=== PATIENT | male | born 1970 | race Caucasian/White ===

== ENCOUNTER 2020-12-25 01:46 | Emergency (ER) | payer MEDICARE, MEDICAID, SELFPAY ==
[2020-12-25 01:56] VITALS: BP 137/89; PULSE 79; RESP 16; TEMP 36.6; O2SAT 100; BMI 23.5
--- NOTE | 2020-12-25 03:00 | ED_ITS ---
HPI - General Adult General Chief complaint: General Medical Stated complaint: HIP PAIN Time Seen by Provider: 12/25/20 03:00 Source: patient Mode of arrival: EMS Limitations: no limitations History of Present Illness HPI narrative: Patient homeless got wet in the rain came here has he was feeling cold no other complaint other than left hip pain which is chronic. No history of injuries patient ambulatory on arrival patient temperature was 97.9 degrees Review of Systems Review of Systems: Yes all other systems are reviewed and are negative [facility] Social History Social History Advance Directives: No Advance Directives Information Provided: Yes Physical Exam Vital Signs: Vital Signs: Last Vital Signs Temp 97.9 F 12/25/20 01:56 Pulse 79 12/25/20 01:56 Resp 16 12/25/20 01:56 BP 137/89 12/25/20 01:56 Pulse Ox 100 12/25/20 01:56 Body Mass Index 23.5 Appearance: Alert. Oriented X3. No acute distress. Eyes: PERRLA, No Nystagmus ENT: Pharynx normal. Oral Mucosa moist Neck: Normal inspection. Neck supple. CVS: Normal heart rate and rhythm. Pulses normal. Respiratory: No respiratory distress. Equal air entry bilateral, no wheezing/rales/rhonchi Abdomen: Soft and nontender. Bowel sounds are present, no mass palpable, no CVA tenderness Skin: Skin warm and dry. Normal skin color. Normal skin turgor. Extremities: No lower extremity edema. No calf tenderness ,good range of movements of the hip Neuro: Oriented X 3. No motor deficit. Medical Decision Making MDM Narrative Medical decision making narrative: Patient with no active complaints will discharge patient home Discharge Plan Discharge Clinical Impression: Normal exam Patient Disposition: Home, Self-Care Instructions: Normal Exam (ED) Additional Instructions: Follow-up with PCP if any concerns
[2020-12-25 06:39] VITALS: RESP 16
== END 2020-12-25 07:24 | disposition home or self-care (01) ==
PROVIDERS: Emergency Provider Internal Medicine
DX: M25.552 Pain in left hip (principal)
CPT/HCPCS: 99283; 99284

== ENCOUNTER 2021-01-12 00:42 | Emergency (ER) | payer MEDICARE, MEDICAID, SELFPAY ==
--- NOTE | 2021-01-12 01:09 | ED.ALCOHOL ---
HPI - Alcohol General Stated Complaint: ETOH INTOXICATION Time Seen by Provider: 01/12/21 01:09 History of Present Illness HPI narrative: Patient is 50 years old positive EtOH. Patient denies any suicidal homicidal ideation. Was feeling cold in the rain. Sent in for further evaluation. Review of Systems Review of Systems: No fever no chills no chest pain or shortness of breath. No coughing or congestion or upper respiratory symptoms. Yes all other systems are reviewed and are negative [facility] Past Medical History Attestation statement: The following information was validated with the patient. Social History Social History Advance Directives: No Advance Directives Information Provided: No Physical Exam Vital Signs: Appearance: Alert. Oriented X3. No acute distress. Eyes: Pupils equal, round and reactive to light. ENT: Pharynx normal. Neck: Normal inspection. Neck supple. No lymph nodes noted. No crepitus CVS: Normal heart rate and rhythm. Pulses normal. Normal S1 and S2 Respiratory: No respiratory distress. Breath sounds normal. No Wheezing. No rales Abdomen: Soft and nontender. No rigidity. No distention. good BS x4 Skin: Skin warm and dry. Normal skin color. Normal skin turgor. Extremities: No lower extremity edema. Neurovascular intact to all extremities. No Lacerations. No Rash Neuro: Oriented X 3. No motor deficit. No sensory deficit. Moving all extermities. No slurred speech MDM - Alcohol MDM Narrative Medical decision making narrative: Patient awaiting clinical sobriety. In stable condition. No distress. Differential Diagnosis Differential diagnosis: Likely alcohol intoxication Discharge Plan Discharge Clinical Impression: Alcohol intoxication Patient Disposition: Home, Self-Care Instructions: Alcohol Intoxication (ED) Referrals: Physician,None [Primary Care Provider] - 2 days (Please stop drinking alcohol.)
[2021-01-12 01:36] VITALS: BP 137/88; PULSE 87; RESP 18; TEMP 36.7; O2SAT 97; BMI 26.6
--- NOTE | 2021-01-12 01:38 | PC.NURSE ---
IN ROOM FOR EVAL. PT UP TO CHANGE IN RESTROOM. PT ALERT, RESPIRATIONS EASY, N/L. PT WITH STEADY EVEN GAIT TO RESTROOM WITHOUT DIFFICULTY. PT RETURNS TO [facility] AND MAKING PHONE CALLS FOR [facility]. WILL CONTINUE TO MONITOR PT.
== END 2021-01-12 06:47 | disposition home or self-care (01) ==
PROVIDERS: Emergency Provider Emergency Medicine Emergency Medical Services
DX: F10.129 Alcohol abuse with intoxication, unspecified (principal); Z71.41 Alcohol abuse counseling and surveillance of alcoholic
CPT/HCPCS: 99283

== ENCOUNTER 2021-06-01 21:38 | Emergency (ER) | payer MEDICARE, MEDICAID, SELFPAY ==
[2021-06-01 21:43] VITALS: BP 119/73; BP 133/81; PULSE 85; PULSE 88; RESP 16; TEMP 36.5; O2SAT 100; O2SAT 97; BMI 25.8
--- NOTE | 2021-06-01 22:11 | ED.GENADULT ---
HPI - General Adult General Chief complaint: ETOH/Substance Use <ESCOBAR Gao - Last Filed: 06/02/21 00:42> Stated complaint: CRISIS,SUBSTANCE,FOUND OUTSIDE USE PER EMS <ESCOBAR Gao - Last Filed: 06/02/21 00:42> Time Seen by Provider: 06/01/21 21:52 <ESCOBAR Gao - Last Filed: 06/02/21 00:42> Source: patient, EMS and police <ESCOBAR Gao - Last Filed: 06/02/21 00:42> Mode of arrival: EMS <ESCOBAR Gao - Last Filed: 06/02/21 00:42> Limitations: other (Patient not a great historian as he is intoxicated.) <ESCOBAR Gao Last Filed: 06/02/21 00:42> History of Present Illness HPI narrative: This is a 50-year-old male who was brought in by ambulance to [place] police for drug use. According to police they received a call as patient's friend was concerned that he was using cocaine and alcohol for a few days. Patient was [place] sleeping at the gas station and was brought into the hospital. Patient has no complaints. He tells me he is fine and he wants to leave. There is no signs of acute trauma. Patient appears acutely intoxicated therefore an accurate review of systems was not obtained but when I asked patient if anything hurts he tells me know. He tells me he was just sleeping at the gas station like he usually does. He tells me he drinks daily, tells me he drinks all day long and is unable to quantify how much he is drink today. Last drink just prior to his arrival. He also tells me he tried crack and cocaine. Denies medical complaints at this time. Awake, alert and oriented. Denies SI and HI. Denies visual, auditory and tactile hallucinations. <ESCOBAR Gao - Last Filed: 06/02/21 00:42> Onset (ago): unknown <ESCOBAR Gao Last Filed: 06/02/21 00:42> Relieving factors: none <ESCOBAR Gao Last Filed: 06/02/21 00:42> Exacerbating factors: none <ESCOBAR Gao - Last Filed: 06/02/21 00:42> Associated symptoms: denies other symptoms <ESCOBAR Gao - Last Filed: 06/02/21 00:42> Treatments prior to arrival: none <ESCOBAR Gao - Last Filed: 06/02/21 00:42> Related Data Allergies/adverse reactions: Allergies Allergy/AdvReac Type Severity Reaction Status Date / Time No Known Allergies Allergy Verified 06/01/21 21:58 <ESCOBAR Gao - Last Filed: 06/02/21 00:42> Review of Systems Review of Systems: Patient too intoxicated to obtain accurate review of systems. <ESCOBAR Gao - Last Filed: 06/02/21 00:42> Yes Unobtainable due to mental status <ESCOBAR Gao - Last Filed: 06/02/21 00:42> [facility] Past Medical History Attestation statement: The following information was validated with the patient. <ESCOBAR Gao - Last Filed: 06/02/21 00:42> Source: old records reviewed and nursing notes reviewed <ESCOBAR Gao - Last Filed: 06/02/21 00:42> Social History Social History: Social History Advance Directives: No <ESCOBAR Gao - Last Filed: 06/02/21 00:42> Physical Exam ED Vital Signs: Vital Signs - 24 hr 06/01/21 21:43 06/01/21 23:01 06/02/21 00:03 Temperature 97.7 F Pulse Rate 88 90 Respiratory Rate 16 14 16 Blood Pressure 133/81 131/83 Pulse Oximetry 97 98 06/02/21 06:07 Temperature Pulse Rate 81 Respiratory Rate 18 Blood Pressure 146/95 H Pulse Oximetry 98 BMI result Body Mass Index 25.8 Vital signs stable. <ESCOBAR Gao - Last Filed: 06/02/21 00:42> Vital Signs - 24 hr 06/01/21 21:43 06/01/21 23:01 06/02/21 00:03 Temperature 97.7 F Pulse Rate 88 90 Respiratory Rate 16 14 16 Blood Pressure 133/81 131/83 Pulse Oximetry 97 98 06/02/21 06:07 Temperature Pulse Rate 81 Respiratory Rate 18 Blood Pressure 146/95 H Pulse Oximetry 98 BMI result Body Mass Index 25.8 <Ebony Lang MD - Last Filed: 06/02/21 06:20> Appearance: Alert.? Oriented X3.? No acute distress.? Patient evidently intoxicated, smells like alcohol, slurring his words however no acute distress. No evidence signs of trauma. Head: Normocephalic, atraumatic, no step-offs or deformities Eyes: Pupils equal, round and reactive to light.? Extraocular movements intact. ENT: Pharynx normal.? Neck: Normal inspection.? Neck supple.? CVS: Normal heart rate and rhythm.? Pulses normal.? Respiratory: No respiratory distress.? Breath sounds normal.? Abdomen: Soft and nontender.? Skin: Skin warm and dry.? Normal skin color.? Normal skin turgor.? Extremities: No lower extremity edema.? No calf ttp. 5/5 strength to bilateral upper and lower extremities Back: No midline tenderness, no C-spine tenderness, full range of motion, no CVA tenderness bilaterally Neuro: Oriented X 3.? No motor deficit.? No sensory deficit. CN 2-12 intact . Patient following commands appropriately. <ESCOBAR Gao - Last Filed: 06/02/21 00:42> Course Reevaluation(s) Reevaluation #1: Patient ambulating to bathroom with steady gait. No medical complaints. Feeling slightly anxious. Ativan will be given at this time. <ESCOBAR Gao - Last Filed: 06/02/21 00:42> Time: 23:31 <ESCOBAR Gao - Last Filed: 06/02/21 00:42> Reevaluation #2: Patient is making weird noises, rolling around the bed, walking around the room, hazard to self and others. Will give Zyprexa at this time p.o. as he is willing to take this medication. Patient's laboratory studies appear to be at baseline. Patient's MCV noted to be elevated likely secondary to alcohol abuse. Patient's ethanol level 298. Urine and urine toxicology pending. At this time patient will be placed in physician observation to allow more time for patient to sober up, received fluids, and speak to the behavioral health team. At time observation was started patient was given Zyprexa to help him relax and sleep vital signs were stable physical examination unchanged from initial. <ESCOBAR Gao - Last Filed: 06/02/21 00:42> Time: 00:40 <ESCOBAR Gao - Last Filed: 06/02/21 00:42> Reevaluation #3: Report given to Dr. Lang. <ESCOBAR Gao - Last Filed: 06/02/21 00:42> Report given to Dr. Lang. Patient re-evaluated and is found to be clinically sober and hemodynamically stable for discharge. He declines detox at this time. <Ebony Lang MD - Last Filed: 06/02/21 06:20> Time: 06:20 <Ebony Lang MD - Last Filed: 06/02/21 06:20> Medical Decision Making MDM Narrative Medical decision making narrative: 2200 50 yo m BIBA by ems and police for drug use , bystanders called police concern for him. He was found sleeping where he usually sleeps at a gas station. No evidence signs of trauma. Alert and oriented x3. Telling me he does not want to be here. Tells me he used alcohol crack and cocaine. No medical complaints at this time. Denies SI and HI. Physical examination benign. Plan at this time is to obtain basic labs, drug screen, COVID, ethanol and UA. <ESCOBAR Gao - Last Filed: 06/02/21 00:42> Medical Records Medical records reviewed: Yes I reviewed the patient's medical records. <ESCOBAR Gao - Last Filed: 06/02/21 00:42> Lab Data Lab results reviewed: Yes I reviewed the patient's lab results. <ESCOBAR Gao - Last Filed: 06/02/21 00:42> Result diagrams: : 06/01/21 22:50 06/01/21 22:50 <ESCOBAR Gao - Last Filed: 06/02/21 00:42> Labs: Lab Results 06/01/21 06/01/21 06/01/21 Range/Units 22:50 22:50 22:50 WBC 6.1 (4.8-10.8) X10*3/uL RBC 4.41 L (4.60-5.80) X10*6/uL Hgb 15.0 (14.0-18.0) g/dl Hct 44.0 (42.0-52.0) % MCV 99.8 H (80.0-98.0) fL MCH 34.0 H (27.0-33.0) pg MCHC 34.1 (31.0-36.0) g/dl RDW 11.4 (11.0-16.0) % Plt Count 307 (160-400) X10*3/uL MPV 9.3 L (9.4-12.4) fL Immature Gran % (Auto) 0.3 (0.0-0.4) % Neut % (Auto) 57.3 (45-73) % Lymph % (Auto) 34.0 (20-40) % [place] % (Auto) 6.2 (2-11) % Eos % (Auto) 1.5 (0-4) % Baso % (Auto) 0.7 (0-2) % Lymph # (Auto) 2.1 (1.2-4.9) X10*3/uL [place] # (Auto) 0.4 (0.1-1.2) X10*3/uL Eos # (Auto) 0.1 (0.0-0.4) X10*3/uL Baso # (Auto) 0.0 (0.0-0.2) X10*3/uL Abs Immat Gran (auto) 0.02 (0.00-0.03) X10*3/uL Absolute Neuts (auto) 3.5 (2.0-8.3) x10*3/uL Absolute Nucleated RBC 0.000 (0.0-0.012) X10*3/uL Nucleated RBC % (auto) 0.0 (0.0-0.2) /100WBC Sodium 143 (135-145) mmol/L Potassium 4.0 (3.3-5.1) mmol/L Chloride 105 (96-108) mmol/L Carbon Dioxide 26 (22-29) mmol/L Anion Gap 16 (12-20) BUN 10 (9-16) mg/dL Creatinine 0.81 (0.5-1.4) mg/dL Estim Creat Clear Calc 100.6 Estimated GFR > 60 Random Glucose 91 (60-115) mg/dL Calcium 10.0 (8.4-10.2) mg/dL Total Bilirubin 0.3 (0.0-1.0) mg/dL AST 78 H (5-37) U/L ALT 53 H (0-40) U/L Alkaline Phosphatase 65 (39-117) U/L Total Protein 8.0 (6.5-8.0) g/dL Albumin 4.7 (3.5-5.0) g/dL Ethyl Alcohol 298 mg/dL <ESCOBAR Gao - Last Filed: 06/02/21 00:42> Lab Results 06/01/21 06/01/21 06/01/21 Range/Units 22:50 22:50 22:50 WBC 6.1 (4.8-10.8) X10*3/uL RBC 4.41 L (4.60-5.80) X10*6/uL Hgb 15.0 (14.0-18.0) g/dl Hct 44.0 (42.0-52.0) % MCV 99.8 H (80.0-98.0) fL MCH 34.0 H (27.0-33.0) pg MCHC 34.1 (31.0-36.0) g/dl RDW 11.4 (11.0-16.0) % Plt Count 307 (160-400) X10*3/uL MPV 9.3 L (9.4-12.4) fL Immature Gran % (Auto) 0.3 (0.0-0.4) % Neut % (Auto) 57.3 (45-73) % Lymph % (Auto) 34.0 (20-40) % [place] % (Auto) 6.2 (2-11) % Eos % (Auto) 1.5 (0-4) % Baso % (Auto) 0.7 (0-2) % Lymph # (Auto) 2.1 (1.2-4.9) X10*3/uL [place] # (Auto) 0.4 (0.1-1.2) X10*3/uL Eos # (Auto) 0.1 (0.0-0.4) X10*3/uL Baso # (Auto) 0.0 (0.0-0.2) X10*3/uL Abs Immat Gran (auto) 0.02 (0.00-0.03) X10*3/uL Absolute Neuts (auto) 3.5 (2.0-8.3) x10*3/uL Absolute Nucleated RBC 0.000 (0.0-0.012) X10*3/uL Nucleated RBC % (auto) 0.0 (0.0-0.2) /100WBC Sodium 143 (135-145) mmol/L Potassium 4.0 (3.3-5.1) mmol/L Chloride 105 (96-108) mmol/L Carbon Dioxide 26 (22-29) mmol/L Anion Gap 16 (12-20) BUN 10 (9-16) mg/dL Creatinine 0.81 (0.5-1.4) mg/dL Estim Creat Clear Calc 100.6 Estimated GFR > 60 Random Glucose 91 (60-115) mg/dL Calcium 10.0 (8.4-10.2) mg/dL Total Bilirubin 0.3 (0.0-1.0) mg/dL AST 78 H (5-37) U/L ALT 53 H (0-40) U/L Alkaline Phosphatase 65 (39-117) U/L Total Protein 8.0 (6.5-8.0) g/dL Albumin 4.7 (3.5-5.0) g/dL Ethyl Alcohol 298 mg/dL <Ebony Lang MD - Last Filed: 06/02/21 06:20> Critical Care Time Critical Care Time Critical Care Time: No <ESCOBAR Gao - Last Filed: 06/02/21 00:42> Discharge Plan Discharge Clinical Impression: Alcoholic intoxication, Opiate abuse, continuous <ESCOBAR Gao - Last Filed: 06/02/21 00:42> Patient Disposition: Home, Self-Care <ESCOBAR Gao - Last Filed: 06/02/21 00:42> Instructions: Cocaine Abuse (ED), Alcohol Intoxication (ED) <ESCOBAR Gao - Last Filed: 06/02/21 00:42> Additional Instructions: Stop doing drugs and drinking alcohol and follow-up with your primary care provider. <ESCOBAR Gao - Last Filed: 06/02/21 00:42>
[2021-06-01 22:57] LABS: MANUAL DIFF FLAG NO
[2021-06-01 22:59] LABS: Basophils Percent Auto 0.7 % (0-2); Eosinophils Absolute Auto 0.1 X10*3/uL (0.0-0.4); Eosinophils Percent Auto 1.5 % (0-4); Imm Gran Abs Auto 0.02 X10*3/uL (0.00-0.03); Imm Gran Pct Auto 0.3 % (0.0-0.4); Lymphocytes Absolute Auto 2.1 X10*3/uL (1.2-4.9); Mean Corpuscular HGB Conc 34.1 g/dl (31.0-36.0); Mean Corpuscular Volume 99.8 fL (80.0-98.0); Mean Platelet Volume 9.3 fL (9.4-12.4); Monocytes Absolute Auto 0.4 X10*3/uL (0.1-1.2); Monocytes Percent Auto 6.2 % (2-11); Neutrophils Absolute Auto 3.5 x10*3/uL (2.0-8.3); Neutrophils Percent Auto 57.3 % (45-73); Platelet Count 307 X10*3/uL (160-400); Red Blood Count 4.41 X10*6/uL (4.60-5.80); Red Cell Distribution Width 11.4 % (11.0-16.0); White Blood Count 6.1 X10*3/uL (4.8-10.8)
[2021-06-01 23:01] VITALS: RESP 14
[2021-06-01 23:14] LABS: Alanine Aminotransferase 53 U/L (0-40); Albumin Level 4.7 g/dL (3.5-5.0); Alkaline Phosphatase 65 U/L (39-117); Anion Gap 16 (12-20); Aspartate Amino Transferase 78 U/L (5-37); Bilirubin Total 0.3 mg/dL (0.0-1.0); Blood Urea Nitrogen 10 mg/dL (9-16); Carbon Dioxide 26 mmol/L (22-29); Chloride 105 mmol/L (96-108); Creatinine Clr Calc Pharmacy 100.6; Estimated Glomerular Filt Rate > 60; Glucose Random 91 mg/dL (60-115); Sodium 143 mmol/L (135-145)
[2021-06-01 23:17] LABS: Ethanol 298 mg/dL
[2021-06-01] MEDS: LORazepam 1 MG TABLET 2 MG PO (23:39)
[2021-06-02 00:03] VITALS: BP 131/83; PULSE 90; RESP 16; O2SAT 98
[2021-06-02] MEDS: OLANZapine 5 MG TABLET PO (01:03)
[2021-06-02 06:07] VITALS: BP 146/95; PULSE 81; RESP 18; O2SAT 98
== END 2021-06-02 06:30 | disposition home or self-care (01) ==
PROVIDERS: Physician Assistant; Emergency Provider Student in an Organized Health Care Education/Training Program
DX: F10.220 Alcohol dependence with intoxication, uncomplicated (principal); Y90.8 Blood alcohol level of 240 mg/100 ml or more; F41.9 Anxiety disorder, unspecified; F11.10 Opioid abuse, uncomplicated
CPT/HCPCS: 36415; 80053; 82077; 85025; 96360; 99283; 99284

== ENCOUNTER 2021-06-03 15:48 | Emergency (ER) | payer MEDICARE, MEDICAID, SELFPAY | END 2021-06-03 16:49 | disposition left against medical advice (07) | PROVIDERS: Emergency Provider Emergency Medicine | DX: M25.559 Pain in unspecified hip (principal) ==

== ENCOUNTER 2021-06-03 22:07 | Emergency (ER) | payer MEDICARE, MEDICAID, SELFPAY ==
[2021-06-03 22:35] VITALS: BP 103/74; PULSE 104; RESP 19; TEMP 36.9; O2SAT 95; BMI 16.1
--- NOTE | 2021-06-04 00:12 | ED.GENADULT ---
HPI - General Adult General Chief complaint: General Medical Stated complaint: Eval Time Seen by Provider: 06/04/21 00:12 Source: patient Mode of arrival: EMS Limitations: no limitations History of Present Illness HPI narrative: diarrhea and heartburn for the past 2 days. Had watery diarrhea in the ambulance. Onset (ago): hour(s) Pain Consistency: intermittent Associated symptoms: nausea/vomiting and other (diarrhea) Related Data Previous Rx's Medication Instructions Recorded ondansetron 4 mg disintegrating 4 mg PO Q8H 4 Days #12 tab 06/04/21 tablet Allergies Allergy/AdvReac Type Severity Reaction Status Date / Time No Known Allergies Allergy Verified 06/01/21 21:58 Review of Systems Constitutional: Constitutional: Reports no additional constitutional complaints Eyes: Eyes: Reports no additional eye complaints ENT: Denies dizziness Cardiovascular: Cardiovascular: Reports no additional cardiovascular complaints Respiratory: Respiratory: Reports as per HPI Gastrointestinal: Gastrointestinal: Reports no additional gastrointestinal complaints Musculoskeletal: Musculoskeletal: Reports no additional musculoskeletal complaints Integumentary/Breasts: Skin/Breast: Denies rash Neurologic: Reports system reviewed and no additional complaints, except as documented, Denies dizziness and Denies Sensory deficit (Neuro) Psychiatric: Psychiatric: Denies anxiety [facility] Social History Social History Advance Directives: No Physical Exam ED Vital Signs: Vital Signs - 24 hr 06/03/21 22:35 Temperature 98.4 F Pulse Rate 104 H Respiratory Rate 19 Blood Pressure 103/74 Pulse Oximetry 95 BMI result Body Mass Index 16.1 Const Other: male looking older than stated age Nutritional Appearance: thin Orientation/consciousness: oriented to person and patient oriented x3 Limitations: no limitations HENMT Head: Yes normal to inspection Ears: external ears normal General nose exam: Normal external nose present Mouth: Normal oral and palatal mucosa present and oropharynx normal Throat: Yes posterior oropharynx normal Eyes General: appearance normal, both eyes and all related structures Neck Neck: Yes normal visual inspection Chest Chest palpation & inspection: normal inspection of the chest Resp Auscultation: clear to auscultation bilaterally Cardio Jugular venous distension: no JVD Rate: regular rate Rhythm: regular rhythm Heart sounds: S1 normal heart sound present and S2 normal heart sound present GI Inspection: Yes normal to inspection Palpation (GI): Soft to palpation, nontender and No hepatosplenomegaly present Auscultation: normal bowel sounds General: Yes no CVA tenderness Back/Spine/Pelvis Back: no CVA tenderness Skin General skin exam: no rashes or lesions noted Neuro General: oriented to person and patient oriented x3 Cranial nerves: Yes CN's II-XII intact bilaterally Motor exam (neuro): 5/5 motor strength present throughout Sensory Exam: No Sensory deficit (Neuro) Extrem General: Yes normal to inspection Psych Appearance: grossly normal Course Reevaluation(s) Reevaluation #1: no further vomiting or diarrhea, will dc home Time: 06:01 Discharge Plan Discharge Clinical Impression: Nausea vomiting and diarrhea Patient Disposition: Home, Self-Care Instructions: Acute Nausea and Vomiting (ED), Acute Diarrhea (ED) Prescriptions: New ondansetron 4 mg tablet,disintegrating 4 mg PO Q8H 4 Days Qty: 12 0RF Referrals: Physician,Unknown J [Primary Care Provider] - 1 week
[2021-06-04] MEDS: Famotidine 20 MG TABLET PO (00:57)
[2021-06-04] MEDS: Ondansetron ODT 4 MG TAB.RAPDIS TRANSLINGU (00:57)
== END 2021-06-04 06:43 | disposition home or self-care (01) ==
PROVIDERS: Emergency Provider Emergency Medicine
DX: R19.7 Diarrhea, unspecified (principal); R11.2 Nausea with vomiting, unspecified
CPT/HCPCS: 99283

== ENCOUNTER 2021-09-19 20:36 | Emergency (ER) | payer MEDICARE, MEDICAID, SELFPAY ==
--- NOTE | ~2021-09-19 | XR_ITS ---
EXAMINATION: XR CHEST CLINICAL INFORMATION: Chest pain COMPARISON: None TECHNIQUE: Frontal view of the chest was obtained. FINDINGS: Normal symmetric lung volumes. No parenchymal consolidation. Nipple shadows present. No pleural effusion. No pneumothorax. Cardiomediastinal silhouette and pulmonary vascularity are within normal limits. No acute osseous abnormalities. XR/XR chest 1V IMPRESSION: No acute finding
--- NOTE | 2021-09-19 20:43 | ED.ALCOHOL ---
HPI - Alcohol General Chief Complaint: ETOH/Substance Use Stated Complaint: etoh Source: patient and EMS Mode of arrival: EMS Limitations: no limitations History of Present Illness HPI narrative: 51-year-old male presents via EMS for ETOH and substance abuse. Patient is requesting detox. MD complaint: alcohol intoxication and desires rehab Last drink: Just prior to admission Chronic alcohol use: Yes Previous visits for alcohol intoxication: Yes Recent trauma: No Associated symptoms: abdominal pain Treatments prior to arrival: none Related Data Previous Rx's Medication Instructions Recorded ondansetron 4 mg disintegrating 4 mg PO Q8H 4 days #12 tabs 06/04/21 tablet Allergies Allergy/AdvReac Type Severity Reaction Status Date / Time No Known Allergies Allergy Verified 06/01/21 21:58 Review of Systems Review of Systems: Constitutional: No Fever, No Chills ENT/Mouth: No sore throat, No Rhinorrhea Eyes: No Eye Pain, No Swelling, No Redness Cardiovascular: No Chest Pain, No SOB Respiratory: No Cough, No Sputum Gastrointestinal: No Nausea, No Vomiting, No Diarrhea, positive abdominal Pain Genitourinary: No Dysuria, No Hematuria Musculoskeletal: No joint pain, No Myalgias, No Joint Swelling Skin: No Skin Lesions, No rash Neuro: No Weakness, No Numbness, No Loss of Consciousness, No Dizziness, No Headache Psych: Positive alcohol cocaine and heroin abuse, No Anxiety, No Depression, No SI/HI/AH/VH Heme/Lymph: No Bruising, No Bleeding,No Lymphadenopathy Endocrine: No Polyuria, No Polydipsia Yes all other systems are reviewed and are negative [facility] Past Medical History Attestation statement: The following information was validated with the patient. Source: old records reviewed Social History Social History Advance Directives: No Advance Directives Information Provided: No Physical Exam ED Vital Signs: Vital Signs - 24 hr 09/19/21 23:39 Pulse Rate 97 Respiratory Rate 18 Blood Pressure 156/87 H Pulse Oximetry 100 Oxygen Delivery Method Room Air BMI result Body Mass Index 25.8 Appearance: Alert. Oriented X3. Intoxicated. Unkempt. Eyes: Pupils equal, round and reactive to light. Sclera nonicteric. ENT: Pharynx normal. Neck: Normal inspection. Neck supple. CVS: Tachycardic heart rate and rhythm. Pulses normal. Respiratory: No respiratory distress. Breath sounds normal. Abdomen: Soft and left upper quadrant tenderness. Skin: Skin warm and dry. Normal skin color. Normal skin turgor. Extremities: No lower extremity edema. Moves all extremities against resistance. Neuro: No motor deficit. No sensory deficit. Cranial nerves 2-12 intact. Course Course Course Narrative: 51-year-old male presents via EMS for alcohol intoxication requesting detox. States that he drinks approximately a gal of vodka per day, and smokes cocaine and heroin. Patient is requesting detox. He is complaining of 9/10 abdominal pain. Physical exam indicates some tenderness to the left upper quadrant without rebound rigidity or distention. Will order lab values to rule out pancreatitis. Will order D EKG and chest x-ray. 20:50 detox bed is available. However there is no ability to get this patient to the bed CT as there is no lift services or taxis. Patient will be discharged to detox in the morning. Lab values are unremarkable. HENRIQUEZ positive for fentanyl and cocaine. No symptoms of withdrawal at this time 00:08. Metabolized to [facility] or to detox facility in the morning. Physician observation started at this time. MDM - Alcohol MDM Narrative Medical decision making narrative: Heroin and cocaine withdrawal Differential Diagnosis Differential diagnosis: Likely alcohol dependence, hypomagnesemia and alcohol intoxication Medical Records Attestation: I reviewed the patient's medical records. Lab Data Attestation: I reviewed the patient's lab results. Result diagrams: 09/19/21 21:28 09/19/21 21:28 Labs: Lab Results 09/19/21 09/19/21 09/19/21 Range/Units 21:27 21:28 21:28 WBC 4.2 L (4.8-10.8) X10*3/uL RBC 4.21 L (4.60-5.80) X10*6/uL Hgb 14.0 (14.0-18.0) g/dl Hct 40.4 L (42.0-52.0) % MCV 96.0 (80.0-98.0) fL MCH 33.3 H (27.0-33.0) pg MCHC 34.7 (31.0-36.0) g/dl RDW 12.0 (11.0-16.0) % Plt Count 160 D (160-400) X10*3/uL MPV 9.1 L (9.4-12.4) fL Immature Gran % (Auto) 0.0 (0.0-0.4) % Neut % (Auto) 41.5 L (45-73) % Lymph % (Auto) 46.6 H (20-40) % [place] % (Auto) 10.0 (2-11) % Eos % (Auto) 1.2 (0-4) % Baso % (Auto) 0.7 (0-2) % Lymph # (Auto) 2.0 (1.2-4.9) X10*3/uL [place] # (Auto) 0.4 (0.1-1.2) X10*3/uL Eos # (Auto) 0.1 (0.0-0.4) X10*3/uL Baso # (Auto) 0.0 (0.0-0.2) X10*3/uL Abs Immat Gran (auto) 0.00 (0.00-0.03) X10*3/uL Absolute Neuts (auto) 1.8 L (2.0-8.3) x10*3/uL Absolute Nucleated RBC 0.000 (0.0-0.012) X10*3/uL Nucleated RBC % (auto) 0.0 (0.0-0.2) /100WBC Sodium 142 (135-145) mmol/L Potassium 3.5 (3.3-5.1) mmol/L Chloride 102 (96-108) mmol/L Carbon Dioxide 26 (22-29) mmol/L Anion Gap 18 (12-20) BUN 13 (9-16) mg/dL Creatinine 0.82 (0.5-1.4) mg/dL Estim Creat Clear Calc 105.4 Estimated GFR > 60 Random Glucose 97 (60-115) mg/dL Calcium 8.7 D (8.4-10.2) mg/dL Magnesium 1.7 (1.6-2.6) mg/dL Total Bilirubin 0.4 (0.0-1.0) mg/dL Direct Bilirubin 0.2 (0.0-0.5) mg/dL AST 116 H (5-37) U/L ALT 62 H (0-40) U/L Alkaline Phosphatase 63 (39-117) U/L Troponin I High Sens (<3.5-35.0) ng/L Total Protein 6.9 (6.5-8.0) g/dL Albumin 3.8 (3.5-5.0) g/dL Lipase 34 (8-78) U/L Urine Color Urine Appearance Urine pH (5.0-8.0) Ur Specific [place] (1.005-1.025) Urine Protein (NEG-TRACE) MG/DL Urine Glucose (UA) (NEG) MG/DL Urine Ketones (NEG) MG/DL Urine Blood (NEG) Urine Nitrite (NEG) Ur Leukocyte Esterase (NEG) Urine Opiates Screen (Not Detect) Urine Fentanyl Screen (Not Detect) Ur Barbiturates Screen (Not Detect) Ur Phencyclidine Scrn (Not Detect) Ur Amphetamines Screen (Not Detect) U Benzodiazepines Scrn (Not Detect) Urine Cocaine Screen (Not Detect) U Marijuana (THC) Screen (Not Detect) Ethyl Alcohol mg/dL Influenza Type A (PCR) NEGATIVE (Negative) Influenza Type B (PCR) NEGATIVE (Negative) RSV RNA Qual (PCR) NEGATIVE (Negative) SARS-CoV-2 RNA (RT-PCR) NEGATIVE (Negative) 09/19/21 09/19/21 09/19/21 Range/Units 21:28 21:28 21:48 WBC (4.8-10.8) X10*3/uL RBC (4.60-5.80) X10*6/uL Hgb (14.0-18.0) g/dl Hct (42.0-52.0) % MCV (80.0-98.0) fL MCH (27.0-33.0) pg MCHC (31.0-36.0) g/dl RDW (11.0-16.0) % Plt Count (160-400) X10*3/uL MPV (9.4-12.4) fL Immature Gran % (Auto) (0.0-0.4) % Neut % (Auto) (45-73) % Lymph % (Auto) (20-40) % [place] % (Auto) (2-11) % Eos % (Auto) (0-4) % Baso % (Auto) (0-2) % Lymph # (Auto) (1.2-4.9) X10*3/uL [place] # (Auto) (0.1-1.2) X10*3/uL Eos # (Auto) (0.0-0.4) X10*3/uL Baso # (Auto) (0.0-0.2) X10*3/uL Abs Immat Gran (auto) (0.00-0.03) X10*3/uL Absolute Neuts (auto) (2.0-8.3) x10*3/uL Absolute Nucleated RBC (0.0-0.012) X10*3/uL Nucleated RBC % (auto) (0.0-0.2) /100WBC Sodium (135-145) mmol/L Potassium (3.3-5.1) mmol/L Chloride (96-108) mmol/L Carbon Dioxide (22-29) mmol/L Anion Gap (12-20) BUN (9-16) mg/dL Creatinine (0.5-1.4) mg/dL Estim Creat Clear Calc Estimated GFR Random Glucose (60-115) mg/dL Calcium (8.4-10.2) mg/dL Magnesium (1.6-2.6) mg/dL Total Bilirubin (0.0-1.0) mg/dL Direct Bilirubin (0.0-0.5) mg/dL AST (5-37) U/L ALT (0-40) U/L Alkaline Phosphatase (39-117) U/L Troponin I High Sens < 3.5 (<3.5-35.0) ng/L Total Protein (6.5-8.0) g/dL Albumin (3.5-5.0) g/dL Lipase (8-78) U/L Urine Color Urine Appearance Urine pH (5.0-8.0) Ur Specific [place] (1.005-1.025) Urine Protein (NEG-TRACE) MG/DL Urine Glucose (UA) (NEG) MG/DL Urine Ketones (NEG) MG/DL Urine Blood (NEG) Urine Nitrite (NEG) Ur Leukocyte Esterase (NEG) Urine Opiates Screen Not Detected (Not Detect) Urine Fentanyl Screen POSITIVE H (Not Detect) Ur Barbiturates Screen Not Detected (Not Detect) Ur Phencyclidine Scrn Not Detected (Not Detect) Ur Amphetamines Screen Not Detected (Not Detect) U Benzodiazepines Scrn Not Detected (Not Detect) Urine Cocaine Screen POSITIVE H (Not Detect) U Marijuana (THC) Screen Not Detected (Not Detect) Ethyl Alcohol 390 H* mg/dL Influenza Type A (PCR) (Negative) Influenza Type B (PCR) (Negative) RSV RNA Qual (PCR) (Negative) SARS-CoV-2 RNA (RT-PCR) (Negative) 09/19/21 Range/Units 21:49 WBC (4.8-10.8) X10*3/uL RBC (4.60-5.80) X10*6/uL Hgb (14.0-18.0) g/dl Hct (42.0-52.0) % MCV (80.0-98.0) fL MCH (27.0-33.0) pg MCHC (31.0-36.0) g/dl RDW (11.0-16.0) % Plt Count (160-400) X10*3/uL MPV (9.4-12.4) fL Immature Gran % (Auto) (0.0-0.4) % Neut % (Auto) (45-73) % Lymph % (Auto) (20-40) % [place] % (Auto) (2-11) % Eos % (Auto) (0-4) % Baso % (Auto) (0-2) % Lymph # (Auto) (1.2-4.9) X10*3/uL [place] # (Auto) (0.1-1.2) X10*3/uL Eos # (Auto) (0.0-0.4) X10*3/uL Baso # (Auto) (0.0-0.2) X10*3/uL Abs Immat Gran (auto) (0.00-0.03) X10*3/uL Absolute Neuts (auto) (2.0-8.3) x10*3/uL Absolute Nucleated RBC (0.0-0.012) X10*3/uL Nucleated RBC % (auto) (0.0-0.2) /100WBC Sodium (135-145) mmol/L Potassium (3.3-5.1) mmol/L Chloride (96-108) mmol/L Carbon Dioxide (22-29) mmol/L Anion Gap (12-20) BUN (9-16) mg/dL Creatinine (0.5-1.4) mg/dL Estim Creat Clear Calc Estimated GFR Random Glucose (60-115) mg/dL Calcium (8.4-10.2) mg/dL Magnesium (1.6-2.6) mg/dL Total Bilirubin (0.0-1.0) mg/dL Direct Bilirubin (0.0-0.5) mg/dL AST (5-37) U/L ALT (0-40) U/L Alkaline Phosphatase (39-117) U/L Troponin I High Sens (<3.5-35.0) ng/L Total Protein (6.5-8.0) g/dL Albumin (3.5-5.0) g/dL Lipase (8-78) U/L Urine Color YELLOW Urine Appearance CLEAR Urine pH 7.0 (5.0-8.0) Ur Specific [place] <= 1.005 (1.005-1.025) Urine Protein NEG (NEG-TRACE) MG/DL Urine Glucose (UA) NEG (NEG) MG/DL Urine Ketones NEG (NEG) MG/DL Urine Blood NEG (NEG) Urine Nitrite NEG (NEG) Ur Leukocyte Esterase NEG (NEG) Urine Opiates Screen (Not Detect) Urine Fentanyl Screen (Not Detect) Ur Barbiturates Screen (Not Detect) Ur Phencyclidine Scrn (Not Detect) Ur Amphetamines Screen (Not Detect) U Benzodiazepines Scrn (Not Detect) Urine Cocaine Screen (Not Detect) U Marijuana (THC) Screen (Not Detect) Ethyl Alcohol mg/dL Influenza Type A (PCR) (Negative) Influenza Type B (PCR) (Negative) RSV RNA Qual (PCR) (Negative) SARS-CoV-2 RNA (RT-PCR) (Negative) Imaging Data Chest x-ray: Attestation: I personally reviewed and interpreted this imaging study as follows: Radiologist's impression: EXAMINATION: XR CHEST CLINICAL INFORMATION: Chest pain COMPARISON: None TECHNIQUE: Frontal view of the chest was obtained. FINDINGS: Normal symmetric lung volumes. No parenchymal consolidation. Nipple shadows present. No pleural effusion. No pneumothorax. Cardiomediastinal silhouette and pulmonary vascularity are within normal limits. No acute osseous abnormalities. XR/XR chest 1V IMPRESSION: No acute finding ECG Data ECG #1: Attestation: I personally reviewed and interpreted this ECG as follows: ECG interpretation date: 09/19/21 ECG interpretation time: 00:12 Prior ECG tracings: available for review Interpretation: Vent. rate 81 BPM AR interval 152 ms QRS duration 84 ms QT/QTc 408/473 ms P-R-T axes 66 60 57 Normal sinus rhythm Normal ECG No previous ECGs available Discharge Plan Discharge Clinical Impression: Alcohol dependence, Polysubstance abuse Patient Disposition: Home, Self-Care Instructions: Abuse of Alcohol (ED), Polysubstance Abuse (ED) Additional Instructions: Please present to detox. Thank you for choosing this emergency department for evaluation. Please follow-up with primary care physician as needed. Return to the emergency department for any new, concerning, or worsening symptoms. Prescriptions: No Action ondansetron 4 mg tablet,disintegrating 4 mg PO Q8H 4 Days Qty: 12 0RF
--- NOTE | 2021-09-19 20:47 | ECG_ITS ---
Test Reason : ETOH Blood Pressure : / mmHG Vent. Rate : 081 BPM Atrial Rate : 081 BPM P-R Int : 152 ms QRS Dur : 084 ms QT Int : 408 ms P-R-T Axes : 066 060 057 degrees QTc Int : 473 ms Normal sinus rhythm Normal ECG No previous ECGs available Referred By: Nel Eaton Electronically Signed By:RACHEL TATE
[2021-09-19 20:52] VITALS: BP 121/79; PULSE 82; O2SAT 98; BMI 25.8
[2021-09-19 21:33] LABS: MANUAL DIFF FLAG NO
[2021-09-19 21:34] LABS: Basophils Percent Auto 0.7 % (0-2); Eosinophils Absolute Auto 0.1 X10*3/uL (0.0-0.4); Eosinophils Percent Auto 1.2 % (0-4); Hematocrit 40.4 % (42.0-52.0); Lymphocytes Percent Auto 46.6 % (20-40); Mean Corpuscular HGB Conc 34.7 g/dl (31.0-36.0); Mean Corpuscular Hemoglobin 33.3 pg (27.0-33.0); Mean Platelet Volume 9.1 fL (9.4-12.4); Monocytes Absolute Auto 0.4 X10*3/uL (0.1-1.2); Neutrophils Absolute Auto 1.8 x10*3/uL (2.0-8.3); Neutrophils Percent Auto 41.5 % (45-73); Platelet Count 160 X10*3/uL (160-400); Red Blood Count 4.21 X10*6/uL (4.60-5.80); White Blood Count 4.2 X10*3/uL (4.8-10.8)
[2021-09-19] MEDS: 0.9 % Sodium Chloride 1,000 ML 999 ML IV (21:40)
--- NOTE | 2021-09-19 21:44 | MHC.RECOVSUP ---
? Reason for consult:Recovery Support o Current location:[id number] o Identified substance use concern:ETOH and Heroine - Seeking ATS (detox) - Support ? Intervention: o ATS bed search started/completed/in process o MAT started or to be started o ? Plan: o Bed search in progress to o Follow up tomorrow o Patient to follow up with [facility] after discharge ? Additional information:Patient seeking detox
[2021-09-19 21:54] LABS: Troponin-I High Sensitivity < 3.5 ng/L (<3.5-35.0)
[2021-09-19 21:58] LABS: Alanine Aminotransferase 62 U/L (0-40); Albumin Level 3.8 g/dL (3.5-5.0); Alkaline Phosphatase 63 U/L (39-117); Anion Gap 18 (12-20); Aspartate Amino Transferase 116 U/L (5-37); Bilirubin Direct 0.2 mg/dL (0.0-0.5); Bilirubin Total 0.4 mg/dL (0.0-1.0); Blood Urea Nitrogen 13 mg/dL (9-16); Calcium 8.7 mg/dL (8.4-10.2); Carbon Dioxide 26 mmol/L (22-29); Chloride 102 mmol/L (96-108); Creatinine Clr Calc Pharmacy 105.4; Estimated Glomerular Filt Rate > 60; Glucose Random 97 mg/dL (60-115); Lipase 34 U/L (8-78); Magnesium 1.7 mg/dL (1.6-2.6); Potassium 3.5 mmol/L (3.3-5.1); Sodium 142 mmol/L (135-145); Total Protein 6.9 g/dL (6.5-8.0)
[2021-09-19 22:10] LABS: Appearance Urine CLEAR; Color Urine YELLOW; Glucose Urine UA NEG (NEG); Leukocyte Esterase Urine NEG (NEG); Nitrite Urine NEG (NEG); Specific Gravity - Urine <= 1.005 (1.005-1.025); Urine Blood NEG (NEG); Urine Ketones NEG (NEG); Urine Protein NEG (NEG-TRACE)
[2021-09-19 22:12] LABS: Influenza A PCR NEGATIVE (Negative); Influenza B PCR NEGATIVE (Negative); Resp Syncy Virus RNA Qual PCR NEGATIVE (Negative); SARS COV2 PCR INHOUSE NEGATIVE (Negative)
[2021-09-19 22:16] LABS: Amphetamine Screen Urine Not Detected (Not Detect); Barbiturates, Urine Not Detected (Not Detect); Benzodiazepines Screen Urine Not Detected (Not Detect); Cannabinoid Screen Urine Not Detected (Not Detect); Cocaine Screen Urine POSITIVE (Not Detect); Fentanyl, urine POSITIVE (Not Detect); Opiate Screen Urine Not Detected (Not Detect); Phencyclidine Screen Urine Not Detected (Not Detect)
[2021-09-19 23:39] VITALS: BP 156/87; PULSE 97; RESP 18; O2SAT 100
[2021-09-20 00:22] LABS: Ethanol 390 mg/dL
[2021-09-20 00:38] VITALS: BP 143/74; PULSE 82; RESP 18; O2SAT 100
[2021-09-20 04:55] VITALS: BP 159/95; PULSE 93; RESP 14; O2SAT 99
[2021-09-20 06:15] VITALS: RESP 12
--- NOTE | 2021-09-20 07:52 | PC.NURSE ---
care team aware of encouraging pt to go to get methadone. will talk to pt.
--- NOTE | 2021-09-20 08:19 | PC.NURSE ---
last dose 85mg at [facility] on 09/14 confirmed with fadi whitehead and arley from care team.
--- NOTE | 2021-09-20 08:58 | MHC.RECOVSUP ---
Recovery Support note: Patient is a 51 year old Thai speaking male who presented to [facility] ED after being found intoxicated in the community. This physician underwriter met with patient to discuss substance use and treatment options. Patient reports he was going to the [facility] on [address] however transferred his care to the [facility]. Patient tried to go to the clinic yesterday but showed up too late. Patient reports he started drinking and using because of this. This physician underwriter [facility] last dosed there on 09/14 with 85mg. When this physician underwriter met with patient, patient reported he wanted to leave and go directly to the [facility] in [place]. Patient provided with contact information for this physician underwriter and transport to the [facility] via Lyft. Discussed case with patient's RN.
--- NOTE | 2021-09-20 12:50 | PC.NURSE ---
SHARON FROM THE LAB CALLED TO REPORT TB SPOT TEST WAS CANCELLED SPECIMEN WAS NEVER OBTAINED AND THEY ARE UNABLE TO PROCESS THEM ON THE WEEKEND
== END 2021-09-20 08:34 | disposition home or self-care (01) ==
PROVIDERS: Nurse Practitioner Family; Emergency Provider Internal Medicine
DX: F10.229 Alcohol dependence with intoxication, unspecified (principal); Y90.8 Blood alcohol level of 240 mg/100 ml or more; F14.10 Cocaine abuse, uncomplicated; F11.10 Opioid abuse, uncomplicated; R07.9 Chest pain, unspecified; Z20.822 Contact with and (suspected) exposure to COVID-19
CPT/HCPCS: 0241U; 36415; 71045; 80048; 80076; 80307; 81003; 82077; 83690; 83735; 84484; 85025; 86481; 93005; 96360; 99284; 99285

== ENCOUNTER 2021-11-02 23:10 | Emergency (ER) | payer MEDICARE, MEDICAID, SELFPAY ==
[2021-11-02 23:14] VITALS: BP 140/70; PULSE 74; O2SAT 97
[2021-11-02 23:16] VITALS: BMI 22.4
--- NOTE | 2021-11-02 23:27 | ED.ALCOHOL ---
HPI - Alcohol General Chief Complaint: ETOH/Substance Use Stated Complaint: etoh Time Seen by Provider: 11/02/21 23:24 Source: patient Mode of arrival: EMS Limitations: altered mental status History of Present Illness HPI narrative: Patient was found drunk in the middle of the road next to his cart up along no signs of injury admits drinking alcohol complaining of epigastric pain no vomiting no diarrhea Related Data Allergies Allergy/AdvReac Type Severity Reaction Status Date / Time No Known Allergies Allergy Verified 11/02/21 23:30 Review of Systems Review of Systems: Yes all other systems are reviewed and are negative Physical Exam ED Vital Signs: BMI result Body Mass Index 22.4 Appearance: Alert. And awake No acute distress. Intoxicated Eyes: PERRLA, No Nystagmus ENT: Pharynx normal. Oral Mucosa moist Neck: Normal inspection. Neck supple. CVS: Normal heart rate and rhythm. Pulses normal. Respiratory: No respiratory distress. Equal air entry bilateral, no wheezing/rales/rhonchi Abdomen: Soft and nontender. Bowel sounds are present, no mass palpable, no CVA tenderness Skin: Skin warm and dry. Normal skin color. Normal skin turgor. Extremities: No lower extremity edema. No calf tenderness Neuro: Oriented X 3. No motor deficit. No sensory deficit.No cerebellar signs , cranial nerves II-XII intact intoxicated MDM - Alcohol MDM Narrative Medical decision making narrative: Patient ambulatory in steady gait does not want detox will discharge patient home Differential Diagnosis Differential diagnosis: Likely alcohol dependence Medical Records Attestation: I reviewed the patient's medical records. Discharge Plan Discharge Clinical Impression: Alcoholic intoxication Patient Disposition: Home, Self-Care Instructions: Abuse of Alcohol (ED) Additional Instructions: Stop drinking alcohol and Follow-up with detox Interventions: ED Discharge Assessment Last Done: 11/03/21 00:06
--- NOTE | 2021-11-02 23:45 | PC.NURSE ---
pt refusing vital signs, laying with blanket over head, asking to leave
--- NOTE | 2021-11-02 23:48 | PC.NURSE ---
pt refusing labwork and IV, stating nope you're not doing that MD notified. instructed this RN to PO and ambulation challenge pt
--- NOTE | 2021-11-02 23:52 | PC.NURSE ---
pt given kael gypsy and saltines, pt sitting up in bed eating
--- NOTE | 2021-11-03 00:15 | PC.NURSE ---
pt passed PO/ambulation challenge, was told his is discharged and pt states no, i demand a ride back to where I was because I didnt want to come here pt refusing to leave. MD aware, medical charge entry specialist notified, security contacted who escorted pt out of ER
== END 2021-11-03 00:50 | disposition home or self-care (01) ==
LOC: HO.ED 11-03 00:47
PROVIDERS: Emergency Provider Internal Medicine
DX: F10.220 Alcohol dependence with intoxication, uncomplicated (principal); Y90.9 Presence of alcohol in blood, level not specified; R10.13 Epigastric pain
CPT/HCPCS: 99282

== ENCOUNTER 2022-03-04 21:16 | Emergency (ER) | payer MEDICARE, MEDICAID, SELFPAY ==
[2022-03-04 21:21] VITALS: BP 105/56; PULSE 75; RESP 18; TEMP 36.5; O2SAT 97; BMI 23.2
--- NOTE | 2022-03-04 21:24 | ECG_ITS ---
Test Reason : SUBSTANCE USE Blood Pressure : / mmHG Vent. Rate : 069 BPM Atrial Rate : 069 BPM P-R Int : 146 ms QRS Dur : 090 ms QT Int : 424 ms P-R-T Axes : 078 086 063 degrees QTc Int : 454 ms Normal sinus rhythm Normal ECG When compared with ECG of 19-SEP-2021 20:53, No significant change was found Referred By: Sylvain Ku Electronically Signed By:NESS SHANONN MD
--- NOTE | 2022-03-04 21:26 | ED_ITS ---
HPI - General Adult General Chief complaint: ETOH/Substance Use Stated complaint: etoh Time Seen by Provider: 03/04/22 21:19 Source: EMS Mode of arrival: EMS Limitations: other (intoxicated/ poor hisotrian) History of Present Illness HPI narrative: This is a 51-year-old male medical history significant for alcohol abuse, polysubstance abuse, homelessness presenting to the emergency department via ambulance for suspected alcohol intoxication. According to EMS they received a call for an unresponsive male found on the floor of the elevator at [facility], they report that patient was not unresponsive when they arrived. Patient reported alcohol use however unable to tell me how much. Denies any ot her drugs or tobacco. When I asked him if he has any medical complaints he tells me he is having chest pain and abdominal pain however unable to elaborate on his pain. Patient poor historian. Unwilling to answer my review of systems. Denies SI and HI. Related Data Home Medications Medication Instructions Recorded Confirmed methadone 10 mg/mL oral concentrate 85 mg PO DAILY 09/21/21 09/21/21 Previous Rx's Medication Instructions Recorded ondansetron 4 mg disintegrating 4 mg PO Q8H 4 days #12 tabs 06/04/21 tablet Allergies Allergy/AdvReac Type Severity Reaction Status Date / Time No Known Allergies Allergy Verified 06/01/21 21:58 Review of Systems Review of Systems: Yes Unobtainable due to mental status PMFSH Past Medical History Attestation statement: The following information was validated with the patient. Source: old records reviewed and nursing notes reviewed Social History Social History Advance Directives: No Advance Directives Information Provided: No Physical Exam ED Vital Signs: Vital Signs - 24 hr 03/04/22 21:21 03/04/22 21:50 03/04/22 23:52 Temperature 97.7 F 98.1 F Pulse Rate 75 71 80 Respiratory Rate 18 17 18 Blood Pressure 105/56 L 108/66 128/88 Pulse Oximetry 97 98 96 Oxygen Delivery Method Room Air Room Air Room Air BMI result Body Mass Index 23.2 vss Appearance: Alert.? Oriented X3.? No acute distress.? Head: Normocephalic, atraumatic, no step-offs or deformities Eyes: Pupils equal, round and reactive to light.? Neck: Normal inspection.? Neck supple.? CVS: Normal heart rate and rhythm.? Pulses normal.? Respiratory: No respiratory distress.? Breath sounds normal.? Abdomen: Soft and nontender.? Skin: Skin warm and dry.? Normal skin color.? Normal skin turgor.? Extremities: No lower extremity edema.? No calf ttp. 5/5 strength to bilateral upper and lower extremities Neuro: Oriented X 3.? No motor deficit.? No sensory deficit. Course Reevaluation(s) Reevaluation #1: Patient's CBC appears to be at baseline. Chemistry with no acute findings. Troponin negative BNP within normal limits. Lipase within normal limits. Patient's ethanol level 280 consistent with acute alcohol intoxication. COVID negative. Urine and urine toxicology pending. Scans also pending because patient has not been able to sit still for scans. He tells me he is no longer experiencing any pain. Time: 23:44 Reevaluation #2: Sign out to Dr. Campos pending clinical sobriety, scans, ua and u tox. Time: 23:47 Medical Decision Making [facility] Narrative Medical decision making narrative: 2127 51-year-old male presents with suspected alcohol intoxication was found at the [employer] on the ground on the elevator. Brought in by EMS. Denies SI and HI. Appears intoxicated, poor historian, unwilling to answer review of systems. Physical examination benign. Plan at this time is to obtain basic labs, head CT, CT of the chest, abdomen and pelvis. Will also obtain troponin, EKG ACS is unlikely. Will obtain labs to rule out electrolyte abnormalities. Medical Records Medical records reviewed: Yes I reviewed the patient's medical records. Lab Data Lab results reviewed: Yes I reviewed the patient's lab results. Result diagrams: 03/04/22 21:40 03/04/22 21:40 Labs: Lab Results 03/04/22 03/04/22 03/04/22 Range/Units 21:40 21:40 21:40 WBC 4.0 L (4.8-10.8) X10*3/uL RBC 4.37 L (4.60-5.80) X10*6/uL Hgb 14.3 (14.0-18.0) g/dl Hct 42.4 (42.0-52.0) % MCV 97.0 (80.0-98.0) fL MCH 32.7 (27.0-33.0) pg MCHC 33.7 (31.0-36.0) g/dl RDW 11.1 (11.0-16.0) % Plt Count 228 D (160-400) X10*3/uL MPV 8.6 L (9.4-12.4) fL Immature Gran % (Auto) 0.3 (0.0-0.4) % Neut % (Auto) 50.7 (45-73) % Lymph % (Auto) 37.9 (20-40) % [place] % (Auto) 7.3 (2-11) % Eos % (Auto) 2.5 (0-4) % Baso % (Auto) 1.3 (0-2) % Lymph # (Auto) 1.5 (1.2-4.9) X10*3/uL [place] # (Auto) 0.3 (0.1-1.2) X10*3/uL Eos # (Auto) 0.1 (0.0-0.4) X10*3/uL Baso # (Auto) 0.1 (0.0-0.2) X10*3/uL Abs Immat Gran (auto) 0.01 (0.00-0.03) X10*3/uL Absolute Neuts (auto) 2.0 (2.0-8.3) x10*3/uL Absolute Nucleated RBC 0.000 (0.0-0.012) X10*3/uL Nucleated RBC % (auto) 0.0 (0.0-0.2) /100WBC Sodium 145 (135-145) mmol/L Potassium 4.4 D (3.3-5.1) mmol/L Chloride 103 (96-108) mmol/L Carbon Dioxide 26 (22-29) mmol/L Anion Gap 20 (12-20) BUN 21 H D (9-16) mg/dL Creatinine 0.85 (0.5-1.4) mg/dL Estim Creat Clear Calc 91.4 Estimated GFR > 60 Random Glucose 96 (60-115) mg/dL Calcium 9.2 (8.4-10.2) mg/dL Magnesium 2.3 (1.6-2.6) mg/dL Total Bilirubin 0.2 (0.0-1.0) mg/dL AST 65 H (5-37) U/L ALT 29 (0-40) U/L Alkaline Phosphatase 60 (39-117) U/L Troponin I High Sens (<3.5-35.0) ng/L B-Natriuretic Peptide (<100) pg/mL Total Protein 7.6 (6.5-8.0) g/dL Albumin 4.3 (3.5-5.0) g/dL Lipase 20 (8-78) U/L Ethyl Alcohol 280 mg/dL COVID-19 ([facility]) Negative (Negative) COVID-19 Clin Com See Note 03/04/22 03/04/22 Range/Units 21:40 21:40 WBC (4.8-10.8) X10*3/uL RBC (4.60-5.80) X10*6/uL Hgb (14.0-18.0) g/dl Hct (42.0-52.0) % MCV (80.0-98.0) fL MCH (27.0-33.0) pg MCHC (31.0-36.0) g/dl RDW (11.0-16.0) % Plt Count (160-400) X10*3/uL MPV (9.4-12.4) fL Immature Gran % (Auto) (0.0-0.4) % Neut % (Auto) (45-73) % Lymph % (Auto) (20-40) % [place] % (Auto) (2-11) % Eos % (Auto) (0-4) % Baso % (Auto) (0-2) % Lymph # (Auto) (1.2-4.9) X10*3/uL [place] # (Auto) (0.1-1.2) X10*3/uL Eos # (Auto) (0.0-0.4) X10*3/uL Baso # (Auto) (0.0-0.2) X10*3/uL Abs Immat Gran (auto) (0.00-0.03) X10*3/uL Absolute Neuts (auto) (2.0-8.3) x10*3/uL Absolute Nucleated RBC (0.0-0.012) X10*3/uL Nucleated RBC % (auto) (0.0-0.2) /100WBC Sodium (135-145) mmol/L Potassium (3.3-5.1) mmol/L Chloride (96-108) mmol/L Carbon Dioxide (22-29) mmol/L Anion Gap (12-20) BUN (9-16) mg/dL Creatinine (0.5-1.4) mg/dL Estim Creat Clear Calc Estimated GFR Random Glucose (60-115) mg/dL Calcium (8.4-10.2) mg/dL Magnesium (1.6-2.6) mg/dL Total Bilirubin (0.0-1.0) mg/dL AST (5-37) U/L ALT (0-40) U/L Alkaline Phosphatase (39-117) U/L Troponin I High Sens < 3.5 (<3.5-35.0) ng/L B-Natriuretic Peptide 53 (<100) pg/mL Total Protein (6.5-8.0) g/dL Albumin (3.5-5.0) g/dL Lipase (8-78) U/L Ethyl Alcohol mg/dL COVID-19 ([facility]) (Negative) COVID-19 Clin Com Critical Care Time Critical Care Time Critical Care Time: No Discharge Plan Discharge Clinical Impression: Alcoholic intoxication, Chest pain, Abdominal pain Patient Disposition: Home, Self-Care Instructions: Chest Pain (DC), Alcohol Intoxication (ED), Abdominal Pain (ED) Additional Instructions: Take your medications as prescribed. If you were prescribed antibiotics today, it is important that you take your medication to their entirety, do not skip any doses, do not finish them early. Follow-up with your primary care provider this week. Return to the emergency department with new or worsening symptoms. Such as fevers, chills, chest pain, shortness of breath, nausea, vomiting, dizziness, headache, vision changes, lethargy In case of emergency call 911 Prescriptions: No Action ondansetron 4 mg tablet,disintegrating 4 mg PO Q8H 4 Days Qty: 12 0RF methadone 10 mg/mL Concentrate 85 mg PO DAILY Referrals: Physician,Unknown J [Primary Care Provider] - 2 days Stand Alone Forms: Work/School Release
--- OUTSIDE RECORDS SUMMARY | 2022-03-04 21:46 | XMS_ITS | Continuity of Care Document ---
:1970 Author Organization [facility] Address [address] [place] [address]- Care Team Providers Name Role Phone Claude Dahl MD Primary Care Physician Encounter [facility] NBR [id number] Date(s): 05/24/19 - 06/03/19 [facility] [address] [place] [address]- Attending Physician: Shannon Oviedo Admitting Physician: AdmShannon miller Referring Physician: AdmtrShannon Allergies, Adverse Reactions, Alerts Substance Reaction Severity Status aspirin nausea Active acetaminophen-HYDROcodone Active Immunizations Given and Recorded Vaccine Date Status Refusal Reason pneumococcal 13-valent vaccine 03/01/17 Given Adacel (Tdap) (oldterm) 03/01/17 Given Afluria (oldterm)1 02/02/17 Recorded 1Result Comment: [06/14/2017] pt had done at the pharmacy Medications citalopram 10 mg oral tablet 1 tablet, By Mouth, Daily, # 90 tablet, 1 Refills, Maintenance, 04/17/19 0:52:00 EST, [id number], 173, cm, 02/01/19 15:06:00 EDT, Height, 70.8, kg, 01/17/19 20:54:00 EDT, Dry Weight Start Date: 04/17/19 Status: OrderedcloNIDine 0.1 mg oral tablet See Instructions, TAKE 1 TABLET BY MOUTH TWICE A DAY, STOP NALTREXONE, # 60 tablet, Refills 5, Tot. Refills 5, Soft Stop, 01/25/19 13:28:55 EDT, Instructions Replace Required Details, Route to PharmacyElectronically, [id number]... Start Date: 01/25/19 Status: OrderedFlovent HFA 110 mcg/inh inhalation aerosol 2 puffs, Inhalation, 2 times a day, rinse mouth and throat after use, # 12 Gm, 11 Refills, Maintenance, 08/08/18 12:19:13 EDT, Aerosol Start Date: 08/08/18 Status: Orderedomeprazole 20 mg oral enteric coated capsule 1 capsule = 20 mg, By Mouth, Daily, # 90 capsule, 0 Refills, Maintenance, 04/02/19 12:40:00 EST, EC Capsule, [facility], 173, cm, 02/01/19 15:06:00 EDT, Height, 70.8, kg, 01/17/19 20:54:00 EDT,Dry Weight Start Date: 04/02/19 Status: OrderedVentolin HFA 108 mcg/inh inhalation aerosol with adapter 2 puffs, Inhalation, 4 times a day, PRN Wheezing/Shortness of Breath, # 1 each, 3 Refills, Maintenance, 05/08/19 12:33:00 EST, Aerosol, [facility], 173, cm, 05/08/19 11:59:00 EST, Height, 70.8,kg, 01/17/19 20:54:00 EDT, Dry Weight Start Date: 05/08/19 Stop Date: 09/05/19 Status: Ordered Problem List Condition Effective Dates Status Health Status Informant Acute hepatitis C(Confirmed) Active Alcohol abuse(Confirmed) Active Asthma(Confirmed) Active Anxiety State, Unspecified(Confirmed) Active Asthma(Confirmed) Active GERD (gastroesophageal reflux Active disease)(Confirmed) 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 Active analgesic(Confirmed) LBP (low back pain)(Confirmed) Active Annual physical exam(Confirmed) Active Moderate tobacco use Active disorder(Confirmed) Vital Signs Most recent to oldest [Reference Range]: 1 Height 167.64 cm (02/06/15 2:06 PM) Weight 70.8 kg (02/06/15 2:06 PM) Oxygen Saturation [94-100 %] 96 % (02/06/15 2:06 PM) Pulse Rate [55-90 bpm] 89 bpm (02/06/15 2:06 PM) Body Mass Index [18.50-24.99] 25.19 *H* (02/06/15 2:06 PM) Blood Pressure [90-138/55-84 mm Hg] 110/76 mm Hg (02/06/15 2:06 PM) Liters per Minute 0 L/min (02/06/15 2:06 PM) Mode of Delivery (Oxygen) Room air (02/06/15 2:06 PM) Blood pressure sites Arm, left (02/06/15 2:06 PM) Weight Obtained Via Standing scale (02/06/15 2:06 PM) Social History Social History Type Response Smoking Status 5-9 cigarettes (between 1/4 to 1/2 pack)/day in last 30 days entered on: 01/17/19 Sex
--- OUTSIDE RECORDS SUMMARY | 2022-03-04 21:46 | XMS_ITS | Continuity of Care Document ---
:1970 Author Organization [facility] Address [address] [place] [id number]- Care Team Providers Name Role Phone Claude Dahl MD Primary Care Physician Encounter [facility] Date(s): 03/18/20 - 04/17/[address] [address] Attending Physician: Claude Dahl MD Admitting Physician: Claude Dahl MD Referring Physician: Claude Dahl MD Allergies, Adverse Reactions, Alerts Substance Reaction Severity Status NKA Active Immunizations Given and Recorded Vaccine Date Status Refusal Reason pneumococcal 13-valent vaccine 03/01/17 Given Adacel (Tdap) (oldterm) 03/01/17 Given Afluria (oldterm)1 02/02/17 Recorded 1Result Comment: [06/14/2017] pt had done at the pharmacy Medications citalopram 10 mg oral tablet See Instructions, TAKE 1 TABLET BY MOUTH EVERY DAY, # 30 tablet, Refills 5, Tot. Refills 5, Soft Stop, 06/11/19 14:14:00 EST, Instructions Replace Required Details, Route to Pharmacy Electronically, [id number], 173, cm, 06/11/19 13:57:00 EST,... Start Date: 06/11/19 Status: OrderedcloNIDine 0.1 mg oral tablet 1, tablet, By Mouth, 2 times a day, STOP NALTREXONE., # 180 tablet, Refills 0, Tot. Refills 0, Maintenance, 02/22/20 12:46:00 EST, Route to Pharmacy Electronically, [facility]pharm[facility] #1230, 168, cm, 11/16/19 21:04:00 EDT, Height, 60, kg, 11/16/19 21:04... Start Date: 02/22/20 Status: OrderedFlovent HFA 110 mcg/inh inhalation aerosol 2 puffs, Inhalation, 2 times a day, rinse mouth and throat after use, # 12 Gm, 5 Refills, Maintenance, 07/04/19 15:44:00 EDT, Aerosol, [facility], 173, cm, 06/11/19 13:57:00 EST, Height, 75, kg, 06/08/19 13:43:00 EST, Dry Weight Start Date: 07/04/19 Status: Orderedomeprazole 20 mg oral enteric coated capsule 1 capsule = 20 mg, By Mouth, Daily, # 90 capsule, 0 Refills, Maintenance, 02/18/20 14:14:00 EST, EC Capsule, [facility], 168, cm, 11/16/19 21:04:00 EDT, Height, 60, kg, 11/16/19 21:04:00 EDT, Dry Weight Start Date: 02/18/20 Status: OrderedVentolin HFA 108 mcg/inh inhalation aerosol with adapter 2 puffs, Inhalation, 4 times a day, PRN Wheezing/Shortness of Breath, # 1 each, 5 Refills, Maintenance, 04/15/20 12:15:00 EST, Aerosol, [facility], 168, cm, 03/18/20 11:41:00 EST, Height, 60, kg, 11/16/19 21:04:00 EDT, Dry Weight Start Date: 04/15/20 Stop Date: 10/12/20 Status: Ordered Problem List Condition Effective Dates Status Health Status Informant Acute hepatitis C(Confirmed) Active Alcohol abuse(Confirmed) Active Asthma(Confirmed) Active Anxiety State, Unspecified(Confirmed) Active Asthma(Confirmed) Active GERD (gastroesophageal reflux Active disease)(Confirmed) custodial current use of opiate Active analgesic(Confirmed) LBP (low back pain)(Confirmed) Active Annual physical exam(Confirmed) Active Moderate tobacco use Active disorder(Confirmed) Social History Social History Type Response Smoking Status 5-9 cigarettes (between 1/4 to 1/2 pack)/day in last 30 days entered on: 01/17/19 Sex
--- OUTSIDE RECORDS SUMMARY | 2022-03-04 21:46 | XMS_ITS | Continuity of Care Document ---
:1970 Author Organization [facility] Address [address] [place] [address]- Care Team Providers Name Role Phone Claude Dahl MD Primary Care Physician Encounter [facility] NBR [id number] Date(s): 05/12/20 - 06/11/20 [facility] [address] [place] [address]- Allergies, Adverse Reactions, Alerts Substance Reaction Severity [...] Replace Required Details, Route to Pharmacy Electronically, [facility]/pharmacy #1230, 173, cm, 06/11/19 13:57:00 EST,... Start Date: 06/11/19 Status: OrderedcloNIDine 0.1 mg oral tablet 1, tablet, By Mouth, 2 times a day, STOP NALTREXONE., # 180 tablet, Refills 1, Tot. Refills 1, Maintenance, 05/22/20 10:58:00 EST, Route to Pharmacy Electronically, [facility]/pharm[facility] #1230, 168, cm, 03/18/20 11:41:00 EST, Height, 60, kg, 11/16/19 21:04... Start Date: 05/22/20 Status: OrderedFlovent HFA 110 mcg/inh inhalation aerosol 2 puffs, Inhalation, 2 times a day, rinse mouth and throat after use, # 36 Gm, 1 Refills, Maintenance, 05/22/20 11:02:00 EST, Aerosol, [facility], 168, cm, 03/18/20 11:41:00 EST, Height, 60, kg, 11/16/19 21:04:00 EDT, Dry Weight Start Date: 05/22/20 Status: Orderedomeprazole 20 mg oral enteric coated capsule 1 capsule = 20 mg, By Mouth, Daily, # 90 capsule, 0 Refills, Maintenance, 05/13/20 6:49:00 EST, EC Capsule, [facility], 168, cm, 03/18/20 11:41:00 EST, Height, 60, kg, 11/16/19 21:04:00 EDT, Dry Weight Start Date: 05/13/20 Status: OrderedVentolin HFA 108 mcg/inh inhalation aerosol [...] Asthma(Confirmed) Active GERD (gastroesophageal reflux Active disease)(Confirmed) assisted current use of opiate Active analgesic(Confirmed) LBP (low back pain)(Confirmed) Active Annual physical exam(Confirmed) Active Moderate tobacco use Active disorder(Confirmed) Social History Social History Type Response Smoking Status 5-9 cigarettes (between 1/4 to 1/2 pack)/day in last 30 days entered on: 01/17/19 Sex
--- OUTSIDE RECORDS SUMMARY | 2022-03-04 21:46 | XMS_ITS | Continuity of Care Document ---
:1970 Author Organization [facility] Address [address] [place] [address]- Care Team Providers Name Role Phone Claude Dahl MD Primary Care Physician Encounter [facility] NBR [id number] Date(s): 06/19/20 - 07/19/20 [facility] [address] [place] [address]- Attending Physician: Shannon Oviedo Admitting Physician: AdmtrShannon Referring Physician: Admtr, Shannon Allergies, Adverse Reactions, Alerts Substance Reaction Severity [...] Replace Required Details, Route to Pharmacy Electronically, [facility], 173, cm, 06/11/19 13:57:00 EST,... Start Date: 06/11/19 Status: OrderedcloNIDine 0.1 mg oral tablet 1, tablet, By Mouth, 2 times a day, STOP NALTREXONE., # 180 tablet, Refills 1, Tot. Refills 1, Maintenance, 05/22/20 10:58:00 EST, Route to Pharmacy Electronically, [facility]1230, 168, cm, 03/18/20 11:41:00 EST, [...] Asthma(Confirmed) Active GERD (gastroesophageal reflux Active disease)(Confirmed) snf current use of opiate Active analgesic(Confirmed) LBP [...]
--- OUTSIDE RECORDS SUMMARY | 2022-03-04 21:46 | XMS_ITS | Continuity of Care Document ---
:1970 Author Organization [facility] Address [address] [place] [address]- Care Team Providers Name Role Phone Claude Dahl MD Primary Care Physician Encounter [facility] Date(s): 03/18/21 - 04/18/21 [facility] [address] [place] [address]- Attending Physician: Bay Yang Referring Physician: Claude Dahl MD Allergies, Adverse [...] Replace Required Details, Route to Pharmacy Electronically, [facility]/pharmacy #1230, 173, cm, 06/11/19 13:57:00 EST,... Start Date: 06/11/19 Status: OrderedcloNIDine 0.1 mg oral tablet 1, tablet, By Mouth, 2 times a day, STOP NALTREXONE., # 180 tablet, Refills 1, Tot. Refills 1, Maintenance, 05/22/20 10:58:00 EST, Route to Pharmacy Electronically, [facility]/pharmacy #1230, 168, cm, 03/18/20 11:41:00 EST, Height, 60, kg, 11/16/19 21:04... Start Date: 05/22/20 Status: OrderedFlovent HFA 110 mcg/inh inhalation aerosol 2 puffs, Inhalation, 2 times a day, AFTER USE., # 36 each, 1 Refills, [id number], 168, cm, 03/18/20 11:41:00 EST, Height, 60, kg, 11/16/19 21:04:00 EDT, Dry Weight Start Date: 01/16/21 Status: Orderedomeprazole 20 mg oral enteric coated capsule 1 capsule, By Mouth, Daily, # 90 capsule, 3 Refills, Maintenance, 03/12/21 18:56:00 EST, [facility], 168, cm, 03/18/20 11:41:00 EST, Height, 60, kg, 11/16/19 21:04:00 EDT, Dry Weight Start Date: 03/12/21 Status: OrderedVentolin HFA 108 mcg/inh inhalation aerosol with adapter 2 puffs, Inhalation, 4 times a day, PRN Wheezing/Shortness of Breath, # 1 each, 2 Refills, Maintenance, 01/10/21 12:15:00 EDT, [facility]erosol, [facility], Office visit needed for further refills., 168, cm, 03/18/20 11:41:00 EST, Height, 60, kg, 11/15... Start Date: 01/10/21 Stop Date: 04/10/21 Status: Ordered Problem List Condition Effective Dates Status Health Status Informant Acute hepatitis C(Confirmed) Active Alcohol abuse(Confirmed) Active Asthma(Confirmed) Active Anxiety State, Unspecified(Confirmed) Active Asthma(Confirmed) Active GERD (gastroesophageal reflux Active disease)(Confirmed) FDC current use of opiate Active analgesic(Confirmed) LBP (low back pain)(Confirmed) Active Annual physical exam(Confirmed) Active Moderate tobacco use Active disorder(Confirmed) Social History Social History Type Response Smoking Status 5-9 cigarettes (between 1/4 to 1/2 pack)/day in last 30 days entered on: 01/17/19 Sex
--- OUTSIDE RECORDS SUMMARY | 2022-03-04 21:46 | XMS_ITS | Continuity of Care Document ---
:1970 Author Organization [facility] Address [address] [place] [address]- Care Team Providers Name Role Phone Claude Dahl MD Primary Care Physician [id number] Date(s): 02/22/20 - 03/23/20 [facility] [address] [place] [address]- Allergies, Adverse Reactions, Alerts Substance Reaction Severity [...] Replace Required Details, Route to Pharmacy Electronically, [facility]/pharmacy #1230, 173, cm, 06/11/19 13:57:00 EST,... Start Date: 06/11/19 Status: OrderedcloNIDine 0.1 mg oral tablet 1, tablet, By Mouth, 2 times a day, STOP NALTREXONE., # 180 tablet, Refills 0, Tot. Refills 0, Maintenance, 02/22/20 12:46:00 EST, Route to Pharmacy Electronically, 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
--- OUTSIDE RECORDS SUMMARY | 2022-03-04 21:46 | XMS_ITS | Continuity of Care Document ---
:1970 Author Organization [facility] Address [address] [place] [address]- Care Team Providers Name Role Phone Claude Dahl MD Primary Care Physician [id number] Date(s): 06/11/19 - 06/18/19 [facility] [address] [place] [address]- Attending Physician: Claude Dahl MD Allergies, Adverse Reactions, [...] Replace Required Details, Route to [facility]acy Electronically, [facility], 173, cm, 06/11/19 13:57:00 EST,... Start Date: 06/11/19 Status: OrderedFlovent HFA 110 mcg/inh inhalation aerosol [...] Start Date: 05/08/19 Stop Date: 09/05/19 Status: OrderedVitamin B1 100 mg oral tablet 100 mg, 1, tablet, By Mouth, Daily, for 30 days, # 30 tablet, Refills 5, Tot. Refills 5, Acute 12/08/19 14:09:00 EDT, 06/11/19 14:09:00 EST, Route to Pharmacy Electronically, [facility]/pharmacy #1230, 173, cm, 06/11/19 13:57:00 EST, Height, 75, kg, 06/08/19... 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 Active analgesic(Confirmed) LBP (low back pain)(Confirmed) Active Annual physical exam(Confirmed) Active Moderate tobacco use Active disorder(Confirmed) Vital Signs Most recent to oldest [Reference Range]: 1 Height 173 cm (06/11/19 1:57 PM) Weight 69.5 kg (06/11/19 1:57 PM) Oxygen Saturation [94-100 %] 98 % (06/11/19 1:57 PM) Pulse Rate [55-90 bpm] 94 bpm *H* (06/11/19 1:57 PM) Body Mass Index [18.5-24.99] 23.22 (06/11/19 1:57 PM) Blood Pressure [90-138/55-84 mm Hg] 124/82 mm Hg (06/11/19 1:57 PM) Respiratory Rate [16-30 br/min] 16 br/min (06/11/19 1:57 PM) Temperature [96.8-100.4 DegF] 97.4 DegF (06/11/19 1:57 PM) Mode of Delivery (Oxygen) Room air (06/11/19 1:57 PM) Blood pressure sites Arm, left (06/11/19 1:57 PM) Social History Social History Type Response Smoking Status 5-9 cigarettes (between 1/4 to 1/2 pack)/day in last 30 days entered on: 01/17/19 Sex
--- OUTSIDE RECORDS SUMMARY | 2022-03-04 21:46 | XMS_ITS | Continuity of Care Document ---
:1970 Author Organization [facility] Address [address] [phone]- Care Team Providers Name Role Phone Claude Dahl MD Primary Care Physician Encounter [facility] Date(s): 06/30/21 - 07/30/21 [facility] [address] [phone]- [place] Allergies, Adverse Reactions, Alerts No Known Allergies Immunizations Given and Recorded Vaccine Date Status [...] Replace Required Details, [facility], cm, 06/11/19 13:57:00 EST,... Start Date: 06/11/19 Status: OrderedcloNIDine 0.1 mg oral tablet 1, tablet, By Mouth, 2 times a day, STOP NALTREXONE., # 180 tablet, Refills 1, Tot. Refills 1, Maintenance, 05/22/20 10:58:00 EST, Route to Pharmacy Electronically, [facility]/pharmacy #1230, 168, cm, 03/18/20 11:41:00 EST, Height, 60, kg, 11/16/19 21:04... Start Date: 05/22/20 Status: OrderedFlovent HFA 110 mcg/inh inhalation aerosol 2 puffs, Inhalation, 2 times a day, AFTER USE., # 36 each, 1 Refills, [facility] STORE 21730, 168, cm, 03/18/20 11:41:00 EST, Height, 60, kg, 11/16/19 21:04:00 EDT, Dry Weight Start Date: 01/16/21 Status: Orderedomeprazole 20 mg oral enteric coated capsule 1 capsule, By Mouth, Daily, # 90 capsule, 2 Refills, Maintenance, 06/15/21 11:24:00 EST, [facility], 173, cm, 06/08/21 13:33:00 EST, Height, 66.7, kg, 06/08/21 13:33:00 EST, Dry Weight Start Date: 06/15/21 Status: OrderedVentolin HFA 108 mcg/inh inhalation aerosol with adapter 2 puffs, Inhalation, 4 times a day, PRN Wheezing/Shortness of Breath, # 1 each, 5 Refills, Maintenance, 06/16/21 6:49:00 EST, Aerosol, [facility], Office visit needed for further refills., 173, cm, 06/08/21 13:33:00 EST, Height, 66... 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
--- OUTSIDE RECORDS SUMMARY | 2022-03-04 21:46 | XMS_ITS | Continuity of Care Document ---
:1970 Author Organization [facility] Address [address] [place] [address]- Care Team Providers Name Role Phone Claude Dahl MD Primary Care Physician Encounter [facility] NBR [id number] Date(s): 03/18/20 - 04/17/20 [facility] [address] [place] [address]- Attending Physician: Shannon Oviedo Admitting Physician: AdmtrShannon Referring Physician: Admtr, ArMarek Allergies, Adverse Reactions, Alerts Substance Reaction Severity [...] Replace Required Details, Route to Pharmacy Electronically, [facility]/pharmacy #1230, 173, cm, 06/11/19 13:57:00 EST,... Start Date: 06/11/19 Status: OrderedcloNIDine 0.1 mg oral tablet 1, tablet, By Mouth, 2 times a day, STOP NALTREXONE., # 180 tablet, Refills 0, Tot. Refills 0, Maintenance, 02/22/20 12:46:00 EST, Route to Pharmacy Electronically, 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
--- OUTSIDE RECORDS SUMMARY | 2022-03-04 21:46 | XMS_ITS | Continuity of Care Document ---
:1970 Author Organization [facility] Address [address] [place] [address]- Care Team Providers Name Role Phone Claude Dahl MD Primary Care Physician Encounter [facility] NBR [id number] Date(s): 05/08/19 - 05/15/19 [facility] [address] [place] [address]- Attending Physician: Claude Dahl MD Allergies, Adverse [...] tablet, 1 Refills, Maintenance, 04/17/19 0:52:00 EST, [facility] STORE 36918, 173, cm, 02/01/19 15:06:00 EDT, Height, 70.8, kg, 01/17/19 20:54:00 EDT, Dry Weight Start Date: 04/17/19 Status: OrderedcloNIDine 0.1 mg oral tablet See Instructions, TAKE 1 TABLET BY MOUTH TWICE A DAY, STOP NALTREXONE, # 60 tablet, Refills 5, Tot. Refills 5, Soft Stop, 01/25/19 13:28:55 EDT, Instructions Replace Required Details, Route to PharmacyElectronically, [id number]... Start Date: 01/25/19 Status: Ordereddoxycycline hyclate 100 mg oral capsule 1 capsule = 100 mg, By Mouth, 2 times a day, for 14 days, may take with food to minimize abdominal discomfort, # 28 capsule, 0 Refills, Acute 05/22/19 12:32:00 EST, 05/08/19 12:32:00 EST, [facility], [facility], 173, cm, 05/08/19 11:59:00 EST, He... 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) LBP (low back pain)(Confirmed) Active Annual physical exam(Confirmed) Active Moderate tobacco use Active disorder(Confirmed) Vital Signs Most recent to oldest [Reference Range]: 1 Height 173 cm (05/08/19 11:59 AM) Weight 69.3 kg (05/08/19 11:59 AM) Oxygen Saturation [94-100 %] 99 % (05/08/19 11:59 AM) Pulse Rate [55-90 bpm] 69 bpm (05/08/19 11:59 AM) Body Mass Index [18.5-24.99] 23.15 (05/08/19 11:59 AM) Blood Pressure [90-138/55-84 mm Hg] 130/80 mm Hg (05/08/19 11:59 AM) Temperature [96.8-100.4 DegF] 97.4 DegF (05/08/19 11:59 AM) Blood pressure sites Arm, left (05/08/19 11:59 AM) Temperature Route Temporal (05/08/19 11:59 AM) Weight Obtained Via Standing scale (05/08/19 11:59 AM) Social History Social History Type Response Smoking Status 5-9 cigarettes (between 1/4 to 1/2 pack)/day in last 30 days entered on: 01/17/19 Sex
--- OUTSIDE RECORDS SUMMARY | 2022-03-04 21:46 | XMS_ITS | Continuity of Care Document ---
:1970 Author Organization [facility] Address [address] [place] [address]- Care Team Providers Name Role Phone Claude Dahl MD Primary Care Physician Encounter [facility] Date(s): 06/04/19 - 06/05/[address] [address]- [facility] Discharge Disposition: A-D/C Home Attending Physician: Trey Lundberg MD Admitting Physician: Trey Lundberg MD Referring Physician: Not on Staff, Referring MD Allergies, Adverse Reactions, Alerts Substance Reaction [...] tablet, 1 Refills, Maintenance, 04/17/19 0:52:00 EST, [facility] STORE 23368, 173, cm, 02/01/19 15:06:00 EDT, Height, 70.8, kg, 01/17/19 20:54:00 EDT, Dry Weight Start Date: 04/17/19 Status: OrderedcloNIDine 0.1 mg oral tablet See Instructions, TAKE 1 TABLET BY MOUTH TWICE A DAY, STOP NALTREXONE, # 60 tablet, Refills 5, Tot. Refills 5, Soft Stop, 01/25/19 13:28:55 EDT, Instructions Replace Required Details, Route to PharmacyElectronically, [id number]... Start Date: 01/25/19 Status: OrderedFlovent HFA 110 [...] Asthma(Confirmed) Active GERD (gastroesophageal reflux Active disease)(Confirmed) longterm current use of opiate Active analgesic(Confirmed) LBP (low back pain)(Confirmed) Active Annual physical exam(Confirmed) Active Moderate tobacco use Active disorder(Confirmed) Vital Signs Most recent to oldest 1 2 3 [Reference Range]: Height 173 cm 173 cm 173 cm (06/05/19 4:44 AM) (06/05/19 3:02 AM) (06/04/19 9:3 8 PM) Weight 77 kg 77 kg 77 kg (06/05/19 4:44 AM) (06/05/19 3:02 AM) (06/04/19 9:3 8 PM) Oxygen Saturation [94-100 100 % 97 % 100 % %] (06/05/19 4:44 AM) (06/04/19 7:48 PM) (06/04/19 6:4 5 PM) Pulse Rate [55-90 bpm] 83 bpm 78 bpm 93 bpm (06/05/19 4:44 AM) (06/04/19 7:48 PM) *H* (06/04/19 6:45 PM ) Body Mass Index 25.73 25.73 25.73 [18.5-24.99] *H* *H* *H* (06/05/19 4:44 AM) (06/05/19 3:02 AM) (06/04/19 9:3 8 PM) Blood Pressure 120/65 mm Hg 110/63 mm Hg 142/87 mm Hg [90-138/55-84 mm Hg] (06/05/19 4:44 AM) (06/04/19 7:48 PM) *H* (06/04/19 6:45 PM ) Respiratory Rate [16-30 16 br/min 19 br/min 17 br/mi n br/min] (06/05/19 4:44 AM) (06/05/19 3:02 AM) (06/04/19 9:3 8 PM) Mode of Delivery (Oxygen) Room air Room air (06/05/19 4:44 AM) (06/04/19 6:45 PM) Blood pressure sites Arm, left Arm, right (06/05/19 4:44 AM) (06/04/19 7:48 PM) Dry Weight 77 kg 77 kg 77 kg (06/05/19 4:44 AM) (06/05/19 3:02 AM) (06/04/19 9:3 8 PM) Weight Obtained Via Patient/family stated (06/04/19 6:45 PM) Social History Social History Type Response Smoking Status 5-9 cigarettes (between 1/4 to 1/2 pack)/day in last 30 days entered on: 01/17/19 Sex
--- OUTSIDE RECORDS SUMMARY | 2022-03-04 21:46 | XMS_ITS | Continuity of Care Document ---
:1970 Author Organization [facility] Address [address] [place] [address]- Care Team Providers Name Role Phone Claude Dahl MD Primary Care Physician Encounter [facility] NBR [id number] Date(s): 03/12/20 - 04/11/20 [facility] [address] [place] [address]- Attending Physician: Theo Weber Referring Physician: Claude Dahl MD Allergies, Adverse [...] Replace Required Details, Route to Pharmacy Electronically, [facility]/pharmacy #[id number], 173, cm, 06/11/19 13:57:00 EST,... Start Date: 06/11/19 Status: OrderedcloNIDine 0.1 mg oral tablet 1, tablet, By Mouth, 2 times a day, STOP NALTREXONE., # 180 tablet, Refills 0, Tot. Refills 0, Maintenance, 02/22/20 12:46:00 EST, Route to Pharmacy Electronically, [facility]/pharmacy #1230, 168, cm, 11/16/19 21:04:00 EDT, [...] Asthma(Confirmed) Active GERD (gastroesophageal reflux Active disease)(Confirmed) halfway current use of opiate Active analgesic(Confirmed) LBP (low back pain)(Confirmed) Active Annual physical exam(Confirmed) Active Moderate tobacco use Active disorder(Confirmed) Social History Social History Type Response Smoking Status 5-9 cigarettes (between 1/4 to 1/2 pack)/day in last 30 days entered on: 01/17/19 Sex
--- OUTSIDE RECORDS SUMMARY | 2022-03-04 21:46 | XMS_ITS | Continuity of Care Document ---
:1970 Author Organization [facility] Address [address] [place] [address]- Care Team Providers Name Role Phone Claude Dahl MD Primary Care Physician Encounter [facility] NBR [id number] Date(s): 02/22/20 - 03/23/20 [facility] [address] [place] [address]- Allergies, Adverse Reactions, Alerts Substance Reaction Severity [...] Replace Required Details, Route to Pharmacy Electronically, [facility]/pharmacy #1230, 173, cm, 06/11/19 13:57:00 EST,... Start Date: 06/11/19 Status: OrderedcloNIDine 0.1 mg oral tablet 1, tablet, By Mouth, 2 times a day, STOP NALTREXONE., # 180 tablet, Refills 0, Tot. Refills 0, Maintenance, 02/22/20 12:46:00 EST, Route to Pharmacy Electronically, 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
--- OUTSIDE RECORDS SUMMARY | 2022-03-04 21:46 | XMS_ITS | Continuity of Care Document ---
:1970 Author Organization [facility] Address [address] [place] [address]- Care Team Providers Name Role Phone Claude Dahl MD Primary Care Physician Encounter [facility] Date(s): 11/16/19 - 11/16/[address] [address]- [facility] Discharge Disposition: A-D/C Home Attending Physician: Mukesh Ford MD Admitting Physician: Mukesh Ford MD Referring Physician: Not on Staff, Referring [...] Replace Required Details, Route to Pharmacy Electronically, [facility]/pharmacy #1230, 173, cm, 06/11/19 13:57:00 EST,... Start Date: 06/11/19 Status: OrderedcloNIDine 0.1 mg oral tablet 1, tablet, By Mouth, 2 times a day, STOP NALTREXONE., # 180 tablet, Refills 1, Tot. Refills 0, Maintenance, 07/27/19 14:27:00 EDT, Route to Pharmacy Electronically, [facility] STORE 24892, 173, cm, 06/11/19 13:57:00 EST, Height, 75, kg, 06/08/19 13:43:00... Start Date: 07/27/19 Status: OrderedFlovent HFA 110 mcg/inh inhalation aerosol 2 puffs, Inhalation, 2 times a day, rinse mouth and throat after use, # 12 Gm, 5 Refills, Maintenance, 07/04/19 15:44:00 EDT, Aerosol, [facility]/pharmacy #1230, 173, cm, 06/11/19 13:57:00 EST, Height, 75, kg, 06/08/19 13:43:00 EST, Dry Weight Start Date: 07/04/19 Status: Orderedomeprazole 20 mg oral enteric coated capsule 1 capsule = 20 mg, By Mouth, Daily, # 90 capsule, 0 Refills, Maintenance, 09/23/19 10:54:00 EDT, EC Capsule, [facility]/pharmacy #1230, 173, cm, 06/11/19 13:57:00 EST, Height, 75, kg, 06/08/19 13:43:00 EST, Dry Weight Start Date: 09/23/19 Status: OrderedVentolin HFA 108 mcg/inh inhalation aerosol with adapter 2 puffs, Inhalation, 4 times a day, PRN Wheezing/Shortness of Breath, # 1 each, 5 Refills, Maintenance, 09/21/19 17:03:00 EDT, Aerosol, [facility]/pharmacy #1230, 173, cm, 06/11/19 13:57:00 EST, Height, 75, kg, 06/08/19 13:43:00 EST, Dry Weight Start Date: 09/21/19 Stop Date: 03/19/20 Status: OrderedVitamin B1 100 mg oral tablet 100 mg, 1, tablet, By Mouth, Daily, for 30 days, # 30 tablet, Refills 5, Tot. Refills 5, Acute 12/08/19 14:09:00 EDT, 06/11/19 14:09:00 EST, Route to Pharmacy Electronically, [facility]/pharmacy #1230, 173, cm, 06/11/19 13:57:00 EST, Height, 75, kg, 06/08/19... 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 Active analgesic(Confirmed) LBP (low back pain)(Confirmed) Active Annual physical exam(Confirmed) Active Moderate tobacco use Active disorder(Confirmed) Vital Signs Most recent to oldest [Reference Range]: 1 2 Height 168 cm 168 cm (11/16/19 9:04 PM) (11/16/19 6:33 PM) Weight 60 kg 60 kg (11/16/19 9:04 PM) (11/16/19 6:33 PM) Oxygen Saturation [94-100 %] 100 % (11/16/19 6:33 PM) Pulse Rate [55-90 bpm] 74 bpm (11/16/19 6:33 PM) Blood Pressure [90-138/55-84 mm Hg] 110/73 mm Hg (11/16/19 6:33 PM) Respiratory Rate [16-30 br/min] 18 br/min (11/16/19 6:33 PM) Temperature [96.8-100.4 DegF] 97.9 DegF (11/16/19 6:33 PM) Mode of Delivery (Oxygen) Room air (11/16/19 6:33 PM) Blood pressure sites Arm, left (11/16/19 6:33 PM) Temperature Route Oral (11/16/19 6:33 PM) Dry Weight 60 kg 60 kg (11/16/19 9:04 PM) (11/16/19 6:33 PM) Social History Social History Type Response Smoking Status 5-9 cigarettes (between 1/4 to 1/2 pack)/day in last 30 days entered on: 01/17/19 Sex
--- OUTSIDE RECORDS SUMMARY | 2022-03-04 21:46 | XMS_ITS | Continuity of Care Document ---
:1970 Author Organization [facility] Address [address] [place] [address]- Care Team Providers Name Role Phone Claude Dahl MD Primary Care Physician Encounter [facility] Date(s): 08/24/21 - 09/24/21 [facility] [address] [phone]- Attending Physician: Claude Dahl MD Allergies, Adverse Reactions, Alerts No Known Allergies [...] Replace Required Details, [facility], cm, 06/11/19 13:57:00 EST,... Start Date: 06/11/19 Status: OrderedcloNIDine 0.1 mg oral tablet 1, tablet, By Mouth, 2 times a day, STOP NALTREXONE., # 180 tablet, Refills 1, Tot. Refills 1, Maintenance, 05/22/20 10:58:00 EST, [facility], cm, 03/18/20 11:41:00 EST, Height, 60, kg, 11/16/19 21:04... Start Date: 05/22/20 Status: OrderedFlovent HFA 110 mcg/inh inhalation aerosol 2 puffs, Inhalation, 2 times a day, AFTER USE., # 36 each, 1 Refills, [facility] STORE 84946, 168, cm, 03/18/20 11:41:00 EST, Height, 60, kg, 11/16/19 21:04:00 EDT, Dry Weight Start Date: 01/16/21 Status: Orderedomeprazole 20 mg oral enteric coated capsule 1 capsule, By Mouth, Daily, # 90 capsule, 2 Refills, Maintenance, 06/15/21 11:24:00 EST, [facility], 173, cm, 06/08/21 13:33:00 EST, Height, 66.7, kg, 06/08/21 13:33:00 EST, Dry Weight Start Date: 06/15/21 Status: OrderedVentolin HFA 108 mcg/inh inhalation aerosol with adapter 2 puffs, Inhalation, 4 times a day, PRN Wheezing/Shortness of Breath, # 1 each, 5 Refills, Maintenance, 06/16/21 6:49:00 EST, Aerosol, [facility], Office visit needed for further refills., 173, cm, 06/08/21 13:33:00 EST, Height, 66... Start Date: 06/16/21 Stop Date: 12/13/21 Status: Ordered Problem List Condition Effective Dates Status Health Status Informant Acute hepatitis C(Confirmed) Active Alcohol abuse(Confirmed) Active Asthma(Confirmed) Active Anxiety State, Unspecified(Confirmed) Active Asthma(Confirmed) Active GERD (gastroesophageal reflux Active disease)(Confirmed) long-term current use of opiate Active analgesic(Confirmed) LBP (low back pain)(Confirmed) Active Annual physical exam(Confirmed) Active Moderate tobacco use Active disorder(Confirmed) Social History Social History Type Response Smoking Status 5-9 cigarettes (between 1/4 to 1/2 pack)/day in last 30 days entered on: 01/17/19 Sex
--- OUTSIDE RECORDS SUMMARY | 2022-03-04 21:46 | XMS_ITS | Continuity of Care Document ---
:1970 Author Organization [facility] Address [address] [phone]- Care Team Providers Name Role Phone Claude Dahl MD Primary Care Physician Encounter [facility] Date(s): 08/25/21 - 09/24/21 [facility] [address] [phone]- Attending Physician: Shannon Oviedo Admitting Physician: Shannon Oviedo Referring Physician: AdmtrShannon Allergies, Adverse Reactions, Alerts No Known Allergies [...] Replace Required Details, [facility], cm, 06/11/19 13:57:00 EST,... Start Date: 06/11/19 Status: OrderedcloNIDine 0.1 mg oral tablet 1, tablet, By Mouth, 2 times a day, STOP NALTREXONE., # 180 tablet, Refills 1, Tot. Refills 1, Maintenance, 05/22/20 10:58:00 EST, Route to Pharmacy Electronically, [facility]/pharmacy #1230, 168, cm, 03/18/20 11:41:00 EST, Height, 60, kg, 11/16/19 21:04... Start Date: 05/22/20 Status: OrderedFlovent HFA 110 mcg/inh inhalation aerosol 2 puffs, Inhalation, 2 times a day, AFTER USE., # 36 each, 1 Refills, [facility] STORE 99789, 168, cm, 03/18/20 11:41:00 EST, Height, 60, kg, 11/16/19 21:04:00 EDT, Dry Weight Start Date: 01/16/21 Status: Orderedomeprazole 20 mg oral enteric coated capsule 1 capsule, By Mouth, Daily, # 90 capsule, 2 Refills, Maintenance, 06/15/21 11:24:00 EST, [facility], 173, cm, 06/08/21 13:33:00 EST, Height, 66.7, kg, 06/08/21 13:33:00 EST, Dry Weight Start Date: 06/15/21 Status: OrderedVentolin HFA 108 mcg/inh inhalation aerosol with adapter 2 puffs, Inhalation, 4 times a day, PRN Wheezing/Shortness of Breath, # 1 each, 5 Refills, Maintenance, 06/16/21 6:49:00 EST, Aerosol, [facility], Office visit needed for further refills., 173, cm, 06/08/21 13:33:00 EST, Height, 66... Start Date: 06/16/21 Stop Date: 12/13/21 Status: Ordered Problem List Condition Effective Dates Status Health Status Informant Acute hepatitis C(Confirmed) Active Alcohol abuse(Confirmed) Active Asthma(Confirmed) Active Anxiety State, Unspecified(Confirmed) Active Asthma(Confirmed) Active GERD (gastroesophageal reflux Active disease)(Confirmed) intermediate current use of opiate Active analgesic(Confirmed) LBP [...]
--- OUTSIDE RECORDS SUMMARY | 2022-03-04 21:46 | XMS_ITS | Continuity of Care Document ---
:1970 Author Organization [facility] Address [address] [place] [address]- Care Team Providers Name Role Phone Claude Dahl MD Primary Care Physician Encounter [facility] Date(s): 02/23/19 - 06/23/19 [facility] [address] [place] [address]- Attending Physician: Claude Dahl MD Allergies, Adverse [...] 3 Refills, Maintenance, 05/08/19 12:33:00 EST, Aerosol, [facility]/pharmacy #1230, 173, cm, 05/08/19 11:59:00 EST, Height, 70.8,kg, 01/17/19 20:54:00 EDT, Dry Weight Start Date: 05/08/19 Stop Date: 09/05/19 Status: OrderedVitamin B1 100 mg oral tablet 100 mg, 1, tablet, By Mouth, Daily, for 30 days, # 30 tablet, Refills 5, Tot. Refills 5, Acute 12/08/19 14:09:00 EDT, 06/11/19 14:09:00 EST, Route to Pharmacy Electronically, [facility]/pharmacy #1230, 173, cm, 06/11/19 13:57:00 EST, [...]
--- OUTSIDE RECORDS SUMMARY | 2022-03-04 21:46 | XMS_ITS | Continuity of Care Document ---
:[address] [facility] Address [address] [place] [address]- Care Team Providers Name Role Phone Claude Dahl MD Primary Care Physician Encounter [facility] NBR [id number] Date(s): 06/19/20 - 06/26/20 [facility] [address] [place] [address]- Attending Physician: Chani Preston MD Allergies, Adverse Reactions, Alerts Substance Reaction [...] Replace Required Details, Route to Pharmacy Electronically, [facility]/pharmacy #1230, 173, cm, 06/11/19 13:57:00 EST,... Start Date: 06/11/19 Status: OrderedcloNIDine 0.1 mg oral tablet 1, tablet, By Mouth, 2 times a day, STOP NALTREXONE., # 180 tablet, Refills 1, Tot. 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
--- OUTSIDE RECORDS SUMMARY | 2022-03-04 21:46 | XMS_ITS | Continuity of Care Document ---
:1970 Author Organization [facility] Address [address] [place] [address]- Care Team Providers Name Role Phone Claude Dahl MD Primary Care Physician Encounter [facility] Date(s): 03/21/20 - 04/25/[address] [id number] Attending Physician: Chani Preston MD Admitting Physician: Chani Preston MD Referring Physician: Chani Preston MD Allergies, Adverse Reactions, [...] Replace Required Details, Route to Pharmacy Electronically, [facility]/pharmacy #1230, 173, cm, 06/11/19 13:57:00 EST,... Start Date: 06/11/19 Status: OrderedcloNIDine 0.1 mg oral tablet 1, tablet, By Mouth, 2 times a day, STOP NALTREXONE., # 180 tablet, Refills 0, Tot. 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
--- OUTSIDE RECORDS SUMMARY | 2022-03-04 21:46 | XMS_ITS | Continuity of Care Document ---
:1970 Author Organization [facility] Address [address] [place] [address]- Care Team Providers Name Role Phone Claude Dahl MD Primary Care Physician Encounter [facility] Date(s): 08/12/21 - 09/11/21 [facility] [address] [place] [phone]- [place] Allergies, Adverse Reactions, Alerts No Known [...] Replace Required Details, [facility], cm, 06/11/19 13:57:00 EST,... Start Date: 06/11/19 Status: OrderedcloNIDine 0.1 mg oral tablet 1, tablet, By Mouth, 2 times a day, STOP NALTREXONE., # 180 tablet, Refills 1, Tot. Refills 1, Maintenance, 05/22/20 10:58:00 EST, [facility] 168, cm, 03/18/20 11:41:00 EST, Height, 60, kg, 11/16/19 21:04... Start Date: 05/22/20 Status: OrderedFlovent HFA 110 mcg/inh inhalation aerosol 2 puffs, Inhalation, 2 times a day, AFTER USE., # 36 each, 1 Refills, [facility] STORE [facility], 168, cm, 03/18/20 11:41:00 EST, Height, 60, kg, 11/16/19 21:04:00 EDT, Dry Weight Start Date: 01/16/21 Status: Orderedomeprazole 20 mg oral enteric coated capsule 1 capsule, By Mouth, Daily, # 90 capsule, 2 Refills, Maintenance, 06/15/21 11:24:00 EST, [facility], 173, cm, 06/08/21 13:33:00 EST, Height, 66.7, kg, 06/08/21 13:33:00 EST, Dry Weight Start Date: 06/15/21 Status: OrderedVentolin HFA 108 mcg/inh inhalation aerosol with adapter 2 puffs, Inhalation, 4 times a day, PRN Wheezing/Shortness of Breath, # 1 each, 5 Refills, Maintenance, 06/16/21 6:49:00 EST, Aerosol, [facility], Office visit needed for further refills., 173, cm, 06/08/21 13:33:00 EST, Height, 66... 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
--- OUTSIDE RECORDS SUMMARY | 2022-03-04 21:46 | XMS_ITS | Continuity of Care Document ---
:1970 Author Organization [facility] Address [address] [place] [address]- Care Team Providers Name Role Phone Claude Dahl MD Primary Care Physician Encounter [facility] Date(s): 09/27/19 - 10/28/19 [facility] [address] [place] [address]- Attending Physician: Theo Weber Allergies, Adverse Reactions, Alerts Substance Reaction Severity [...] Replace Required Details, Route to Pharmacy Electronically, [facility]/pharmacy #1230, 173, cm, 06/11/19 13:57:00 EST,... Start Date: 06/11/19 Status: OrderedcloNIDine 0.1 mg oral tablet 1, tablet, By Mouth, 2 times a day, STOP NALTREXONE., # 180 tablet, Refills 1, Tot. Refills 0, Maintenance, 07/27/19 14:27:00 EDT, Route to Pharmacy Electronically, [facility] STORE 7[facility]16, 173, cm, 06/11/19 13:57:00 EST, Height, 75, kg, 06/08/19 13:43:00... Start Date: 07/27/19 Status: OrderedFlovent HFA 110 mcg/inh inhalation aerosol 2 puffs, Inhalation, 2 times a day, rinse mouth and throat after use, # 12 Gm, 5 Refills, Maintenance, 07/04/19 15:44:00 EDT, Aerosol, [facility]/pharmacy #1230, 173, cm, 06/11/19 13:57:00 EST, Height, 75, kg, 06/08/19 13:43:00 EST, Dry Weight Start Date: 07/04/19 Status: Orderedomeprazole 20 mg oral enteric coated capsule 1 capsule = 20 mg, By Mouth, Daily, # 90 capsule, 0 Refills, Maintenance, 09/23/19 10:54:00 EDT, EC Capsule, [facility]/pharmacy #1230, 173, cm, 06/11/19 13:57:00 EST, Height, 75, kg, 06/08/19 13:43:00 EST, Dry Weight Start Date: 09/23/19 Status: OrderedVentolin HFA 108 mcg/inh inhalation aerosol with adapter 2 puffs, Inhalation, 4 times a day, PRN Wheezing/Shortness of Breath, # 1 each, 5 Refills, Maintenance, 09/21/19 17:03:00 EDT, Aerosol, [facility]/pharmacy #1230, 173, cm, 06/11/19 13:57:00 EST, Height, 75, kg, 06/08/19 13:43:00 EST, Dry Weight Start Date: 09/21/19 Stop Date: 03/19/20 Status: OrderedVitamin B1 100 mg oral tablet 100 mg, 1, tablet, By Mouth, Daily, for 30 days, # 30 tablet, Refills 5, Tot. Refills 5, Acute 12/08/19 14:09:00 EDT, 06/11/19 14:09:00 EST, Route to Pharmacy Electronically, [facility]/pharmacy #1230, 173, cm, 06/11/19 13:57:00 EST, Height, 75, kg, 06/08/19... 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
--- OUTSIDE RECORDS SUMMARY | 2022-03-04 21:46 | XMS_ITS | Continuity of Care Document ---
:1970 Author Organization [facility] Address [address] [place] [address]- Care Team Providers Name Role Phone Claude Dahl MD Primary Care Phys[id number] Date(s): 06/06/19 - 07/06/19 [facility] [address] [place] [address]- Attending Physician: Claude Dahl MD Allergies, Adverse [...] Replace Required Details, Route to Pharmacy Electronically, [facility]/pharmacy #1230, 173, cm, 06/11/19 13:57:00 EST,... Start Date: 06/11/19 Status: OrderedFlovent HFA 110 mcg/inh inhalation aerosol 2 puffs, Inhalation, 2 times a day, rinse mouth and throat after use, # 12 Gm, 5 Refills, Maintenance, 07/04/19 15:44:00 EDT, Aerosol, [facility]/pharmacy #1230, 173, cm, 06/11/19 13:57:00 EST, Height, 75, kg, 06/08/19 13:43:00 EST, Dry Weight Start Date: 07/04/19 Status: Orderedomeprazole 20 mg oral enteric coated capsule 1 capsule = 20 mg, By Mouth, Daily, # 90 capsule, 0 Refills, Maintenance, 06/29/19 11:22:00 EDT, EC Capsule, [facility]/pharmacy #1230, 173, cm, 06/11/19 13:57:00 EST, Height, 75, kg, 06/08/19 13:43:00 EST, Dry Weight Start Date: 06/29/19 Status: OrderedVentolin HFA 108 mcg/inh inhalation aerosol with adapter 2 puffs, Inhalation, 4 times a day, PRN Wheezing/Shortness of Breath, # 1 each, 3 Refills, Maintenance, 05/08/19 12:33:00 EST, Aerosol, [facility]/pharmacy #1230, 173, cm, 05/08/19 11:59:00 EST, Height, 70.8,kg, 01/17/19 20:54:00 EDT, Dry Weight Start Date: 05/08/19 Stop Date: 09/05/19 Status: OrderedVitamin B1 100 mg oral tablet 100 mg, 1, tablet, By Mouth, Daily, for 30 days, # 30 tablet, Refills 5, Tot. Refills 5, Acute 12/08/19 14:09:00 EDT, 06/11/19 14:09:00 EST, Route to Pharmacy Electronically, [facility]/pharmacy #1230, 173, cm, 06/11/19 13:57:00 EST, Height, 75, kg, 06/08/19... 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
--- OUTSIDE RECORDS SUMMARY | 2022-03-04 21:46 | XMS_ITS | Continuity of Care Document ---
:1970 Author Organization [facility] Address [address] [place] [address]- Care Team Providers Name Role Phone Claude Dahl MD Primary Care Physician Encounter [facility] NBR [id number] Date(s): 03/12/20 - 04/12/20 [facility] [address] [place] [address]- Attending Physician: Theo Weber Referring Physician: Claude [...] Required Details, Route to Pharmacy Electronically, [facility]/pharmacy #1230, 173, cm, 06/11/19 13:57:00 EST,... Start Date: 06/11/19 Status: OrderedcloNIDine 0.1 mg oral tablet 1, tablet, By Mouth, 2 times a day, STOP NALTREXONE., # 180 tablet, Refills 0, Tot. Refills 0, Maintenance, 02/22/20 12:46:00 EST, Route to Pharmacy Electronically, [facility]/pharmacy #1230, 168, cm, 11/16/19 21:04:00 [...]
--- OUTSIDE RECORDS SUMMARY | 2022-03-04 21:46 | XMS_ITS | Continuity of Care Document ---
:1970 Author Organization [facility] Address [address] [place] [phone]- Care Team Providers Name Role Phone Claude Dahl MD Primary Care Physician Encounter [facility] Date(s): 03/12/21 - 04/11/21 [facility] [address] [place] [phone]- [place] Allergies, Adverse Reactions, Alerts Substance Reaction Severity [...] Replace Required Details, [facility], cm, 06/11/19 13:57:00 EST,... Start Date: 06/11/19 Status: OrderedcloNIDine 0.1 mg oral tablet 1, tablet, By Mouth, 2 times a day, STOP NALTREXONE., # 180 tablet, Refills 1, Tot. Refills 1, Maintenance, 05/22/20 10:58:00 EST, Route to Pharmacy Electronically, [facility]/pharmacy #1230, 168, cm, 03/18/20 11:41:00 EST, Height, 60, kg, 11/16/19 21:04... 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
--- OUTSIDE RECORDS SUMMARY | 2022-03-04 21:46 | XMS_ITS | Continuity of Care Document ---
:1970 Author Organization [facility] Address [address] [place] [address]- Care Team Providers Name Role Phone Claude Dahl MD Primary Care Physician Encounter [facility] Date(s): 01/07/20 - 02/06/20 [facility] [address] [place] [address]- Attending Physician: Shannon Oviedo Admitting Physician: AdmShannon [...] Required Details, Route to Pharmacy Electronically, [facility]/pharmacy #1230, 173, cm, 06/11/19 13:57:00 EST,... Start Date: 06/11/19 Status: OrderedcloNIDine 0.1 mg oral tablet 1, tablet, By Mouth, 2 times a day, STOP NALTREXONE., # 180 tablet, Refills 1, Tot. 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
--- OUTSIDE RECORDS SUMMARY | 2022-03-04 21:46 | XMS_ITS | Continuity of Care Document ---
:1970 Author Organization [facility] Address [address] [place] [address]- Care Team Providers Name Role Phone Claude Dahl MD Primary Care Physician Encounter [facility] Date(s): 06/08/21 - 06/08/[address] [id number]- Discharge Disposition: A-D/C Home Attending Physician: Emanuel Cole MD Admitting Physician: Emanuel Cole MD Referring Physician: Not on Staff, Referring MD Allergies, Adverse Reactions, Alerts No Known [...] Details, Route to Pharmacy Electronically, [facility]/pharmacy #1230, 173, cm, 06/11/19 13:57:00 EST,... Start Date: 06/11/19 Status: OrderedcloNIDine 0.1 mg oral tablet 1, tablet, By Mouth, 2 times a day, STOP NALTREXONE., # 180 tablet, Refills 1, Tot. Refills 1, Maintenance, 05/22/20 10:58:00 EST, Route to Pharmacy Electronically, [facility]/pharmacy #1230, 168, cm, 03/18/20 11:41:00 EST, Height, 60, kg, 11/16/19 21:04... Start Date: 05/22/20 Status: OrderedFlovent HFA 110 mcg/inh inhalation aerosol 2 puffs, Inhalation, 2 times a day, AFTER USE., # 36 each, 1 Refills, [facility], 168, cm, 03/18/20 11:41:00 EST, Height, 60, [...] 2 Refills, Maintenance, 01/10/21 12:15:00 EDT, Aerosol, [facility]/pharmacy #1230, Office visit needed for further refills., 168, cm, 03/18/20 11:41:00 EST, Height, 60, kg, 11/15... 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(Confirmed) LBP (low back pain)(Confirmed) Active Annual physical exam(Confirmed) Active Moderate tobacco use Active disorder(Confirmed) Vital Signs Most recent to oldest [Reference Range]: 1 Height 173 cm (06/08/21 1:33 PM) Weight 66.7 kg (06/08/21 1:33 PM) Oxygen Saturation [94-100 %] 100 % (06/08/21 1:33 PM) Pulse Rate [55-90 bpm] 91 bpm *H* (06/08/21 1:33 PM) Blood Pressure [90-138/55-84 mm Hg] 140/93 mm Hg *H* (06/08/21 1:33 PM) Temperature [96.8-100.4 DegF] 98.8 DegF (06/08/21 1:33 PM) Mode of Delivery (Oxygen) Room air (06/08/21 1:33 PM) Blood pressure sites Arm, right (06/08/21 1:33 PM) Temperature Route Temporal (06/08/21 1:33 PM) Dry Weight 66.7 kg (06/08/21 1:33 PM) Weight Obtained Via Standing scale (06/08/21 1:33 PM) Dry Weight Obtained Via Standing scale (06/08/21 1:33 PM) Social History Social History Type Response Smoking Status 5-9 cigarettes (between 1/4 to 1/2 pack)/day in last 30 days entered on: 01/17/19 Sex
[2022-03-04 21:47] LABS: MANUAL DIFF FLAG NO
--- OUTSIDE RECORDS SUMMARY | 2022-03-04 21:47 | XMS_ITS | Continuity of Care Document ---
:1970 Author Organization [facility] Address [address] [place] [address]- Care Team Providers Name Role Phone Claude Dahl MD Primary Care Physician Encounter [facility] Date(s): 06/15/21 - 07/29/21 [facility] [address] [place] [phone]- Attending Physician: Claude Dahl MD Allergies, Adverse [...] Required Details, [facility], cm, 06/11/19 13:57:00 EST,... Start Date: 06/11/19 Status: OrderedcloNIDine 0.1 mg oral tablet 1, tablet, By Mouth, 2 times a day, STOP NALTREXONE., # 180 tablet, Refills 1, Tot. Refills 1, Maintenance, 05/22/20 10:58:00 EST, [facility] 168, cm, 03/18/20 11:41:00 EST, Height, 60, kg, 11/16/19 21:04... Start Date: 05/22/20 Status: OrderedFlovent HFA 110 mcg/inh inhalation aerosol 2 puffs, Inhalation, 2 times a day, AFTER USE., # 36 each, 1 Refills, [address] STORE [facility], 168, cm, 03/18/20 11:41:00 EST, Height, 60, kg, 11/16/19 21:04:00 EDT, Dry Weight Start Date: 01/16/21 Status: Orderedomeprazole 20 mg oral enteric coated capsule 1 capsule, By Mouth, Daily, # 90 capsule, 2 Refills, Maintenance, 06/15/21 11:24:00 EST, [facility], 173, cm, 06/08/21 13:33:00 EST, Height, 66.7, kg, 06/08/21 13:33:00 EST, Dry Weight Start Date: 06/15/21 Status: OrderedVentolin HFA 108 mcg/inh inhalation aerosol with adapter 2 puffs, Inhalation, 4 times a day, PRN Wheezing/Shortness of Breath, # 1 each, 5 Refills, Maintenance, 06/16/21 6:49:00 EST, Aerosol, [facility], Office visit needed for further refills., 173, cm, 06/08/21 13:33:00 EST, Height, 66... 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
--- OUTSIDE RECORDS SUMMARY | 2022-03-04 21:47 | XMS_ITS | Continuity of Care Document ---
:1970 Author Organization [facility] Address [address] [place] [address]- Care Team Providers Name Role Phone Claude Dahl MD Primary Care Physician Encounter [facility] Date(s): 04/26/21 - 04/27/[address] [address]- Discharge Disposition: A-D/C Home Attending Physician: Rafi Hermosillo MD Admitting Physician: Rafi Hermosillo MD Referring Physician: Not on Staff, Referring [...] Replace Required Details, Route to Pharmacy Electronically, [facility]/pharmacy #1230, 173, cm, 06/11/19 13:57:00 EST,... Start Date: 06/11/19 Status: OrderedcloNIDine 0.1 mg oral tablet 1, tablet, By Mouth, 2 times a day, STOP NALTREXONE., # 180 tablet, Refills 1, Tot. Refills 1, Maintenance, 05/22/20 10:58:00 EST, Route to Pharmacy Electronically, [facility]/pharmacy #1230, 168, cm, 03/18/20 11:41:00 EST, Height, 60, kg, 11/16/19 21:04... Start Date: 05/22/20 Status: OrderedFlovent HFA 110 mcg/inh inhalation aerosol 2 puffs, Inhalation, 2 times a day, AFTER USE., # 36 each, 1 Refills, [facility], 168, cm, 03/18/20 11:41:00 EST, Height, 60, [...] 2 Refills, Maintenance, 01/10/21 12:15:00 EDT, Aerosol, [facility]/pharmacy #1230, Office visit needed for further refills., 168, cm, 03/18/20 11:41:00 EST, Height, 60, kg, 11/15... Start Date: 01/10/21 Stop Date: 04/10/21 Status: Ordered Problem List Condition Effective Dates Status Health Status Informant Acute hepatitis C(Confirmed) Active Alcohol abuse(Confirmed) Active Asthma(Confirmed) Active Anxiety State, Unspecified(Confirmed) Active Asthma(Confirmed) Active GERD (gastroesophageal reflux Active disease)(Confirmed) [facility] current use of opiate Active analgesic(Confirmed) LBP (low back pain)(Confirmed) Active Annual physical exam(Confirmed) Active Moderate tobacco use Active disorder(Confirmed) Vital Signs Most recent to oldest [Reference Range]: 1 2 Height 167 cm 167 cm (04/27/21 6:36 AM) (04/26/21 11:11 PM) Weight 70 kg (04/26/21 11:11 PM) Oxygen Saturation [94-100 %] 96 % (04/27/21 6:36 AM) Pulse Rate [55-90 bpm] 73 bpm (04/27/21 6:36 AM) Blood Pressure [90-138/55-84 mm Hg] 154/96 mm Hg *H* (04/27/21 6:36 AM) Temperature [96.8-100.4 DegF] 98.3 DegF (04/27/21 6:36 AM) Mode of Delivery (Oxygen) Room air (04/27/21 6:36 AM) Blood pressure sites Arm, left (04/27/21 6:36 AM) Temperature Route Temporal (04/27/21 6:36 AM) Dry Weight 70 kg (04/26/21 11:11 PM) Social History Social History Type Response Smoking Status 5-9 cigarettes (between 1/4 to 1/2 pack)/day in last 30 days entered on: 01/17/19 Sex
--- OUTSIDE RECORDS SUMMARY | 2022-03-04 21:47 | XMS_ITS | Continuity of Care Document ---
:1970 Author [facility] Address [address] [phone]- Care Team Providers Name Role Phone Claude Dahl MD Primary Care Physician Encounter [facility] Date(s): 06/29/21 - 07/29/21 [facility] Adult Medicine [address] [phone]- Attending Physician: Shannon Oviedo Admitting Physician: Shannon [...] Replace Required Details, Route to Pharmacy Electronically, [facility]/pharmacy #[id number], 173, cm, 06/11/19 13:57:00 EST,... Start Date: 06/11/19 Status: OrderedcloNIDine 0.1 mg oral tablet 1, tablet, By Mouth, 2 times a day, STOP NALTREXONE., # 180 tablet, Refills 1, Tot. Refills 1, Maintenance, 05/22/20 10:58:00 EST, Route to Pharmacy Electronically, [facility]/pharmacy #[id number], 168, cm, 03/18/20 11:41:00 EST, Height, 60, kg, 11/16/19 21:04... Start Date: 05/22/20 Status: OrderedFlovent HFA 110 mcg/inh inhalation aerosol 2 puffs, Inhalation, 2 times a day, AFTER USE., # 36 each, 1 Refills, [facility]ORE [id number], 168, cm, 03/18/20 11:41:00 EST, Height, 60, kg, 11/16/19 21:04:00 EDT, Dry Weight Start Date: 01/16/21 Status: Orderedomeprazole 20 mg oral enteric coated capsule 1 capsule, By Mouth, Daily, # 90 capsule, 2 Refills, Maintenance, 06/15/21 11:24:00 EST, [facility], 173, cm, 06/08/21 13:33:00 EST, Height, 66.7, kg, 06/08/21 13:33:00 EST, Dry Weight Start Date: 06/15/21 Status: OrderedVentolin HFA 108 mcg/inh inhalation aerosol with adapter 2 puffs, Inhalation, 4 times a day, PRN Wheezing/Shortness of Breath, # 1 each, 5 Refills, Maintenance, 06/16/21 6:49:00 EST, Aerosol, [facility], Office visit needed for further refills., 173, [...]
--- OUTSIDE RECORDS SUMMARY | 2022-03-04 21:47 | XMS_ITS | Continuity of Care Document ---
:1970 Author [facility] Address [address] [phone]- Care Team Providers Name Role Phone Claude Dahl MD Primary Care Physician Encounter [facility] Date(s): 03/19/21 - 04/18/21 [facility] Adult Medicine [address] [phone]- Attending Physician: Shannon Oviedo Admitting Physician: AdmtrShannon Referring Physician: Admtr, Ar8 Allergies, Adverse Reactions, Alerts Substance Reaction Severity [...] # 36 each, 1 Refills, [facility], 168, cm, 03/18/20 11:41:00 EST, Height, 60, [...]
--- OUTSIDE RECORDS SUMMARY | 2022-03-04 21:47 | XMS_ITS | Continuity of Care Document ---
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
--- OUTSIDE RECORDS SUMMARY | 2022-03-04 21:47 | XMS_ITS | Continuity of Care Document ---
:1970 Author Organization [facility] Address [address] [phone]- Care Team Providers Name Role Phone Claude Dahl MD Primary Care Physician Encounter [facility] Date(s): 03/11/21 - [facility]17/[facility] [address] [phone]- Attending Physician: Claude Dahl MD Allergies, Adverse [...] Details, [id number], cm, 06/11/19 13:57:00 EST,... Start Date: 06/11/19 Status: OrderedcloNIDine 0.1 mg oral tablet 1, tablet, By Mouth, 2 times a day, STOP NALTREXONE., # 180 tablet, Refills 1, Tot. Refills 1, Maintenance, 05/22/20 10:58:00 EST, Route to Pharmacy Electronically, [facility]/pharmacy #[id number], 168, cm, 03/18/20 11:41:00 EST, Height, 60, kg, 11/16/19 21:04... 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
--- OUTSIDE RECORDS SUMMARY | 2022-03-04 21:47 | XMS_ITS | Continuity of Care Document ---
:1970 Author Organization [facility] Address [address] [place] [address]- Care Team Providers Name Role Phone Claude Dahl MD Primary Care Physician Encounter [facility] NBR [id number] Date(s): 05/15/19 - 05/22/19 [facility] [address] [place] [address]- Encounter Diagnosis Cellulitis (Discharge Diagnosis) - 05/15/19 Lower extremity pain, left (Discharge Diagnosis) - 05/15/19 Attending Physician: Penny Gallo NP Allergies, Adverse Reactions, Alerts Substance Reaction Severity [...] tablet, 1 Refills, Maintenance, 04/17/19 0:52:00 EST, [facility] ST[facility] [id number], 173, cm, 02/01/19 15:06:00 EDT, Height, 70.8, kg, 01/17/19 20:54:00 EDT, Dry Weight Start Date: 04/17/19 Status: OrderedcloNIDine 0.1 mg oral tablet See Instructions, TAKE 1 TABLET BY MOUTH TWICE A DAY, STOP NALTREXONE, # 60 tablet, Refills 5, Tot. Refills 5, Soft Stop, 01/25/19 13:28:55 EDT, Instructions Replace Required Details, Route to PharmacyElectronically, [id number]... Start Date: 01/25/19 Status: OrderedFlovent HFA 110 [...] exam(Confirmed) Active Moderate tobacco use Active disorder(Confirmed) Diagnosis Diagnosis Type Effective Dates Health Clinical Infor mant Status Service Cellulitis Discharge 05/15/19 Diagnosis Lower extremity Discharge 05/15/19 pain, left Diagnosis Vital Signs Most recent to oldest [Reference Range]: 1 Height 173 cm (05/15/19 3:18 PM) Weight 69.0 kg (05/15/19 3:18 PM) Oxygen Saturation [94-100 %] 97 % (05/15/19 3:18 PM) Pulse Rate [55-90 bpm] 61 bpm (05/15/19 3:18 PM) Body Mass Index [18.5-24.99] 23.05 (05/15/19 3:18 PM) Blood Pressure [90-138/55-84 mm Hg] 118/82 mm Hg (05/15/19 3:18 PM) Respiratory Rate [16-30 br/min] 17 br/min (05/15/19 3:18 PM) Temperature [96.8-100.4 DegF] 98.1 DegF (05/15/19 3:18 PM) Liters per Minute 0 L/min (05/15/19 3:18 PM) Mode of Delivery (Oxygen) Room air (05/15/19 3:18 PM) Blood pressure sites Arm, left (05/15/19 3:18 PM) Temperature Route Temporal (05/15/19 3:18 PM) Weight Obtained Via Standing scale (05/15/19 3:18 PM) Social History Social History Type Response Smoking Status 5-9 cigarettes (between 1/4 to 1/2 pack)/day in last 30 days entered on: 01/17/19 Sex
--- OUTSIDE RECORDS SUMMARY | 2022-03-04 21:47 | XMS_ITS | Continuity of Care Document ---
:1970 Author Organization [facility] Address [address] [place] [address]- Care Team Providers Name Role Phone Claude Dahl MD Primary Care Physician Encounter [facility] Date(s): 08/24/21 - 09/23/21 [facility] [address] [phone]- [place] Allergies, Adverse Reactions, Alerts No Known [...] Replace Required Details, [facility], cm, 06/11/19 13:57:00 EST,... Start Date: 06/11/19 Status: OrderedcloNIDine 0.1 mg oral tablet 1, tablet, By Mouth, 2 times a day, STOP NALTREXONE., # 180 tablet, Refills 1, Tot. Refills 1, Maintenance, 05/22/20 10:58:00 EST, [facility] 168, cm, 03/18/20 11:41:00 EST, Height, 60, kg, 11/16/19 21:04... Start Date: 05/22/20 Status: OrderedFlovent HFA 110 mcg/inh inhalation aerosol 2 puffs, Inhalation, 2 times a day, AFTER USE., # 36 each, 1 Refills, [facility] STORE 44135, 168, cm, 03/18/20 11:41:00 EST, Height, 60, kg, 11/16/19 21:04:00 EDT, Dry Weight Start Date: 01/16/21 Status: Orderedomeprazole 20 mg oral enteric coated capsule 1 capsule, By Mouth, Daily, # 90 capsule, 2 Refills, Maintenance, 06/15/21 11:24:00 EST, [facility], 173, cm, 06/08/21 13:33:00 EST, Height, 66.7, kg, 06/08/21 13:33:00 EST, Dry Weight Start Date: 06/15/21 Status: OrderedVentolin HFA 108 mcg/inh inhalation aerosol with adapter 2 puffs, Inhalation, 4 times a day, PRN Wheezing/Shortness of Breath, # 1 each, 5 Refills, Maintenance, 06/16/21 6:49:00 EST, Aerosol, [facility], Office visit needed for further refills., 173, cm, 06/08/21 13:33:00 EST, Height, 66... 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
--- OUTSIDE RECORDS SUMMARY | 2022-03-04 21:47 | XMS_ITS | Continuity of Care Document ---
:1970 Author Organization [facility] Address [address] [place] [address]- Care Team Providers Name Role Phone Claude Dahl MD Primary Care Physician Encounter [facility] Date(s): 04/26/21 - 04/26/[address] [phone]- Discharge Disposition: A-D/C AMA Attending Physician: Emanuel Cole MD Admitting Physician: [...] Replace Required Details, Route to Pharmacy Electronically, [facility]/pharmacy #1230, 173, cm, 06/11/19 13:57:00 EST,... Start Date: 06/11/19 Status: OrderedcloNIDine 0.1 mg oral tablet 1, tablet, By Mouth, 2 times a day, STOP NALTREXONE., # 180 tablet, Refills 1, Tot. Refills 1, Maintenance, 05/22/20 10:58:00 EST, Route to Pharmacy Electronically, [facility]/pharmacy #1230, 168, cm, 03/18/20 11:41:00 EST, Height, 60, kg, 11/16/19 21:04... Start Date: 05/22/20 Status: OrderedFlovent HFA 110 mcg/inh inhalation aerosol 2 puffs, Inhalation, 2 times a day, AFTER USE., # 36 each, 1 Refills, [facility], 168, cm, 03/18/20 11:41:00 EST, Height, 60, [...] 2 Refills, Maintenance, 01/10/21 12:15:00 EDT, Aerosol, [facility]/pharmacy #1230, Office visit needed for further refills., 168, cm, 03/18/20 11:41:00 EST, Height, 60, kg, 11/15... Start Date: 01/10/21 Stop Date: 04/10/21 Status: Ordered Problem List Condition Effective Dates Status Health Status Informant Acute hepatitis C(Confirmed) Active Alcohol abuse(Confirmed) Active Asthma(Confirmed) Active Anxiety State, Unspecified(Confirmed) Active Asthma(Confirmed) Active GERD (gastroesophageal reflux Active disease)(Confirmed) [facility] current use of opiate Active analgesic(Confirmed) LBP (low back pain)(Confirmed) Active Annual physical exam(Confirmed) Active Moderate tobacco use Active disorder(Confirmed) Vital Signs Most recent to oldest [Reference Range]: 1 2 Height 175 cm 183 cm (04/26/21 5:49 PM) (04/26/21 5:47 PM) Weight 77 kg (04/26/21 5:47 PM) Oxygen Saturation [94-100 %] 100 % (04/26/21 5:49 PM) Pulse Rate [55-90 bpm] 97 bpm *H* (04/26/21 5:49 PM) Blood Pressure [90-138/55-84 mm Hg] 121/103 mm Hg (04/26/21 5:49 PM) Respiratory Rate [16-30 br/min] 22 br/min (04/26/21 5:49 PM) Temperature [96.8-100.4 DegF] 97.5 DegF (04/26/21 5:49 PM) Mode of Delivery (Oxygen) Room air (04/26/21 5:49 PM) Blood pressure sites Arm, left (04/26/21 5:49 PM) Temperature Route Oral (04/26/21 5:49 PM) Dry Weight 78.5 kg 77 kg (04/26/21 5:49 PM) (04/26/21 5:47 PM) Social History Social History Type Response Smoking Status 5-9 cigarettes (between 1/4 to 1/2 pack)/day in last 30 days entered on: 01/17/19 Sex
--- OUTSIDE RECORDS SUMMARY | 2022-03-04 21:47 | XMS_ITS | Continuity of Care Document ---
:1970 Author Organization [facility] Address [address] [place] [address]- Care Team Providers Name Role Phone Claude Dahl MD Primary Care Physician Encounter [facility] NBR [id number] Date(s): 03/18/20 - 03/25/20 [facility] [address] [place] [address]- Attending Physician: Claude Dahl MD Allergies, Adverse [...] Replace Required Details, [id number], cm, 06/11/19 13:57:00 EST,... Start Date: 06/11/19 Status: OrderedcloNIDine 0.1 mg oral tablet 1, tablet, By Mouth, 2 times a day, STOP NALTREXONE., # 180 tablet, Refills 0, Tot. Refills 0, Maintenance, 02/22/20 12:46:00 EST, Route to Pharmacy Electronically, [facility]/pharmacy #1230, 168, cm, 11/16/19 21:04:00 EDT, [...] recent to oldest [Reference Range]: 1 Height 168 cm (03/18/20 11:41 AM) Social History Social History Type Response Smoking Status 5-9 cigarettes (between 1/4 to 1/2 pack)/day in last 30 days entered on: 01/17/19 Sex
--- OUTSIDE RECORDS SUMMARY | 2022-03-04 21:47 | XMS_ITS | Continuity of Care Document ---
:1970 Author Organization [facility] Address [address] [place] [address]- Care Team Providers Name Role Phone Claude Dahl MD Primary Care Physician Encounter [facility] NBR [id number] Date(s): 03/13/20 - 03/20/20 [facility] [address] [place] [address]- Attending Physician: Theo Weber Allergies, Adverse Reactions, [...] Replace Required Details, Route to Pharmacy Electronically, [facility]/pharmacy #[id number], 173, cm, 06/11/19 13:57:00 EST,... Start Date: 06/11/19 Status: OrderedcloNIDine 0.1 mg oral tablet 1, tablet, By Mouth, 2 times a day, STOP NALTREXONE., # 180 tablet, Refills 0, Tot. Refills 0, Maintenance, 02/22/20 12:46:00 EST, Route to Pharmacy Electronically, [facility]/pharmacy #1230, 168, cm, 11/16/19 21:04:00 [...] oldest [Reference Range]: 1 Height 168 cm (03/13/20 1:04 PM) Social History Social History Type Response Smoking Status 5-9 cigarettes (between 1/4 to 1/2 pack)/day in last 30 days entered on: 01/17/19 Sex
[2022-03-04 21:50] VITALS: BP 108/66; PULSE 71; RESP 17; TEMP 36.7; O2SAT 98
[2022-03-04 21:50] LABS: Basophils Absolute Auto 0.1 X10*3/uL (0.0-0.2); Basophils Percent Auto 1.3 % (0-2); Eosinophils Absolute Auto 0.1 X10*3/uL (0.0-0.4); Eosinophils Percent Auto 2.5 % (0-4); Hematocrit 42.4 % (42.0-52.0); Hemoglobin 14.3 g/dl (14.0-18.0); Imm Gran Abs Auto 0.01 X10*3/uL (0.00-0.03); Imm Gran Pct Auto 0.3 % (0.0-0.4); Lymphocytes Absolute Auto 1.5 X10*3/uL (1.2-4.9); Lymphocytes Percent Auto 37.9 % (20-40); Mean Corpuscular HGB Conc 33.7 g/dl (31.0-36.0); Mean Corpuscular Hemoglobin 32.7 pg (27.0-33.0); Mean Platelet Volume 8.6 fL (9.4-12.4); Monocytes Absolute Auto 0.3 X10*3/uL (0.1-1.2); Monocytes Percent Auto 7.3 % (2-11); Neutrophils Percent Auto 50.7 % (45-73); Platelet Count 228 X10*3/uL (160-400); Red Blood Count 4.37 X10*6/uL (4.60-5.80); Red Cell Distribution Width 11.1 % (11.0-16.0)
[2022-03-04 22:03] LABS: COVID-19 Test Negative (Negative); IDNOW Serial# 08D9AD1C
[2022-03-04 22:28] LABS: Alanine Aminotransferase 29 U/L (0-40); Albumin Level 4.3 g/dL (3.5-5.0); Alkaline Phosphatase 60 U/L (39-117); Anion Gap 20 (12-20); Aspartate Amino Transferase 65 U/L (5-37); Bilirubin Total 0.2 mg/dL (0.0-1.0); Blood Urea Nitrogen 21 mg/dL (9-16); Calcium 9.2 mg/dL (8.4-10.2); Carbon Dioxide 26 mmol/L (22-29); Chloride 103 mmol/L (96-108); Creatinine Clr Calc Pharmacy 91.4; Estimated Glomerular Filt Rate > 60; Ethanol 280 mg/dL; Glucose Random 96 mg/dL (60-115); Magnesium 2.3 mg/dL (1.6-2.6); Potassium 4.4 mmol/L (3.3-5.1); Sodium 145 mmol/L (135-145); Total Protein 7.6 g/dL (6.5-8.0)
[2022-03-04 22:32] LABS: Troponin-I High Sensitivity < 3.5 ng/L (<3.5-35.0)
[2022-03-04 22:40] LABS: B Type Natriuretic Peptide 53 pg/mL (<100)
[2022-03-04 23:08] LABS: Lipase 20 U/L (8-78)
[2022-03-04 23:52] VITALS: BP 128/88; PULSE 80; RESP 18; O2SAT 96
[2022-03-05 01:52] VITALS: BP 160/96; PULSE 82; RESP 16; O2SAT 96
[2022-03-05 04:00] VITALS: BP 133/86; PULSE 81; O2SAT 97
[2022-03-05 06:00] VITALS: BP 169/119; PULSE 82; RESP 18; O2SAT 98
[2022-03-05 07:12] VITALS: BP 171/91; PULSE 75; RESP 14; TEMP 36.7; O2SAT 97
== END 2022-03-05 08:50 | disposition home or self-care (01) ==
PROVIDERS: Physician Assistant; Emergency Provider Internal Medicine
DX: F10.220 Alcohol dependence with intoxication, uncomplicated (principal); Y90.8 Blood alcohol level of 240 mg/100 ml or more; R07.9 Chest pain, unspecified; R10.9 Unspecified abdominal pain; Z20.822 Contact with and (suspected) exposure to COVID-19
CPT/HCPCS: 36415; 80053; 82077; 83690; 83735; 83880; 84484; 85025; 87635; 93005; 99283; 99285

== ENCOUNTER 2023-05-24 18:42 | Emergency (ER) | payer MEDICARE, MEDICAID, SELFPAY ==
--- NOTE | ~2023-05-24 | CT_ITS ---
EXAMINATION: CT CHEST, ABDOMEN, AND PELVIS WITH CONTRAST CLINICAL INFORMATION: Abdominal pain. Weight loss. Cough. Tuberculosis. Malignancy workup. COMPARISON: Chest radiograph from 09/19/2021. TECHNIQUE: Multidetector volumetric imaging was performed from the thoracic inlet to the pubic symphysis following the administration of 85 mL Omnipaque 350 intravenous contrast. No contrast reaction reported. Sagittal and coronal reformatted images were obtained on the technologist workstation. This CT examination was performed using dose optimization techniques as appropriate, variously including the following: *Automated exposure control. *Adjustment of mA and/or kV according to patient size (this includes techniques or standardized protocols for targeted exams where dose is matched to indication/reason for exam; i.e. extremities or head). *Use of iterative reconstruction technique. DLP: 481 mGy-cm FINDINGS: CHEST: Lungs: Extensive tree-in-bud opacities scattered throughout the bilateral lungs. There is geographic groundglass opacities within the lateral aspect of the left upper lobe. There are also focal regions of dense consolidation within the right middle lobe.. There is a single 0.4 cm region of cavitation versus a cyst in the left lung base. Mild peribronchial wall thickening with minimal scattered mucus plugging of the bronchioles. The central airways remain patent. No pleural effusion or pneumothorax. Mediastinum: The cardiac structures are normal in appearance. No mediastinal free fluid or gas. No pericardial effusion. Mildly prominent mediastinal and bihilar/peribronchial lymphoid tissue. Right paratracheal lymph nodes measure up to 0.8 cm in short axis. Periaortic lymph nodes measure up to 0.7 cm in short axis. No axillary lymphadenopathy. Coronary artery calcifications: Present - moderate. ABDOMEN/PELVIS: Liver, Biliary Ducts, and Gallbladder: The liver is normal in size and attenuation without focal hepatic lesions or biliary ductal dilatation. The gallbladder is physiologically distended without radiopaque gallstones, pericholecystic fluid, or significant gallbladder wall thickening. Pancreas: The pancreas is normal in appearance. Adrenal Glands: The adrenal glands are normal in appearance. Spleen: The spleen is normal in appearance. Kidneys and Ureters: The kidneys demonstrate symmetric nephrograms without evidence of nephrolithiasis or hydronephrosis. No ureterolithiasis or hydroureter. Urinary Bladder: The urinary bladder is partially distended without focal wall thickening. No bladder calculi are demonstrated. Gastrointestinal System: The stomach is decompressed and therefore not well evaluated on this exam. Paucity of intra-abdominal adipose tissue and lack of oral contrast partially limits evaluation of the intestines. Within this limitation, the small bowel appears of normal caliber without regions of abnormal wall enhancement. The colon is normal in appearance without focal wall thickening or pericolonic inflammatory change. Normal appendix. Genitourinary: Normal appearance of the prostate gland. Intra-abdominal and Retroperitoneal Spaces: No intra-abdominal free fluid collections or gas. No mesenteric, retroperitoneal, or inguinal lymphadenopathy. VASCULATURE: The aorta is of normal caliber with mild calcific atherosclerotic disease. Normal opacification of the inferior vena cava. MUSCULOSKELETAL: Moderate multilevel degenerative changes of the spine. Mild right convex curvature of the thoracic spine. Moderate left convex curvature of the lumbar spine. Chronic appearing left-sided pars interarticularis defect. No demonstrated suspicious lytic or sclerotic osseous lesions. No soft tissue masses demonstrated. CT/CT abdomen pelvis w IV con IMPRESSION: 1. Extensive tree-in-bud opacities throughout the bilateral lungs with focal regions of dense consolidation in the right middle lobe and groundglass opacities in the lateral aspect of the left upper lobe. There is a single 0.4 cm region of cavitation versus a cyst in the left lung base. Findings are suggestive of an active infectious/inflammatory process (potentially non-tuberculous mycobacterial (NTM)/Mycobacterium avium complex (MAC) or mycoplasma pneumoniae infections given the constellation of findings). 2. Mildly prominent mediastinal and bihilar/peribronchial lymphoid tissue. 3. No additional CT abnormalities of the abdomen/pelvis to explain the patient's symptoms.
[2023-05-24 19:18] VITALS: BP 110/62; PULSE 92; O2SAT 94; BMI 24.2
[2023-05-24 19:23] VITALS: BP 82/50; PULSE 102; RESP 16; TEMP 36.9; O2SAT 91
[2023-05-24 19:26] VITALS: BP 94/58
[2023-05-24 19:48] LABS: COVID-19 Test Negative (Negative); IDNOW Serial# 6674DD1D
[2023-05-24 19:52] LABS: IDNOW Serial# 9DB6401D; Influenza A Negative (Negative); Influenza B2 Negative (Negative)
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
--- NOTE | 2023-05-24 21:19 | ECG_ITS ---
Test Reason : SOB Blood Pressure : / mmHG Vent. Rate : 096 BPM Atrial Rate : 096 BPM P-R Int : 130 ms QRS Dur : 082 ms QT Int : 440 ms P-R-T Axes : 081 086 065 degrees QTc Int : 555 ms Normal sinus rhythm Prolonged QT Abnormal ECG When compared with ECG of 04-MAR-2022 21:28, QT has lengthened Referred By: Dean Turner Electronically Signed By:Jay Davis
[2023-05-24 21:26] VITALS: BP 94/57; PULSE 101; TEMP 36.8; O2SAT 94
[2023-05-24] MEDS: Albuterol Sulfate (0.083%) 2.5 MG/3 ML VIAL.NEB 5 MG INHALE (21:31)
[2023-05-24 21:34] VITALS: PULSE 83; RESP 18; O2SAT 94
[2023-05-24 21:36] LABS: Appearance Urine Clear; Color Urine Dark Yellow; Glucose Urine UA Negative (Negative); Leukocyte Esterase Urine Negative (Negative); Nitrite Urine Negative (Negative); PH 5.5 (5.0-9.0); Specific Gravity - Urine >= 1.030 (1.005-1.025); UMIC TRIGGER UACC YES; Urine Blood Negative (Negative); Urine Ketones Trace mg/dL (Negative); Urine Protein 100 (2+) mg/dL (Neg-Trace)
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
[2023-05-24 21:45] LABS: Amphetamine Screen Urine Not Detected (Not Detect); Barbiturates, Urine Not Detected (Not Detect); Benzodiazepines Screen Urine Not Detected (Not Detect); Cannabinoid Screen Urine POSITIVE (Not Detect); Cocaine Screen Urine POSITIVE (Not Detect); Fentanyl, urine POSITIVE (Not Detect); Opiate Screen Urine POSITIVE (Not Detect); Phencyclidine Screen Urine Not Detected (Not Detect)
[2023-05-24 21:53] LABS: Bacteria Urine None Seen (None Seen); Granular Casts Urine Present; RBC Urine 0-2 /HPF (0-2); Squamous Epithelial Cell Urine 0-2 /HPF (0-2); WBC Urine 0-5 /HPF (0-5)
[2023-05-24] MEDS: methylPREDNISolone Sod Succ 125 MG/2 ML VIAL IVPUSH (22:38)
[2023-05-24] MEDS: methADONE HCl 20 MG/2 ML ORAL.CONC 40 MG PO (22:38)
[2023-05-24 22:44] LABS: Basophils Percent Auto 0.4 % (0-2); Hematocrit 42.9 % (42.0-52.0); Hemoglobin 14.7 g/dl (14.0-18.0); Imm Gran Abs Auto 0.11 X10*3/uL (0.00-0.03); Imm Gran Pct Auto 1.1 % (0.0-0.4); Lymphocytes Percent Auto 29.3 % (20-40); MANUAL DIFF FLAG SCAN; Mean Corpuscular HGB Conc 34.3 g/dl (31.0-36.0); Mean Corpuscular Hemoglobin 32.7 pg (27.0-33.0); Mean Corpuscular Volume 95.5 fL (80.0-98.0); Monocytes Absolute Auto 1.5 X10*3/uL (0.1-1.2); Monocytes Percent Auto 14.6 % (2-11); Neutrophils Absolute Auto 5.6 x10*3/uL (2.0-8.3); Neutrophils Percent Auto 54.6 % (45-73); Platelet Count 239 X10*3/uL (160-400); Red Blood Count 4.49 X10*6/uL (4.60-5.80); Red Cell Distribution Width 11.3 % (11.0-16.0); SCAN SMEAR FLAG 1; White Blood Count 10.3 X10*3/uL (4.8-10.8)
[2023-05-24] MEDS: 0.9 % Sodium Chloride 1,000 ML 999 ML IV (22:44)
[2023-05-24 22:50] LABS: Lactic Acid 3.4 mmol/L (0.5-2.0)
[2023-05-24 22:59] LABS: Alanine Aminotransferase 15 U/L (0-40); Albumin Level 3.6 g/dL (3.5-5.0); Alkaline Phosphatase 71 U/L (39-117); Anion Gap 17 (12-20); Aspartate Amino Transferase 26 U/L (5-37); Bilirubin Total 0.4 mg/dL (0.0-1.0); Blood Urea Nitrogen 35 mg/dL (9-16); Calcium 9.6 mg/dL (8.4-10.2); Carbon Dioxide 26 mmol/L (22-29); Chloride 97 mmol/L (96-108); Creatinine Clr Calc Pharmacy 66.4; Estimated Glomerular Filt Rate > 60; Ethanol 141 mg/dL; Glucose Random 90 mg/dL (60-115); Lipase 8 U/L (8-78); Potassium 4.2 mmol/L (3.3-5.1); Sodium 136 mmol/L (135-145); Total Protein 8.3 g/dL (6.5-8.0)
[2023-05-24 23:08] LABS: SLIDE REVIEW VERIFIED
[2023-05-24 23:14] LABS: TSH reflex Free T4 1.24 uIU/mL (0.32-4.0)
[2023-05-24] MEDS: iohexoL 350 MG/ML 100 ML INFUS..BTL 85 ML IV (23:24)
[2023-05-24 23:56] LABS: Troponin-I High Sensitivity < 2.7 ng/L (<3.5-35.0)
[2023-05-25 00:12] VITALS: PULSE 87; RESP 18
[2023-05-25 00:14] LABS: VBG Base Excess -0.1 mmol/L; VBG HCO3 23 mmol/L (22-26); VBG pCO2 35 mmHg; VBG pH 7.43 (7.32-7.43); VBG pO2 63 mmHg
[2023-05-25 00:17] LABS: Venous Blood Gas Refer to POC result
[2023-05-25 00:20] LABS: Partial Thromboplastin Time 30.9 SEC (26.0-36.8)
[2023-05-25 00:35] LABS: Reflex Lactate? Lactic Acid Added
[2023-05-25] MEDS: Doxycycline Monohydrate 100 MG CAPSULE PO (01:49)
[2023-05-25 02:05] LABS: ~Lactic Acid-LAB USE ONLY 0.9 mmol/L (0.5-2.0)
[2023-05-25 03:36] LABS: HIV AB/AG Nonreactive (Nonreactive); HIV Num 1 0.07 S/CO (0.00-0.99)
== END 2023-05-25 02:18 | disposition home or self-care (01) ==
PROVIDERS: Emergency Medicine Emergency Medical Services; Emergency Provider Student in an Organized Health Care Education/Training Program
DX: F10.129 Alcohol abuse with intoxication, unspecified (principal); R05.1 Acute cough; R06.02 Shortness of breath; Y90.6 Blood alcohol level of 120-199 mg/100 ml; R50.9 Fever, unspecified; F14.19 Cocaine abuse with unspecified cocaine-induced disorder; F11.10 Opioid abuse, uncomplicated; Z79.899 Other long term (current) drug therapy; Z11.52 Encounter for screening for COVID-19
CPT/HCPCS: 36415; 71260; 74177; 80053; 80307; 81001; 82550; 82803; 83605; 83690; 84443; 84484; 85025; 85730; 87040; 87389; 87502; 87635; 93005; 94640; 96361; 96374; 99284; 99285; J2930; Q9967

== ENCOUNTER → 2023-05-24 21:19 | Outpatient (BNV) | payer MEDICARE, MEDICAID, SELFPAY | PROVIDERS: Emergency Provider Student in an Organized Health Care Education/Training Program; Visit Provider Internal Medicine Cardiovascular Disease | DX: R06.02 Shortness of breath (principal) | CPT/HCPCS: 93010 ==

== ENCOUNTER 2023-09-13 20:25 | Emergency (ER) | payer MEDICARE, SELFPAY ==
[2023-09-13 20:34] VITALS: BP 130/84; PULSE 72; O2SAT 100
[2023-09-13 21:54] VITALS: BP 94/57; PULSE 72; RESP 16; TEMP 37.1; O2SAT 96; BMI 20.4
--- NOTE | 2023-09-13 21:59 | ED_ITS ---
HPI - General Adult General Chief complaint: ETOH/Substance Use Stated complaint: ETOH Time Seen by Provider: 09/13/23 20:41 Source: patient, RN notes reviewed and old records reviewed Mode of arrival: EMS Limitations: other (Patient appears intoxicated admits to drinking alcohol) History of Present Illness ED Provider: Mario HPI narrative: 53-year-old male presents for evaluation of or alcohol abuse. [facility] apparently a bystander called EMS as the patient seemed intoxicated on the side of the road The patient admits to drinking alcohol today It is unclear exactly how much she had to drink. The patient reports he is always and back pain due to severe scoliosis The patient has no other complaints or concerns at this time Related Data Home Medications ?Medication ?Instructions ?Recorded ?Confirmed methadone 10 mg/mL oral concentrate 85 mg PO DAILY 09/21/21 09/21/21 Previous Rx's ?Medication ?Instructions ?Recorded ondansetron 4 mg disintegrating 4 mg PO Q8H 4 days #12 tabs 06/04/21 tablet doxycycline monohydrate 100 mg 100 mg PO BID 7 days #14 caps 05/25/23 capsule prednisone 50 mg tablet 50 mg PO DAILY 4 days #4 tabs 05/25/23 Allergies Allergy/AdvReac Type Severity Reaction Status Date / Time No Known Allergies Allergy Verified 09/13/23 21:56 Review of Systems Constitutional: Constitutional: Denies body ache(s), Denies chills and Denies headache(s) ENT: Denies headache(s) Respiratory: Respiratory: Denies cough Gastrointestinal: Gastrointestinal: Denies abdominal pain Musculoskeletal: Musculoskeletal: Reports back pain Integumentary/Breasts: Skin/Breast: Denies rash Neurologic: Denies headache(s) PMFSH Social History Social History (System 03/05/22 @ 07:13 by Giulia Costa) Alcohol intake: current Substance Use Type: Heroin Advance Directives: No Advance Directives Information Provided: No Physical Exam ED Vital Signs: Vital Signs - 24 hr 09/13/23 21:54 Temperature 98.8 F Pulse Rate 72 Respiratory Rate 16 Blood Pressure 94/57 L Pulse Oximetry 96 Oxygen Delivery Method Room Air BMI result Body Mass Index 20.4 Const General: healthy appearing, alert and awake Nutritional Appearance: well nourished Orientation/consciousness: patient oriented x3 HENMT Head: Yes normocephalic and Yes atraumatic Eyes Eyelids: Yes eyelids normal Conjunctivae: conjunctivae normal Sclerae: sclerae normal Corneas: corneas normal Pupils: Equal, round and reactive pupils present EOM: EOMs intact bilaterally Neck Neck: Yes full ROM Resp Effort & Inspection: normal respiratory effort, able to speak in complete sentences and not labored GI Inspection: No distended Palpation (GI): Soft to palpation, not firm, nontender, no guarding and not rigid Back/Spine/Pelvis Other: Severe dextroscoliosis of the thoracic spine Skin General skin exam: elasticity normal Neuro General: patient oriented x3 Cranial nerves: Yes Equal, round and reactive pupils present and Yes Bilaterally intact EOM present Cognition (Neuro): normal cognition Extrem Other: Moving all extremities well without any obvious deformities Course Reevaluation(s) Reevaluation #1: Patient resting comfortably. Plan for continued observation and likely DC in a.m. Time: 01:57 Medical Decision Making Medical Decision Making MDM Narrative: 53-year-old male presents for evaluation of alcohol abuse. He reports chronic back pain but no acute injuries or falls. Plan for monitoring and sober re- evaluation Differential Diagnosis Differential Diagnoses: The differential diagnosis associated with the presentation includes Acute alcohol intoxication Alcohol abuse Chronic back pain Scoliosis Discharge Plan Discharge Clinical Impression: Dextroscoliosis, Alcoholic intoxication Patient Disposition: Home, Self-Care Instructions: Abuse of Alcohol (ED) Additional Instructions: Avoid excessive consumption of alcohol. Return for new or worsening symptoms Use ibuprofen or Tylenol as needed for pain Follow-up with your primary doctor Prescriptions: No Action ondansetron 4 mg tablet,disintegrating 4 mg PO Q8H 4 Days Qty: 12 0RF methadone 10 mg/mL Concentrate 85 mg PO DAILY doxycycline monohydrate 100 mg capsule 100 mg PO BID 7 Days Qty: 14 0RF prednisone 50 mg tablet 50 mg PO DAILY 4 Days Qty: 4 0RF Print Language: Belarusian
[2023-09-14 03:17] VITALS: BP 125/78; PULSE 65; RESP 18; O2SAT 96
--- NOTE | 2023-09-14 08:01 | PC.NURSE ---
pt walked out w/o d/c paperwork. battery charger testerADI becker.
[2023-09-14 08:02] VITALS: BP 00/00; PULSE 0; RESP 0; TEMP -17.7; TEMP 0; O2SAT 0
== END 2023-09-14 08:03 | disposition home or self-care (01) ==
PROVIDERS: Emergency Provider Internal Medicine
DX: F10.129 Alcohol abuse with intoxication, unspecified (principal); Y90.9 Presence of alcohol in blood, level not specified; M41.80 Other forms of scoliosis, site unspecified
CPT/HCPCS: 99283; 99284

== ENCOUNTER 2023-10-02 02:12 | Emergency (ER) | payer MEDICARE, SELFPAY ==
[2023-10-02] VITALS (10 sets, daily range): BP systolic 103–161; BP diastolic 74–103; PULSE 53–77; RESP 12–16; TEMP 36.4–36.9; O2SAT 97–100; BMI 22.3
--- NOTE | 2023-10-02 | ECG_ITS ---
Test Reason : CP Blood Pressure : / mmHG Vent. Rate : 053 BPM Atrial Rate : 053 BPM P-R Int : 140 ms QRS Dur : 082 ms QT Int : 478 ms P-R-T Axes : 063 071 062 degrees QTc Int : 448 ms Poor data quality Sinus bradycardia Otherwise normal ECG When compared with ECG of 24-MAY-2023 22:52, Vent. rate has decreased BY 43 BPM T wave amplitude has increased in Lateral leads QT has shortened Referred By: Generic ED Physician Electronically Signed By:RADHA REINA MD
--- NOTE | ~2023-10-02 | XR_ITS ---
EXAMINATION: XR CHEST CLINICAL INFORMATION: Right-sided chest pain COMPARISON: Previous chest CT May 2023 and chest x-ray September 2021 TECHNIQUE: 2 views of the chest were obtained. FINDINGS: The cardiac and mediastinal contours are stable. The lungs are clear. No pleural effusion or pneumothorax. Thoracolumbar scoliosis and degenerative change of the spine. XR/XR chest 2V IMPRESSION: No evidence for acute disease in the chest.
--- NOTE | 2023-10-02 03:03 | PC.NURSE ---
pt changed over, belongings in [facility]
[2023-10-02 03:29] LABS: Amphetamine Screen Urine Not Detected (Not Detect); Appearance Urine Clear; Barbiturates, Urine POSITIVE (Not Detect); Benzodiazepines Screen Urine Not Detected (Not Detect); Buprenorphine Scr Not Detected (Not Detect); Cannabinoid Screen Urine Not Detected (Not Detect); Cocaine Screen Urine POSITIVE (Not Detect); Color Urine Yellow; Fentanyl, urine POSITIVE (Not Detect); Glucose Urine UA Negative (Negative); Leukocyte Esterase Urine Negative (Negative); Methadone Screen, Urine Positive (Not Detect); Nitrite Urine Negative (Negative); Opiate Screen Urine POSITIVE (Not Detect); Oxycodone Screen Urine Not Detected (Not Detect); Phencyclidine Screen Urine Not Detected (Not Detect); Urine Blood Negative (Negative); Urine Ketones Negative (Negative); Urine Protein Negative (Neg-Trace)
[2023-10-02 03:35] LABS: Basophils Absolute Auto 0.1 X10*3/uL (0.0-0.2); Basophils Percent Auto 1.3 % (0-2); Eosinophils Absolute Auto 0.2 X10*3/uL (0.0-0.4); Eosinophils Percent Auto 3.8 % (0-4); Hematocrit 35.1 % (42.0-52.0); Hemoglobin 12.3 g/dl (14.0-18.0); Imm Gran Abs Auto 0.01 X10*3/uL (0.00-0.03); Imm Gran Pct Auto 0.3 % (0.0-0.4); Lymphocytes Percent Auto 48.8 % (20-40); Mean Corpuscular Hemoglobin 34.4 pg (27.0-33.0); Mean Platelet Volume 8.8 fL (9.4-12.4); Monocytes Absolute Auto 0.5 X10*3/uL (0.1-1.2); Monocytes Percent Auto 13.5 % (2-11); Neutrophils Absolute Auto 1.3 x10*3/uL (2.0-8.3); Neutrophils Percent Auto 32.3 % (45-73); Platelet Count 188 X10*3/uL (160-400); Red Blood Count 3.58 X10*6/uL (4.60-5.80); Red Cell Distribution Width 11.6 % (11.0-16.0)
[2023-10-02 03:36] LABS: MANUAL DIFF FLAG NO
[2023-10-02 03:39] LABS: Alanine Aminotransferase 34 U/L (0-40); Alkaline Phosphatase 70 U/L (39-117); Anion Gap 15 (12-20); Aspartate Amino Transferase 76 U/L (5-37); Bilirubin Total 0.3 mg/dL (0.0-1.0); Blood Urea Nitrogen 23 mg/dL (9-16); Calcium 8.9 mg/dL (8.4-10.2); Carbon Dioxide 25 mmol/L (22-29); Chloride 109 mmol/L (96-108); Creatinine Clr Calc Pharmacy 85.9; Estimated Glomerular Filt Rate > 60; Ethanol 144 mg/dL; Glucose Random 92 mg/dL (60-115); Potassium 4.9 mmol/L (3.3-5.1); Sodium 144 mmol/L (135-145); Total Protein 7.5 g/dL (6.5-8.0)
[2023-10-02 03:46] LABS: Troponin-I High Sensitivity < 2.7 ng/L (<3.5-35.0)
--- NOTE | 2023-10-02 04:07 | ED_ITS ---
HPI - General Adult General Chief complaint: General Medical Stated complaint: DIZZINESS, CHEST PAIN, DIFFICULTY URINATING,CHILLS Time Seen by Provider: 10/02/23 04:07 History of Present Illness ED Provider: Elgin PEOPLES narrative: The patient is a 53-year-old male who arrived by ambulance. I believe he called the ambulance. He tells me that he has been having chest pain for the last 24 hours. He also says that he has had cramping in his right arm. He does not know if he has had a fever but he has felt chilled. The patient says that he has episodes of pain that feel like cramps. He says that he develops a crampy- like pain on the right side of his chest that then seems to extend into his right arm. This will last for a couple of minutes before it subsides. It will then occur again several minutes later. He also says that he has been falling a lot. The patient is extremely drowsy and not able to give many details of his complaints. Related Data Home Medications ?Medication ?Instructions ?Recorded ?Confirmed methadone 10 mg/mL oral concentrate 85 mg PO DAILY 09/21/21 09/21/21 Previous Rx's ?Medication ?Instructions ?Recorded ondansetron 4 mg disintegrating 4 mg PO Q8H 4 days #12 tabs 06/04/21 tablet doxycycline monohydrate 100 mg 100 mg PO BID 7 days #14 caps 05/25/23 capsule prednisone 50 mg tablet 50 mg PO DAILY 4 days #4 tabs 05/25/23 Allergies Allergy/AdvReac Type Severity Reaction Status Date / Time No Known Allergies Allergy Verified 10/02/23 02:37 Review of Systems 2 Review of Systems: Yes all other systems are reviewed and are negative [facility] Social History Social History (System 03/05/22 @ 07:13 by Giulia Costa) Alcohol intake: current Alcohol intake frequency: 3 or more drinks per day Alcohol type: beer and hard liquor Smoked in Last 30 Days: No Use of substances other than those prescribed or required for medical reasons: No Substance Use Type: Heroin Advance Directives: No Advance Directives Information Provided: No Physical Exam ED Vital Signs: Vital Signs - 24 hr 10/02/23 02:29 10/02/23 06:33 Temperature 97.6 F 98.1 F Pulse Rate 53 77 Respiratory Rate 14 12 Blood Pressure 146/80 H 153/88 H Pulse Oximetry 98 98 Oxygen Delivery Method Room Air Room Air BMI result Body Mass Index 22.3 Const Other: The patient is a disheveled 53-year-old who looks older than his age. He was sleeping and seemed to be sleeping fairly peacefully with a heart rate in the 60s. Did not seem in any respiratory distress or in obvious pain or discomfort otherwise. HENMT Other: Face is symmetrical. Mucous membranes moist. Eyes Other: Pupils are round equal, conjunctivae clear Neck Other: No apparent JVD. No significant cervical adenopathy. Chest Other: No definite chest wall tenderness. No subcutaneous emphysema. No crepitus. Resp Effort & Inspection: normal respiratory effort Auscultation: clear to auscultation bilaterally Cardio Rate: regular rate Rhythm: regular rhythm Heart sounds: S1 normal heart sound present and S2 normal heart sound present GI Other: The abdomen seemed soft and not apparently tender. Skin Other: Skin was dry without rash. Neuro Other: The patient was sleepy. He was sleeping but woke with gentle tactile stimulation. He seemed sleepy when woken however. No obvious facial asymmetry. No dysarthria or aphasia although he was speaking very little because of his fatigue. He seemed to have symmetrical tone in his extremities. No obvious focal deficit. Extrem Other: No peripheral edema. Medications Administered Discontinued Medications Generic Name Dose Route Start Last Admin Trade Name Freq PRN Reason Stop Dose Admin Sodium Chloride 1,000 mls @ 999 mls/hr 10/02/23 04:30 10/02/23 04:57 Ns IV 10/02/23 05:30 Not Given .Q1H1M [facility] Phenobarbital Sodium 255 mg 10/02/23 08:00 10/02/23 08:19 Phenobarbital Sodium 130 Mg/Ml Im Once IM 10/02/23 08:01 255 mg ONCE ONE Administration Protocol Medical Decision Making Medical Decision Making MDM Narrative: The patient is a 53-year-old man with alcoholism who was also homeless who presents complaining of intermittent episodic episodes of right-sided chest pain and arm pain. Clinically he was not very interactive and he looks chronically ill for his age but not obviously acutely ill. His labs are very unremarkable. His vital signs are stable. He has not febrile. He has not tachycardic. He has no findings of significance on his clinical exam aside from his general and willingness to participate in an interview. Ultimately he said that he needed something for alcohol withdrawal. I thought he might be dehydrated but he refused IV therapy. I ordered a dose of IM phenobarbital. A chest x-ray is still pending. I will be signing the patient out to my colleague at change of shift pending the results of a chest x-ray and results of a care team consult. Lab Data 10/02/23 03:31 10/02/23 03:14 Labs: Lab Results 10/02/23 10/02/23 10/02/23 Range/Units 02:58 03:14 03:31 WBC 4.0 L (4.8-10.8) X10*3/uL RBC 3.58 L D (4.60-5.80) X10*6/uL Hgb 12.3 L (14.0-18.0) g/dl Hct 35.1 L (42.0-52.0) % MCV 98.0 (80.0-98.0) fL MCH 34.4 H (27.0-33.0) pg MCHC 35.0 (31.0-36.0) g/dl RDW 11.6 (11.0-16.0) % Plt Count 188 (160-400) X10*3/uL MPV 8.8 L (9.4-12.4) fL Immature Gran % (Auto) 0.3 (0.0-0.4) % Neut % (Auto) 32.3 L (45-73) % Lymph % (Auto) 48.8 H (20-40) % Powell % (Auto) 13.5 H (2-11) % Eos % (Auto) 3.8 (0-4) % Baso % (Auto) 1.3 (0-2) % Lymph # (Auto) 2.0 (1.2-4.9) X10*3/uL Powell # (Auto) 0.5 (0.1-1.2) X10*3/uL Eos # (Auto) 0.2 (0.0-0.4) X10*3/uL Baso # (Auto) 0.1 (0.0-0.2) X10*3/uL Abs Immat Gran (auto) 0.01 (0.00-0.03) X10*3/uL Absolute Neuts (auto) 1.3 L (2.0-8.3) x10*3/uL Absolute Nucleated RBC 0.000 (0.0-0.012) X10*3/uL Nucleated RBC % (auto) 0.0 (0.0-0.2) /100WBC Sodium 144 (135-145) mmol/L Potassium 4.9 (3.3-5.1) mmol/L Chloride 109 H (96-108) mmol/L Carbon Dioxide 25 (22-29) mmol/L Anion Gap 15 (12-20) BUN 23 H (9-16) mg/dL Creatinine 0.90 (0.5-1.4) mg/dL Estim Creat Clear Calc 85.9 Estimated GFR > 60 Random Glucose 92 (60-115) mg/dL Calcium 8.9 D (8.4-10.2) mg/dL Magnesium 1.7 (1.6-2.6) mg/dL Total Bilirubin 0.3 (0.0-1.0) mg/dL AST 76 H (5-37) U/L ALT 34 (0-40) U/L Alkaline Phosphatase 70 (39-117) U/L Troponin I High Sens < 2.7 (<3.5-35.0) ng/L C-Reactive Protein < 0.10 (< or = 0.50) mg/dL Total Protein 7.5 (6.5-8.0) g/dL Albumin 4.0 (3.5-5.0) g/dL Urine Color Yellow Urine Appearance Clear Urine pH 6.0 (5.0-9.0) Ur Specific Aragon 1.020 (1.005-1.025) Urine Protein Negative (Neg-Trace) mg/dL Urine Glucose (UA) Negative (Negative) mg/dL Urine Ketones Negative (Negative) mg/dL Urine Blood Negative (Negative) Urine Nitrite Negative (Negative) Ur Leukocyte Esterase Negative (Negative) Urine Opiates Screen POSITIVE H (Not Detect) Ur Buprenorphine Scrn Not Detected (Not Detect) ng/mL Ur Oxycodone Screen Not Detected (Not Detect) ng/mL Urine Methadone Screen Positive H (Not Detect) ng/mL Urine Fentanyl Screen POSITIVE H (Not Detect) Ur Barbiturates Screen POSITIVE H (Not Detect) Ur Phencyclidine Scrn Not Detected (Not Detect) Ur Amphetamines Screen Not Detected (Not Detect) U Benzodiazepines Scrn Not Detected (Not Detect) Urine Cocaine Screen POSITIVE H (Not Detect) U Marijuana (THC) Screen Not Detected (Not Detect) Ethyl Alcohol 144 mg/dL Influenza Type A (PCR) (Negative) Influenza Type B (PCR) (Negative) RSV RNA Qual (PCR) (Negative) SARS-CoV-2 RNA (RT-PCR) (Negative) 10/02/23 Range/Units 05:08 WBC (4.8-10.8) X10*3/uL RBC (4.60-5.80) X10*6/uL Hgb (14.0-18.0) g/dl Hct (42.0-52.0) % MCV (80.0-98.0) fL MCH (27.0-33.0) pg MCHC (31.0-36.0) g/dl RDW (11.0-16.0) % Plt Count (160-400) X10*3/uL MPV (9.4-12.4) fL Immature Gran % (Auto) (0.0-0.4) % Neut % (Auto) (45-73) % Lymph % (Auto) (20-40) % Powell % (Auto) (2-11) % Eos % (Auto) (0-4) % Baso % (Auto) (0-2) % Lymph # (Auto) (1.2-4.9) X10*3/uL Powell # (Auto) (0.1-1.2) X10*3/uL Eos # (Auto) (0.0-0.4) X10*3/uL Baso # (Auto) (0.0-0.2) X10*3/uL Abs Immat Gran (auto) (0.00-0.03) X10*3/uL Absolute Neuts (auto) (2.0-8.3) x10*3/uL Absolute Nucleated RBC (0.0-0.012) X10*3/uL Nucleated RBC % (auto) (0.0-0.2) /100WBC Sodium (135-145) mmol/L Potassium (3.3-5.1) mmol/L Chloride (96-108) mmol/L Carbon Dioxide (22-29) mmol/L Anion Gap (12-20) BUN (9-16) mg/dL Creatinine (0.5-1.4) mg/dL Estim Creat Clear Calc Estimated GFR Random Glucose (60-115) mg/dL Calcium (8.4-10.2) mg/dL Magnesium (1.6-2.6) mg/dL Total Bilirubin (0.0-1.0) mg/dL AST (5-37) U/L ALT (0-40) U/L Alkaline Phosphatase (39-117) U/L Troponin I High Sens (<3.5-35.0) ng/L C-Reactive Protein (< or = 0.50) mg/dL Total Protein (6.5-8.0) g/dL Albumin (3.5-5.0) g/dL Urine Color Urine Appearance Urine pH (5.0-9.0) Ur Specific Aragon (1.005-1.025) Urine Protein (Neg-Trace) mg/dL Urine Glucose (UA) (Negative) mg/dL Urine Ketones (Negative) mg/dL Urine Blood (Negative) Urine Nitrite (Negative) Ur Leukocyte Esterase (Negative) Urine Opiates Screen (Not Detect) Ur Buprenorphine Scrn (Not Detect) ng/mL Ur Oxycodone Screen (Not Detect) ng/mL Urine Methadone Screen (Not Detect) ng/mL Urine Fentanyl Screen (Not Detect) Ur Barbiturates Screen (Not Detect) Ur Phencyclidine Scrn (Not Detect) Ur Amphetamines Screen (Not Detect) U Benzodiazepines Scrn (Not Detect) Urine Cocaine Screen (Not Detect) U Marijuana (THC) Screen (Not Detect) Ethyl Alcohol mg/dL Influenza Type A (PCR) NEGATIVE (Negative) Influenza Type B (PCR) NEGATIVE (Negative) RSV RNA Qual (PCR) NEGATIVE (Negative) SARS-CoV-2 RNA (RT-PCR) NEGATIVE (Negative) Independent Interpretation I performed an independent interpretation of an: EKG Interpretation: EKG at 09:29 shows sinus bradycardia 53 beats per minute. There was a lot of artifact on the EKG. No definite acute findings. Discharge Plan Discharge Clinical Impression: Right-sided chest pain, Alcoholism Patient Disposition: Still a Patient Prescriptions: No Action ondansetron 4 mg tablet,disintegrating 4 mg PO Q8H 4 Days Qty: 12 0RF methadone 10 mg/mL Concentrate 85 mg PO DAILY doxycycline monohydrate 100 mg capsule 100 mg PO BID 7 Days Qty: 14 0RF prednisone 50 mg tablet 50 mg PO DAILY 4 Days Qty: 4 0RF Print Language: Thai
[2023-10-02 04:41] LABS: C Reactive Protein < 0.10 mg/dL (< or = 0.50); Magnesium 1.7 mg/dL (1.6-2.6)
--- NOTE | 2023-10-02 04:57 | PC.NURSE ---
pt refused IV fluids, i don't want any needles
[2023-10-02 05:48] LABS: Influenza A PCR NEGATIVE (Negative); Influenza B PCR NEGATIVE (Negative); Resp Syncy Virus RNA Qual PCR NEGATIVE (Negative); SARS COV2 PCR INHOUSE NEGATIVE (Negative)
--- NOTE | 2023-10-02 06:38 | MHC.EDTECH ---
Attempted to obtain lactic during rounds. Pt refused stating they do not want anymore needles. RN aware
[2023-10-02] MEDS: PHENobarbitaL sodium 130 MG/ML IM ONCE 255 MG IM (08:19)
--- NOTE | 2023-10-02 08:28 | PC.NURSE ---
Pt alert and answering questions, reports he is feeling like he is going through alcohol withdrawals. Drinks alcohol daily, reports alot when asked how much. Has hx of DTs and withdrawal seizures. CIWA 7. Reports right sided chest and arm pain, 3/. Requesting his methadone, will call and verify.
--- NOTE | 2023-10-02 08:50 | PC.NURSE ---
Methadone dose verified via [facility]. Sent to pharmacy. Pt denies any SI or HI. Is willing to talk to addiction medicine.
--- NOTE | 2023-10-02 08:57 | HE.PHANOTE ---
RE METHADONE DOSE LAST DOSE 130 MG GIVEN 09/30/23 @0704 AT [facility]
[2023-10-02] MEDS: PHENobarbitaL 15 MG TABLET PO (09:31)
[2023-10-02] MEDS: methADONE HCl 20 MG/2 ML ORAL.CONC 130 MG PO (09:32)
[2023-10-02 10:26] LABS: Lactic Acid 1.2 mmol/L (0.5-2.0)
--- NOTE | 2023-10-02 11:20 | PC.NURSE ---
Pt sleeping at this time, NSR on Cardiac montior.
--- NOTE | 2023-10-02 11:56 | PC.NURSE ---
pt refusing IM shot at this time
--- NOTE | 2023-10-02 12:25 | PC.NURSE ---
Provider aware of pt refusing IM pheno shots, pharmacy reports there is no oral equivalent to that dose. Provider reports to allow pt to refuse
--- NOTE | 2023-10-02 13:38 | MHC.CARE ---
CARE Team briefly met with Pt to discuss substance use consult. Pts started drinking at 11 years old. Pt states he wants to get into substance use treatment. T/w provided Pt with a list of ATS facilities locally. CARE Team provided education regarding calling facilities on the list. Pt asked t/w to return later on. CARE Team notified RN and attending provider via tiger text.
--- NOTE | 2023-10-02 14:04 | PC.NURSE ---
Plan to keep pt as phys obs and try to get him into detox center. Pheno protocol cancelled per provider, CIWA scoring low.
[2023-10-02] MEDS: LORazepam 1 MG TABLET 2 MG PO (16:18)
--- NOTE | 2023-10-02 18:12 | PC.NURSE ---
Pt sleeping at this time, breathing even and unlabored
--- NOTE | 2023-10-02 19:16 | PC.NURSE ---
assumed care of pt at this time. pt is axox4 resting comfortably in stretcher. resp even and unlabored. call thomas within reach.
--- NOTE | 2023-10-02 22:04 | PC.NURSE ---
pt is found to be sleeping face on dinner tray with urinal in hand. pt is arousable to name and speaks full clear sentences however fast asleep shortly after. o2 98% on RA, vss. ciwa 0. pt able to identify not in pain at this time. PA made aware, to continue to monitor resp/o2. pt is nsr on monitor. pt had been previously changed over by security, in hospital gown. call thomas within reach.
--- NOTE | 2023-10-03 01:02 | PC.NURSE ---
pt is axox4 answering questions appropriately. ciwa 0 pt verbalizes he does not feel like he is withdrawing at this time. pt arousable to name however continues to appear drowsy. call thomas within reach.
[2023-10-03 04:07] VITALS: BP 144/89; PULSE 57; RESP 14; TEMP 36.4; O2SAT 98
[2023-10-03 06:41] VITALS: BP 151/97; PULSE 50; RESP 12; TEMP 36.8; O2SAT 98
[2023-10-03] MEDS: methADONE HCl 20 MG/2 ML ORAL.CONC 130 MG PO (08:28)
--- NOTE | 2023-10-03 10:00 | MHC.RECOVRN ---
[facility] does not accept pts insurance. Referral sent to [facility], there is bed availability.
--- NOTE | 2023-10-03 15:27 | MHC.RECOVRN ---
Pt accepted to [facility]. Will be transported via [employer].
[2023-10-03 15:37] VITALS: BP 125/91; PULSE 68; RESP 16; TEMP 36.3; O2SAT 99
[2023-10-03 16:07] VITALS: BP 125/91; PULSE 68; RESP 16; TEMP 36.3; O2SAT 99
== END 2023-10-03 16:07 | disposition home or self-care (01) ==
PROVIDERS: Emergency Provider Emergency Medicine
DX: R07.9 Chest pain, unspecified (principal); F10.20 Alcohol dependence, uncomplicated; Y90.6 Blood alcohol level of 120-199 mg/100 ml; R25.2 Cramp and spasm; Z03.818 Encounter for observation for suspected exposure to other biological agents ruled out
CPT/HCPCS: 0241U; 36415; 71046; 80053; 80307; 81003; 83605; 83735; 84484; 85025; 86140; 93005; 96372; 99285; J2560

== ENCOUNTER → 2023-10-02 02:29 | Outpatient (BNV) | payer MEDICARE, SELFPAY | PROVIDERS: Emergency Provider Emergency Medicine; Visit Provider Internal Medicine Cardiovascular Disease | DX: R07.9 Chest pain, unspecified (principal) | CPT/HCPCS: 93010 ==

== ENCOUNTER 2023-11-19 05:15 | Emergency (ER) | payer MEDICARE, SELFPAY ==
[2023-11-19 05:22] VITALS: BP 98/62; PULSE 83; O2SAT 97
[2023-11-19 05:23] VITALS: BP 118/77; PULSE 73; RESP 18; TEMP 36.6; O2SAT 97; BMI 20.7
[2023-11-19 05:54] LABS: Basophils Percent Auto 0.6 % (0-2); Eosinophils Absolute Auto 0.3 X10*3/uL (0.0-0.4); Eosinophils Percent Auto 5.4 % (0-4); Hematocrit 35.2 % (42.0-52.0); Hemoglobin 11.7 g/dl (14.0-18.0); Imm Gran Abs Auto 0.01 X10*3/uL (0.00-0.03); Imm Gran Pct Auto 0.2 % (0.0-0.4); Lymphocytes Absolute Auto 2.2 X10*3/uL (1.2-4.9); Lymphocytes Percent Auto 46.8 % (20-40); MANUAL DIFF FLAG NO; Mean Corpuscular HGB Conc 33.2 g/dl (31.0-36.0); Mean Corpuscular Hemoglobin 33.4 pg (27.0-33.0); Mean Corpuscular Volume 100.6 fL (80.0-98.0); Mean Platelet Volume 9.2 fL (9.4-12.4); Monocytes Absolute Auto 0.8 X10*3/uL (0.1-1.2); Monocytes Percent Auto 16.5 % (2-11); Neutrophils Absolute Auto 1.4 x10*3/uL (2.0-8.3); Neutrophils Percent Auto 30.5 % (45-73); Platelet Count 226 X10*3/uL (160-400); Red Cell Distribution Width 12.1 % (11.0-16.0); White Blood Count 4.7 X10*3/uL (4.8-10.8)
[2023-11-19 06:08] LABS: Alanine Aminotransferase 31 U/L (0-40); Albumin Level 3.9 g/dL (3.5-5.0); Alkaline Phosphatase 59 U/L (39-117); Anion Gap 15 (12-20); Aspartate Amino Transferase 38 U/L (5-37); Bilirubin Direct < 0.2 mg/dL (0.0-0.5); Bilirubin Total 0.2 mg/dL (0.0-1.0); Blood Urea Nitrogen 25 mg/dL (9-16); Calcium 9.4 mg/dL (8.4-10.2); Carbon Dioxide 26 mmol/L (22-29); Chloride 104 mmol/L (96-108); Creatinine Clr Calc Pharmacy 55.6; Estimated Glomerular Filt Rate 57; Ethanol 66 mg/dL; Glucose Random 93 mg/dL (60-115); Lipase 16 U/L (8-78); Potassium 3.9 mmol/L (3.3-5.1); Sodium 141 mmol/L (135-145); Total Protein 7.4 g/dL (6.5-8.0)
--- NOTE | 2023-11-19 06:44 | ED.GENADULT ---
HPI - General Adult General Chief complaint: General Medical Stated complaint: back pain Time Seen by Provider: 11/19/23 06:41 Source: patient and EMS Mode of arrival: EMS Limitations: no limitations History of Present Illness ED Provider: Madeleine Fagan PA-C HPI narrative: 53 year old male with medical history of polysubstance abuse on methadone presents to the ED with severe back pain that has been ongoing for a while. He states he has a history of scoliosis with back surgery in the past but unable to say when. He states he's had episodes of vomiting with small streaks of blood in it. Patient reports he is homeless and wants to be placed [facility] in [facility] where [facility] just [facility]. He denies paresthesias, fevers, chills, headaches, dizziness, shortness of breath and chest pain. Radiation: back Relieving factors: none Associated symptoms: denies other symptoms Treatments prior to arrival: none Related Data Home Medications ?Medication ?Instructions ?Recorded ?Confirmed methadone 10 mg/mL oral concentrate 130 mg PO DAILY 09/21/21 10/02/23 Previous Rx's ?Medication ?Instructions ?Recorded ondansetron 4 mg disintegrating 4 mg PO Q8H 4 days #12 tabs 06/04/21 tablet doxycycline monohydrate 100 mg 100 mg PO BID 7 days #14 caps 05/25/23 capsule prednisone 50 mg tablet 50 mg PO DAILY 4 days #4 tabs 05/25/23 Allergies Allergy/AdvReac Type Severity Reaction Status Date / Time No Known Allergies Allergy Verified 11/19/23 05:27 Review of Systems Constitutional: Constitutional: Reports no additional constitutional complaints, Denies chills, Denies fever(s) and Denies night sweats Eyes: Eyes: Reports no additional eye complaints, Denies blurry vision, Denies change in vision, Denies diplopia, Denies eye discharge, Denies loss of vision and Denies eye pain ENT: Denies dizziness Cardiovascular: Cardiovascular: Reports no additional cardiovascular complaints, Denies chest pain, Denies lightheadedness, Denies Loss of Consciousness and Denies dyspnea Respiratory: Respiratory: Reports no additional respiratory complaints and Denies dyspnea Gastrointestinal: Gastrointestinal: Reports no additional gastrointestinal complaints, Denies abdominal pain, Denies melena, Denies hematochezia, Denies change in bowel habits and Denies change in stool character Genitourinary: Genitourinary: Reports no additional male genitourinary complaints, Denies hematuria, Denies oliguria, Denies difficulty urinating, Denies dysuria, Denies urinary frequency, Denies urinary hesitancy, Denies urinary incontinence and Denies urinary urgency Musculoskeletal: Musculoskeletal: Reports no additional musculoskeletal complaints, Reports back pain, Denies numbness and Denies tingling Neurologic: Denies dizziness, Denies loss of vision, Denies numbness and Denies tingling Psychiatric: Psychiatric: Reports no additional psychiatric complaints Endocrine: Endocrine: Reports no additional endocrine complaints Hematologic/Lymphatic: Hematologic/Lymphatic: Reports no additional hematologic/lymphatic complaints Allergic/Immunologic: Allergic/Immunologic: Reports no additional allergic/immunologic complaints [facility] Past Medical History Attestation statement: The following information was validated with the patient. Source: old records reviewed and nursing notes reviewed Social History Social History Alcohol intake: current Alcohol intake frequency: 3 or more drinks per day Alcohol type: beer and hard liquor Smoked in Last 30 Days: Yes Substance Use Type: Heroin Advance Directives: No Physical Exam ED Vital Signs: Vital Signs - 24 hr 11/19/23 05:23 11/19/23 08:37 Temperature 97.9 F 97.9 F Pulse Rate 73 73 Respiratory Rate 18 18 Blood Pressure 118/77 118/77 Pulse Oximetry 97 97 Oxygen Delivery Method Room Air Room Air BMI result Body Mass Index 20.7 Const General: cooperative, no acute distress, alert and awake Nutritional Appearance: well nourished Orientation/consciousness: patient oriented x3 Limitations: no limitations [facility] Head: Yes normal to inspection and Yes atraumatic Ears: hearing grossly normal bilaterally and external ears normal General nose exam: Normal external nose present, no nasal discharge noted and no epistaxis Face and sinus: Yes normal facial exam, No abrasion and No laceration Mouth: Normal oral and palatal mucosa present, no drooling and no muffled voice Eyes General: appearance normal, both eyes and all related structures Periorbital: periorbital findings normal Eyelids: Yes eyelids normal Conjunctivae: conjunctivae normal Pupils: Equal, round and reactive pupils present EOM: EOMs intact bilaterally Neck Neck: Yes normal visual inspection, Yes full ROM and Yes no lymphadenopathy Chest Chest palpation & inspection: normal inspection of the chest Resp Effort & Inspection: normal respiratory effort and able to speak in complete sentences GI Inspection: Yes normal to inspection Neuro General: patient oriented x3 and moves all extremities Cranial nerves: Yes Equal, round and reactive pupils present Cognition (Neuro): normal cognition Extrem General: Yes normal to inspection, Yes full ROM and Yes capillary refill normal Psych Appearance: grossly normal Mental Status: mental status grossly normal Affect: normal affect Attitude: cooperative Thought process: Normal thought process present Thought content: Normal thought content present Insight: Good insight present (Psych) Medications Administered Discontinued Medications Generic Name Dose Route Start Last Admin Trade Name Susie PRN Reason Stop Dose Admin Cyclobenzaprine HCl 5 mg 11/19/23 07:06 11/19/23 07:24 Cyclobenzaprine Hcl 5 Mg Tablet PO 11/19/23 07:07 5 mg ONCE ONE Administration Medical Decision Making Medical Decision Making [facility] Narrative: Patient is a 53 year old assigned male at with a history of opiate abuse presenting to the emergency department today with chronic back pain and requesting placement. Patient's physical exam was unremarkable. Patient's blood work was unremarkable. Patient's clinical presentation is consistent with chronic low back pain. I explained my physical exam findings as well as all test results to the patient. I answered all questions asked by the patient. I consulted with the CARE team as there is no addiction personnel on over the weekends. They recommended the patient be discharged with outpatient resources. I stressed the importance of the patient taking his medication as directed (either prescribed or as the over the counter packaging recommends). I stressed the importance of the patient following up with his primary care provider. I stressed the importance of the patient returning to the emergency department immediately if his symptoms were to worsen or if he were to develop any dizziness, shortness of breath, difficulty breathing, chest pain, blurry vision, loss of vision, nausea, vomiting, abdominal pain, fever, chills, back pain, or any other complaints. Patient verbalized agreement and understanding with this treatment plan and discharge. CARE team organized a Lyft for the patient. Differential Diagnosis Differential Diagnoses: The differential diagnosis associated with the presentation includes Low back pain Alcohol abuse / use Heroin use / abuse Admission/Observation Consideration of admission/observation: Escalation of care including admission/observation considered Patient would have been admitted to the hospital had his work up had any findings where hospital admission was appropriate and his clinical presentation warranted hospital admission. Consult Healthcare Provider Management of the patient was discussed with: Behavioral Health Provider (spoke with the CARE team as noted in the MDM rationale portion of this note.) Lab Data MDM Lab Attestation statement: I reviewed the patient's lab results. My interpretation of these results are in the MDM Rationale portion of this note. 11/19/23 05:49 11/19/23 05:49 Labs: Lab Results 11/19/23 Range/Units 05:49 WBC 4.7 L (4.8-10.8) X10*3/uL RBC 3.50 L (4.60-5.80) X10*6/uL Hgb 11.7 L (14.0-18.0) g/dl Hct 35.2 L (42.0-52.0) % MCV 100.6 H (80.0-98.0) fL MCH 33.4 H (27.0-33.0) pg MCHC 33.2 (31.0-36.0) g/dl RDW 12.1 (11.0-16.0) % Plt Count 226 (160-400) X10*3/uL MPV 9.2 L (9.4-12.4) fL Immature Gran % (Auto) 0.2 (0.0-0.4) % Neut % (Auto) 30.5 L (45-73) % Lymph % (Auto) 46.8 H (20-40) % [place] % (Auto) 16.5 H (2-11) % Eos % (Auto) 5.4 H (0-4) % Baso % (Auto) 0.6 (0-2) % Lymph # (Auto) 2.2 (1.2-4.9) X10*3/uL [place] # (Auto) 0.8 (0.1-1.2) X10*3/uL Eos # (Auto) 0.3 (0.0-0.4) X10*3/uL Baso # (Auto) 0.0 (0.0-0.2) X10*3/uL Abs Immat Gran (auto) 0.01 (0.00-0.03) X10*3/uL Absolute Neuts (auto) 1.4 L (2.0-8.3) x10*3/uL Absolute Nucleated RBC 0.000 (0.0-0.012) X10*3/uL Nucleated RBC % (auto) 0.0 (0.0-0.2) /100WBC Sodium 141 (135-145) mmol/L Potassium 3.9 D (3.3-5.1) mmol/L Chloride 104 (96-108) mmol/L Carbon Dioxide 26 (22-29) mmol/L Anion Gap 15 (12-20) BUN 25 H (9-16) mg/dL Creatinine 1.33 (0.5-1.4) mg/dL Estim Creat Clear Calc 55.6 Estimated GFR 57 Random Glucose 93 (60-115) mg/dL Calcium 9.4 (8.4-10.2) mg/dL Total Bilirubin 0.2 (0.0-1.0) mg/dL Direct Bilirubin < 0.2 (0.0-0.5) mg/dL AST 38 H (5-37) U/L ALT 31 (0-40) U/L Alkaline Phosphatase 59 (39-117) U/L Total Protein 7.4 (6.5-8.0) g/dL Albumin 3.9 (3.5-5.0) g/dL Lipase 16 (8-78) U/L Ethyl Alcohol 66 mg/dL Independent Historian Clinical information obtained from an independent historian. History obtained from or confirmed by: EMS (EMS provided additional history and confirmed the history provided by the patient.) Discharge Plan Discharge Clinical Impression: Back pain Patient Disposition: Home, Self-Care Instructions: Back Pain (ED) Additional Instructions: Call the numbers provided to you and/or go to [facility] for help with placement. Follow up with your primary care provider. Return to the emergency department immediately if your symptoms worsen or if you develop any dizziness, shortness of breath, difficulty breathing, chest pain, blurry vision, loss of vision, nausea, vomiting, abdominal pain, fever, chills, back pain, or any other complaints. Prescriptions: No Action ondansetron 4 mg tablet,disintegrating 4 mg PO Q8H 4 Days Qty: 12 0RF methadone 10 mg/mL Concentrate 130 mg PO DAILY doxycycline monohydrate 100 mg capsule 100 mg PO BID 7 Days Qty: 14 0RF prednisone 50 mg tablet 50 mg PO DAILY 4 Days Qty: 4 0RF Referrals: [facility] [Provider Group] (Call to establish and follow up with a primary care provider. If you already have a primary care provider, please follow up with them.) [facility] [Provider Group] [facility] [Provider Group] Interventions: ED Discharge Assessment Last Done: 11/19/23 08:37 Discharge Date/Time: 11/19/23 09:07 Print Language: Macanese
[2023-11-19] MEDS: Cyclobenzaprine HCl 5 MG TABLET PO (07:24)
--- NOTE | 2023-11-19 08:35 | PC.NURSE ---
Patient stating he would like to go to [facility]. Provider aware, message sent to caer team to book lyft to [facility] [place]. Patient agreeable to this plan
[2023-11-19 08:37] VITALS: BP 118/77; PULSE 73; RESP 18; TEMP 36.6; O2SAT 97
--- NOTE | 2023-11-19 08:50 | PC.NURSE ---
Patient provided with clean clothing
--- NOTE | 2023-11-19 08:56 | MHC.CARE ---
Provided gretta with resources, toiletry supplies from the [facility]. He is requesting [facility] to [facility] [place], as he has utilized them for support recently and been placed at [facility], which he is requesting at this time.
--- NOTE | 2023-11-19 09:06 | PC.NURSE ---
Patients belongings in dec returned to patient. Patient brought outside to wait for [facility], care team provided patient with [facility]
[2023-11-19 10:31] LABS: Amphetamine Screen Urine Not Detected (Not Detect); Barbiturates, Urine Not Detected (Not Detect); Benzodiazepines Screen Urine POSITIVE (Not Detect); Buprenorphine Scr Not Detected (Not Detect); Cannabinoid Screen Urine Not Detected (Not Detect); Cocaine Screen Urine POSITIVE (Not Detect); Fentanyl, urine POSITIVE (Not Detect); Methadone Screen, Urine Positive (Not Detect); Opiate Screen Urine POSITIVE (Not Detect); Oxycodone Screen Urine Not Detected (Not Detect); Phencyclidine Screen Urine Not Detected (Not Detect)
== END 2023-11-19 09:07 | disposition home or self-care (01) ==
PROVIDERS: Emergency Provider Emergency Medicine
DX: M54.50 Low back pain, unspecified (principal); F11.10 Opioid abuse, uncomplicated; Z59.00 Homelessness unspecified
CPT/HCPCS: 36415; 80048; 80076; 80307; 83690; 85025; 99284; 99285

== ENCOUNTER 2024-01-15 20:25 | Emergency (ER) | payer MEDICARE, SELFPAY ==
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
[2024-01-15 20:30] VITALS: BP 132/60; PULSE 86
[2024-01-15 20:34] VITALS: BMI 25.8
[2024-01-15 20:49] VITALS: BP 124/73; PULSE 71; RESP 16; TEMP 37.1; O2SAT 96
[2024-01-15 21:20] VITALS: BP 97/64; PULSE 68; RESP 16; TEMP 37.1; O2SAT 98
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
--- NOTE | 2024-01-15 21:25 | MHC.EDTECH ---
Patient had a turkey sandwich and gingerale for snack .
[2024-01-15 21:54] VITALS: BP 97/64; PULSE 68; RESP 16; TEMP 37.1; O2SAT 98
== END 2024-01-15 21:54 | disposition home or self-care (01) ==
PROVIDERS: Emergency Provider Internal Medicine
DX: S22.42XA Multiple fractures of ribs, left side, initial encounter for closed fracture (principal); S49.81XA Other specified injuries of right shoulder and upper arm, initial encounter; M79.601 Pain in right arm; V19.9XXA Pedal cyclist (driver) (passenger) injured in unspecified traffic accident, initial encounter; Y93.89 Activity, other specified; Y92.480 Sidewalk as the place of occurrence of the external cause; Y99.8 Other external cause status; Z79.899 Other long term (current) drug therapy
CPT/HCPCS: 71101; 73060; 99283

== ENCOUNTER 2024-01-22 21:06 | Emergency (ER) | payer MEDICARE, MEDICAID, SELFPAY ==
[2024-01-22 21:13] VITALS: BP 130/90; PULSE 96; O2SAT 96
[2024-01-22 21:28] VITALS: BP 110/66; PULSE 84; RESP 18; TEMP 36.8; O2SAT 100
[2024-01-22 21:36] VITALS: BP 110/66; PULSE 84; RESP 18; TEMP 36.8; O2SAT 100; BMI 20.2
--- NOTE | 2024-01-22 22:13 | MHC.EDTECH ---
This tech tried to obtain labs on Pt, but uncooperative and would not keep arm still despite this tech asking Pt multiple times to do so. Unable to get labs and Pt refused any other attempts. Yarely JOSHI aware.
[2024-01-22 23:39] LABS: Basophils Percent Auto 0.6 % (0-2); Eosinophils Absolute Auto 0.1 X10*3/uL (0.0-0.4); Eosinophils Percent Auto 0.9 % (0-4); Hematocrit 41.1 % (42.0-52.0); Hemoglobin 14.3 g/dl (14.0-18.0); Imm Gran Abs Auto 0.02 X10*3/uL (0.00-0.03); Imm Gran Pct Auto 0.3 % (0.0-0.4); Lymphocytes Absolute Auto 2.6 X10*3/uL (1.2-4.9); Lymphocytes Percent Auto 40.3 % (20-40); Mean Corpuscular HGB Conc 34.8 g/dl (31.0-36.0); Mean Corpuscular Hemoglobin 33.6 pg (27.0-33.0); Mean Corpuscular Volume 96.7 fL (80.0-98.0); Mean Platelet Volume 8.9 fL (9.4-12.4); Monocytes Absolute Auto 0.4 X10*3/uL (0.1-1.2); Monocytes Percent Auto 6.6 % (2-11); Neutrophils Absolute Auto 3.3 x10*3/uL (2.0-8.3); Neutrophils Percent Auto 51.3 % (45-73); Platelet Count 170 X10*3/uL (160-400); Red Blood Count 4.25 X10*6/uL (4.60-5.80); Red Cell Distribution Width 12.1 % (11.0-16.0); White Blood Count 6.4 X10*3/uL (4.8-10.8)
[2024-01-22 23:40] LABS: MANUAL DIFF FLAG NO
[2024-01-22 23:53] LABS: Alanine Aminotransferase 46 U/L (0-40); Albumin Level 4.2 g/dL (3.5-5.0); Alkaline Phosphatase 65 U/L (39-117); Anion Gap 18 (12-20); Aspartate Amino Transferase 84 U/L (5-37); Bilirubin Total 0.2 mg/dL (0.0-1.0); Blood Urea Nitrogen 17 mg/dL (9-16); Calcium 9.1 mg/dL (8.4-10.2); Carbon Dioxide 27 mmol/L (22-29); Chloride 107 mmol/L (96-108); Creatinine Clr Calc Pharmacy 83.5; Estimated Glomerular Filt Rate > 60; Ethanol 268 mg/dL; Glucose Random 99 mg/dL (60-115); Magnesium 1.5 mg/dL (1.6-2.6); Potassium 4.2 mmol/L (3.3-5.1); Sodium 148 mmol/L (135-145); Total Protein 7.5 g/dL (6.5-8.0)
--- NOTE | 2024-01-23 01:14 | ED_ITS ---
HPI - General Adult General Chief complaint: ETOH/Substance Use Stated complaint: ETOH,FELL IN PUDDLE Time Seen by Provider: 01/23/24 01:13 History of Present Illness ED Provider: Elgin PEOPLES narrative: The patient is a 53-year-old male. He has a chronic alcoholic. He is also chronically homeless. He says that he usually sleeps in the streets rather than a homeless usp. He says that he usually spends the day near a package store. 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 He says that he also gets a monthly disability check. The patient says that he has bad shoes the all day on his feet. He says he has a lot of chronic foot pain which makes it hard for him to walk around. He says he falls sometimes. He says that he uses crutches to help get around. Today he felt that he was having too much trouble getting around and could not get up off the ground. Some bystanders called 911 and he was brought to the hospital. He says that his walking has been getting much worse over the last several days. No fever. No vomiting. Related Data Home Medications ?Medication ?Instructions ?Recorded ?Confirmed methadone 10 mg/mL oral concentrate 130 mg PO DAILY 09/21/21 10/02/23 Previous Rx's ?Medication ?Instructions ?Recorded ondansetron 4 mg disintegrating 4 mg PO Q8H 4 days #12 tabs 06/04/21 tablet doxycycline monohydrate 100 mg 100 mg PO BID 7 days #14 caps 05/25/23 capsule prednisone 50 mg tablet 50 mg PO DAILY 4 days #4 tabs 05/25/23 Allergies Allergy/AdvReac Type Severity Reaction Status Date / Time No Known Allergies Allergy Verified 01/22/24 21:39 Review of Systems 2 Review of Systems: Yes all other systems are reviewed and are negative [facility] Social History Social History Alcohol intake: current Alcohol intake frequency: 3 or more drinks per day Alcohol type: beer and hard liquor Substance Use Type: Heroin Advance Directives: No Advance Directives Information Provided: No Physical Exam ED Vital Signs: Vital Signs - 24 hr 01/22/24 21:28 01/22/24 21:36 01/23/24 01:22 Temperature 98.3 F 98.3 F 99.6 F Pulse Rate 84 84 70 Respiratory Rate 18 18 16 Blood Pressure 110/66 110/66 148/92 H Pulse Oximetry 100 100 97 Oxygen Delivery Method Room Air Room Air Room Air BMI result Body Mass Index 20.2 Const Other: The patient is a 53-year-old male who looks considerably older. He is very unkempt. He is disheveled. HENMT Other: Face is symmetrical. Mucous membranes moist. No signs of trauma to the face. No raccoon eyes. No fletcher sign. No soft tissue swelling. Eyes Other: Pupils are round equal, conjunctivae are clear, extraocular movements are intact. Neck Other: Moving his neck easily. Chest Other: No chest wall tenderness Resp Effort & Inspection: normal respiratory effort Auscultation: clear to auscultation bilaterally Cardio Rate: regular rate Rhythm: regular rhythm Heart sounds: S1 normal heart sound present and S2 normal heart sound present GI Other: Abdomen is soft and nontender Skin Other: The patient has some excoriation to the skin of the feet. No findings suggestive of cellulitis. The skin is elsewhere pale and dry. Neuro Other: The patient is awake and alert. He seems reasonably well oriented. His mental status seems reasonably clear. Cranial nerves are intact. He is able to move all of his extremities symmetrically but he has significant difficulty walking. He feels that his legs are very weak. Extrem Other: The patient has excoriation in of the feet and several areas but no signs of cellulitis. No significant edema. The patient has no swelling of the calves. No obvious muscular tenderness in the legs. Medications Administered Discontinued Medications Generic Name Dose Route Start Last Admin Trade Name Susie PRN Reason Stop Dose Admin Phenobarbital Sodium 273 mg 01/23/24 02:00 01/23/24 02:08 Phenobarbital Sodium 130 Mg/Ml Im Once IM 01/23/24 02:01 273 mg ONCE ONE Administration Protocol Medical Decision Making Medical Decision Making MDM Narrative: The patient is a long-term chronic alcoholic who is also homeless. His alcohol level today is 268. In addition the patient seems to be a significant drug user. His urine tox screen is positive for opioids, methadone, fentanyl, benzodiazepines, and cocaine. The patient says he is in a methadone program but he says he has not had his methadone for 4 days. He says that he feels dope sick. I think he may be somewhat dehydrated. He does not wish to have an IV. He says that he can tolerate oral fluids. He does not think he can eat anything because he says he is dope sick. The patient seems quite deconditioned and has difficulty walking. He does not have any severe metabolic derangements. His CPK is normal. He was complaining of feeling as if he was already going into alcohol withdrawal although his alcohol level was still fairly high. He was therefore given phenobarbital. I think he will need to stay in the emergency room for evaluation by the care team since he has been expressing some degree of hopelessness and passive suicidal thoughts, addiction Medicine, and I think physical therapy would be helpful also given his deconditioning. We will need to ascertain his methadone dose. The patient will be placed in physician observation. Lab Data 01/22/24 23:33 01/22/24 23:33 Labs: Lab Results 01/22/24 01/23/24 Range/Units 23:33 02:00 WBC 6.4 (4.8-10.8) X10*3/uL RBC 4.25 L D (4.60-5.80) X10*6/uL Hgb 14.3 D (14.0-18.0) g/dl Hct 41.1 L (42.0-52.0) % MCV 96.7 (80.0-98.0) fL MCH 33.6 H (27.0-33.0) pg MCHC 34.8 (31.0-36.0) g/dl RDW 12.1 (11.0-16.0) % Plt Count 170 (160-400) X10*3/uL MPV 8.9 L (9.4-12.4) fL Immature Gran % (Auto) 0.3 (0.0-0.4) % Neut % (Auto) 51.3 (45-73) % Lymph % (Auto) 40.3 H (20-40) % [place] % (Auto) 6.6 (2-11) % Eos % (Auto) 0.9 (0-4) % Baso % (Auto) 0.6 (0-2) % Lymph # (Auto) 2.6 (1.2-4.9) X10*3/uL [place] # (Auto) 0.4 (0.1-1.2) X10*3/uL Eos # (Auto) 0.1 (0.0-0.4) X10*3/uL Baso # (Auto) 0.0 (0.0-0.2) X10*3/uL Abs Immat Gran (auto) 0.02 (0.00-0.03) X10*3/uL Absolute Neuts (auto) 3.3 (2.0-8.3) x10*3/uL Absolute Nucleated RBC 0.000 (0.0-0.012) X10*3/uL Nucleated RBC % (auto) 0.0 (0.0-0.2) /100WBC Sodium 148 H (135-145) mmol/L Potassium 4.2 (3.3-5.1) mmol/L Chloride 107 (96-108) mmol/L Carbon Dioxide 27 (22-29) mmol/L Anion Gap 18 (12-20) BUN 17 H (9-16) mg/dL Creatinine 0.84 (0.5-1.4) mg/dL Estim Creat Clear Calc 83.5 Estimated GFR > 60 Random Glucose 99 (60-115) mg/dL Calcium 9.1 (8.4-10.2) mg/dL Magnesium 1.5 L (1.6-2.6) mg/dL Total Bilirubin 0.2 (0.0-1.0) mg/dL AST 84 H (5-37) U/L ALT 46 H (0-40) U/L Alkaline Phosphatase 65 (39-117) U/L Total Creatine Kinase 137 (38-174) U/L Total Protein 7.5 (6.5-8.0) g/dL Albumin 4.2 (3.5-5.0) g/dL Urine Color Yellow Urine Appearance Clear Urine pH 6.0 (5.0-9.0) Ur Specific [place] 1.025 (1.005-1.025) Urine Protein 30 (1+) H (Neg-Trace) mg/dL Urine Glucose (UA) Negative (Negative) mg/dL Urine Ketones Trace (Negative) mg/dL Urine Blood Negative (Negative) Urine Nitrite Negative (Negative) Ur Leukocyte Esterase Negative (Negative) Urine Opiates Screen POSITIVE H (Not Detect) Ur Buprenorphine Scrn Not Detected (Not Detect) ng/mL Ur Oxycodone Screen Not Detected (Not Detect) ng/mL Urine Methadone Screen Positive H (Not Detect) ng/mL Urine Fentanyl Screen POSITIVE H (Not Detect) Ur Barbiturates Screen Not Detected (Not Detect) Ur Phencyclidine Scrn Not Detected (Not Detect) Ur Amphetamines Screen Not Detected (Not Detect) U Benzodiazepines Scrn POSITIVE H (Not Detect) Urine Cocaine Screen POSITIVE H (Not Detect) U Marijuana (THC) Screen Not Detected (Not Detect) Ethyl Alcohol 268 mg/dL Discharge Plan Discharge Clinical Impression: Alcoholism, Polysubstance abuse, Generalized weakness, Adjustment disorder Patient Disposition: Still a Patient Prescriptions: No Action ondansetron 4 mg tablet,disintegrating 4 mg PO Q8H 4 Days Qty: 12 0RF methadone 10 mg/mL Concentrate 130 mg PO DAILY doxycycline monohydrate 100 mg capsule 100 mg PO BID 7 Days Qty: 14 0RF prednisone 50 mg tablet 50 mg PO DAILY 4 Days Qty: 4 0RF Print Language: Ukrainian
[2024-01-23 01:22] VITALS: BP 148/92; PULSE 70; RESP 16; TEMP 37.6; O2SAT 97
[2024-01-23] MEDS: PHENobarbitaL sodium 130 MG/ML IM ONCE 273 MG IM (02:08)
[2024-01-23 02:19] LABS: Amphetamine Screen Urine Not Detected (Not Detect); Barbiturates, Urine Not Detected (Not Detect); Benzodiazepines Screen Urine POSITIVE (Not Detect); Buprenorphine Scr Not Detected (Not Detect); Cannabinoid Screen Urine Not Detected (Not Detect); Cocaine Screen Urine POSITIVE (Not Detect); Fentanyl, urine POSITIVE (Not Detect); Methadone Screen, Urine Positive (Not Detect); Opiate Screen Urine POSITIVE (Not Detect); Oxycodone Screen Urine Not Detected (Not Detect); Phencyclidine Screen Urine Not Detected (Not Detect)
--- NOTE | 2024-01-23 02:28 | PC.NURSE ---
Elementary Tutor discussing necessity for labs with pt d/t pt yelling out. Pt at that time denying and thoughts of SI/HI, pt reports he felt like if he didn't get help he was going to . Pt agreeable to labs. reporting to t/w that he drinks approx 1 gallon of 80 proof vodka/ day and polysubstance use. Pt reports feeling like he is going to have withdrawal, anxious and tremulous. T/w and tech assisted pt to the bathroom, urine sample obtained and sent to the lab. made aware and phenobarb protocol ordered. T/w administered per order.
[2024-01-23 02:34] LABS: Appearance Urine Clear; Color Urine Yellow; Glucose Urine UA Negative (Negative); Leukocyte Esterase Urine Negative (Negative); Nitrite Urine Negative (Negative); Specific Gravity - Urine 1.025 (1.005-1.025); UMIC TRIGGER UA YES; Urine Blood Negative (Negative); Urine Ketones Trace mg/dL (Negative); Urine Protein 30 (1+) mg/dL (Neg-Trace)
[2024-01-23 02:52] LABS: Bacteria Urine None Seen (None Seen); Hyaline Casts Urine 0-2 /LPF (0-2); RBC Urine 0-2 /HPF (0-2); Squamous Epithelial Cell Urine 0-2 /HPF (0-2); WBC Urine 0-5 /HPF (0-5)
[2024-01-23 04:20] VITALS: BP 126/98; PULSE 77; RESP 18; TEMP 37.7; O2SAT 97
--- NOTE | 2024-01-23 05:55 | PC.NURSE ---
Pt refusing phenobarb injection, reporting the injection hurts too much and doesn't want it, requesting a pill explained that it was the policy here that the pt receive 3 injections before transitioning to PO meds. Pt requesting we call clinic to get metadone dose.
[2024-01-23 06:00] VITALS: BP 142/86; PULSE 65; RESP 12; TEMP 37.7; O2SAT 98
--- NOTE | 2024-01-23 06:05 | PC.NURSE ---
aware, awaiting new orders for PO meds.
[2024-01-23] MEDS: LORazepam 1 MG TABLET 2 MG PO (06:27)
--- NOTE | 2024-01-23 06:56 | HE.PHANOTE ---
Methadone Pt receives from [facility] ([phone]). Per Brandt RN at facility, pt receives a split dose 140mg QAM and 20mg QPM. Last methadone dose given was on 01/10/2024.
--- NOTE | 2024-01-23 07:30 | MHC.CARE ---
Patient given patients resource guide as well as recovery brochures.
[2024-01-23] MEDS: methADONE HCl 20 MG/2 ML ORAL.CONC 40 MG PO (08:06)
[2024-01-23 08:12] VITALS: BP 158/90; PULSE 84; RESP 14; TEMP 36.9; O2SAT 99
[2024-01-23 09:42] VITALS: BP 158/90; PULSE 84; RESP 14; TEMP 36.9; O2SAT 99
== END 2024-01-23 09:43 | disposition other institution (70) ==
PROVIDERS: Emergency Provider Emergency Medicine
DX: F10.129 Alcohol abuse with intoxication, unspecified (principal); Y90.8 Blood alcohol level of 240 mg/100 ml or more; M79.672 Pain in left foot; M79.671 Pain in right foot; R53.1 Weakness; F43.20 Adjustment disorder, unspecified; F14.10 Cocaine abuse, uncomplicated; F11.10 Opioid abuse, uncomplicated; Z71.51 Drug abuse counseling and surveillance of drug abuser; Z51.81 Encounter for therapeutic drug level monitoring; Z79.899 Other long term (current) drug therapy; Z59.00 Homelessness unspecified
CPT/HCPCS: 36415; 80053; 80307; 81001; 82550; 83735; 85025; 96372; 99284; J2560; S9485

== ENCOUNTER 2024-04-09 18:24 | Emergency (ER) | payer MEDICARE, SELFPAY ==
[2024-04-09] VITALS (8 sets, daily range): BP systolic 103–146; BP diastolic 63–101; PULSE 78–91; RESP 14–18; TEMP 36.4–36.6; O2SAT 95–99; BMI 29.0
--- NOTE | 2024-04-09 19:03 | ED_ITS ---
HPI - General Adult General Chief complaint: ETOH/Substance Use Stated complaint: intoxicated, drug use. agitated but coopperative Time Seen by Provider: 04/09/24 19:03 History of Present Illness ED Provider: Elgin PEOPLES narrative: The patient is a 53-year-old male who was a chronic alcoholic. Apparently he was brought to the emergency room by ambulance after having been seem to have been lying on a sidewalk, not very responsive. The patient was brought here. He says that he was not injured. He admits to alcohol and possibly doing other drugs as well. He was agitated and confrontational. Related Data Home Medications ?Medication ?Instructions ?Recorded ?Confirmed methadone 10 mg/mL oral 20 mg PO BEDTIME 01/23/24 01/23/24 concentrate (Methadone Intensol) methadone 10 mg/mL oral 140 mg PO DAILY 01/23/24 01/23/24 concentrate (Methadone Intensol) Previous Rx's ?Medication ?Instructions ?Recorded ondansetron 4 mg disintegrating 4 mg PO Q8H 4 days #12 tabs 06/04/21 tablet doxycycline monohydrate 100 mg 100 mg PO BID 7 days #14 caps 05/25/23 capsule prednisone 50 mg tablet 50 mg PO DAILY 4 days #4 tabs 05/25/23 Allergies Allergy/AdvReac Type Severity Reaction Status Date / Time No Known Allergies Allergy Verified 04/09/24 18:53 Review of Systems 2 Review of Systems: Yes all other systems are reviewed and are negative [facility] Social History Social History Alcohol intake: current Alcohol intake frequency: 3 or more drinks per day Alcohol type: beer and hard liquor Smoked in Last 30 Days: Yes Use of substances other than those prescribed or required for medical reasons: Yes Substance Use Type: Heroin Advance Directives: No Advance Directives Information Provided: No Do you have a plan to hurt others: No Plan Physical Exam ED Vital Signs: Vital Signs - 24 hr 04/09/24 18:51 04/09/24 19:16 04/09/24 19:19 Temperature 97.6 F 97.8 F Pulse Rate 79 83 83 Respiratory Rate 18 16 16 Blood Pressure 109/73 115/85 115/85 Pulse Oximetry 96 98 98 Oxygen Delivery Method Room Air Room Air Room Air Oxygen Flow Rate 04/09/24 19:37 04/09/24 19:52 04/09/24 20:16 Temperature Pulse Rate 88 91 89 Respiratory Rate 14 14 14 Blood Pressure 110/68 107/64 103/63 Pulse Oximetry 97 97 99 Oxygen Delivery Method Oxymask Oxymask Oxymask Oxygen Flow Rate 2 2 2 04/09/24 20:34 04/09/24 21:34 04/10/24 00:04 Temperature 97.4 F Pulse Rate 91 78 83 Respiratory Rate 14 14 16 Blood Pressure 107/68 105/64 108/66 Pulse Oximetry 97 95 98 Oxygen Delivery Method Oxymask Room Air Room Air Oxygen Flow Rate 2 BMI result Body Mass Index 29.0 Const Other: The patient is an unkempt 53-year-old male who looks older than his age. He was agitated and confrontational. He seemed intoxicated and it was difficult to try to reason with him. HENMT Other: No signs of trauma to the head or the face. The face was symmetrical. Mucous membranes moist. Eyes Other: Pupils are round equal, conjunctivae clear, extraocular movements were intact Neck Neck: Yes full ROM Resp Effort & Inspection: normal respiratory effort Auscultation: clear to auscultation bilaterally Cardio Rate: regular rate Rhythm: regular rhythm Heart sounds: S1 normal heart sound present and S2 normal heart sound present GI Other: The abdomen was flat, soft, and not apparently tender. Skin Other: Skin was pale and dry Neuro Other: The patient was awake and agitated and confrontational. He seemed intoxicated. He had slurring of speech. Face was symmetrical. Eye movements intact. Symmetrical tone in his extremities. Extrem Other: No signs of trauma to the extremities. Medications Administered Discontinued Medications Generic Name Dose Route Start Last Admin Trade Name Freq PRN Reason Stop Dose Admin Midazolam HCl 10 mg 04/09/24 19:03 04/09/24 19:10 Midazolam Hcl/Pf 2 Mg/2 Ml Vial IM 04/09/24 19:04 10 mg ONCE ONE Administration Olanzapine 10 mg 04/09/24 19:03 04/09/24 19:10 Olanzapine 10 Mg Vial IM 04/09/24 19:04 10 mg ONCE ONE Administration Medical Decision Making Medical Decision Making MDM Narrative: The patient is a 53-year-old male who was a chronic alcoholic and is homeless. He was brought to the emergency room after having essentially been found passed out on the street. Here he was quite agitated and combative. We were able to convince him to accept sedative medication. We were therefore able to sedate him without placing him in physical restraints. He received 10 mg of IM midazolam and 10 mg of IM olanzapine. He then fell asleep. His alcohol level was 360. The patient was successfully sedated with the midazolam and olanzapine. He did not require physical restraints. He was observed for several hours. Ultimately was able to get up and go to the bathroom and produce a urine specimen. His urine tox screen is positive for opioids, methadone, fentanyl, benzodiazepines, and cocaine. Since this was after he had received IM midazolam it is possible the benzodiazepines could be iatrogenic. The patient has remained quite sleepy and will be kept in the emergency department until he is awake enough to be re-interviewed. I expect he will ask to be discharged when awake at which point I think he may be discharged. I have placed in addiction Medicine consult in case the patient is still here in the morning. Lab Data 04/09/24 19:35 04/09/24 19:35 Labs: Lab Results 04/09/24 04/09/24 Range/Units 19:35 23:55 WBC 5.3 (4.8-10.8) X10*3/uL RBC 3.55 L (4.60-5.80) X10*6/uL Hgb 11.6 L (14.0-18.0) g/dl Hct 33.4 L (42.0-52.0) % MCV 94.1 (80.0-98.0) fL MCH 32.7 (27.0-33.0) pg MCHC 34.7 (31.0-36.0) g/dl RDW 11.6 (11.0-16.0) % Plt Count 214 D (160-400) X10*3/uL MPV 9.2 L (9.4-12.4) fL Immature Gran % (Auto) 0.4 (0.0-0.4) % Neut % (Auto) 35.2 L (45-73) % Lymph % (Auto) 51.1 H (20-40) % [place] % (Auto) 6.8 (2-11) % Eos % (Auto) 5.6 H (0-4) % Baso % (Auto) 0.9 (0-2) % Lymph # (Auto) 2.7 (1.2-4.9) X10*3/uL [place] # (Auto) 0.4 (0.1-1.2) X10*3/uL Eos # (Auto) 0.3 (0.0-0.4) X10*3/uL Baso # (Auto) 0.1 (0.0-0.2) X10*3/uL Abs Immat Gran (auto) 0.02 (0.00-0.03) X10*3/uL Absolute Neuts (auto) 1.9 L (2.0-8.3) x10*3/uL Absolute Nucleated RBC 0.000 (0.0-0.012) X10*3/uL Nucleated RBC % (auto) 0.0 (0.0-0.2) /100WBC PT 11.5 (10.9-12.4) SEC INR 1.0 (0.9-1.1) Sodium 144 (135-145) mmol/L Potassium 3.9 (3.3-5.1) mmol/L Chloride 108 (96-108) mmol/L Carbon Dioxide 25 (22-29) mmol/L Anion Gap 15 (12-20) BUN 18 H (9-16) mg/dL Creatinine 0.92 (0.5-1.4) mg/dL Estim Creat Clear Calc 95.3 Estimated GFR > 60 Random Glucose 87 (60-115) mg/dL Calcium 8.5 D (8.4-10.2) mg/dL Total Bilirubin 0.3 (0.0-1.0) mg/dL Direct Bilirubin 0.1 (0.0-0.5) mg/dL AST 55 H (5-37) U/L ALT 55 H (0-40) U/L Alkaline Phosphatase 53 (39-117) U/L Total Protein 7.3 (6.5-8.0) g/dL Albumin 4.3 (3.5-5.0) g/dL Urine Opiates Screen POSITIVE H (Not Detect) Ur Buprenorphine Scrn Not Detected (Not Detect) ng/mL Ur Oxycodone Screen Not Detected (Not Detect) ng/mL Urine Methadone Screen Positive H (Not Detect) ng/mL Urine Fentanyl Screen POSITIVE H (Not Detect) Ur Barbiturates Screen Not Detected (Not Detect) Ur Phencyclidine Scrn Not Detected (Not Detect) Ur Amphetamines Screen Not Detected (Not Detect) U Benzodiazepines Scrn POSITIVE H (Not Detect) Urine Cocaine Screen POSITIVE H (Not Detect) U Marijuana (THC) Screen Not Detected (Not Detect) Ethyl Alcohol 360 H* mg/dL Discharge Plan Discharge Clinical Impression: Alcohol intoxication, Alcohol use disorder, Substance use disorder, Homelessness Patient Disposition: Still a Patient Prescriptions: No Action ondansetron 4 mg tablet,disintegrating 4 mg PO Q8H 4 Days Qty: 12 0RF doxycycline monohydrate 100 mg capsule 100 mg PO BID 7 Days Qty: 14 0RF prednisone 50 mg tablet 50 mg PO DAILY 4 Days Qty: 4 0RF methadone [Methadone Intensol] 10 mg/mL Concentrate 140 mg PO DAILY methadone [Methadone Intensol] 10 mg/mL Concentrate 20 mg PO BEDTIME Referrals: Eliza Dorantes, WRAPAROUND FACILITATOR [Nurse Practitioner] - (Alcohol and polysubstance abuse) Print Language: [place] Islander
[2024-04-09] MEDS: OLANZapine 10 MG VIAL IM (19:10)
[2024-04-09] MEDS: Midazolam HCl/PF 2 MG/2 ML VIAL 10 MG IM (19:10)
--- NOTE | 2024-04-09 19:10 | PC.NURSE ---
patient attempting to vape and was asked to stop by security became aggressive attempting to spit and hit staff andf security. Dr at bedside and patient medicated at this time
--- NOTE | 2024-04-09 19:13 | PC.NURSE ---
called security to assist with a exchange floor manager, pt became physically aggressive towards security, attempting to punch and spit. IM medications ordered and administered with and MD Eisenberg at bedside.
--- NOTE | 2024-04-09 19:15 | PC.NURSE ---
belongings sent to
--- NOTE | 2024-04-09 19:41 | PC.NURSE ---
Assumed care of pt with Ameena RN, pt combative with security during changeover, pt vaping and attempted to spit at security. at bedside, resistive to care, agitated and uncooperative. Md ordered for IM midazolam and olanzapine which were administered. Pt became more cooperative and able to complete loom changeover operator with security at bedside while providing privacy and maintain dignity f pt. Pt then resting in bed vital stable. SPO2 began to drop at 1935, 86% on room air,pt place on 2L via oxy mouth due to mouth breathing. Spo2 back up to 98%.
[2024-04-09 19:42] LABS: MANUAL DIFF FLAG NO
[2024-04-09 19:44] LABS: Basophils Absolute Auto 0.1 X10*3/uL (0.0-0.2); Basophils Percent Auto 0.9 % (0-2); Eosinophils Absolute Auto 0.3 X10*3/uL (0.0-0.4); Eosinophils Percent Auto 5.6 % (0-4); Hematocrit 33.4 % (42.0-52.0); Hemoglobin 11.6 g/dl (14.0-18.0); Imm Gran Abs Auto 0.02 X10*3/uL (0.00-0.03); Imm Gran Pct Auto 0.4 % (0.0-0.4); Lymphocytes Absolute Auto 2.7 X10*3/uL (1.2-4.9); Lymphocytes Percent Auto 51.1 % (20-40); Mean Corpuscular HGB Conc 34.7 g/dl (31.0-36.0); Mean Corpuscular Hemoglobin 32.7 pg (27.0-33.0); Mean Corpuscular Volume 94.1 fL (80.0-98.0); Mean Platelet Volume 9.2 fL (9.4-12.4); Monocytes Absolute Auto 0.4 X10*3/uL (0.1-1.2); Monocytes Percent Auto 6.8 % (2-11); Neutrophils Absolute Auto 1.9 x10*3/uL (2.0-8.3); Neutrophils Percent Auto 35.2 % (45-73); Platelet Count 214 X10*3/uL (160-400); Red Blood Count 3.55 X10*6/uL (4.60-5.80); Red Cell Distribution Width 11.6 % (11.0-16.0); White Blood Count 5.3 X10*3/uL (4.8-10.8)
[2024-04-09 19:50] LABS: Prothrombin Time 11.5 SEC (10.9-12.4)
[2024-04-09 20:02] LABS: Alanine Aminotransferase 55 U/L (0-40); Albumin Level 4.3 g/dL (3.5-5.0); Alkaline Phosphatase 53 U/L (39-117); Anion Gap 15 (12-20); Aspartate Amino Transferase 55 U/L (5-37); Bilirubin Direct 0.1 mg/dL (0.0-0.5); Bilirubin Total 0.3 mg/dL (0.0-1.0); Blood Urea Nitrogen 18 mg/dL (9-16); Calcium 8.5 mg/dL (8.4-10.2); Carbon Dioxide 25 mmol/L (22-29); Chloride 108 mmol/L (96-108); Creatinine Clr Calc Pharmacy 95.3; Estimated Glomerular Filt Rate > 60; Ethanol 360 mg/dL; Glucose Random 87 mg/dL (60-115); Potassium 3.9 mmol/L (3.3-5.1); Sodium 144 mmol/L (135-145); Total Protein 7.3 g/dL (6.5-8.0)
[2024-04-10 00:04] VITALS: BP 108/66; PULSE 83; RESP 16; TEMP 36.3; O2SAT 98
[2024-04-10 00:16] LABS: Amphetamine Screen Urine Not Detected (Not Detect); Barbiturates, Urine Not Detected (Not Detect); Benzodiazepines Screen Urine POSITIVE (Not Detect); Buprenorphine Scr Not Detected (Not Detect); Cannabinoid Screen Urine Not Detected (Not Detect); Cocaine Screen Urine POSITIVE (Not Detect); Fentanyl, urine POSITIVE (Not Detect); Methadone Screen, Urine Positive (Not Detect); Opiate Screen Urine POSITIVE (Not Detect); Oxycodone Screen Urine Not Detected (Not Detect); Phencyclidine Screen Urine Not Detected (Not Detect)
[2024-04-10 04:08] VITALS: BP 138/91; PULSE 74; RESP 16; TEMP 37; O2SAT 97
[2024-04-10 06:27] VITALS: BP 135/89; PULSE 81; RESP 16; TEMP 36.2; O2SAT 96
--- NOTE | 2024-04-10 09:02 | PC.NURSE ---
Pt is up for discharge at this time. While obtaining VS, Pt reports he wishes to be placed in a detox facility. tutoring clinician contacted via [email or web address] to meet with Pt. Awaiting dispo.
[2024-04-10 09:15] VITALS: BP 138/88; PULSE 104; RESP 20; O2SAT 98
--- NOTE | 2024-04-10 10:02 | MHC.RECOVSUP ---
Staff Development Coordinator Note Patient seen in ED Consult requested for?ATS referral? Current substance use reported by patient Heroin: 1 bundle per day Alcohol: 1 handle per day Currently on BOOKER or MOUD: No Plan:? Will submit patient for ATS.
--- NOTE | 2024-04-10 10:43 | PC.NURSE ---
Recovery at bedside for Pt eval. Awaiting new orders.
[2024-04-10] MEDS: methADONE HCl 20 MG/2 ML ORAL.CONC 40 MG PO (10:58)
--- NOTE | 2024-04-10 13:05 | PC.NURSE ---
pt completed intake with [facility] via phone- care team notified via [employer]
--- NOTE | 2024-04-10 14:38 | MHC.RECOVRN ---
T/W gave nurse to nurse report to Leola at [facility]. No transportation available so geovanna ordered for pt. Geovanna information given to pt's nurse Chani.
[2024-04-10 14:51] VITALS: BP 138/88; PULSE 104; RESP 20; TEMP 37.1; O2SAT 98
== END 2024-04-10 14:52 | disposition home or self-care (01) ==
PROVIDERS: Emergency Medicine; Emergency Provider Emergency Medicine Emergency Medical Services
DX: F10.129 Alcohol abuse with intoxication, unspecified (principal); F14.90 Cocaine use, unspecified, uncomplicated; F11.90 Opioid use, unspecified, uncomplicated; Y90.8 Blood alcohol level of 240 mg/100 ml or more; F43.20 Adjustment disorder, unspecified; R45.1 Restlessness and agitation; Z79.899 Other long term (current) drug therapy; Z59.00 Homelessness unspecified
CPT/HCPCS: 36415; 80048; 80076; 80307; 85025; 85610; 96372; 99284; 99285; J2250; J2359

== ENCOUNTER 2024-05-10 05:49 | Emergency (ER) | payer MEDICARE, MEDICAID, SELFPAY ==
[2024-05-10 05:52] VITALS: BP 119/90; BP 133/78; PULSE 83; PULSE 95; RESP 20; TEMP 36.5; O2SAT 95; O2SAT 96; BMI 24.0
--- NOTE | 2024-05-10 06:03 | PC.NURSE ---
pt biba from [facility], a&ox4, respirations even and unlabored. pt reports he has been in the cold for 12 hours and would no longer like to be in the cold. pt offers no complaints at this time. pt given warm blankets. pt refusing to change into hospital gown states i am too cold .
--- NOTE | 2024-05-10 06:48 | ED.GENADULT ---
HPI - General Adult General Chief complaint: General Medical Stated complaint: cold from being outside Time Seen by Provider: 05/10/24 06:40 Source: patient and EMS Mode of arrival: EMS Limitations: no limitations History of Present Illness ED Provider: Madeleine Fagan PA-C HPI narrative: Patient is a 53 year old assigned male at with no reported medical history, currently homeless, presenting to the emergency department today requesting to rest out of the cold. Patient states that he is homeless and was concerned he was going to freeze last night so he came to the hospital. Patient states that he has no complaints at this time. Patient denies any dizziness, lightheadedness, abdominal pain, nausea, vomiting, fever, chills, blurry vision, double vision, loss of vision, chest pain, difficulty breathing, shortness of breath, back pain, night sweats, pain with urination, increased urinary frequency, increased urinary urgency, blood in his urine or stool, syncope or a near syncopal episode, recent trauma or falls, bowel incontinence, bladder incontinence, or any other complaints at this time. Relieving factors: none Exacerbating factors: none Associated symptoms: denies other symptoms Treatments prior to arrival: none Related Data Home Medications ?Medication ?Instructions ?Recorded ?Confirmed methadone 10 mg/mL oral 20 mg PO BEDTIME 01/23/24 01/23/24 concentrate (Methadone Intensol) methadone 10 mg/mL oral 140 mg PO DAILY 01/23/24 01/23/24 concentrate (Methadone Intensol) Previous Rx's ?Medication ?Instructions ?Recorded ondansetron 4 mg disintegrating 4 mg PO Q8H 4 days #12 tabs 06/04/21 tablet doxycycline monohydrate 100 mg 100 mg PO BID 7 days #14 caps 05/25/23 capsule prednisone 50 mg tablet 50 mg PO DAILY 4 days #4 tabs 05/25/23 Allergies Allergy/AdvReac Type Severity Reaction Status Date / Time No Known Allergies Allergy Verified 05/10/24 05:55 Review of Systems Constitutional: Constitutional: Reports no additional constitutional complaints, Denies chills, Denies fever(s) and Denies night sweats Eyes: Eyes: Reports no additional eye complaints, Denies blurry vision, Denies change in vision, Denies diplopia, Denies eye discharge, Denies loss of vision and Denies eye pain ENT: Denies dizziness Cardiovascular: Cardiovascular: Reports no additional cardiovascular complaints, Denies chest pain, Denies lightheadedness, Denies Loss of Consciousness and Denies dyspnea Respiratory: Respiratory: Reports no additional respiratory complaints and Denies dyspnea Gastrointestinal: Gastrointestinal: Reports no additional gastrointestinal complaints, Denies abdominal pain, Denies melena, Denies hematochezia, Denies change in bowel habits and Denies change in stool character Genitourinary: Genitourinary: Reports no additional male genitourinary complaints, Denies hematuria, Denies oliguria, Denies difficulty urinating, Denies dysuria, Denies urinary frequency, Denies urinary hesitancy, Denies urinary incontinence and Denies urinary urgency Musculoskeletal: Musculoskeletal: Reports no additional musculoskeletal complaints, Denies numbness and Denies tingling Neurologic: Denies dizziness, Denies loss of vision, Denies numbness and Denies tingling Psychiatric: Psychiatric: Reports no additional psychiatric complaints Endocrine: Endocrine: Reports no additional endocrine complaints Hematologic/Lymphatic: Hematologic/Lymphatic: Reports no additional hematologic/lymphatic complaints Allergic/Immunologic: Allergic/Immunologic: Reports no additional allergic/immunologic complaints [facility] Past Medical History Attestation statement: The following information was validated with the patient. Source: old records reviewed and nursing notes reviewed Social History Social History Alcohol intake: current Alcohol intake frequency: 3 or more drinks per day Alcohol type: beer and hard liquor Substance Use Type: Heroin Advance Directives: No Advance Directives Information Provided: Yes Do you have a plan to hurt others: No Plan Physical Exam ED Vital Signs: Vital Signs - 24 hr 05/10/24 05:52 Temperature 97.7 F Pulse Rate 95 Respiratory Rate 20 Blood Pressure 133/78 Pulse Oximetry 95 Oxygen Delivery Method Room Air BMI result Body Mass Index 24.0 Const General: cooperative, no acute distress, alert and awake Nutritional Appearance: well nourished Orientation/consciousness: patient oriented x3 Limitations: no limitations HENMT Head: Yes normal to inspection and Yes atraumatic Ears: hearing grossly normal bilaterally and external ears normal General nose exam: Normal external nose present, no nasal discharge noted and no epistaxis Face and sinus: Yes normal facial exam, No abrasion and No laceration Mouth: Normal oral and palatal mucosa present, no drooling and no muffled voice Eyes General: appearance normal, both eyes and all related structures Periorbital: periorbital findings normal Eyelids: Yes eyelids normal Conjunctivae: conjunctivae normal Pupils: Equal, round and reactive pupils present EOM: EOMs intact bilaterally Neck Neck: Yes normal visual inspection, Yes full ROM and Yes no lymphadenopathy Chest Chest palpation & inspection: normal inspection of the chest Resp Effort & Inspection: normal respiratory effort and able to speak in complete sentences GI Inspection: Yes normal to inspection Neuro General: patient oriented x3 and moves all extremities Cranial nerves: Yes Equal, round and reactive pupils present Cognition (Neuro): normal cognition Extrem General: Yes normal to inspection, Yes full ROM and Yes capillary refill normal Psych Appearance: grossly normal Mental Status: mental status grossly normal Affect: normal affect Attitude: cooperative Thought process: Normal thought process present Thought content: Normal thought content present Insight: Good insight present (Psych) Medical Decision Making Medical Decision Making MDM Narrative: Patient is a 53 year old assigned male at with no reported medical history, currently homeless, presenting to the emergency department today requesting to rest out of the cold. Patient's physical exam was unremarkable. I explained my physical exam findings to the patient. I answered all questions asked by the patient. I stressed the importance of the patient taking his medication as directed (either prescribed or as the over the counter packaging recommends). I stressed the importance of the patient following up with his primary care provider. I stressed the importance of the patient returning to the emergency department immediately if he were to develop any dizziness, shortness of breath, difficulty breathing, chest pain, blurry vision, loss of vision, nausea, vomiting, abdominal pain, fever, chills, back pain, or any other complaints. Patient verbalized agreement and understanding with this treatment plan and discharge. Differential Diagnosis Differential Diagnoses: The differential diagnosis associated with the presentation includes Homelessness Cold aversion Independent Historian Clinical information obtained from an independent historian. History obtained from or confirmed by: EMS (EMS provided additional history and confirmed the history provided by the patient.) Discharge Plan Discharge Clinical Impression: Homeless Patient Disposition: Home, Self-Care Additional Instructions: Follow up with your primary care provider. Return to the emergency department immediately if you develop any dizziness, shortness of breath, difficulty breathing, chest pain, blurry vision, loss of vision, nausea, vomiting, abdominal pain, fever, chills, back pain, or any other complaints. Prescriptions: No Action ondansetron 4 mg tablet,disintegrating 4 mg PO Q8H 4 Days Qty: 12 0RF doxycycline monohydrate 100 mg capsule 100 mg PO BID 7 Days Qty: 14 0RF prednisone 50 mg tablet 50 mg PO DAILY 4 Days Qty: 4 0RF methadone [Methadone Intensol] 10 mg/mL Concentrate 140 mg PO DAILY methadone [Methadone Intensol] 10 mg/mL Concentrate 20 mg PO BEDTIME Referrals: [facility] [place] [facility] [place] [Provider Group] (Call to establish and follow up with a primary care provider. If you already have a primary care provider, please follow up with them.) [facility] [place] [facility] [Provider Group] (Call to establish and follow up with a primary care provider. If you already have a primary care provider, please follow up with them.) [facility] [place] [facility] [Provider Group] (Call to establish and follow up with a primary care provider. If you already have a primary care provider, please follow up with them.) Print Language: Bruneian
[2024-05-10 08:33] VITALS: BP 131/78; PULSE 94; RESP 16; TEMP 36.6; O2SAT 95
[2024-05-10 09:12] VITALS: BP 131/78; PULSE 94; RESP 16; TEMP 36.6; O2SAT 95
--- NOTE | 2024-05-10 09:12 | PC.NURSE ---
Patient to take bus to [facility]. Provided with bus route schedule
== END 2024-05-10 09:12 | disposition home or self-care (01) ==
PROVIDERS: Emergency Provider Emergency Medicine
DX: T69.9XXA Effect of reduced temperature, unspecified, initial encounter (principal); X31.XXXA Exposure to excessive natural cold, initial encounter; Z59.00 Homelessness unspecified; F11.20 Opioid dependence, uncomplicated
CPT/HCPCS: 99282; 99283

== ENCOUNTER 2024-05-15 03:51 | Emergency (ER) | payer MEDICARE, MEDICAID, SELFPAY ==
--- NOTE | ~2024-05-15 | XR_ITS ---
EXAMINATION: XR CHEST 1 VIEW HISTORY: sob COMPARISON: Comparison is made with the prior examination dated 01/15/2024. FINDINGS: A single AP view of the chest is submitted. The lungs are expanded and clear. There is no pleural effusion, pneumothorax, or pulmonary vascular congestion. The heart is normal in size. Again seen is scoliosis and degenerative disc disease of the spine. XR/XR chest 1V IMPRESSION: No acute cardiopulmonary abnormality. Electronically signed by: Trey Fontaine MD 05/15/2024 09:35 AM [facility]
--- NOTE | ~2024-05-15 | XR_ITS ---
EXAMINATION: XR LUMBAR SPINE 2-3 VIEWS HISTORY: low back pain COMPARISON: There are no prior studies for comparison. FINDINGS: AP, lateral, and coned down views of the lumbar spine are submitted. Osseous mineralization is normal. There is severe rotatory levoscoliosis. No definite fracture or spondylolisthesis is seen. There is moderate to severe degenerative disc disease with disc space narrowing and osteophyte formation. The visualized paraspinal soft tissues are unremarkable. XR/XR lumbar spine 2-3V IMPRESSION: Severe rotatory levoscoliosis. Moderate to severe degenerative disc disease as described. Electronically signed by: Trey Fontaine MD 05/15/2024 09:38 AM [facility]
--- NOTE | ~2024-05-15 | CT_ITS ---
EXAMINATION: CT CERVICAL SPINE WITHOUT CONTRAST CLINICAL INFORMATION: Fall, head strike. COMPARISON: None available. TECHNIQUE: Spiral CT examination of the cervical spine performed in axial plane without IV contrast. Sagittal, coronal, and thin section axial reformatted images were constructed from the axial data set. This CT examination was performed using dose optimization techniques as appropriate, variously including the following: *Automated exposure control *Adjustment of mA and/or kV according to patient size (this includes techniques or standardized protocols for targeted exams where dose is matched to indication/reason for exam; i.e. extremities or head) *Use of iterative reconstruction technique FINDINGS: There is a minimal levoconvex scoliosis. There is a mild reversal of the normal lordosis centered at C4. There is no fracture, compression deformity, traumatic subluxation, or suspicious bone lesion. The craniocervical junction and C1-2 articulation are intact and normally aligned. 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 Normal facet alignment bilaterally. Mild to moderate multilevel degenerative facet and uncinate changes. Significant disc degeneration, C4-5 through C6-7. Allowing for modality, there is no evidence of high-grade central canal narrowing. Moderate stenosis suspected at C5-6. No prevertebral soft tissue abnormality. Moderate right and mild left carotid bulb calcification present. Thyroid is grossly normal by CT. Imaged lung apices are clear. CT/CT cervical spine wo IV con IMPRESSION: 1. No CT evidence of acute cervical spine fracture or injury. 2. Moderate degenerative spondylosis. Electronically signed by: Chace Cristina MD 05/15/2024 10:16 AM [facility]
--- NOTE | ~2024-05-15 | XR_ITS ---
EXAMINATION: XR HIP 2 OR MORE VIEWS BILATERAL HISTORY: fall > L COMPARISON: There are no prior studies for comparison. FINDINGS: A single AP view of the pelvis and two views of each hip are submitted. Osseous mineralization is normal. There is no fracture or dislocation. The joint space is maintained. The soft tissues are unremarkable. XR/XR hip BR[place] min 3V IMPRESSION: Unremarkable examination of the bilateral hips. Electronically signed by: Trey Fontaine MD 05/15/2024 09:36 AM [facility]
--- NOTE | ~2024-05-15 | CT_ITS ---
EXAMINATION: CT HEAD WITHOUT CONTRAST CLINICAL INFORMATION: Fall, head strike COMPARISON: None available. TECHNIQUE: Contiguous axial imaging was performed from the skull base to vertex without intravenous administration of contrast. This CT examination was performed using dose optimization techniques as appropriate, variously including the following: *Automated exposure control *Adjustment of mA and/or kV according to patient size (this includes techniques or standardized protocols for targeted exams where dose is matched to indication/reason for exam; i.e. extremities or head) *Use of iterative reconstruction technique FINDINGS: There is no evidence of intracranial hemorrhage or extra-axial fluid collection. There is no mass effect, or edema. No CT evidence of acute territorial infarct. Ventricles, sulci, and cisterns are normal in size and configuration for patient age. No hydrocephalus. No midline shift. No significant white matter abnormalities. There are a few old lacunar type infarctions in the anterior gangliocapsular regions. Mild atheromatous calcification of the bilateral carotid siphons and V4 segments vertebral arteries bilaterally. Globes and orbital contents image normally. No extracranial soft tissue abnormalities. Small amount of fluid and mucosal thickening in the left superior nasal cavity. Moderate fluid and mucosal thickening in the left greater than right ethmoid air cells, and bilateral maxillary sinuses. The mastoid air cells, and tympanic cavities are normally aerated. No suspicious bony abnormalities. No fractures evident. 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 CT/CT head/brain wo IV con IMPRESSION: 1. No acute intracranial abnormality. No fractures evident. 2. Moderate maxillary and ethmoid paranasal sinus disease. Electronically signed by: Chace Cristina MD 05/15/2024 10:09 AM CHRIS
[2024-05-15 03:56] VITALS: BP 156/74; PULSE 94; O2SAT 96
[2024-05-15 03:58] VITALS: BP 134/87; PULSE 89; RESP 12; TEMP 36.8; O2SAT 92; BMI 26.9
[2024-05-15 05:52] VITALS: BP 153/99; PULSE 92; RESP 16; TEMP 36.9; O2SAT 95
--- NOTE | 2024-05-15 09:01 | ED_ITS ---
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 States tripped and fell and slid down an embankment, + head strike, denies LOC or anticoagulation use. Denies EtOH or illicit substance use. Denies headache at present, chest pain, abdominal pain, nausea, vomiting, incontinence, retention Related Data Home Medications ?Medication ?Instructions ?Recorded ?Confirmed methadone 10 mg/mL oral 20 mg PO BEDTIME 01/23/24 01/23/24 concentrate (Methadone Intensol) methadone 10 mg/mL oral 140 mg PO DAILY 01/23/24 01/23/24 concentrate (Methadone Intensol) Previous Rx's ?Medication ?Instructions ?Recorded ondansetron 4 mg disintegrating 4 mg PO Q8H 4 days #12 tabs 06/04/21 tablet doxycycline monohydrate 100 mg 100 mg PO BID 7 days #14 caps 05/25/23 capsule prednisone 50 mg tablet 50 mg PO DAILY 4 days #4 tabs 05/25/23 Allergies Allergy/AdvReac Type Severity Reaction Status Date / Time No Known Allergies Allergy Verified 05/15/24 03:59 Review of Systems 2 Review of Systems: Yes all other systems are reviewed and are negative Constitutional: Constitutional: Reports as per [facility] Past Medical History Attestation statement: The following information was validated with the patient. Source: old records reviewed Social History Social History Alcohol intake: current Alcohol intake frequency: 0-2 drinks per day Alcohol type: beer and hard liquor Smoked in Last 30 Days: Yes Use of substances other than those prescribed or required for medical reasons: No Substance Use Type: Heroin Advance Directives: Yes Advance Directives Information Provided: Yes Advance Directives on File: No Physical Exam 2 Vital Signs: Vital Signs: Last Vital Signs Temp 98.4 F 05/15/24 10:05 Pulse 105 H 05/15/24 10:05 Resp 13 05/15/24 10:05 BP 159/62 H 05/15/24 10:05 Pulse Ox 100 05/15/24 10:05 O2 Del Method Nasal Cannula 05/15/24 10:05 O2 Flow Rate 2 05/15/24 10:05 BMI result Body Mass Index 26.9 Const: Other: Appears under the influence. Disheveled General: cooperative and no acute distress Orientation/consciousness: p atient oriented x3 HEENT: Head: Yes normal to inspection and Yes atraumatic Ears: hearing grossly normal bilaterally General nose exam: Normal external nose present Face and sinus: Yes normal facial exam Eyes: General: appearance normal, both eyes and all related structures EOM: EOMs intact bilaterally Neck: Neck: Yes normal visual inspection and Yes no meningeal signs Resp: Effort & Inspection: normal respiratory effort and no respiratory distress Auscultation: rhonchi lower bilaterally and wheezes expiratory wheezes and throughout Cardio: Rate: regular rate Heart sounds: S1 normal heart sound present and S2 normal heart sound present GI: Inspection: Yes normal to inspection Palpation (GI): Soft to palpation, nontender, no guarding and not rigid : General: Yes no CVA tenderness Back/Spine/Pelvis: Other: No midline cervical/thoracic/lumbar spinous tenderness/step-off or deformity. + bilateral lumbar paraspinal reproducible tenderness to palpation > left. + appreciable swelling/spasming Back: no CVA tenderness Skin: Rashes: no rashes Wounds: no wounds Neuro: Other: Strength intact throughout. No saddle anesthesia. Sensation intact to light touch. Neurovascular intact distally General: patient oriented x3, tone normal, moves all extremities, no meningeal signs and CN's II-XI intact bilaterally Cranial nerves: Yes CN's II-XII intact bilaterally Extrem: Other: Pelvis stable. Left hip without appreciable deformity. Diffusely tender to palpation. Limited ROM secondary to pain. Neurovascularly intact distally. Course Course Course Narrative: -1018--slight leukopenia. H&H stable. T bili minimally elevated. Labs otherwise reassuring CT head/brain wo IV con IMPRESSION: 1. No acute intracranial abnormality. No fractures evident. 2. Moderate maxillary and ethmoid paranasal sinus disease. CT cervical spine wo IV con IMPRESSION: 1. No CT evidence of acute cervical spine fracture or injury. 2. Moderate degenerative spondylosis. XR lumbar spine 2-3V IMPRESSION: Severe rotatory levoscoliosis. Moderate to severe degenerative disc disease as described. XR hip BRADFORD min 3V IMPRESSION: Unremarkable examination of the bilateral hips. XR chest 1V IMPRESSION: No acute cardiopulmonary abnormality. >1230--patient became agitated and wanted to leave the ED immediately. Threatening to rip out his IV. Does not want to wait for CT or CT results. Is ambulating in the ED > walked out using wheelchair as walker. LWCT Medications Administered Discontinued Medications Generic Name Dose Route Start Last Admin Trade Name Freq PRN Reason Stop Dose Admin Acetaminophen 975 mg 05/15/24 08:42 05/15/24 09:40 Acetaminophen 325 Mg Tablet PO 05/15/24 08:43 Not Given ONCE ONE Albuterol Sulfate 5 mg/ 0 mg 05/15/24 09:43 05/15/24 09:52 Albuterol/Ipratropium 3 ml INHALE 05/15/24 09:44 1 each ONCE ONE Administration Sodium Chloride 1,000 mls @ 999 mls/hr 05/15/24 08:45 05/15/24 12:52 Ns IV 05/15/24 09:45 Infused .Q1H1M KVNG Infusion Medical Decision Making Medical Decision Making MDM Narrative: 53-year-old male with a past medical history homelessness, currently on methadone, presenting to the ED via EMS complaining of SOB, cough, neck/low back pain, bilateral hip radiating down bilateral LE > left 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 States tripped and fell and slid down an embankment, + head strike, denies LOC or anticoagulation use. On exam VSS, appears under the influence, no midline spinous tenderness throughout. Bilateral paraspinal/left lower lumbar MSK reproducible tenderness. Pelvis stable. Left hip with exquisite tenderness and decreased ROM. Neurovascularly intact distally. Abdomen soft/nontender. Chest without reproducible tenderness or flail chest. No red flag symptoms. Concern for substance abuse/ETOH vs fractures vs ICH vs viral illness/asthma exacerbation vs pneumonia. Lower suspicion for acute intrathoracic or intra-abdominal bleeding/injury or hematoma. Lower suspicion for cauda equina/cord compression Plan: EKG, labs, UA, tox screen, head/C-spine CT, CXR, lumbar/pelvic/hip x- rays, pain control, re-evaluate Please refer to course for remaining clinical decision making, interpretation of labs/imaging results, and discussions with consultants and/or family members. Differential Diagnosis Differential Diagnoses: The differential diagnosis associated with the presentation includes As above Admission/Observation Consideration of admission/observation: Escalation of care including admission/observation considered Lab Data MDM Lab Attestation statement: I reviewed the patient's lab results. 05/15/24 09:39 05/15/24 09:39 Labs: Lab Results 05/15/24 Range/Units 09:39 WBC 4.2 L (4.8-10.8) X10*3/uL RBC 3.75 L (4.60-5.80) X10*6/uL Hgb 12.5 L (14.0-18.0) g/dl Hct 35.9 L (42.0-52.0) % MCV 95.7 (80.0-98.0) fL MCH 33.3 H (27.0-33.0) pg MCHC 34.8 (31.0-36.0) g/dl RDW 12.2 (11.0-16.0) % Plt Count 182 (160-400) X10*3/uL MPV 9.0 L (9.4-12.4) fL Immature Gran % (Auto) 0.2 (0.0-0.4) % Neut % (Auto) 70.9 (45-73) % Lymph % (Auto) 11.1 L (20-40) % Dewitt % (Auto) 10.7 (2-11) % Eos % (Auto) 6.2 H (0-4) % Baso % (Auto) 0.9 (0-2) % Lymph # (Auto) 0.5 L (1.2-4.9) X10*3/uL Dewitt # (Auto) 0.5 (0.1-1.2) X10*3/uL Eos # (Auto) 0.3 (0.0-0.4) X10*3/uL Baso # (Auto) 0.0 (0.0-0.2) X10*3/uL Abs Immat Gran (auto) 0.01 (0.00-0.03) X10*3/uL Absolute Neuts (auto) 3.0 (2.0-8.3) x10*3/uL Absolute Nucleated RBC 0.000 (0.0-0.012) X10*3/uL Nucleated RBC % (auto) 0.0 (0.0-0.2) /100WBC PT 11.7 (10.9-12.4) SEC INR 1.0 (0.9-1.1) Sodium 140 (135-145) mmol/L Potassium 4.1 (3.3-5.1) mmol/L Chloride 97 (96-108) mmol/L Carbon Dioxide 26 (22-29) mmol/L Anion Gap 21 H (12-20) BUN 20 H (9-16) mg/dL Creatinine 0.90 (0.5-1.4) mg/dL Estim Creat Clear Calc 87.6 Estimated GFR > 60 Random Glucose 83 (60-115) mg/dL Calcium 9.1 D (8.4-10.2) mg/dL Magnesium 1.7 (1.6-2.6) mg/dL Total Bilirubin 1.4 H (0.0-1.0) mg/dL Direct Bilirubin 0.5 (0.0-0.5) mg/dL AST 66 H (5-37) U/L ALT 36 (0-40) U/L Alkaline Phosphatase 53 (39-117) U/L Total Creatine Kinase 114 (38-174) U/L Total Protein 7.7 (6.5-8.0) g/dL Albumin 4.2 (3.5-5.0) g/dL Lipase 13 (8-78) U/L Ethyl Alcohol < 10 mg/dL Independent Interpretation I performed an independent interpretation of an: EKG, Plain X-Ray and CT Scan Radiology Impression Discussion of test interpretation with radiology: I have reviewed the radiologist's reading. Independent Historian Clinical information obtained from an independent historian. History obtained from or confirmed by: EMS External Record Review External record reviewed: Inpatient record, Office record, Outpatient record, Prior outpatient labs, Prior outpatient radiology, Primary care record and Outside ED record Tests considered The following testing was considered but not selected: As above Prescription Management I considered prescription management with: Pain Medication Chronic Conditions Patient?s care impacted by: Other Social Determinants Patient?s care significantly limited by Social Determinants of Health including: Inadequate housing, Low income, Alcoholism and drug addiction in family, Problems related to primary support group, Unemployment, Problems related to employment and Other Social Determinant of Health Discharge Plan Discharge Clinical Impression: Substance abuse, Fall, Left hip pain, Shortness of breath Patient Disposition: Left W/O Completing Treatment Prescriptions: No Action ondansetron 4 mg tablet,disintegrating 4 mg PO Q8H 4 Days Qty: 12 0RF doxycycline monohydrate 100 mg capsule 100 mg PO BID 7 Days Qty: 14 0RF prednisone 50 mg tablet 50 mg PO DAILY 4 Days Qty: 4 0RF methadone [Methadone Intensol] 10 mg/mL Concentrate 140 mg PO DAILY methadone [Methadone Intensol] 10 mg/mL Concentrate 20 mg PO BEDTIME
--- NOTE | 2024-05-15 09:19 | ECG_ITS ---
Test Reason : SOB Blood Pressure : */* mmHG Vent. Rate : 95 BPM Atrial Rate : 95 BPM P-R Int : 160 ms QRS Dur : 78 ms QT Int : 376 ms P-R-T Axes : 59 52 49 degrees QTcB Int : 472 ms Normal sinus rhythm Cannot rule out Anterior infarct , age undetermined Abnormal ECG When compared with ECG of 02-Oct-2023 02:29, Vent. rate has increased by 42 bpm T wave amplitude has decreased in Anterior leads Referred By: Ana Chance Electronically Signed By: Jay Davis
[2024-05-15] MEDS: 0.9 % Sodium Chloride 1,000 ML 999 ML IV (09:40)
[2024-05-15 09:43] LABS: MANUAL DIFF FLAG NO
[2024-05-15 09:46] LABS: Basophils Percent Auto 0.9 % (0-2); Eosinophils Absolute Auto 0.3 X10*3/uL (0.0-0.4); Eosinophils Percent Auto 6.2 % (0-4); Hematocrit 35.9 % (42.0-52.0); Hemoglobin 12.5 g/dl (14.0-18.0); Imm Gran Abs Auto 0.01 X10*3/uL (0.00-0.03); Imm Gran Pct Auto 0.2 % (0.0-0.4); Lymphocytes Absolute Auto 0.5 X10*3/uL (1.2-4.9); Lymphocytes Percent Auto 11.1 % (20-40); Mean Corpuscular HGB Conc 34.8 g/dl (31.0-36.0); Mean Corpuscular Hemoglobin 33.3 pg (27.0-33.0); Mean Corpuscular Volume 95.7 fL (80.0-98.0); Monocytes Absolute Auto 0.5 X10*3/uL (0.1-1.2); Monocytes Percent Auto 10.7 % (2-11); Neutrophils Percent Auto 70.9 % (45-73); Platelet Count 182 X10*3/uL (160-400); Red Blood Count 3.75 X10*6/uL (4.60-5.80); Red Cell Distribution Width 12.2 % (11.0-16.0); White Blood Count 4.2 X10*3/uL (4.8-10.8)
[2024-05-15 09:52] LABS: Prothrombin Time 11.7 SEC (10.9-12.4)
[2024-05-15] MEDS: Albuterol Sulfate 5 MG, Albuterol/Iprat 2.5/0.5MG 3 ML 3 ML INHALE (09:52)
[2024-05-15 09:53] VITALS: PULSE 84; RESP 22; O2SAT 96
[2024-05-15 10:05] VITALS: BP 159/62; PULSE 105; RESP 13; TEMP 36.9; O2SAT 100
--- NOTE | 2024-05-15 10:06 | MHC.EDTECH ---
Patient came from the cardiology department, blood alber waiting for result, patient resting comfortably in the bed within call thomas in his reach.
[2024-05-15 10:14] LABS: Alanine Aminotransferase 36 U/L (0-40); Albumin Level 4.2 g/dL (3.5-5.0); Alkaline Phosphatase 53 U/L (39-117); Anion Gap 21 (12-20); Aspartate Amino Transferase 66 U/L (5-37); Bilirubin Direct 0.5 mg/dL (0.0-0.5); Bilirubin Total 1.4 mg/dL (0.0-1.0); Blood Urea Nitrogen 20 mg/dL (9-16); Calcium 9.1 mg/dL (8.4-10.2); Carbon Dioxide 26 mmol/L (22-29); Chloride 97 mmol/L (96-108); Creatinine Clr Calc Pharmacy 87.6; Estimated Glomerular Filt Rate > 60; Ethanol < 10 mg/dL; Glucose Random 83 mg/dL (60-115); Lipase 13 U/L (8-78); Magnesium 1.7 mg/dL (1.6-2.6); Potassium 4.1 mmol/L (3.3-5.1); Sodium 140 mmol/L (135-145); Total Protein 7.7 g/dL (6.5-8.0)
--- NOTE | 2024-05-15 13:40 | MHC.EDTECH ---
PT LEFT JACKET BEHIND, PUT IN [place] CLOSET BY [facility]
[2024-05-15 13:59] LABS: Amphetamine Screen Urine POSITIVE (Not Detect); Barbiturates, Urine Not Detected (Not Detect); Benzodiazepines Screen Urine POSITIVE (Not Detect); Buprenorphine Scr Not Detected (Not Detect); Cannabinoid Screen Urine POSITIVE (Not Detect); Cocaine Screen Urine POSITIVE (Not Detect); Fentanyl, urine POSITIVE (Not Detect); Methadone Screen, Urine Positive (Not Detect); Opiate Screen Urine POSITIVE (Not Detect); Oxycodone Screen Urine Not Detected (Not Detect); Phencyclidine Screen Urine Not Detected (Not Detect)
== END 2024-05-15 13:40 | disposition left against medical advice (07) ==
PROVIDERS: Physician Assistant; Emergency Provider Emergency Medicine
DX: S79.912A Unspecified injury of left hip, initial encounter (principal); R06.02 Shortness of breath; R05.9 Cough, unspecified; M54.2 Cervicalgia; M54.50 Low back pain, unspecified; M25.552 Pain in left hip; M25.551 Pain in right hip; R94.31 Abnormal electrocardiogram [ECG] [EKG]; R51.9 Headache, unspecified; R07.89 Other chest pain; F11.10 Opioid abuse, uncomplicated; R11.0 Nausea; W17.81XA Fall down embankment (hill), initial encounter; Y93.9 Activity, unspecified; Y92.9 Unspecified place or not applicable; Y99.8 Other external cause status; Z51.81 Encounter for therapeutic drug level monitoring; Z79.899 Other long term (current) drug therapy
CPT/HCPCS: 36415; 70450; 71045; 72100; 72125; 73522; 80048; 80076; 80307; 82550; 83690; 83735; 85025; 85610; 93005; 94640; 96360; 96361; 99284; 99285

== ENCOUNTER → 2024-05-15 08:42 | Outpatient (BNV) | payer MEDICARE, MEDICAID, SELFPAY | PROVIDERS: Emergency Provider Emergency Medicine; Visit Provider Radiology Diagnostic Radiology | DX: M54.2 Cervicalgia (principal); M54.50 Low back pain, unspecified; M25.551 Pain in right hip; M25.552 Pain in left hip; R06.02 Shortness of breath | CPT/HCPCS: 70450; 72125 ==

== ENCOUNTER → 2024-05-15 09:19 | Outpatient (BNV) | payer MEDICARE, MEDICAID, SELFPAY | PROVIDERS: Emergency Provider Emergency Medicine; Visit Provider Internal Medicine Cardiovascular Disease | DX: R94.31 Abnormal electrocardiogram [ECG] [EKG] (principal); R06.02 Shortness of breath | CPT/HCPCS: 93010 ==

== ENCOUNTER 2024-06-14 03:33 | Emergency (ER) | payer MEDICARE, MEDICAID, SELFPAY ==
--- NOTE | ~2024-06-14 | XR_ITS ---
CLINICAL HISTORY: fall, pain 3 view, pelvis and right hip Comparison: 05/15/2024 09:20 AM EST: CR Findings: No acute fracture or dislocation. No significant arthritic change. The soft tissues are unremarkable. IMPRESSION: No acute findings. This document has been electronically signed by: Blas Ruvalcaba MD, PHD on 06/14/2024 04:26:26
--- NOTE | ~2024-06-14 | XR_ITS ---
CLINICAL HISTORY: fall, pain 2 view right knee Comparison: None Findings: No fractures or dislocations. No significant arthritic change or erosions. No joint effusion. No radiopaque foreign body. IMPRESSION: 1. No acute findings. This document has been electronically signed by: Blas Ruvalcaba MD, PHD on 06/14/2024 04:15:26
[2024-06-14 03:36] VITALS: BP 118/79; PULSE 84; RESP 18; TEMP 36.8; O2SAT 94; BMI 24.2
--- NOTE | 2024-06-14 06:42 | ED_ITS ---
HPI - General Adult General Chief complaint: Fall Stated complaint: fall Time Seen by Provider: 06/14/24 06:39 Source: patient and EMS Mode of arrival: EMS Limitations: no limitations History of Present Illness ED Provider: Madeleine Fagan PA-C HPI narrative: Patient is a 54 year old assigned male at with a history of opiate use - currently on methadone, presenting to the emergency department today with right hip pain after a slip and fall. Patient states that he slipped and fell on the ice, landing on his right hip. Patient denies any head strike, loss of consciousness, dizziness, lightheadedness, abdominal pain, nausea, vomiting, fever, chills, blurry vision, double vision, loss of vision, chest pain, difficulty breathing, shortness of breath, back pain, night sweats, pain with urination, increased urinary frequency, increased urinary urgency, blood in his urine or stool, syncope or a near syncopal episode, bowel incontinence, bladder incontinence, or any other complaints at this time. Relieving factors: none Exacerbating factors: none Associated symptoms: denies other symptoms Treatments prior to arrival: none Related Data Home Medications ?Medication ?Instructions ?Recorded ?Confirmed methadone 10 mg/mL oral 20 mg PO BEDTIME 01/23/24 01/23/24 concentrate (Methadone Intensol) methadone 10 mg/mL oral 140 mg PO DAILY 01/23/24 01/23/24 concentrate (Methadone Intensol) Previous Rx's ?Medication ?Instructions ?Recorded ondansetron 4 mg disintegrating 4 mg PO Q8H 4 days #12 tabs 06/04/21 tablet doxycycline monohydrate 100 mg 100 mg PO BID 7 days #14 caps 05/25/23 capsule prednisone 50 mg tablet 50 mg PO DAILY 4 days #4 tabs 05/25/23 Allergies Allergy/AdvReac Type Severity Reaction Status Date / Time No Known Allergies Allergy Verified 06/14/24 03:38 Review of Systems Constitutional: Constitutional: Reports no additional constitutional complaints, Denies chills, Denies fever(s) and Denies night sweats Eyes: Eyes: Reports no additional eye complaints, Denies blurry vision, Denies change in vision, Denies diplopia, Denies eye discharge, Denies loss of vision and Denies eye pain ENT: Denies dizziness Cardiovascular: Cardiovascular: Reports no additional cardiovascular complaints, Denies chest pain, Denies lightheadedness, Denies Loss of Consciousness and Denies dyspnea Respiratory: Respiratory: Reports no additional respiratory complaints and Denies dyspnea Gastrointestinal: Gastrointestinal: Reports no additional gastrointestinal complaints, Denies abdominal pain, Denies melena, Denies hematochezia, Denies change in bowel habits and Denies change in stool character Genitourinary: Genitourinary: Reports no additional male genitourinary complaints, Denies hematuria, Denies oliguria, Denies difficulty urinating, Denies dysuria, Denies urinary frequency, Denies urinary hesitancy, Denies urinary incontinence and Denies urinary urgency Musculoskeletal: Musculoskeletal: Reports no additional musculoskeletal complaints, Denies numbness and Denies tingling Comments: right hip pain Neurologic: Denies dizziness, Denies loss of vision, Denies numbness and Denies tingling Psychiatric: Psychiatric: Reports no additional psychiatric complaints Endocrine: Endocrine: Reports no additional endocrine complaints Hematologic/Lymphatic: Hematologic/Lymphatic: Reports no additional hematologic/lymphatic complaints Allergic/Immunologic: Allergic/Immunologic: Reports no additional allergic/immunologic complaints PMFSH Past Medical History Attestation statement: The following information was validated with the patient. Source: old records reviewed and nursing notes reviewed Social History Social History Alcohol intake: current Alcohol intake frequency: a few times a week Alcohol type: beer and hard liquor Smoked in Last 30 Days: Yes Use of substances other than those prescribed or required for medical reasons: No Substance Use Type: Heroin Advance Directives: No Advance Directives Information Provided: Yes Do you have a plan to hurt others: No Plan Physical Exam ED Vital Signs: Vital Signs - 24 hr 06/14/24 03:36 06/14/24 07:29 Temperature 98.2 F 98.5 F Pulse Rate 84 92 Respiratory Rate 18 16 Blood Pressure 118/79 138/82 Pulse Oximetry 94 94 Oxygen Delivery Method Room Air Room Air BMI result Body Mass Index 24.2 Const General: cooperative, no acute distress, alert and awake Nutritional Appearance: well nourished Orientation/consciousness: patient oriented x3 Limitations: no limitations [facility] Head: Yes normal to inspection and Yes atraumatic Ears: hearing grossly normal bilaterally and external ears normal General nose exam: Normal external nose present, no nasal discharge noted and no epistaxis Face and sinus: Yes normal facial exam, No abrasion and No laceration Mouth: Normal oral and palatal mucosa present, no drooling and no muffled voice Eyes General: appearance normal, both eyes and all related structures Periorbital: periorbital findings normal Eyelids: Yes eyelids normal Conjunctivae: conjunctivae normal Pupils: Equal, round and reactive pupils present EOM: EOMs intact bilaterally Neck Neck: Yes normal visual inspection, Yes full ROM and Yes no lymphadenopathy Chest Chest palpation & inspection: normal inspection of the chest Resp Effort & Inspection: normal respiratory effort and able to speak in complete sentences GI Inspection: Yes normal to inspection Neuro General: patient oriented x3, moves all extremities and CN's II-XI intact bilaterally Cranial nerves: Yes Equal, round and reactive pupils present Cognition (Neuro): normal cognition Extrem General: Yes normal to inspection, Yes full ROM and Yes capillary refill normal Psych Appearance: grossly normal Mental Status: mental status grossly normal Affect: normal affect Attitude: cooperative Thought process: Normal thought process present Thought content: Normal thought content present Insight: Good insight present (Psych) Medications Administered Discontinued Medications Generic Name Dose Route Start Last Admin Trade Name Susie PRN Reason Stop Dose Admin Acetaminophen 650 mg 06/14/24 06:59 06/14/24 07:28 Acetaminophen 325 Mg Tablet PO 06/14/24 07:00 Not Given ONCE ONE Ibuprofen 600 mg 06/14/24 07:14 06/14/24 07:28 Ibuprofen 600 Mg Tablet PO 06/14/24 07:15 600 mg ONCE ONE Administration Medical Decision Making Medical Decision Making [facility] Narrative: Patient is a 54 year old assigned male at with a history of opiate use - currently on methadone, presenting to the emergency department today with right hip pain after a slip and fall. Patient's physical exam was unremarkable. Patient's right knee and hip x-ray showed no acute process. I explained my physical exam findings as well as all test results to the patient. I answered all questions asked by the patient. Patient received PO Ibuprofen which, upon re-evaluation, he stated it helped his pain some. I stressed the importance of the patient taking his medication as directed (either prescribed or as the over the counter packaging recommends). I stressed the importance of the patient following up with his primary care provider. I stressed the importance of the patient returning to the emergency department immediately if his symptoms were to worsen or if he were to develop any dizziness, shortness of breath, difficulty breathing, chest pain, blurry vision, loss of vision, nausea, vomiting, abdominal pain, fever, chills, back pain, or any other complaints. Patient verbalized agreement and understanding with this treatment plan and discharge. Differential Diagnosis Differential Diagnoses: The differential diagnosis associated with the presentation includes Right hip pain Right knee pain Slip and fall Admission/Observation Consideration of admission/observation: Escalation of care including admission/observation considered Patient would have been admitted to the hospital had his work up had any findings where hospital admission was appropriate and his clinical presentation warranted hospital admission. Independent Interpretation I performed an independent interpretation of an: Plain X-Ray Interpretation: My interpretation is in agreement with the radiologist's impression of these imaging studies. CLINICAL HISTORY: fall, pain 3 view, pelvis and right hip Comparison: 05/15/2024 09:20 AM EST: CR Findings: No acute fracture or dislocation. No significant arthritic change. The soft tissues are unremarkable. IMPRESSION: No acute findings. This document has been electronically signed by: Blas Ruvalcaba MD, PHD on 06/14/2024 04:26:26 Dictated By: Blas Ruvalcaba MD Signed By: Electronically signed by Blas Ruvalcaba MD 06/14/24 0428 CLINICAL HISTORY: fall, pain 2 view right knee Comparison: None Findings: No fractures or dislocations. No significant arthritic change or erosions. No joint effusion. No radiopaque foreign body. IMPRESSION: 1. No acute findings. This document has been electronically signed by: Blas Ruvalcaba MD, PHD on 06/14/2024 04:15:26 Dictated By: Blas Ruvalcaba MD Signed By: Electronically signed by Blas Ruvalcaba MD 06/14/24 0416 Radiology Impression Discussion of test interpretation with radiology: I have reviewed the radiologist's reading. Independent Historian Clinical information obtained from an independent historian. History obtained from or confirmed by: EMS (EMS provided additional history and confirmed the history provided by the patient.) Discharge Plan Discharge Clinical Impression: Fall, Acute hip pain Patient Disposition: Home, Self-Care Instructions: Fall Prevention (ED), Hip Pain (ED) Additional Instructions: Follow up with your primary care provider. Return to the emergency department immediately if your symptoms worsen or if you develop any dizziness, shortness of breath, difficulty breathing, chest pain, blurry vision, loss of vision, nausea, vomiting, abdominal pain, fever, chills, back pain, or any other complaints. Prescriptions: No Action ondansetron 4 mg tablet,disintegrating 4 mg PO Q8H 4 Days Qty: 12 0RF doxycycline monohydrate 100 mg capsule 100 mg PO BID 7 Days Qty: 14 0RF prednisone 50 mg tablet 50 mg PO DAILY 4 Days Qty: 4 0RF methadone [Methadone Intensol] 10 mg/mL Concentrate 140 mg PO DAILY methadone [Methadone Intensol] 10 mg/mL Concentrate 20 mg PO BEDTIME Referrals: [facility] [place] Family Medicine [Provider Group] (Call to establish and follow up with a primary care provider. If you already have a primary care provider, please follow up with them.) [facility] [place] [facility] [Provider Group] (Call to establish and follow up with a primary care provider. If you already have a primary care provider, elisa se follow up with them.) [facility] [place] [facility] [Provider Group] (Call to establish and follow up with a primary care provider. If you already have a primary care provider, please follow up with them.) [facility] [place] [facility] [Provider Group] (Call to establish and follow up with a primary care provider. If you already have a primary care provider, please follow up with them.) Interventions: ED Discharge Assessment Last Done: 06/14/24 07:29 Discharge Date/Time: 06/14/24 07:29 Print Language: Yoruba
[2024-06-14] MEDS: Ibuprofen 600 MG TABLET PO (07:28)
[2024-06-14 07:29] VITALS: BP 138/82; PULSE 92; RESP 16; TEMP 36.9; O2SAT 94
== END 2024-06-14 07:29 | disposition home or self-care (01) ==
PROVIDERS: Emergency Provider Emergency Medicine
DX: S79.911A Unspecified injury of right hip, initial encounter (principal); S89.91XA Unspecified injury of right lower leg, initial encounter; M25.551 Pain in right hip; M25.561 Pain in right knee; W00.0XXA Fall on same level due to ice and snow, initial encounter; Y93.01 Activity, walking, marching and hiking; Y92.9 Unspecified place or not applicable; Y99.8 Other external cause status; Z79.899 Other long term (current) drug therapy
CPT/HCPCS: 73502; 73560; 99283; 99284

== ENCOUNTER → 2024-06-14 03:50 | Outpatient (BNV) | payer MEDICARE, MEDICAID, SELFPAY | PROVIDERS: Visit Provider General Practice | DX: M25.551 Pain in right hip (principal); M25.561 Pain in right knee; W19.XXXA Unspecified fall, initial encounter | CPT/HCPCS: 73502; 73560 ==

== ENCOUNTER 2024-10-27 14:23 | Emergency (ER) | payer MEDICARE, MEDICAID, SELFPAY ==
[2024-10-27 14:30] VITALS: BP 131/80; BP 138/87; PULSE 60; PULSE 65; O2SAT 97; O2SAT 98; BMI 21.4
--- NOTE | 2024-10-27 14:45 | PC.NURSE ---
Addendum entered by Patricia Wu 10/27/24 17:49: MD/security bedside to assess. pt not changed over at this time d/t patient being uncooperative/minimally responsive to verbal/physical stimuli. pt currently remains in personal clothing - will reattempt. Original Note: biba s/p overdose on heroin - unknown route. upon PD arrival - awake/alert - no narcan administered. upon EMS arrival - patient noted to be unresponsive - given 4mg of narcan IN w/ slight response. patient then became less responsive - EMS administered additional 2mg IV w/ little to no effect. upon ED arrival - pt remains difficult to arouse. not responding to physical/verbal stimuli. additional 2mg narcan administered via IV. otherwise vss and up to date. pt on RA w/o difficulty. maintaining airway w/o difficulty. no sob/wob noted. respirations even/unlabored. plan of care ongoing. call thomas placed within reach.
[2024-10-27 14:52] VITALS: BP 154/89; PULSE 72; RESP 18; TEMP 36.5; O2SAT 99
--- NOTE | 2024-10-27 14:57 | ED.OVERDOSE ---
HPI - Overdose General Chief Complaint: Overdose Stated Complaint: OVERDOSE Time Seen by Provider: 10/27/24 14:30 Source: patient and EMS Mode of arrival: EMS Limitations: altered mental status History of Present Illness ED Provider: DR. Todd HPI Narrative: A middle age male unknown to us found in the street unresponsive a with a questionable overdose on heroin, patient was given 4 mg intranasally followed by 2 mg IV with minimal short term effect, patient otherwise with stable vital signs. History and physical exam is limited by patient's unresponsiveness. Patient earlier admitted to EMS at the scene that he used heroin unclear root of administration. Related Data Home Medications ?Medication ?Instructions ?Recorded ?Confirmed methadone 10 mg/mL oral 20 mg PO BEDTIME 01/23/24 01/23/24 concentrate (Methadone Intensol) methadone 10 mg/mL oral 140 mg PO DAILY 01/23/24 01/23/24 concentrate (Methadone Intensol) Previous Rx's ?Medication ?Instructions ?Recorded ondansetron 4 mg disintegrating 4 mg PO Q8H 4 days #12 tabs 06/04/21 tablet doxycycline monohydrate 100 mg 100 mg PO BID 7 days #14 caps 05/25/23 capsule prednisone 50 mg tablet 50 mg PO DAILY 4 days #4 tabs 05/25/23 Allergies Allergy/AdvReac Type Severity Reaction Status Date / Time No Known Allergies Allergy Unverified 10/27/24 21:16 Review of Systems Review of Systems: Yes Unobtainable due to mental status PMFSH Social History Social History Alcohol intake: current Alcohol intake frequency: a few times a week Alcohol type: beer and hard liquor Substance Use Type: Heroin Advance Directives: No Advance Directives Information Provided: No Advance Directives on File: No Do you have a plan to hurt others: No Plan Physical Exam Vital Signs: Vital Signs: Last Vital Signs Temp 97.6 F 10/28/24 06:19 Pulse 66 10/28/24 06:19 Resp 18 10/28/24 06:19 BP 141/92 H 10/28/24 06:19 Pulse Ox 99 10/28/24 06:19 O2 Del Method Room Air 10/28/24 06:19 BMI result Body Mass Index 21.4 Vital signs have been reviewed and appear to be correct. Blood pressure elevated. Heart rate normal. Respiratory rate normal. Temperature normal. Oxygen saturation normal. Appearance: Unresponsive, mumble and open his eyes to sternal rub, moves 4 extremity. Head: Normal external exam. Normocephalic. Atraumatic. No Brunner signs noted. No raccoon eyes noted Eyes: Pinpoint pupil bilaterally, Conjunctiva and sclera normal. Eyelids normal. ENT: TM's Normal. Pharynx normal. Uvula midline. Moist mucous membranes. No trismus noted. No drooling noted. No muffled voice noted. Neck: Normal inspection. Neck supple. FROM. No adenopathy. Thyroid Normal. No meningeal signs. No neck mass noted. CVS: Normal heart rate and rhythm. Heart sound normal. No murmurs noted. Pulses normal throughout. Respiratory: No respiratory distress. Painless inspiration. Breath sounds normal. No wheezes/rales/rhonchi noted. Chest nontender. No accessory muscle usage noted or decreased air movement noted. Abdomen: Soft and nontender. Bowel sounds normal in all 4 quadrants. No distention noted. No organomegaly noted. No visible injury noted. Back: No CVA tenderness. Full range of motion noted. Skin: Skin warm and dry. Normal skin color. Normal skin turgor. No rashes/lesions/lacerations noted. Extremities: No lower extremity edema. Extremities exhibit normal range of motion. Extremities nontender. Neuro: Unresponsive Cranial nerve exam: II-XII are grossly intact No motor deficit. No sensory deficit. Reflexes normal. Course Reevaluation(s) Reevaluation #1: Unresponsive, only response to sternal rub patient open his eyes was able to mumble 1 or 2 words, no sign of head injury or trauma. Will continue monitoring, VSS stable. Time: 15:03 Reevaluation #2: more responsive to sternal rub, VSS, continue monitoring signed out to for continue monitoring. Time: 16:00 Reevaluation #3: Dr. Eisenberg: The patient is a 54-year-old male who had presented to the emergency room after an apparent overdose of heroin. The patient had also been drinking alcohol. The patient was signed out to me by the previous physician. The patient was asleep when I assumed care. We sent labs and checked an EKG. The patient has alcohol level was 61. The patient is toxicology screen was positive for opiates, fentanyl, cocaine, and marijuana. The patient has EKG and other labs were unremarkable. The patient seems medically stable. The patient woke and expressed an interest in seeking assistance for substance use disorder. A recovery team consult was placed and the patient was evaluated by the care team. The patient expressed an interest in going to detox at [facility]. The patient will therefore be kept in the emergency department overnight in the hope of the patient getting a place at [facility] in the morning. The patient was feeling somewhat jittery and was given oral chlordiazepoxide. The the patient will be placed in physician observation as of 10:00PM on 10/27/2024 Time: 02:16 Consultations Consultation #1: Care team input is appreciated, patient will be going to rehab [facility] detox. No SI, [place]. Time: 11:51 Medications Administered Discontinued Medications Generic Name Dose Route Start Last Admin Trade Name Freq PRN Reason Stop Dose Admin Chlordiazepoxide HCl 100 mg 10/27/24 21:09 10/27/24 21:16 Chlordiazepoxide Hcl 25 Mg Capsule PO 10/27/24 21:10 100 mg ONCE ONE Administration Chlordiazepoxide HCl 100 mg 10/28/24 02:08 10/28/24 02:24 Chlordiazepoxide Hcl 25 Mg Capsule PO 10/28/24 02:09 100 mg ONCE ONE Administration Loperamide HCl 4 mg 10/27/24 21:09 10/27/24 21:16 Loperamide Hcl 2 Mg Capsule PO 10/27/24 21:10 4 mg ONCE ONE Administration Lorazepam 2 mg 10/28/24 10:37 10/28/24 10:43 Lorazepam 1 Mg Tablet PO 10/28/24 10:38 2 mg ONCE ONE Administration Naloxone HCl 2 mg 10/27/24 14:56 10/27/24 14:30 Naloxone Hcl 2 Mg/2 Ml Syringe IVPUSH 10/27/24 14:57 2 mg ONCE ONE Administration Ondansetron HCl 4 mg 10/28/24 10:37 10/28/24 10:43 Ondansetron Odt 4 Mg Tab.Rapdis TRANSLINGU 10/28/24 10:38 4 mg ONCE ONE Administration Medical Decision Making Differential Diagnosis Differential Diagnoses: The differential diagnosis associated with the presentation includes (Heroin overdose, alcohol intoxication, vital sign compromise.) Admission/Observation Consideration of admission/observation: Escalation of care including admission/observation considered Lab Data MDM Lab Attestation statement: I reviewed the patient's lab results. 10/27/24 17:40 10/27/24 17:40 Labs: Lab Results 10/27/24 10/27/24 Range/Units 17:40 18:43 WBC 3.6 L (4.8-10.8) X10*3/uL RBC 4.65 (4.60-5.80) X10*6/uL Hgb 15.7 (14.0-18.0) g/dl Hct 44.3 (42.0-52.0) % MCV 95.3 (80.0-98.0) fL MCH 33.8 H (27.0-33.0) pg MCHC 35.4 (31.0-36.0) g/dl RDW 11.4 (11.0-16.0) % Plt Count 144 L (160-400) X10*3/uL MPV 9.0 L (9.4-12.4) fL Immature Gran % (Auto) 0.3 (0.0-0.4) % Neut % (Auto) 61.7 (45-73) % Lymph % (Auto) 25.3 (20-40) % [place] % (Auto) 10.0 (2-11) % Eos % (Auto) 1.9 (0-4) % Baso % (Auto) 0.8 (0-2) % Lymph # (Auto) 0.9 L (1.2-4.9) X10*3/uL [place] # (Auto) 0.4 (0.1-1.2) X10*3/uL Eos # (Auto) 0.1 (0.0-0.4) X10*3/uL Baso # (Auto) 0.0 (0.0-0.2) X10*3/uL Abs Immat Gran (auto) 0.01 (0.00-0.03) X10*3/uL Absolute Neuts (auto) 2.2 (2.0-8.3) x10*3/uL Absolute Nucleated RBC 0.000 (0.0-0.012) X10*3/uL Nucleated RBC % (auto) 0.0 (0.0-0.2) /100WBC Sodium 143 (135-145) mmol/L Potassium 3.4 (3.3-5.1) mmol/L Chloride 105 (96-108) mmol/L Carbon Dioxide 23 (22-29) mmol/L Anion Gap 18 (12-20) BUN 16 (9-16) mg/dL Creatinine 0.76 (0.5-1.4) mg/dL Estim Creat Clear Calc 120.1 Estimated GFR > 60 Random Glucose 96 (60-115) mg/dL Calcium 9.2 (8.4-10.2) mg/dL Total Bilirubin 0.8 (0.0-1.0) mg/dL Direct Bilirubin 0.4 (0.0-0.5) mg/dL AST 92 H (5-37) U/L ALT 46 H (0-40) U/L Alkaline Phosphatase 73 (39-117) U/L Total Protein 7.8 (6.5-8.0) g/dL Albumin 4.4 (3.5-5.0) g/dL Urine Color Yellow Urine Appearance Clear Urine pH 7.0 (5.0-9.0) Ur Specific [place] 1.015 (1.005-1.025) Urine Protein Trace (Neg-Trace) mg/dL Urine Glucose (UA) Negative (Negative) mg/dL Urine Ketones Negative (Negative) mg/dL Urine Blood Negative (Negative) Urine Nitrite Negative (Negative) Ur Leukocyte Esterase Negative (Negative) Urine Opiates Screen POSITIVE H (Not Detect) Ur Buprenorphine Scrn Not Detected (Not Detect) ng/mL Ur Oxycodone Screen Not Detected (Not Detect) ng/mL Urine Methadone Screen Not Detected (Not Detect) ng/mL Urine Fentanyl Screen POSITIVE H (Not Detect) Ur Barbiturates Screen Not Detected (Not Detect) Ur Phencyclidine Scrn Not Detected (Not Detect) Ur Amphetamines Screen Not Detected (Not Detect) U Benzodiazepines Scrn Not Detected (Not Detect) Urine Cocaine Screen POSITIVE H (Not Detect) U Marijuana (THC) Screen POSITIVE H (Not Detect) Ethyl Alcohol 61 mg/dL Discharge Plan Discharge Clinical Impression: Drug overdose, Substance use disorder Patient Disposition: Xfer [facility] Transfer Details: Going to rehab Prescriptions: No Action ondansetron 4 mg tablet,disintegrating 4 mg PO Q8H 4 Days Qty: 12 0RF doxycycline monohydrate 100 mg capsule 100 mg PO BID 7 Days Qty: 14 0RF prednisone 50 mg tablet 50 mg PO DAILY 4 Days Qty: 4 0RF methadone [Methadone Intensol] 10 mg/mL Concentrate 140 mg PO DAILY methadone [Methadone Intensol] 10 mg/mL Concentrate 20 mg PO BEDTIME Print Language: Syriac
--- NOTE | 2024-10-27 15:40 | PC.NURSE ---
patient noted to rip IV access out d/t continuously thrashing body around in bed. per MD, no additional IV access is needed at this time. pt otherwise remains difficult to arouse. remains on RA w/o difficulty. no sob/wob noted. respirations even/unlabored. plan of care ongoing. call thomas placed within reach.
--- NOTE | 2024-10-27 16:48 | ECG_ITS ---
Test Reason : OVERDOSE Blood Pressure : */* mmHG Vent. Rate : 66 BPM Atrial Rate : 66 BPM P-R Int : 140 ms QRS Dur : 74 ms QT Int : 412 ms P-R-T Axes : 68 67 60 degrees QTcB Int : 431 ms Normal sinus rhythm Normal ECG No previous ECGs available Referred By: Wilbur Eisenberg Electronically Signed By:
--- NOTE | 2024-10-27 17:29 | MHC.EDTECH ---
pt not tolerating/cooperating ekg at this time, pt sleeping on stomach and unable to arouse to obtain
[2024-10-27 17:31] VITALS: BP 153/99; PULSE 79; RESP 17; O2SAT 98
[2024-10-27 17:44] LABS: MANUAL DIFF FLAG NO
[2024-10-27 17:46] LABS: Hematocrit 44.3 % (42.0-52.0); Hemoglobin 15.7 g/dl (14.0-18.0); Imm Gran Abs Auto 0.01 X10*3/uL (0.00-0.03); Imm Gran Pct Auto 0.3 % (0.0-0.4); Lymphocytes Absolute Auto 0.9 X10*3/uL (1.2-4.9); Mean Corpuscular HGB Conc 35.4 g/dl (31.0-36.0); Mean Corpuscular Hemoglobin 33.8 pg (27.0-33.0); Mean Corpuscular Volume 95.3 fL (80.0-98.0); NRBC Abs Auto 0.000 X10*3/uL (0.0-0.012); NRBC Pct Auto 0.0 /100WBC (0.0-0.2); Platelet Count 144 X10*3/uL (160-400); Red Blood Count 4.65 X10*6/uL (4.60-5.80); White Blood Count 3.6 X10*3/uL (4.8-10.8)
[2024-10-27 18:01] LABS: Alanine Aminotransferase 46 U/L (0-40); Albumin Level 4.4 g/dL (3.5-5.0); Alkaline Phosphatase 73 U/L (39-117); Anion Gap 18 (12-20); Aspartate Amino Transferase 92 U/L (5-37); Blood Urea Nitrogen 16 mg/dL (9-16); Calcium 9.2 mg/dL (8.4-10.2); Carbon Dioxide 23 mmol/L (22-29); Chloride 105 mmol/L (96-108); Creatinine Clr Calc Pharmacy 120.1; Estimated Glomerular Filt Rate > 60; Potassium 3.4 mmol/L (3.3-5.1); Sodium 143 mmol/L (135-145); Total Protein 7.8 g/dL (6.5-8.0)
[2024-10-27 18:22] VITALS: BP 134/89; PULSE 69; RESP 17; TEMP 36.6; O2SAT 97
--- NOTE | 2024-10-27 18:45 | MHC.EDTECH ---
pt still refusing ekg
[2024-10-27 18:48] LABS: Appearance Urine Clear; Glucose Urine UA Negative (Negative); PH 7.0 (5.0-9.0); Specific Gravity - Urine 1.015 (1.005-1.025)
--- NOTE | 2024-10-27 18:48 | PC.NURSE ---
patient more awake/answering questions. vitals obtained/wnl. pt changed over by security - belongings placed in [facility]phany port shelf #2. pt verbalizing he is requesting detox. provider notified/aware.
[2024-10-27 19:07] VITALS: BP 142/91; PULSE 74; RESP 26; TEMP 36.8; O2SAT 98
[2024-10-27 19:12] LABS: Cannabinoid Screen Urine POSITIVE (Not Detect)
[2024-10-27 21:47] VITALS: BP 154/97; PULSE 74; RESP 18; TEMP 36.8; O2SAT 98
[2024-10-28 02:06] VITALS: BP 165/107; PULSE 59; RESP 15; TEMP 36.8; O2SAT 100
[2024-10-28 04:03] VITALS: BP 140/79; PULSE 54; RESP 18; TEMP 36.6; O2SAT 99
[2024-10-28 06:19] VITALS: BP 141/92; PULSE 66; RESP 18; TEMP 36.4; O2SAT 99
--- NOTE | 2024-10-28 09:27 | PC.NURSE ---
Assumed care of pt approx 0700, pt resting in bed with eyes closed and even respiratory rate. Pt offered breakfast this AM and declined. ? plans for pt to go to detox
--- NOTE | 2024-10-28 10:14 | PC.NURSE ---
patient is arousable to verbal stimuli, ambulates to bathroom with steady gait
--- NOTE | 2024-10-28 11:36 | MHC.CARE ---
Pt accepted to [facility], they will send Uber to transport COTY. MD and RN notified.
--- NOTE | 2024-10-28 11:52 | PC.NURSE ---
patient given back personal belongings, did not want to change out of lio and pants for lyft to [facility].
--- NOTE | 2024-10-28 12:03 | PC.NURSE ---
pt dc to [facility] via [facility] arranged by care team.
== END 2024-10-28 12:04 | disposition skilled nursing facility (03) ==
PROVIDERS: Emergency Provider Emergency Medicine
DX: T40.1X1A Poisoning by heroin, accidental (unintentional), initial encounter (principal); R40.4 Transient alteration of awareness; F19.10 Other psychoactive substance abuse, uncomplicated; Y92.410 Unspecified street and highway as the place of occurrence of the external cause; F11.20 Opioid dependence, uncomplicated; Z79.899 Other long term (current) drug therapy
CPT/HCPCS: 36415; 80048; 80076; 80307; 81003; 85025; 93005; 99285; J2312; S9485

== ENCOUNTER 2024-11-22 12:05 | Emergency (ER) | payer MEDICARE, MEDICAID, SELFPAY ==
--- NOTE | ~2024-11-22 | CT_ITS ---
CLINICAL HISTORY: AMS CT head without contrast Comparison: CT/UT/SR - CT HEAD WITHOUT IV CONTRAST - 05/15/24 08:58 EST Findings: No intra-axial mass, midline shift, hydrocephalus, or acute hemorrhage. No significant atrophy-like change or white matter disease. Intracranial atherosclerosis. Mucosal thickening in the maxillary sinuses and ethmoid air cells. The orbits are within normal limits. There is no acute fracture. IMPRESSION: 1. No acute intracranial findings. This document has been electronically signed by: Huma Chauhan MD on 11/22/2024 19:01:48
[2024-11-22 12:14] VITALS: BP 103/68; BP 92/60; PULSE 55; RESP 20; TEMP 37; O2SAT 93; O2SAT 98; BMI 22.3
--- NOTE | 2024-11-22 12:18 | ED.GENADULT ---
HPI - General Adult General Chief complaint: Overdose Stated complaint: HEROIN USE,ON SIDEWALK,NO NARCAN GIVEN PER EMS Time Seen by Provider: 11/22/24 12:14 Source: patient, EMS, RN notes reviewed and old records reviewed Mode of arrival: EMS Limitations: altered mental status History of Present Illness ED Provider: Monica HPI narrative: Patient is a 44-year-old male with unknown past medical history presenting to the emergency department via EMS after being found unresponsive on the sidewalk. EMS reports that patient was initially verbally responsive and admitted to using heroin approximately 30 minutes prior to the arrival, has become more lethargic and decreased responsiveness upon arrival to the ED. He is maintaining his airway currently. He is minimally responding to painful stimuli on arrival. MD complaint: overdose Related Data Home Medications ?Medication ?Instructions ?Recorded ?Confirmed methadone 10 mg/mL oral 20 mg PO BEDTIME 01/23/24 01/23/24 concentrate (Methadone Intensol) methadone 10 mg/mL oral 140 mg PO DAILY 01/23/24 01/23/24 concentrate (Methadone Intensol) Previous Rx's ?Medication ?Instructions ?Recorded ondansetron 4 mg disintegrating 4 mg PO Q8H 4 days #12 tabs 06/04/21 tablet doxycycline monohydrate 100 mg 100 mg PO BID 7 days #14 caps 05/25/23 capsule prednisone 50 mg tablet 50 mg PO DAILY 4 days #4 tabs 05/25/23 Allergies Allergy/AdvReac Type Severity Reaction Status Date / Time No Known Allergies Allergy Verified 11/22/24 20:06 [facility] Social History Social History Alcohol intake: current Alcohol intake frequency: 3 or more drinks per day Alcohol type: hard liquor Smoked in Last 30 Days: No Use of substances other than those prescribed or required for medical reasons: Yes Substance Use Type: Heroin Substance Use Frequency: Chronic Longstanding Last Used Substance: Just Prior to Admission Any prior treatment program specific to substance use: No Advance Directives: No Advance Directives Information Provided: No Physical Exam ED Vital Signs: Vital Signs - 24 hr 11/22/24 12:14 11/22/24 19:46 11/23/24 06:39 Temperature 98.6 F 97.7 F 97.7 F Pulse Rate 55 68 65 Respiratory Rate 20 18 Blood Pressure 103/68 134/86 131/93 H Pulse Oximetry 98 98 100 Oxygen Delivery Method Room Air Room Air Room Air 11/23/24 10:30 Temperature 97.9 F Pulse Rate 69 Respiratory Rate 14 Blood Pressure 132/92 H Pulse Oximetry 99 Oxygen Delivery Method Room Air BMI result Body Mass Index 22.3 Course Reevaluation(s) Reevaluation #1: Patient now awake and alert, admits to using heroin and alcohol today. Requesting to speak to recovery. Patient has been observed in the emergency department for 5 hours with improvement in mental status. Time: 17:08 Reevaluation #2: CT head without any acute abnormalities, will place patient on physician observation pending CARE team eval. Time: 19:23 Reevaluation #3: 8:56 PM 11/22/2024 (Lj CODY): Patient was signed out to this provider at shift change. In summary the patient is a 54-year-old male presenting to the ED for evaluation after a fentanyl overdose. The patient was cleared medically and began requesting to speak to the recovery team. Patient was signed out pending recovery team consultation. At this time the patient has been evaluated by the recovery team who advises the patient is currently requesting inpatient detox bed search. Recovery team advises they will initiate a bed search however also advises patient is not on a section 12 and was provided outpatient recovery resource pamphlet, recovery team advises if patient changes his mind regarding detox center he can be discharged upon request without recovery re-evaluation. Time: 11:36 Additional Reevaluation(s): 11/23/24 11:36 IVONE Anderson: Time: 11:38 Date: 11/23/24 Provider: Ilda Anderson NP Observation care revealed that patient does not meet medical necessity for hospitalization. Final disposition discussed with patient. The patient completed observation care at 11:36 on 11/23. Medications Administered Discontinued Medications Generic Name Dose Route Start Last Admin Trade Name Freq PRN Reason Stop Dose Admin Lorazepam 1 mg 11/22/24 20:19 11/22/24 20:42 Lorazepam 1 Mg Tablet PO 11/22/24 20:20 1 mg ONCE ONE Administration Medical Decision Making Medical Decision Making MDM Narrative: Patient is a 44-year-old male with unknown past medical history presenting to the emergency department via EMS after being found unresponsive on the sidewalk. Discharge Plan Discharge Clinical Impression: Drug overdose Patient Disposition: Xfer Other Transfer Details: to [facility] rehab Instructions: Adult Overdose (ED) Additional Instructions: Overdose You were seen in our Emergency Department for an overdose today. You received narcan in order to reverse the effects of overdose. Narcan only lasts about 45 min to 1 hour in the system. You may have been given narcan to take home with you today, please keep it near you if you are going to use again, so others can use it if needed.? The number one risk for fatal overdose is using alone? [facility] [facility] is a 01/11 hotline where you can be on the phone with someone while you use, and they can call for help if they suspect an overdose: [phone] Things to look out for when you leave include severe vomiting or diarrhea, headaches, muscle cramps, fever, coughing, chest pain, or if you feel so short of breath you cannot walk to the bathroom. Please seek care and return any time for worsening symptoms.? You may have been provided with safer injection?items, please take time to take care of YOU and your health. Use new supplies whenever possible to lessen the chances of infections and other illnesses.? If you need more supplies, please go [facility],? [address] [place] [address] OR you can call or text to coordinate delivery of safer supplies. If you decide you want to stop or cut down on how much you?re using, please call the numbers on the list provided to you or you can come to our outpatient Addiction Treatment office [facility] [place] (M-F 9am-5p) [address] [place] [address], [address] [phone] Prescriptions: No Action ondansetron 4 mg tablet,disintegrating 4 mg PO Q8H 4 Days Qty: 12 0RF doxycycline monohydrate 100 mg capsule 100 mg PO BID 7 Days Qty: 14 0RF prednisone 50 mg tablet 50 mg PO DAILY 4 Days Qty: 4 0RF methadone [Methadone Intensol] 10 mg/mL Concentrate 140 mg PO DAILY methadone [Methadone Intensol] 10 mg/mL Concentrate 20 mg PO BEDTIME Print Language: Iranian
[2024-11-22 19:46] VITALS: BP 134/86; PULSE 68; RESP 18; TEMP 36.5; O2SAT 98
--- NOTE | 2024-11-22 19:54 | PC.NURSE ---
pt woke up saying he needed a doctor or a nurse. Pt reports that he is starting to withdrawal. Per pt he is tremulous, slightly nauseous, and anxious. Last drink was [employer]. pt reports he normally drinks A handle of vodka. Chace CODY notified and will order 1mg of ativan PO. Awaiting orders. Pt reporting 8/10 rib pain for reports of receiving CPR. Pt under phys obs awaiting leadership coach assessment.
[2024-11-23 06:39] VITALS: BP 131/93; PULSE 65; TEMP 36.5; O2SAT 100
[2024-11-23 10:30] VITALS: BP 132/92; PULSE 69; RESP 14; TEMP 36.6; O2SAT 99
[2024-11-23 11:54] VITALS: BP 132/92; PULSE 69; RESP 14; TEMP 36.6; O2SAT 99
== END 2024-11-23 11:56 | disposition other institution (70) ==
PROVIDERS: Emergency Provider Emergency Medicine
DX: T40.1X1A Poisoning by heroin, accidental (unintentional), initial encounter (principal); R40.4 Transient alteration of awareness; Y92.9 Unspecified place or not applicable
CPT/HCPCS: 70450; 99284; 99285; S9485

== ENCOUNTER → 2024-11-22 16:11 | Outpatient (BNV) | payer MEDICARE, MEDICAID, SELFPAY | PROVIDERS: Emergency Provider Emergency Medicine; Visit Provider Radiology Diagnostic Radiology | DX: R41.82 Altered mental status, unspecified (principal) | CPT/HCPCS: 70450 ==

== ENCOUNTER 2024-11-24 18:33 | Emergency (ER) | payer MEDICARE, MEDICAID, SELFPAY ==
[2024-11-24 18:42] VITALS: PULSE 99; TEMP 36.9; O2SAT 93; BMI 25.8
[2024-11-24 18:48] VITALS: BP 127/89; PULSE 87; RESP 14; TEMP 36.8
--- NOTE | 2024-11-24 19:18 | ED.GENADULT ---
HPI - General Adult General Chief complaint: Altered Mental Status Stated complaint: ETOH Time Seen by Provider: 11/24/24 18:58 Source: patient and EMS Mode of arrival: EMS Limitations: altered mental status (Reported alcohol intoxication) History of Present Illness ED Provider: Chace CODY HPI narrative: Patient is a 54-year-old male presenting to the ED by ambulance from a local liquor store where a bystander called in that the patient was being disorderly. The patient reported to EMS that he drank a handle of hard alcohol and ?took all the drugs?. In the ED patient appears clinically intoxicated, odor of EtOH metabolites on breath, is largely uncooperative with interview, refusing to answer questions, but cooperative with the exam. Related Data Home Medications ?Medication ?Instructions ?Recorded ?Confirmed methadone 10 mg/mL oral 20 mg PO BEDTIME 01/23/24 01/23/24 concentrate (Methadone Intensol) methadone 10 mg/mL oral 140 mg PO DAILY 01/23/24 01/23/24 concentrate (Methadone Intensol) gabapentin 100 mg capsule 100 mg PO TID 11/23/24 omeprazole 20 mg capsule,delayed 20 mg PO DAILY 11/23/24 release Previous Rx's ?Medication ?Instructions ?Recorded ondansetron 4 mg disintegrating 4 mg PO Q8H 4 days #12 tabs 06/04/21 tablet Allergies Allergy/AdvReac Type Severity Reaction Status Date / Time No Known Allergies Allergy Verified 11/24/24 18:46 Review of Systems Review of Systems: Yes all other systems are reviewed and are negative PMFSH Social History Social History Alcohol intake: current Alcohol intake frequency: 3 or more drinks per day Alcohol type: beer and hard liquor Smoked in Last 30 Days: Yes Use of substances other than those prescribed or required for medical reasons: Refusing to respond Substance Use Type: Heroin Advance Directives: No Advance Directives Information Provided: No Do you have a plan to hurt others: No Plan Physical Exam ED Vital Signs: Vital Signs - 24 hr 11/24/24 18:42 11/24/24 18:48 Temperature 98.4 F 98.3 F Pulse Rate 87 Respiratory Rate 14 Blood Pressure 127/89 Pulse Oximetry 93 Oxygen Delivery Method Room Air BMI result Body Mass Index 25.8 CONSTITUTIONAL: The patient appears clinically intoxicated, unkempt, odor of EtOH metabolites on breath, otherwise non-toxic, well nourished and in no acute distress. Vital signs as documented. HEAD: Atraumatic, normocephalic. EYES: EOMs grossly intact, pupils equal, conjunctiva clear, no exudate. ENT: Nares patent, no discharge. Airway patent, no audible stridor, visible mucosa is pink and moist without noted lesions. NECK: Trachea is midline, no obvious masses or gross abnormalities. CHEST: Symmetric movement, normal appearance. LUNGS: LS present and CTAB, no w/r/r. Non-labored work of breathing. CARDIAC: Regular Rhythm, S1/S2 appreciated, no murmurs, rubs or gallops. ABDOMEN: Abdomen soft and non-tender x4 quadrants, no palpable masses or organomegaly. : Deferred. EXTREMITIES: Normal tone, moves all extremities spontaneously without reported pain. No obvious acute injury or deformity noted. NEURO: Alert to verbal stimuli, patient unable or unwilling to cooperate with remainder of neurologic exam. PSYCH: Withdrawn, oppositional affect, replies to questions stating he does not want to talk to anyone. No reported suicidality or homicidality. SKIN: Warm, dry, color appropriate, normal turgor. No rashes noted. Medical Decision Making Medical Decision Making MDM Narrative: 7:38 PM 11/24/2024 (Lj CODY): The patient is a 54-year-old male with a history of alcohol dependency presenting to the ED for evaluation of alcohol intoxication. The patient is uncooperative with interview, exam is nonacute. The patient does not appear to be able to provide a reliable HPI. We will obtain laboratory evaluation, ethanol level, UDS, and CT head as patient is actively intoxicated and unable or unwilling to deny possible head injury. 8:51 PM 11/24/2024 (Lj CODY): Radiology attempted to take patient for CT head, patient refused to cooperate for CT. We will reassess need for CT when clinically sober. 10:49 PM 11/24/2024 (Lj CODY): The patient is now alert and awake, ambulating around the ED with a steady gait, refusing additional evaluation or CT, requesting discharge. The patient will be discharged to his own care. Admission/Observation Consideration of admission/observation: Escalation of care including admission/observation considered Lab Data Labs: Lab Results 11/24/24 Range/Units 20:16 Urine Opiates Screen POSITIVE H (Not Detect) Ur Buprenorphine Scrn Not Detected (Not Detect) ng/mL Ur Oxycodone Screen Not Detected (Not Detect) ng/mL Urine Methadone Screen Not Detected (Not Detect) ng/mL Urine Fentanyl Screen POSITIVE H (Not Detect) Ur Barbiturates Screen POSITIVE H (Not Detect) Ur Phencyclidine Scrn Not Detected (Not Detect) Ur Amphetamines Screen Not Detected (Not Detect) U Benzodiazepines Scrn POSITIVE H (Not Detect) Urine Cocaine Screen POSITIVE H (Not Detect) U Marijuana (THC) Screen Not Detected (Not Detect) Discharge Plan Discharge Clinical Impression: Alcoholic intoxication Qualifiers: Complication of substance-induced condition: uncomplicated Qualified Code(s): F10.920 - Alcohol use, unspecified with intoxication, uncomplicated Patient Disposition: Home, Self-Care Instructions: Alcohol Intoxication (ED) Additional Instructions: Thank you for choosing [facility]'s Emergency Department for your care today. You were seen today for acute alcohol intoxication. At this time there is no indication for admission to the hospital or continued ED observation, and it is safe to discharge you home. Please do not drink alcohol in excess as this is not generally good for your health and can put you at an increased risk for otherwise avoidable injury and health ailments. Failure to decrease your alcohol consumption will put you at increased risk for permanent liver disease and a decreased quality of life. Please utilize all available personal and community resources to reduce or eliminate your alcohol consumption. Please follow up with your primary care physician for re-evaluation, additional management of your symptoms, and continued preventative care. If you do not have a primary care physician, please call the [facility] at [phone] to establish a new primary care physician. While waiting to establish your new primary care physician, you can call our [facility] at [phone] for non-emergency needs. Please return to the emergency department if you develop a severe or sudden change in your symptoms, a fever over 100.4 that does not improve with Tylenol or Ibuprofen, recurrent vomiting, or any other new or worsening symptoms or concerns. Prescriptions: No Action ondansetron 4 mg tablet,disintegrating 4 mg PO Q8H 4 Days Qty: 12 0RF methadone [Methadone Intensol] 10 mg/mL Concentrate 140 mg PO DAILY methadone [Methadone Intensol] 10 mg/mL Concentrate 20 mg PO BEDTIME omeprazole 20 mg capsule,delayed release(DR/EC) 20 mg PO DAILY gabapentin 100 mg capsule 100 mg PO TID Referrals: Physician,Unknown J [Primary Care Provider, Medical] Print Language: Uruguayan
[2024-11-24 20:33] LABS: Cannabinoid Screen Urine Not Detected (Not Detect)
--- NOTE | 2024-11-24 20:49 | MHC.EDTECH ---
PATIENT REFUSED LABS.PATIENT STATED HAVING LABS DRAWN YESTERDAY AND DOESN'T NEED THEM TODAY.
--- NOTE | 2024-11-24 23:19 | PC.NURSE ---
Pt demanding to leave, able to ambulate at this time, provider at bedside to do DC for staff. Belongings returned to pt at this time. Pt able to ambulate out of ED
[2024-11-24 23:20] VITALS: BP 0/0; PULSE 0; RESP 0; TEMP -17.7; TEMP 0; O2SAT 0
== END 2024-11-24 23:21 | disposition home or self-care (01) ==
PROVIDERS: Physician Assistant; Emergency Provider Emergency Medicine
DX: F10.229 Alcohol dependence with intoxication, unspecified (principal); F11.90 Opioid use, unspecified, uncomplicated; F19.90 Other psychoactive substance use, unspecified, uncomplicated; R41.82 Altered mental status, unspecified
CPT/HCPCS: 80307; 99284

== ENCOUNTER 2024-11-28 23:48 | Emergency (ER) | payer MEDICARE, MEDICAID, SELFPAY ==
--- NOTE | 2024-11-28 | ECG_ITS ---
Test Reason : CHEST PAIN Blood Pressure : */* mmHG Vent. Rate : 77 BPM Atrial Rate : 77 BPM P-R Int : 146 ms QRS Dur : 88 ms QT Int : 428 ms P-R-T Axes : 56 42 34 degrees QTcB Int : 484 ms Poor data quality Normal sinus rhythm with Premature atrial complexes Prolonged QT Abnormal ECG When compared with ECG of 15-May-2024 09:53, Premature atrial complexes are now Present Referred By: Generic ED Physician Electronically Signed By: RADHA REINA MD
[2024-11-28 23:51] VITALS: BP 140/100; PULSE 80
[2024-11-28 23:59] VITALS: BMI 23.1
--- NOTE | 2024-11-29 00:01 | MHC.EDTECH ---
pt is refusing to be placed on [facility] and have an ekg done. rn aware.
--- NOTE | 2024-11-29 00:05 | PC.NURSE ---
at this time this RN entered room in order to triage pt, the seed technician stated that the pt is refusing cardiac monitoring, when asked if we can recieve an EKG and some blood work the pt stated I got those checked at the other hospital, they all came back fine, I will take a chest x-ray though I think I broke a rib. No EKG obtained at this time, no blood work received, pt appears to be in no apparent distress, requesting something to eat d/t reportedly not eating the past two days.
--- NOTE | 2024-11-29 00:36 | PC.NURSE ---
at this time television production technician at the bedside obtaining EKG
[2024-11-29 00:40] VITALS: BP 115/94; PULSE 77; RESP 18; TEMP 36.4; O2SAT 97
--- NOTE | 2024-11-29 00:59 | ED.GENADULT ---
HPI - General Adult General Chief complaint: General Medical Stated complaint: Cold, Chest Pain Time Seen by Provider: 11/29/24 00:58 Source: patient Mode of arrival: EMS Limitations: no limitations History of Present Illness ED Provider: Dr. Dean Turner HPI narrative: 54 year old assigned male at with a history of opiate use on methadone maintenance program, polysubstance use disorder, alcohol use disorder who was brought in to the emergency department by ambulance for evaluation of feeling cold secondary to exposure to rain. The patient states that he was feeling extremely cold and could not stop shaking. He was concerned that he may have developed hypothermia so he called an ambulance and was brought to the emergency department. Patient states that 2 weeks ago he had [place] unint[place] op[place] He states that bystanders performed CPR and since that time he has been having chest pain. He to his anterior chest and states the pain is worse with breathing. He denied shortness of breath or dyspnea on exertion, cough, fever or chills. Patient states that he did use heroin earlier in the day. He states that he did drink alcohol but not enough to get intoxicated. Patient states he is homeless and he has not had access to longterm or food for at least 2 days. I did review the patient's last ED visit from 11/24/2024. Patient was diagnosed with alcohol intoxication. His urine drug screen was positive for opiates, fentanyl, barbiturates, benzodiazepines and cocaine. Related Data Home Medications ?Medication ?Instructions ?Recorded ?Confirmed methadone 10 mg/mL oral 20 mg PO BEDTIME 01/23/24 01/23/24 concentrate (Methadone Intensol) methadone 10 mg/mL oral 140 mg PO DAILY 01/23/24 01/23/24 concentrate (Methadone Intensol) omeprazole 20 mg capsule,delayed 20 mg PO DAILY 11/23/24 12/06/24 release Allergies Allergy/AdvReac Type Severity Reaction Status Date / Time No Known Allergies Allergy Verified 12/05/24 18:46 Review of Systems Review of Systems: Yes all other systems are reviewed and are negative [facility] Past Medical History Medical History (Updated 12/06/24 @ 11:26 by ESCOBAR Thompson) Polysubstance use disorder Alcohol use disorder Social History Social History Alcohol intake: current Alcohol intake frequency: 3 or more drinks per day Alcohol type: hard liquor Patient Tobacco Use Status: Current everyday Tobacco user Smoked in Last 30 Days: Yes Use of substances other than those prescribed or required for medical reasons: Yes Substance Use Type: Heroin Advance Directives: No Advance Directives Information Provided: Yes Nutrition Risks: No Nutritional Risk Physical Exam ED Vital Signs: Vital Signs - 24 hr 11/29/24 00:40 Temperature 97.6 F Pulse Rate 77 Respiratory Rate 18 Blood Pressure 115/94 H Pulse Oximetry 97 Oxygen Delivery Method Room Air BMI result Body Mass Index 23.1 Vital signs were normal Exam: General: Awake, alert in no distress Head: Normocephalic, atraumatic EENT: PERRL, Lids normal, sclera normal, conjunctiva normal, nose normal , ears normal, throat without erythema or exudates Neck: Supple, no adenopathy Lung: breath sounds symmetric, no wheezing, rales or rhonchi Chest: symmetric movement, tenderness palpation of his anterior chest, no crepitus, no ecchymosis. Heart: regular rate and rhythm, normal S1, S2 no murmurs or rubs Abdomen: soft, non-tender, nondistended, normal bowel sounds Back: no vertebral tenderness, no CVAT Extremities: no deformities, moves all extremities symmetrically Neuro: Awake, alert, oriented, normal speech, cranial nerves intact, moves all extremities symmetrically Psych: Pleasant, cooperative Medical Decision Making Medical Decision Making MDM Narrative: 54 year old assigned male at with a history of opiate use on methadone maintenance program, polysubstance use disorder, alcohol use disorder who was brought in to the emergency department by ambulance for evaluation of feeling cold secondary to exposure to rain. The patient states that he was feeling extremely cold and could not stop shaking. He was concerned that he may have developed hypothermia so he called an ambulance and was brought to the emergency department. Patient states that 2 weeks ago he had an unintentional opiate [place] He states that bystanders performed CPR and since that time he has been having chest pain. He to his anterior chest and states the pain is worse with breathing. He denied shortness of breath or dyspnea on exertion, cough, fever or chills. Patient states that he did use heroin earlier in the day. He states that he did drink alcohol but not enough to get intoxicated. Patient states he is homeless and he has not had access to longterm or food for at least 2 days. Vital signs were normal. Physical examination revealed anterior chest wall tenderness otherwise was unremarkable. Differential diagnosis: ?Includes but is not limited to hypothermia secondary to cold exposure, alcohol intoxication, polysubstance use Course: Time: 01:38 Date: 11/29/24 Provider: Dean Turner MD Start physician observation. Patient in physician observation for polysubstance use disorder, alcohol use disorder and hypothermia. Patient's 12 EKG was unremarkable. Patient most likely was hypothermic secondary to exposure to rain and cold temperatures outside of 56 degrees F. patient was placed in multiple warm blankets. He was given food to eat as well. Will continue to monitor. At the end of my shift, patient's care was turned over to my colleague, Dr. Addis John. Time: 07:47 hours, Date: 11/29/24 Provider: Dean Turner MD Physician observation ended at 07:47 hours. patient's symptoms improve, temperature normalized Wendie's at discharge. Patient did not want to talk to our recovery team regarding his polysubstance use disorder.. Will follow up as an outpatient. / Admission/Observation Consideration of admission/observation: Escalation of care including admission/observation considered (No) Independent Interpretation I performed an independent interpretation of an: EKG Interpretation: My independent interpretation of the patient's 12 EKG done on 11/29/2024 at 00:38 hours is as follows: Normal sinus rhythm with a rate of 77, normal ID interval, QRS duration with prolonged QTC interval of 484 milliseconds, baseline has artifact but no ST segment elevation or depression, no significant T-wave abnormalities, occasional PVC Chronic Conditions Patient?s care impacted by: Other (Opiate use disorder, polysubstance use disorder, alcohol use disorder) Social Determinants Patient?s care significantly limited by Social Determinants of Health including: Inadequate housing Discharge Plan Discharge Clinical Impression: Hypothermia, Polysubstance use disorder Patient Disposition: Home, Self-Care Instructions: Acute Hypothermia (ED), Polysubstance Use Disorder (ED) Additional Instructions: Please follow-up with your primary care physician tomorrow. If you have any worsening or new symptoms, please return to the emergency room or call 911 Prescriptions: No Action methadone [Methadone Intensol] 10 mg/mL Concentrate 140 mg PO DAILY methadone [Methadone Intensol] 10 mg/mL Concentrate 20 mg PO BEDTIME omeprazole 20 mg capsule,delayed release(DR/EC) 20 mg PO DAILY Interventions: ED Discharge Assessment Last Done: 11/29/24 07:47 Discharge Date/Time: 11/29/24 08:02 Print Language: Dutch
[2024-11-29 01:56] VITALS: BP 98/55; PULSE 80; RESP 18; TEMP 37; O2SAT 97
[2024-11-29 06:17] VITALS: BP 154/83; PULSE 78; RESP 13; TEMP 36.4; O2SAT 96
[2024-11-29 07:47] VITALS: BP 172/105; PULSE 88; RESP 18; TEMP 36.4; O2SAT 98
== END 2024-11-29 08:02 | disposition home or self-care (01) ==
PROVIDERS: Emergency Provider Emergency Medicine Emergency Medical Services
DX: R07.89 Other chest pain (principal); F11.90 Opioid use, unspecified, uncomplicated; T68.XXXA Hypothermia, initial encounter; F17.210 Nicotine dependence, cigarettes, uncomplicated; Z59.00 Homelessness unspecified; Z79.899 Other long term (current) drug therapy
CPT/HCPCS: 93005; 99283; 99284

== ENCOUNTER → 2024-11-28 | Outpatient (BNV) | payer MEDICARE, MEDICAID, SELFPAY | PROVIDERS: Emergency Provider Emergency Medicine Emergency Medical Services; Visit Provider Internal Medicine Cardiovascular Disease | DX: I49.1 Atrial premature depolarization (principal) | CPT/HCPCS: 93010 ==

== ENCOUNTER 2024-12-05 18:20 | Inpatient (IN) | payer MEDICARE, MEDICAID, SELFPAY ==
--- NOTE | ~2024-12-05 | CT_ITS ---
CLINICAL HISTORY: fall CT head without contrast Comparison: CT/SR - CT HEAD/BRAIN WO IV CON - 11/22/24 17:11 EDT Findings: No intra-axial mass, midline shift, hydrocephalus, or acute hemorrhage. No significant atrophy-like change or white matter disease. Moderate mucosal thickening and opacification of the bilateral maxillary and anterior ethmoid air cells. The orbits are within normal limits. No skull fracture. IMPRESSION: 1. No acute intracranial findings specifically, no acute intracranial hemorrhage. 2. Moderate mucosal thickening and opacification of the bilateral maxillary and anterior ethmoid air cells. This document has been electronically signed by: Edith rOr MD on 12/05/2024 21:04:00
--- NOTE | ~2024-12-05 | CT_ITS ---
CLINICAL HISTORY: Fall, ? greater trochanter fx CT left lower extremity without contrast Comparison: CR - XR PELVIS 1-2V - 12/05/24 19:06 EDT Findings: Acute comminuted mildly displaced fracture of the left greater trochanter. Moderate surrounding soft tissue edema. Left hip hip is otherwise intact. IMPRESSION: Acute comminuted mildly displaced fracture of the left greater trochanter. This document has been electronically signed by: Edith Orr MD on 12/05/2024 20:57:56
--- NOTE | ~2024-12-05 | XR_ITS ---
CLINICAL HISTORY: Left hip hematoma 1 view pelvis Comparison: CR - XR HIP RT W PEL1V - 06/14/2024 04:05 AM EST CR/SR - XR HIP [place] MIN 3V - 05/15/2024 09:20 AM EST Findings: Deformity of the left greater trochanter concerning for avulsion fracture. CT pelvis is recommended for further evaluation. No significant degenerative changes. Soft tissues are unremarkable. IMPRESSION: Deformity of the left greater trochanter concerning for avulsion fracture. CT pelvis is recommended for further evaluation. This document has been electronically signed by: Edith Orr MD on 12/05/2024 19:39:40
--- NOTE | ~2024-12-05 | CT_ITS ---
CLINICAL HISTORY: fall CT cervical spine without contrast Comparison: CT/TN/SR - CT CERVICAL SPINE WITHOUT IV CONTRAST - 05/15/24 08:58 EST Findings: Moderate multilevel spondylosis with disc space narrowing, endplate sclerosis, osteophytosis and facet arthropathy causing reversal and mild kyphosis of the cervical spine. No acute fractures or dislocations. No acute findings on limited view of the intracranial contents. Soft tissues of the neck are normal. No consolidation or effusion at the lung apices. IMPRESSION: No evidence of acute fracture or traumatic listhesis of the cervical spine. Moderate multilevel spondylosis. This document has been electronically signed by: Edith Orr MD on 12/05/2024 20:55:40
[2024-12-05 18:35] VITALS: BP 103/75; PULSE 81; O2SAT 98
[2024-12-05 18:38] VITALS: BP 130/81; PULSE 75; RESP 12; TEMP 36.7; O2SAT 96; BMI 20.8
--- NOTE | 2024-12-05 18:45 | ED.GENADULT ---
HPI - General Adult General Chief complaint: Extremity Injury, Lower Stated complaint: HIP PAIN Time Seen by Provider: 12/05/24 18:33 History of Present Illness ED Provider: Dr. Hernandez HPI narrative: 54 y/o M patient; H alcohol use disorder, polysubstance abuse; presents from outside a liquor store with report of right hip pain. Patient states he hit his right hip with a rock. He cannot provide any other details. Police were called as patient appeared quite intoxicated outside of a liquor store. The patient on exam continues to complain of right hip pain. Patient is currently homeless. Reviewed recent relevent medical records. Patient is homeless. Recent utox was positive for opiates, fentanyl, barbiturates, benzodiazepines, and cocaine. Related Data Home Medications ?Medication ?Instructions ?Recorded ?Confirmed methadone 10 mg/mL oral 20 mg PO BEDTIME 01/23/24 01/23/24 concentrate (Methadone Intensol) methadone 10 mg/mL oral 140 mg PO DAILY 01/23/24 01/23/24 concentrate (Methadone Intensol) gabapentin 100 mg capsule 100 mg PO TID 11/23/24 omeprazole 20 mg capsule,delayed 20 mg PO DAILY 11/23/24 release Previous Rx's ?Medication ?Instructions ?Recorded ondansetron 4 mg disintegrating 4 mg PO Q8H 4 days #12 tabs 06/04/21 tablet Allergies Allergy/AdvReac Type Severity Reaction Status Date / Time No Known Allergies Allergy Verified 12/05/24 18:46 Review of Systems Review of Systems: Yes all other systems are reviewed and are negative PMFSH Past Medical History Attestation statement: The following information was validated with the patient. Source: old records reviewed Social History Social History Alcohol intake: current Alcohol intake frequency: 3 or more drinks per day Alcohol type: hard liquor Smoked in Last 30 Days: Yes Use of substances other than those prescribed or required for medical reasons: Yes Substance Use Type: Heroin Advance Directives: No Advance Directives Information Provided: Yes Physical Exam ED Vital Signs: Vital Signs - 24 hr 12/05/24 18:38 12/05/24 19:30 12/05/24 20:48 Temperature 98.1 F 97.8 F 97.8 F Pulse Rate 75 68 75 Respiratory Rate 12 12 16 Blood Pressure 130/81 108/80 104/74 Pulse Oximetry 96 94 94 Oxygen Delivery Method Room Air Room Air Room Air BMI result Body Mass Index 20.8 Patient is afebrile and hemodynamically stable. Const General: cooperative and no acute distress HENMT Head: Yes normal to inspection and Yes atraumatic Eyes General: appearance normal, both eyes and all related structures Conjunctivae: conjunctivae normal Pupils: Equal, round and reactive pupils present EOM: EOMs intact bilaterally Neck Neck: Yes normal visual inspection, Yes full ROM, Yes supple and No tender Chest Chest palpation & inspection: normal inspection of the chest and normal palpation of entire chest wall Resp Effort & Inspection: normal respiratory effort, able to speak in complete sentences and no cough Auscultation: clear to auscultation bilaterally Cardio Rate: regular rate Rhythm: regular rhythm Peripheral pulses: Peripheral pulses 2+ throughout GI Inspection: Yes normal to inspection, No Abdominal wall edema and No distended Palpation (GI): Soft to palpation, not firm, nontender, no guarding and not rigid Auscultation: normal bowel sounds Back/Spine/Pelvis Back: No back tenderness Neuro Cranial nerves: Yes Equal, round and reactive pupils present Extrem Other: + ecchymosis to left lateral hip Course Course Course Narrative: Patient is afebrile and hemodynamically stable. Reporting right hip pain but has left hip ecchymosis. Will obtain XR. XR with concern for left hip greater trochanter fx. Recommended CT scan. Ordered for CT Head/neck/left hip. CT significant for left greater trochanter fx. Added screening labs, EKG. Plan: Transition care pending results of labs and imaging, I suspect patient's homeless status will make disposition difficult Condition: Stable Medical Decision Making Lab Data 12/05/24 20:34 12/05/24 20:34 Labs: Lab Results 12/05/24 Range/Units 20:34 WBC 8.2 (4.8-10.8) X10*3/uL RBC 3.80 L (4.60-5.80) X10*6/uL Hgb 13.0 L (14.0-18.0) g/dl Hct 37.1 L (42.0-52.0) % MCV 97.6 (80.0-98.0) fL MCH 34.2 H (27.0-33.0) pg MCHC 35.0 (31.0-36.0) g/dl RDW 11.6 (11.0-16.0) % Plt Count 252 D (160-400) X10*3/uL MPV 8.8 L (9.4-12.4) fL Immature Gran % (Auto) 0.2 (0.0-0.4) % Neut % (Auto) 57.0 (45-73) % Lymph % (Auto) 31.3 (20-40) % Archuleta % (Auto) 6.4 (2-11) % Eos % (Auto) 4.2 H (0-4) % Baso % (Auto) 0.9 (0-2) % Lymph # (Auto) 2.6 (1.2-4.9) X10*3/uL Archuleta # (Auto) 0.5 (0.1-1.2) X10*3/uL Eos # (Auto) 0.3 (0.0-0.4) X10*3/uL Baso # (Auto) 0.1 (0.0-0.2) X10*3/uL Abs Immat Gran (auto) 0.02 (0.00-0.03) X10*3/uL Absolute Neuts (auto) 4.7 (2.0-8.3) x10*3/uL Absolute Nucleated RBC 0.000 (0.0-0.012) X10*3/uL Nucleated RBC % (auto) 0.0 (0.0-0.2) /100WBC PT 11.2 (10.9-12.4) SEC INR 1.0 (0.9-1.1) Radiology Impression Discussion of test interpretation with radiology: I have reviewed the radiologist's reading. Radiologist Impression: Report Number: [id number]: Total DLP = 321.00 mGy-cm CLINICAL HISTORY: fall CT cervical spine without contrast Comparison: CT/TX/SR - CT CERVICAL SPINE WITHOUT IV CONTRAST - 05/15/24 08:58 EST Findings: Moderate multilevel spondylosis with disc space narrowing, endplate sclerosis, osteophytosis and facet arthropathy causing reversal and mild kyphosis of the cervical spine. No acute fractures or dislocations. No acute findings on limited view of the intracranial contents. Soft tissues of the neck are normal. No consolidation or effusion at the lung apices. IMPRESSION: No evidence of acute fracture or traumatic listhesis of the cervical spine. Moderate multilevel spondylosis. This document has been electronically signed by: Edith Orr MD on 12/05/2024 20:55:40 Discharge Plan Discharge Clinical Impression: Alcohol intoxication, Closed fracture of greater trochanter of left femur Patient Disposition: Still a Patient Instructions: Abuse of Alcohol (ED), Hip Fracture (ED) Prescriptions: No Action ondansetron 4 mg tablet,disintegrating 4 mg PO Q8H 4 Days Qty: 12 0RF methadone [Methadone Intensol] 10 mg/mL Concentrate 140 mg PO DAILY methadone [Methadone Intensol] 10 mg/mL Concentrate 20 mg PO BEDTIME omeprazole 20 mg capsule,delayed release(DR/EC) 20 mg PO DAILY gabapentin 100 mg capsule 100 mg PO TID Print Language: Croatian
[2024-12-05 19:30] VITALS: BP 108/80; PULSE 68; RESP 12; TEMP 36.6; O2SAT 94
--- NOTE | 2024-12-05 20:04 | ECG_ITS ---
Test Reason : PRE OP Blood Pressure : */* mmHG Vent. Rate : 69 BPM Atrial Rate : 69 BPM P-R Int : 160 ms QRS Dur : 82 ms QT Int : 444 ms P-R-T Axes : 75 63 58 degrees QTcB Int : 475 ms Normal sinus rhythm Normal ECG When compared with ECG of 29-Nov-2024 00:38, No significant changes seen Referred By: Bernadine Hernandez Electronically Signed By: RACHEL TATE
--- NOTE | 2024-12-05 20:19 | MHC.EDTECH ---
pt refused EKG at this time stating I had one two days ago. You're not getting another one . Pt also refusing blood work at this time. RN aware
--- NOTE | 2024-12-05 20:21 | PC.NURSE ---
Addendum entered by Molly Ross RN 12/05/24 20:43: able to obtain abs and plac IV but pt refusing EKG from EDT, pt making in appropriate comments and stating racial slurs towards EDT. Original Note: pt refusing labs and ekg. attempted to educate pt on importance of workup but pt refusing stating it is not going to help him. Provider aware,
[2024-12-05 20:37] LABS: MANUAL DIFF FLAG NO
[2024-12-05 20:46] LABS: Hematocrit 37.1 % (42.0-52.0); Hemoglobin 13.0 g/dl (14.0-18.0); Imm Gran Abs Auto 0.02 X10*3/uL (0.00-0.03); Imm Gran Pct Auto 0.2 % (0.0-0.4); Lymphocytes Absolute Auto 2.6 X10*3/uL (1.2-4.9); Mean Corpuscular HGB Conc 35.0 g/dl (31.0-36.0); Mean Corpuscular Hemoglobin 34.2 pg (27.0-33.0); Mean Corpuscular Volume 97.6 fL (80.0-98.0); NRBC Abs Auto 0.000 X10*3/uL (0.0-0.012); NRBC Pct Auto 0.0 /100WBC (0.0-0.2); Platelet Count 252 X10*3/uL (160-400); Red Blood Count 3.80 X10*6/uL (4.60-5.80); White Blood Count 8.2 X10*3/uL (4.8-10.8)
[2024-12-05 20:48] VITALS: BP 104/74; PULSE 75; RESP 16; TEMP 36.6; O2SAT 94
[2024-12-05 20:53] LABS: INTERNATIONAL NORM RATIO 1.0 (0.9-1.1); Prothrombin Time 11.2 SEC (10.9-12.4)
[2024-12-05 21:06] LABS: Anion Gap 15 (12-20); Blood Urea Nitrogen 14 mg/dL (9-16); Calcium 8.9 mg/dL (8.4-10.2); Carbon Dioxide 26 mmol/L (22-29); Chloride 100 mmol/L (96-108); Creatinine Clr Calc Pharmacy 58.0; Estimated Glomerular Filt Rate > 60; Potassium 4.2 mmol/L (3.3-5.1); Sodium 137 mmol/L (135-145)
[2024-12-05 21:59] VITALS: BP 122/79; PULSE 76; RESP 17; TEMP 36.6; O2SAT 96
[2024-12-05 23:33] VITALS: BP 99/71; PULSE 65; RESP 10; TEMP 36.4; O2SAT 96
[2024-12-06] VITALS (13 sets, daily range): BP systolic 95–135; BP diastolic 59–99; PULSE 57–83; RESP 12–22; TEMP 36.1–37; O2SAT 94–99; BMI 22.0
[2024-12-06] MEDS: methADONE HCl 20 MG/2 ML ORAL.CONC 45 MG PO (08:39)
--- NOTE | 2024-12-06 10:34 | PC.NURSE ---
Resumed care of pt at 0700, pt was yelling out to staff stating he was in pain, this RN went into room to talk with pt. Pt stated he came in drunk and didn't feel the pain, however now he is have 10/10 pain. This RN educated pt that he has a broken L hip, he wll be on bedrest at this time, urinal and bedpan at bedside. Plan to admit pt to hospital. Pt reporting he takes methadone every day, it is not prescribed to him, he takes what he can get from the street, we were able to dose him with 45mg this morning, and placed an addiction medicine consult. Pt also reporting withdrawal seizure history, seizure pads placed at this time. ED MD made aware, medications ordered and given per JUN. Pt has been sleeping since medication admin. Awaiting ortho consult and admission orders at this time. Call thomas within reach.
--- NOTE | 2024-12-06 11:19 | PM.IMHP ---
History of Present Illness Date of Service: 12/06/24 Attending physician on admission: Jm Cunningham Chief Complaint: Alcohol intoxication This is a 54-year-old male with a history of polysubstance use, alcohol abuse who was brought into the emergency department due to acute intoxication. Patient was uncooperative and did not provide any history about per emergency room documentation he also complained of hip pain. CT scan of the hip in the emergency department showed acute comminuted mildly displaced fracture of the left greater trochanter. Initial plan was for the patient to go to rehab. However he began showing signs of alcohol withdrawal and required a dose of oral Librium and therefore the decision was made to admit him to the hospital for further management. Patient reports drinking a handle of vodka daily and snorting 1-1/2 bundles or more of heroin daily. He has also been taking methadone off the street. Review of Systems Review of Systems: limited ROS due to lack of pt cooperation Musculoskeletal: Comments: hip pain PMFSH Medical History (Updated 12/06/24 @ 11:26 by ESCOBAR Thompson) Polysubstance use disorder Alcohol use disorder Social History Alcohol intake: current Alcohol intake frequency: 3 or more drinks per day Alcohol type: hard liquor Patient Tobacco Use Status: Current everyday Tobacco user Smoked in Last 30 Days: Yes Use of substances other than those prescribed or required for medical reasons: Yes Substance Use Type: Heroin Advance Directives: No Advance Directives Information Provided: Yes Nutrition Risks: No Nutritional Risk Meds Allergies Allergy/AdvReac Type Severity Reaction Status Date / Time No Known Allergies Allergy Verified 12/05/24 18:46 Active Medications: Current Medications Acetaminophen (Acetaminophen 325 Mg Tablet) 650 mg PO Q6H [facility] Last Admin: 12/06/24 08:41 Dose: 650 mg Acetaminophen (Acetaminophen 325 Mg Tablet) 650 mg PO Q6H PRN PRN Reason: Pain, Mild 1-3,fever,headache Calcium Carbonate (Calcium Carbonate 750 Mg Tab.Chew) 750 mg PO Q4H PRN PRN Reason: Heartburn Enoxaparin Sodium (Enoxaparin Sodium 40 Mg/0.4 Ml Syringe) 40 mg SUBCUT Q24H [facility] Folic Acid (Folic Acid 1 Mg Tablet) 1 mg PO DAILY [facility] Lactated Ringer's (Lr) 1,000 mls @ 100 mls/hr IVCONT .Q10H [facility] Stop: 12/06/24 21:14 Lorazepam (Lorazepam 1 Mg Tablet) 1 mg PO Q4H PRN PRN Reason: Breakthrough alcohol withdrawa Stop: 12/10/24 11:17 Lorazepam (Lorazepam 1 Mg Tablet) 0 mg PO Q4H [facility]; Taper Stop: 12/10/24 13:29 Magnesium Hydroxide (Milk Of Magnesia 30 Ml Oral.Susp) 30 ml PO DAILY PRN PRN Reason: Constipation Melatonin (Melatonin 3 Mg Tablet) 6 mg PO BEDTIME PRN PRN Reason: Insomnia Morphine Sulfate (Morphine Sulfate 4 Mg/Ml Cartridge) 2 mg IVPUSH Q4H PRN; Protocol PRN Reason: Pain, Severe (Pain Scale 7-10) Oxycodone HCl (Oxycodone Hcl Immed Release 5 Mg Tablet) 5 mg PO Q6H PRN PRN Reason: Pain, Moderate(Pain Scale 4-6) Sodium Chloride (0.9 % Sodium Chloride Flush 3 Ml Syringe) 3 ml IVFLUSH QSHIFT [facility] Thiamine HCl (Thiamine Hcl 100 Mg Tablet) 100 mg PO DAILY [facility] Home Medications ?Medication ?Instructions ?Recorded ?Confirmed ?Last Taken ?Type methadone 10 mg/mL oral 20 mg PO BEDTIME 01/23/24 01/23/24 01/10/24 History concentrate (Methadone Intensol) methadone 10 mg/mL oral 140 mg PO DAILY 01/23/24 01/23/24 01/10/24 History concentrate (Methadone Intensol) gabapentin 100 mg capsule 100 mg PO TID 11/23/24 Unknown History omeprazole 20 mg capsule,delayed 20 mg PO DAILY 11/23/24 Unknown History release Physical Exam Vital Signs and Narrative: Vital Signs: Last Vital Signs Temp 98.6 F 12/06/24 08:43 Pulse 83 12/06/24 08:43 Resp 22 H 12/06/24 08:43 BP 119/77 12/06/24 08:43 Pulse Ox 98 12/06/24 08:43 O2 Del Method Room Air 12/06/24 08:43 BMI result Body Mass Index 20.8 Results Labs 12/05/24 20:34 12/06/24 10:49 Labs: Laboratory Results - last 24 hr 12/05/24 20:34 MCV 97.6 MCH 34.2 H MCHC 35.0 RDW 11.6 Plt Count 252 D MPV 8.8 L Immature Gran % (Auto) 0.2 Neut % (Auto) 57.0 Lymph % (Auto) 31.3 Shannon % (Auto) 6.4 Eos % (Auto) 4.2 H Baso % (Auto) 0.9 Lymph # (Auto) 2.6 Shannon # (Auto) 0.5 Eos # (Auto) 0.3 Baso # (Auto) 0.1 Abs Immat Gran (auto) 0.02 Absolute Neuts (auto) 4.7 Absolute Nucleated RBC 0.000 Nucleated RBC % (auto) 0.0 PT 11.2 INR 1.0 Anion Gap 15 Estim Creat Clear Calc 58.0 Estimated GFR > 60 Random Glucose 99 Calcium 8.9 Ethyl Alcohol 371 H* Assessment and Plan (1) Closed fracture of greater trochanter of left femur: Status: Acute (2) Alcohol intoxication: Status: Acute Plan This is a 54-year-old homeless male history of alcohol use and polysubstance use disorder who was brought in due to acute alcohol intoxication found to have left greater trochanter fracture who began exhibiting signs of alcohol withdrawal Alcohol use disorder with alcohol withdrawal Received dose of Librium in ED, refusing phenobarbital protocol will treat with ativan protocol Supplementation with thiamine, folic acid Addiction Medicine consult Seizure precautions Polysubstance use Tox screen pending Received 45 mg of methadone in ED, reports he has been taking methadone off the street Addiction Medicine consultation pending Hypomagnesemia Replace and follow level Left comminuted, mildly displaced left greater trochanter fracture Ortho consult, no surgical intervention planned Partial/protected weight bearing Pain control Med reconciliation pending at the time of admission DVT prophylaxis-Lovenox Patient will likely require 2 midnight stay in the hospital for management of alcohol withdrawal and acute left hip fracture. Quality Stroke Does the patient have a stroke diagnosis?: No VTE Prior VTE?: No VTE Risk Level:: Medical - moderate - high VTE Device Contraindication: N/A - Device Ordered VTE Drug Contraindication: N/A - Med Ordered
[2024-12-06 11:26] LABS: Anion Gap 9 (12-20); Blood Urea Nitrogen 13 mg/dL (9-16); Calcium 8.5 mg/dL (8.4-10.2); Carbon Dioxide 29 mmol/L (22-29); Chloride 104 mmol/L (96-108); Creatinine Clr Calc Pharmacy 78.4; Estimated Glomerular Filt Rate > 60; Magnesium 1.2 mg/dL (1.6-2.6); Potassium 4.0 mmol/L (3.3-5.1); Sodium 138 mmol/L (135-145)
--- NOTE | 2024-12-06 11:45 | PHA.MEDREC ---
Addendum entered by Andrea Perez, PharmD 12/06/24 11:56: MED REC CHECKED BY [facility] Original Note: Pharmacy Consult ? Medication Reconciliation Pharmacy has completed the medication reconciliation. Patient states he only takes Omeprazole 20 mg daily. Patient states he was going to a methadone clinic but stopped going.
[2024-12-06] MEDS: Lactated Ringers 1,000 ML 100 ML IVCONT (11:50)
[2024-12-06] MEDS: Magnesium Sulfate/H2O 2 GM/50 ML PIGGYBACK IV (11:50)
--- NOTE | 2024-12-06 14:10 | PC.NURSE ---
Per covering ESCOBAR Cuevas will hold 1330 ativan dose since too bing to administration of librium
--- NOTE | 2024-12-06 15:24 | PM.EVENT ---
Event Note Date of Service: 12/06/24 Event Note: Patient is a 54-year-old male admitted to the hospital after a fall X-rays reveal minimally displaced, comminuted greater trochanteric fracture of the left hip Partial/protected weight-bearing on left lower extremity, will likely need ambulatory assistance with a walker No acute orthopedic intervention is indicated at this time Patient may follow-up upon discharge in the outpatient office for further management Time Spent With Patient Time: Total time managing care of this patient today ____ minutes.
--- NOTE | 2024-12-06 15:32 | MHC.EDTECH ---
PATIENT REFUSED RSV SWAB
[2024-12-06] MEDS: oxyCODONE HCl Immed Release 5 MG TABLET PO (16:23)
[2024-12-07] VITALS (10 sets, daily range): BP systolic 125–164; BP diastolic 76–89; PULSE 63–85; RESP 16–20; TEMP 36.7–37.1; O2SAT 96–98
[2024-12-07 07:44] LABS: Hematocrit 35.9 % (42.0-52.0); Hemoglobin 12.6 g/dl (14.0-18.0); Mean Corpuscular HGB Conc 35.1 g/dl (31.0-36.0); Mean Corpuscular Hemoglobin 33.7 pg (27.0-33.0); Mean Corpuscular Volume 96.0 fL (80.0-98.0); NRBC Abs Auto 0.000 X10*3/uL (0.0-0.012); NRBC Pct Auto 0.0 /100WBC (0.0-0.2); Platelet Count 192 X10*3/uL (160-400); Red Blood Count 3.74 X10*6/uL (4.60-5.80); White Blood Count 5.4 X10*3/uL (4.8-10.8)
[2024-12-07 07:54] LABS: Anion Gap 12 (12-20); Blood Urea Nitrogen 15 mg/dL (9-16); Calcium 8.5 mg/dL (8.4-10.2); Carbon Dioxide 26 mmol/L (22-29); Chloride 104 mmol/L (96-108); Creatinine Clr Calc Pharmacy 93.1; Estimated Glomerular Filt Rate > 60; Magnesium 1.6 mg/dL (1.6-2.6); Potassium 3.8 mmol/L (3.3-5.1); Sodium 138 mmol/L (135-145)
[2024-12-07] MEDS: oxyCODONE HCl Immed Release 5 MG TABLET PO ×2 (08:25→16:57)
[2024-12-07] MEDS: 0.9 % Sodium Chloride Flush 3 ML SYRINGE IVFLUSH ×3 (08:25→22:42)
--- NOTE | 2024-12-07 09:11 | MHC.CM.PN ---
Addendum entered by Ilda Mars 12/07/24 09:12: Pt is Homeless, DCP: likely return to the street at discharge. Original Note: IMM given 12/07. Pt declined to meet with this CM at this time, stating can we do this tomorrow, I'm really hurting.
--- NOTE | 2024-12-07 10:25 | P.PNIM_ITS ---
Subjective Subjective Date of Service: 12/07/24 Interval History: Seen and examined this morning Follow-up for alcohol withdrawal, hip fracture Sleepy but answering questions appropriately and arousable to verbal stimuli, despite this still requesting more pain medication Constitutional Constitutional: Denies fever(s) Cardiovascular Cardiovascular: Denies chest pain and Denies dyspnea Respiratory Respiratory: Denies dyspnea Physical Exam 2 Vital Signs: Vital Signs: Last Vital Signs Temp 98.1 F 12/07/24 08:00 Pulse 72 12/07/24 08:00 Resp 18 12/07/24 08:00 BP 164/88 H 12/07/24 08:00 Pulse Ox 98 12/07/24 08:00 O2 Del Method Room Air 12/07/24 08:00 BMI result Body Mass Index 22.0 Const: Other: Sleepy, easily arousable to verbal stimuli. Appears to be in no acute distress, well-developed, well-nourished Resp: Effort & Inspection: normal respiratory effort and able to speak in complete sentences Cardio: Rate: regular rate GI: Inspection: No distended Palpation (GI): Soft to palpation Neuro: General: CN's II-XI intact bilaterally Extrem: Other: left hip bruising Objective Data Active Medications Acetaminophen (Acetaminophen 325 Mg Tablet) 650 mg PO Q6H [facility] Last Admin: 12/07/24 08:25 Dose: 650 mg Documented By: MAGED Acetaminophen (Acetaminophen 325 Mg Tablet) 650 mg PO Q6H PRN PRN Reason: Pain, Mild 1-3,fever,headache Calcium Carbonate (Calcium Carbonate 750 Mg Tab.Chew) 750 mg PO Q4H PRN PRN Reason: Heartburn Enoxaparin Sodium (Enoxaparin Sodium 40 Mg/0.4 Ml Syringe) 40 mg SUBCUT Q24H [facility] Last Admin: 12/06/24 11:53 Dose: 40 mg Documented By: JOSUE Folic Acid (Folic Acid 1 Mg Tablet) 1 mg PO DAILY [facility] Last Admin: 12/07/24 08:25 Dose: 1 mg Documented By: MAGED Lorazepam (Lorazepam 1 Mg Tablet) 1 mg PO Q4H PRN PRN Reason: Breakthrough alcohol withdrawa Stop: 12/10/24 11:17 Lorazepam (Lorazepam 1 Mg Tablet) 1 mg PO Q4H [facility]; Taper Stop: 12/10/24 13:29 Last Admin: 12/07/24 05:31 Dose: 1 mg Documented By: JOE Magnesium Hydroxide (Milk Of Magnesia 30 Ml Oral.Susp) 30 ml PO DAILY PRN PRN Reason: Constipation Melatonin (Melatonin 3 Mg Tablet) 6 mg PO BEDTIME PRN PRN Reason: Insomnia Morphine Sulfate (Morphine Sulfate 4 Mg/Ml Cartridge) 2 mg IVPUSH Q4H PRN; Protocol PRN Reason: Pain, Severe (Pain Scale 7-10) Last Admin: 12/07/24 06:11 Dose: 2 mg Documented By: ANTGLENIS Omeprazole (Omeprazole 20 Mg Capsule.Dr) 20 mg PO DAILY@0630 [facility] Last Admin: 12/07/24 05:31 Dose: 20 mg Documented By: JOE Oxycodone HCl (Oxycodone Hcl Immed Release 5 Mg Tablet) 5 mg PO Q6H PRN PRN Reason: Pain, Moderate(Pain Scale 4-6) Last Admin: 12/07/24 08:25 Dose: 5 mg Documented By: MAGED Sodium Chloride (0.9 % Sodium Chloride Flush 3 Ml Syringe) 3 ml IVFLUSH [facility] Last Admin: 12/07/24 08:25 Dose: 3 ml Documented By: MAGED Thiamine HCl (Thiamine Hcl 100 Mg Tablet) 100 mg PO DAILY [facility] Last Admin: 12/07/24 08:25 Dose: 100 mg Documented By: MAGED Labs 12/07/24 06:50 12/07/24 06:50 Labs: Laboratory Results - last 24 hr 12/06/24 12/07/24 10:49 06:50 MCV 96.0 MCH 33.7 H MCHC 35.1 RDW 11.5 Plt Count 192 MPV 9.5 Absolute Nucleated RBC 0.000 Nucleated RBC % (auto) 0.0 Anion Gap 9 L 12 Estim Creat Clear Calc 78.4 93.1 Estimated GFR > 60 > 60 Random Glucose 87 95 Calcium 8.5 8.5 Magnesium 1.2 L* 1.6 Assessment and Plan (1) Alcohol withdrawal: Status: Acute (2) Closed fracture of greater trochanter of left femur: Status: Acute Plan This is a 54-year-old homeless male history of alcohol use and polysubstance use disorder who was brought in due to acute alcohol intoxication found to have left greater trochanter fracture who began exhibiting signs of alcohol withdrawal Alcohol use disorder with alcohol withdrawal Received dose of Librium in ED, refusing phenobarbital protocol Continue ativan protocol, CIWA remains fairly low Supplementation with thiamine, folic acid Addiction Medicine consult pending Seizure precautions Polysubstance use Tox screen pending Received 45 mg of methadone in ED, reports he has been taking methadone off the street was previously prescribed methadone but no longer goes to a clinic Addiction Medicine consultation pending Hypomagnesemia Improved with replacement Left comminuted, mildly displaced left greater trochanter fracture Ortho consult, no surgical intervention planned Partial/protected weight bearing Pain control PT eval pending DVT prophylaxis-Lovenox Patient will likely require 2 midnight stay in the hospital for management of alcohol withdrawal and acute left hip fracture. Quality Stroke Does the patient have a stroke diagnosis?: No VTE Prior VTE?: No VTE Risk Level:: Medical - moderate - high VTE Device Contraindication: N/A - Device Ordered VTE Drug Contraindication: N/A - Med Ordered
[2024-12-07] MEDS: Nicotine 14 MG PATCH.TD24 TRANSDERMA (12:37)
[2024-12-07] MEDS: Nicotine Polacrilex Lozenge 2 MG LOZENGE BUCCAL ×2 (12:37→16:58)
--- NOTE | 2024-12-07 14:06 | MHC.CM.PN ---
PT REPORTS HE IS HOMELESS AND STAYING ON THE STREETS HE HAS NO DME AND NO COMMUNITY SERVICES PT HAS NO PCP AND NO HCP HE IS AWARE THE RECOMMENDATION IS [facility], AND THAT A HCP WILL BE REQUIRED BY SNF IMM DELIVERED PT STATES HE WOULD LIKE TO GO TO [facility], HE UNDERSTANDS IT WILL LIKELY BE OUT OF THE AREA BLS TRANSPORT WILL BE NEEDED
--- NOTE | 2024-12-07 18:18 | MHC.RECOVRN ---
TW attempted to met with pt after consult placed to Addiction Medicine for AUD. On approach, pt was resting in bed with eyes closed, respirations even and unlabored. He did not appear in any acute distress. TW called pt name twice with little response. Pt attempted to interact with TW however, he would frequently fall back to sleep and unable to fully answer TW's questions without falling back to sleep. Pt did report he was purchasing methadone off the street and is interested in starting it while inpatient. TW informed Ro Sarah via tiger text of pt request. As of this note, methadone has not been started. Addiction medicine team to visit pt at another date/time for further evaluation.
[2024-12-08] VITALS: BP 129/82; PULSE 64; RESP 16; TEMP 37; O2SAT 98
[2024-12-08 03:14] VITALS: BP 144/90; PULSE 57; RESP 16; TEMP 36.2; O2SAT 99
[2024-12-08] MEDS: oxyCODONE HCl Immed Release 5 MG TABLET PO ×3 (03:18→22:01)
[2024-12-08 08:00] VITALS: BP 169/89; PULSE 74; PULSE 85; RESP 18; TEMP 36.6; O2SAT 99
[2024-12-08] MEDS: Nicotine 14 MG PATCH.TD24 TRANSDERMA (08:59)
[2024-12-08] MEDS: Nicotine Polacrilex Lozenge 2 MG LOZENGE BUCCAL ×3 (09:03→16:24)
[2024-12-08] MEDS: 0.9 % Sodium Chloride Flush 3 ML SYRINGE IVFLUSH ×3 (09:05→22:03)
[2024-12-08 11:36] VITALS: BP 120/86; PULSE 74; RESP 18; TEMP 37; O2SAT 98
--- NOTE | 2024-12-08 12:43 | P.PNIM_ITS ---
Subjective Subjective Date of Service: 12/08/24 Interval History: Seen and examined this morning Follow-up for alcohol withdrawal, hip fracture Sleepy but answering questions appropriately and arousable to verbal stimuli, despite this still requesting more pain medication Constitutional Constitutional: Denies fever(s) Cardiovascular Cardiovascular: Denies chest pain and Denies dyspnea Respiratory Respiratory: Denies dyspnea Physical Exam 2 Vital Signs: Vital Signs: Last Vital Signs Temp 98.6 F 12/08/24 11:36 Pulse 74 12/08/24 11:36 Resp 18 12/08/24 11:36 BP 120/86 12/08/24 11:36 Pulse Ox 98 12/08/24 11:36 O2 Del Method Room Air 12/08/24 11:36 BMI result Body Mass Index 22.0 Objective Data Active Medications Acetaminophen (Acetaminophen 325 Mg Tablet) 650 mg PO Q6H [facility] Last Admin: 12/08/24 09:02 Dose: 650 mg Documented By: LEVI Acetaminophen (Acetaminophen 325 Mg Tablet) 650 mg PO Q6H PRN PRN Reason: Pain, Mild 1-3,fever,headache Calcium Carbonate (Calcium Carbonate 750 Mg Tab.Chew) 750 mg PO Q4H PRN PRN Reason: Heartburn Enoxaparin Sodium (Enoxaparin Sodium 40 Mg/0.4 Ml Syringe) 40 mg SUBCUT Q24H [facility] Last Admin: 12/08/24 10:25 Dose: 40 mg Documented By: YAMILETH Folic Acid (Folic Acid 1 Mg Tablet) 1 mg PO DAILY [facility] Last Admin: 12/08/24 09:03 Dose: 1 mg Documented By: LEVI Lorazepam (Lorazepam 1 Mg Tablet) 1 mg PO Q4H PRN PRN Reason: Breakthrough alcohol withdrawa Stop: 12/10/24 11:17 Last Admin: 12/08/24 10:24 Dose: 1 mg Documented By: YAMILETH Lorazepam (Lorazepam 1 Mg Tablet) 1 mg PO Q6H [facility]; Taper Stop: 12/10/24 13:29 Last Admin: 12/08/24 09:01 Dose: 1 mg Documented By: LEVI Magnesium Hydroxide (Milk Of Magnesia 30 Ml Oral.Susp) 30 ml PO DAILY PRN PRN Reason: Constipation Melatonin (Melatonin 3 Mg Tablet) 6 mg PO BEDTIME PRN PRN Reason: Insomnia Last Admin: 12/07/24 20:11 Dose: 6 mg Documented By: YOLIS Morphine Sulfate (Morphine Sulfate 4 Mg/Ml Cartridge) 2 mg IVPUSH Q4H PRN; Protocol PRN Reason: Pain, Severe (Pain Scale 7-10) Last Admin: 12/08/24 10:25 Dose: 2 mg Documented By: YAMILETH Nicotine (Nicotine 14 Mg Patch.Td24) 14 mg TRANSDERMA DAILY [facility] Last Admin: 12/08/24 08:59 Dose: 14 mg Documented By: LEVI Nicotine Polacrilex (Nicotine Polacrilex Lozenge 2 Mg Lozenge) 2 mg BUCCAL Q2H PRN PRN Reason: Nicotine Cravings Last Admin: 12/08/24 10:31 Dose: 2 mg Documented By: YAMILETH Omeprazole (Omeprazole 20 Mg Capsule.Dr) 20 mg PO DAILY@0630 [facility] Last Admin: 12/08/24 06:09 Dose: 20 mg Documented By: YOLIS Oxycodone HCl (Oxycodone Hcl Immed Release 5 Mg Tablet) 5 mg PO Q6H PRN PRN Reason: Pain, Moderate(Pain Scale 4-6) Last Admin: 12/08/24 09:01 Dose: 5 mg Documented By: LEVI Sodium Chloride (0.9 % Sodium Chloride Flush 3 Ml Syringe) 3 ml IVFLUSH QSHIFT [facility] Last Admin: 12/08/24 09:05 Dose: 3 ml Documented By: LEVI Thiamine HCl (Thiamine Hcl 100 Mg Tablet) 100 mg PO DAILY [facility] Last Admin: 12/08/24 09:01 Dose: 100 mg Documented By: LEVI Labs 12/07/24 06:50 12/07/24 06:50 Assessment and Plan (1) Alcohol withdrawal: Status: Acute (2) Closed fracture of greater trochanter of left femur: Status: Acute Plan 54-year-old homeless male history of alcohol use and polysubstance use disorder who was brought in due to acute alcohol intoxication found to have left greater trochanter fracture who began exhibiting signs of alcohol withdrawal Alcohol use disorder with alcohol withdrawal Received dose of Librium in ED, refusing phenobarbital protocol Continue ativan protocol, CIWA remains fairly low Supplementation with thiamine, folic acid Seizure precautions Polysubstance use Tox screen pending Received 45 mg of methadone in ED, reports he has been taking methadone off the street was previously prescribed methadone but no longer goes to a clinic Addiction Medicine following>august start 30 mg methadone Hypomagnesemia Improved with replacement Left comminuted, mildly displaced left greater trochanter fracture Ortho consult, no surgical intervention planned Partial/protected weight bearing Pain control PT eval>rec [facility] DVT prophylaxis-Lovenox full code Quality Stroke Does the patient have a stroke diagnosis?: No VTE Prior VTE?: No VTE Risk Level:: Medical - moderate - high VTE Device Contraindication: N/A - Device Ordered VTE Drug Contraindication: N/A - Med Ordered
--- NOTE | 2024-12-08 13:01 | HO.PM.IMPN ---
Subjective Subjective Date of Service: 12/08/24 Interval History: Follow-up for alcohol withdrawal, hip fracture Sleepy but answering questions appropriately and arousable to verbal stimuli, despite this still requesting more pain medication Constitutional Constitutional: Denies fever(s) Cardiovascular Cardiovascular: Denies chest pain and Denies dyspnea Respiratory Respiratory: Denies dyspnea Physical Exam Vital Signs: Vital Signs: Last Vital Signs Temp 98.6 F 12/08/24 11:36 Pulse 74 12/08/24 11:36 Resp 18 12/08/24 11:36 BP 120/86 12/08/24 11:36 Pulse Ox 98 12/08/24 11:36 O2 Del Method Room Air 12/08/24 11:36 BMI result Body Mass Index 22.0 Objective Data Active Medications Acetaminophen (Acetaminophen 325 Mg Tablet) 650 mg PO Q6H [facility] Last Admin: 12/08/24 09:02 Dose: 650 mg Documented By: LEVI Acetaminophen (Acetaminophen 325 Mg Tablet) 650 mg PO Q6H PRN PRN Reason: Pain, Mild 1-3,fever,headache Calcium Carbonate (Calcium Carbonate 750 Mg Tab.Chew) 750 mg PO Q4H PRN PRN Reason: Heartburn Enoxaparin Sodium (Enoxaparin Sodium 40 Mg/0.4 Ml Syringe) 40 mg SUBCUT Q24H [facility] Last Admin: 12/08/24 10:25 Dose: 40 mg Documented By: YAMILETH Folic Acid (Folic Acid 1 Mg Tablet) 1 mg PO DAILY [facility] Last Admin: 12/08/24 09:03 Dose: 1 mg Documented By: LEVI Lorazepam (Lorazepam 1 Mg Tablet) 1 mg PO Q4H PRN PRN Reason: Breakthrough alcohol withdrawa Stop: 12/10/24 11:17 Last Admin: 12/08/24 10:24 Dose: 1 mg Documented By: YAMILETH Lorazepam (Lorazepam 1 Mg Tablet) 1 mg PO Q6H [facility]; Taper Stop: 12/10/24 13:29 Last Admin: 12/08/24 09:01 Dose: 1 mg Documented By: LEVI Magnesium Hydroxide (Milk Of Magnesia 30 Ml Oral.Susp) 30 ml PO DAILY PRN PRN Reason: Constipation Melatonin (Melatonin 3 Mg Tablet) 6 mg PO BEDTIME PRN PRN Reason: Insomnia Last Admin: 12/07/24 20:11 Dose: 6 mg Documented By: YOLIS Morphine Sulfate (Morphine Sulfate 4 Mg/Ml Cartridge) 2 mg IVPUSH Q4H PRN; Protocol PRN Reason: Pain, Severe (Pain Scale 7-10) Last Admin: 12/08/24 10:25 Dose: 2 mg Documented By: YAMILETH Nicotine (Nicotine 14 Mg Patch.Td24) 14 mg TRANSDERMA DAILY [facility] Last Admin: 12/08/24 08:59 Dose: 14 mg Documented By: LEVI Nicotine Polacrilex (Nicotine Polacrilex Lozenge 2 Mg Lozenge) 2 mg BUCCAL Q2H PRN PRN Reason: Nicotine Cravings Last Admin: 12/08/24 10:31 Dose: 2 mg Documented By: YAMILETH Omeprazole (Omeprazole 20 Mg Capsule.Dr) 20 mg PO DAILY@0630 [facility] Last Admin: 12/08/24 06:09 Dose: 20 mg Documented By: YOLIS Oxycodone HCl (Oxycodone Hcl Immed Release 5 Mg Tablet) 5 mg PO Q6H PRN PRN Reason: Pain, Moderate(Pain Scale 4-6) Last Admin: 12/08/24 09:01 Dose: 5 mg Documented By: LEVI Sodium Chloride (0.9 % Sodium Chloride Flush 3 Ml Syringe) 3 ml IVFLUSH QSHIFT [facility] Last Admin: 12/08/24 09:05 Dose: 3 ml Documented By: LEVI Thiamine HCl (Thiamine Hcl 100 Mg Tablet) 100 mg PO DAILY [facility] Last Admin: 12/08/24 09:01 Dose: 100 mg Documented By: LEVI Labs 12/07/24 06:50 12/07/24 06:50 Quality Stroke Does the patient have a stroke diagnosis?: No VTE Prior VTE?: No VTE Risk Level:: Medical - moderate - high VTE Device Contraindication: N/A - Device Ordered VTE Drug Contraindication: N/A - Med Ordered
[2024-12-08] MEDS: methADONE HCl 20 MG/2 ML ORAL.CONC 30 MG PO (13:28)
[2024-12-08 16:00] VITALS: BP 122/74; PULSE 71; PULSE 75; RESP 20; TEMP 36.9; O2SAT 99
[2024-12-08 20:02] VITALS: BP 130/83; PULSE 65; RESP 20; TEMP 37.5; O2SAT 98
[2024-12-09] VITALS (9 sets, daily range): BP systolic 114–146; BP diastolic 72–88; PULSE 63–87; RESP 16–20; TEMP 36.3–36.9; O2SAT 98–100
[2024-12-09] MEDS: oxyCODONE HCl Immed Release 5 MG TABLET PO ×3 (06:30→23:22)
[2024-12-09] MEDS: Nicotine Polacrilex Lozenge 2 MG LOZENGE BUCCAL ×4 (07:29→18:29)
[2024-12-09] MEDS: methADONE HCl 20 MG/2 ML ORAL.CONC 30 MG PO (07:32)
[2024-12-09] MEDS: 0.9 % Sodium Chloride Flush 3 ML SYRINGE IVFLUSH ×2 (07:33→14:27)
[2024-12-09] MEDS: Nicotine 14 MG PATCH.TD24 TRANSDERMA (07:34)
--- NOTE | 2024-12-09 10:34 | HO.PM.IMPN ---
Subjective Subjective Date of Service: 12/09/24 Interval History: Seen and examined this morning Follow-up for alcohol withdrawal, hip fracture Sleepy but answering questions appropriately and arousable to verbal stimuli, despite this still requesting more pain medication Constitutional Constitutional: Denies fever(s) Cardiovascular Cardiovascular: Denies chest pain and Denies dyspnea Respiratory Respiratory: Denies dyspnea Physical Exam Exam: Exam: Appearing in no acute distress lung sounds are clear to auscultation heart regular rate rhythm, clear S1, S2 positive bowel sounds, abdomen is soft, nontender neuro patient is alert x3, no focal deficits Vital Signs: Vital Signs: Last Vital Signs Temp 97.8 F 12/09/24 08:00 Pulse 80 12/09/24 08:00 Resp 17 12/09/24 08:00 BP 126/85 12/09/24 08:00 Pulse Ox 100 12/09/24 08:00 O2 Del Method Room Air 12/09/24 08:00 BMI result Body Mass Index 22.0 Objective Data Active Medications Acetaminophen (Acetaminophen 325 Mg Tablet) 650 mg PO Q6H [facility] Last Admin: 12/09/24 07:30 Dose: 650 mg Documented By: LEVI Acetaminophen (Acetaminophen 325 Mg Tablet) 650 mg PO Q6H PRN PRN Reason: Pain, Mild 1-3,fever,headache Calcium Carbonate (Calcium Carbonate 750 Mg Tab.Chew) 750 mg PO Q4H PRN PRN Reason: Heartburn Enoxaparin Sodium (Enoxaparin Sodium 40 Mg/0.4 Ml Syringe) 40 mg SUBCUT Q24H [facility] Last Admin: 12/09/24 09:54 Dose: 40 mg Documented By: YAMILETH Folic Acid (Folic Acid 1 Mg Tablet) 1 mg PO DAILY [facility] Last Admin: 12/09/24 07:30 Dose: 1 mg Documented By: LEVI Lorazepam (Lorazepam 1 Mg Tablet) 1 mg PO Q4H PRN PRN Reason: Breakthrough alcohol withdrawa Stop: 12/10/24 11:17 Last Admin: 12/09/24 09:53 Dose: 1 mg Documented By: YAMILETH Lorazepam (Lorazepam 1 Mg Tablet) 0.5 mg PO Q6H [facility]; Taper Stop: 12/10/24 13:29 Last Admin: 12/09/24 07:29 Dose: 0.5 mg Documented By: LEVI Magnesium Hydroxide (Milk Of Magnesia 30 Ml Oral.Susp) 30 ml PO DAILY PRN PRN Reason: Constipation Melatonin (Melatonin 3 Mg Tablet) 6 mg PO BEDTIME PRN PRN Reason: Insomnia Last Admin: 12/08/24 22:01 Dose: 6 mg Documented By: YOLIS Methadone HCl (Methadone Hcl 20 Mg/2 Ml Oral.Conc) 30 mg PO DAILY@0800 [facility] Last Admin: 12/09/24 07:32 Dose: 30 mg Documented By: LEVI Co-signed By: YAMILETH Morphine Sulfate (Morphine Sulfate 4 Mg/Ml Cartridge) 2 mg IVPUSH Q4H PRN; Protocol PRN Reason: Pain, Severe (Pain Scale 7-10) Last Admin: 12/09/24 09:54 Dose: 2 mg Documented By: YAMILETH Nicotine (Nicotine 14 Mg Patch.Td24) 14 mg TRANSDERMA DAILY [facility] Last Admin: 12/09/24 07:34 Dose: 14 mg Documented By: LEVI Nicotine Polacrilex (Nicotine Polacrilex Lozenge 2 Mg Lozenge) 2 mg BUCCAL Q2H PRN PRN Reason: Nicotine Cravings Last Admin: 12/09/24 09:54 Dose: 2 mg Documented By: YAMILETH Omeprazole (Omeprazole 20 Mg Capsule.Dr) 20 mg PO DAILY@0630 [facility] Last Admin: 12/09/24 06:26 Dose: 20 mg Documented By: YOLIS Oxycodone HCl (Oxycodone Hcl Immed Release 5 Mg Tablet) 5 mg PO Q6H PRN PRN Reason: Pain, Moderate(Pain Scale 4-6) Last Admin: 12/09/24 06:30 Dose: 5 mg Documented By: YOLIS Sodium Chloride (0.9 % Sodium Chloride Flush 3 Ml Syringe) 3 ml IVFLUSH QSHIFT [facility] Last Admin: 12/09/24 07:33 Dose: 3 ml Documented By: LEVI Thiamine HCl (Thiamine Hcl 100 Mg Tablet) 100 mg PO DAILY [facility] Last Admin: 12/09/24 07:29 Dose: 100 mg Documented By: LEVI Labs 12/07/24 06:50 12/07/24 06:50 Assessment and Plan (1) Alcohol withdrawal: Status: Acute (2) Closed fracture of greater trochanter of left femur: Status: Acute Plan 54-year-old homeless male history of alcohol use and polysubstance use disorder who was brought in due to acute alcohol intoxication found to have left greater trochanter fracture who began exhibiting signs of alcohol withdrawal Alcohol use disorder with alcohol withdrawal Received dose of Librium in ED, refusing phenobarbital protocol Continue ativan protocol, CIWA remains fairly low Supplementation with thiamine, folic acid Seizure precautions Polysubstance use reports he has been taking methadone off the street was previously prescribed methadone but no longer goes to a clinic Addiction Medicine following>august start 30 mg methadone, increased to 50 mg today Hypomagnesemia Improved with replacement Left comminuted, mildly displaced left greater trochanter fracture Ortho consult, no surgical intervention planned Partial/protected weight bearing Pain control PT eval>rec STR oob to chair DVT prophylaxis-Lovenox full code Quality Stroke Does the patient have a stroke diagnosis?: No VTE Prior VTE?: No VTE Risk Level:: Medical - moderate - high VTE Device Contraindication: N/A - Device Ordered VTE Drug Contraindication: N/A - Med Ordered
[2024-12-09] MEDS: methADONE HCl 20 MG/2 ML ORAL.CONC PO (11:10)
[2024-12-10] VITALS (10 sets, daily range): BP systolic 107–126; BP diastolic 60–89; PULSE 71–86; RESP 16–18; TEMP 36.3–36.6; O2SAT 94–99
[2024-12-10] MEDS: methADONE HCl 20 MG/2 ML ORAL.CONC 50 MG PO (09:08)
[2024-12-10] MEDS: 0.9 % Sodium Chloride Flush 3 ML SYRINGE IVFLUSH ×3 (09:09→20:14)
[2024-12-10] MEDS: Nicotine Polacrilex Lozenge 2 MG LOZENGE BUCCAL ×3 (09:09→14:12)
[2024-12-10] MEDS: Nicotine 14 MG PATCH.TD24 TRANSDERMA (09:09)
--- NOTE | 2024-12-10 10:28 | P.PNIM_ITS ---
Subjective Subjective Date of Service: 12/10/24 Interval History: Seen and examined this morning Follow-up for alcohol withdrawal, hip fracture Sleepy but answering questions appropriately and arousable to verbal stimuli, despite this still requesting more pain medication Constitutional Constitutional: Denies fever(s) Cardiovascular Cardiovascular: Denies chest pain and Denies dyspnea Respiratory Respiratory: Denies dyspnea Physical Exam 2 Exam: Exam: Appearing in no acute distress lung sounds are clear to auscultation heart regular rate rhythm, clear S1, S2 positive bowel sounds, abdomen is soft, nontender neuro patient is alert x3, no focal deficits Vital Signs: Vital Signs: Last Vital Signs Temp 97.3 F 12/10/24 07:45 Pulse 80 12/10/24 07:45 Resp 18 12/10/24 07:45 BP 125/89 12/10/24 07:45 Pulse Ox 94 12/10/24 07:45 O2 Del Method Room Air 12/10/24 07:45 BMI result Body Mass Index 22.0 Objective Data Active Medications Acetaminophen (Acetaminophen 325 Mg Tablet) 650 mg PO Q6H [facility] BEDS AT [facility] Last Admin: 12/10/24 09:08 Dose: 650 mg Documented By: YAMILETH Acetaminophen (Acetaminophen 325 Mg Tablet) 650 mg PO Q6H PRN PRN Reason: Pain, Mild 1-3,fever,headache Calcium Carbonate (Calcium Carbonate 750 Mg Tab.Chew) 750 mg PO Q4H PRN PRN Reason: Heartburn Enoxaparin Sodium (Enoxaparin Sodium 40 Mg/0.4 Ml Syringe) 40 mg SUBCUT Q24H [facility] 234 BEDS AT [facility] Last Admin: 12/09/24 09:54 Dose: 40 mg Documented By: YAMILETH Folic Acid (Folic Acid 1 Mg Tablet) 1 mg PO DAILY [facility] 234 BEDS AT [facility] Last Admin: 12/10/24 09:08 Dose: 1 mg Documented By: YAMILETH Lorazepam (Lorazepam 1 Mg Tablet) 1 mg PO Q4H PRN PRN Reason: Breakthrough alcohol withdrawa Stop: 12/10/24 11:17 Last Admin: 12/09/24 23:41 Dose: 1 mg Documented By: CIRO Lorazepam (Lorazepam 1 Mg Tablet) 0.5 mg PO Q6H [facility] 234 BEDS AT [facility]; Taper Stop: 12/10/24 13:29 Last Admin: 12/10/24 09:08 Dose: 0.5 mg Documented By: YAMILETH Magnesium Hydroxide (Milk Of Magnesia 30 Ml Oral.Susp) 30 ml PO DAILY PRN PRN Reason: Constipation Melatonin (Melatonin 3 Mg Tablet) 6 mg PO BEDTIME PRN PRN Reason: Insomnia Last Admin: 12/08/24 22:01 Dose: 6 mg Documented By: YOLIS Methadone HCl (Methadone Hcl 20 Mg/2 Ml Oral.Conc) 50 mg PO DAILY@0800 [facility] 234 BEDS AT [facility] Last Admin: 12/10/24 09:08 Dose: 50 mg Documented By: YAMILETH Co-signed By: PHYLICIA Methadone HCl (Methadone Hcl 10 Mg Tablet) 10 mg PO ONCE ONE Stop: 12/10/24 10:29 Morphine Sulfate (Morphine Sulfate 4 Mg/Ml Cartridge) 2 mg IVPUSH Q4H PRN; Protocol PRN Reason: Pain, Severe (Pain Scale 7-10) Last Admin: 12/10/24 09:07 Dose: 2 mg Documented By: YAMILETH Nicotine (Nicotine 14 Mg Patch.Td24) 14 mg TRANSDERMA DAILY [facility] 234 BEDS AT [facility] Last Admin: 12/10/24 09:09 Dose: 14 mg Documented By: YAMILETH Nicotine Polacrilex (Nicotine Polacrilex Lozenge 2 Mg Lozenge) 2 mg BUCCAL Q2H PRN PRN Reason: Nicotine Cravings Last Admin: 12/10/24 09:09 Dose: 2 mg Documented By: YAMILETH Omeprazole (Omeprazole 20 Mg Capsule.Dr) 20 mg PO DAILY@0630 [facility] 234 BEDS AT [facility] Last Admin: 12/10/24 06:20 Dose: 20 mg Documented By: CIRO Oxycodone HCl (Oxycodone Hcl Immed Release 5 Mg Tablet) 5 mg PO Q6H PRN PRN Reason: Pain, Moderate(Pain Scale 4-6) Last Admin: 12/09/24 23:22 Dose: 5 mg Documented By: CIRO Sodium Chloride (0.9 % Sodium Chloride Flush 3 Ml Syringe) 3 ml IVFLUSH QSHIFT [facility]CLUDE 234 BEDS AT THE [facility] Last Admin: 12/10/24 09:09 Dose: 3 ml Documented By: YAMILETH Thiamine HCl (Thiamine Hcl 100 Mg Tablet) 100 mg PO DAILY [facility] 234 BEDS AT [facility] Last Admin: 12/10/24 09:08 Dose: 100 mg Documented By: YAMILETH Labs 12/07/24 06:50 12/07/24 06:50 Assessment and Plan (1) Alcohol withdrawal: Status: Acute (2) Closed fracture of greater trochanter of left femur: Status: Acute Plan 54-year-old homeless male history of alcohol use and polysubstance use disorder who was brought in due to acute alcohol intoxication found to have left greater trochanter fracture who began exhibiting signs of alcohol withdrawal Alcohol use disorder with alcohol withdrawal Received dose of Librium in ED, refused phenobarbital protocol Continue ativan protocol, CIWA remains fairly low Supplementation with thiamine, folic acid Seizure precautions Polysubstance use reports he has been taking methadone off the street was previously prescribed methadone but no longer goes to a clinic Addiction Medicine following>started 30 mg methadone, titrate up as necessary Hypomagnesemia Improved with replacement Left comminuted, mildly displaced left greater trochanter fracture Ortho consult, no surgical intervention planned Partial/protected weight bearing Pain control PT eval>rec STR oob to chair DVT prophylaxis-Lovenox full code Quality Stroke Does the patient have a stroke diagnosis?: No VTE Prior VTE?: No VTE Risk Level:: Medical - moderate - high VTE Device Contraindication: N/A - Device Ordered VTE Drug Contraindication: N/A - Med Ordered
[2024-12-10] MEDS: methADONE HCl 20 MG/2 ML ORAL.CONC 10 MG PO (11:13)
--- NOTE | 2024-12-10 15:20 | MHC.RECOVRN ---
TW met with pt in to offer continued recovery support. On approach pt was laying in bed with a visitor at bedside. Pt reports to be in good spirits and states he will be discharging to a rehab to get stronger physically . Pt stated he is interested in [facility]. Discussed w/ Eliza Dorantes NP. Naltrexone to be considered. Pt denies questions or concerns at this time TW available for further support if needed.
[2024-12-10] MEDS: oxyCODONE HCl Immed Release 5 MG TABLET PO (20:13)
[2024-12-11] VITALS (8 sets, daily range): BP systolic 112–138; BP diastolic 59–80; PULSE 64–82; RESP 16–20; TEMP 36.1–36.7; O2SAT 97–99
[2024-12-11] MEDS: 0.9 % Sodium Chloride Flush 3 ML SYRINGE IVFLUSH ×3 (08:09→21:51)
[2024-12-11] MEDS: Nicotine 14 MG PATCH.TD24 TRANSDERMA (08:10)
[2024-12-11] MEDS: methADONE HCl 20 MG/2 ML ORAL.CONC 60 MG PO (08:10)
--- NOTE | 2024-12-11 09:52 | P.PNIM_ITS ---
Subjective Subjective Date of Service: 12/11/24 Interval History: Seen and examined this morning Follow-up for alcohol withdrawal, hip fracture oob to chair Constitutional Constitutional: Denies fever(s) Cardiovascular Cardiovascular: Denies chest pain and Denies dyspnea Respiratory Respiratory: Denies dyspnea Physical Exam 2 Exam: Exam: Appearing in no acute distress lung sounds are clear to auscultation heart regular rate rhythm, clear S1, S2 positive bowel sounds, abdomen is soft, nontender neuro patient is alert x3, no focal deficits Vital Signs: Vital Signs: Last Vital Signs Temp 98.0 F 12/11/24 07:35 Pulse 71 12/11/24 07:35 Resp 18 12/11/24 07:35 BP 138/75 12/11/24 07:35 Pulse Ox 99 12/11/24 07:35 O2 Del Method Room Air 12/11/24 07:35 BMI result Body Mass Index 22.0 Objective Data Active Medications Acetaminophen (Acetaminophen 325 Mg Tablet) 650 mg PO Q6H [facility] Last Admin: 12/11/24 08:11 Dose: Not Given Documented By: ZULEYKA Non-Admin Reason: Patient Refused Acetaminophen (Acetaminophen 325 Mg Tablet) 650 mg PO Q6H PRN PRN Reason: Pain, Mild 1-3,fever,headache Calcium Carbonate (Calcium Carbonate 750 Mg Tab.Chew) 750 mg PO Q4H PRN PRN Reason: Heartburn Last Admin: 12/11/24 08:20 Dose: 750 mg Documented By: ZULEYKA Enoxaparin Sodium (Enoxaparin Sodium 40 Mg/0.4 Ml Syringe) 40 mg SUBCUT Q24H [facility] Last Admin: 12/10/24 11:12 Dose: 40 mg Documented By: YAMILETH Folic Acid (Folic Acid 1 Mg Tablet) 1 mg PO DAILY [facility] Last Admin: 12/11/24 08:10 Dose: 1 mg Documented By: ZULEYKA Magnesium Hydroxide (Milk Of Magnesia 30 Ml Oral.Susp) 30 ml PO DAILY PRN PRN Reason: Constipation Melatonin (Melatonin 3 Mg Tablet) 6 mg PO BEDTIME PRN PRN Reason: Insomnia Last Admin: 12/08/24 22:01 Dose: 6 mg Documented By: YOLIS Methadone HCl (Methadone Hcl 20 Mg/2 Ml Oral.Conc) 60 mg PO DAILY@0800 [facility] Last Admin: 12/11/24 08:10 Dose: 60 mg Documented By: ZULEYKA Co-signed By: NOEMÍ Morphine Sulfate (Morphine Sulfate 4 Mg/Ml Cartridge) 2 mg IVPUSH Q4H PRN; Protocol PRN Reason: Pain, Severe (Pain Scale 7-10) Last Admin: 12/11/24 02:52 Dose: 2 mg Documented By: RJ Nicotine (Nicotine 14 Mg Patch.Td24) 14 mg TRANSDERMA DAILY [facility] Last Admin: 12/11/24 08:10 Dose: 14 mg Documented By: ZULEYKA Nicotine Polacrilex (Nicotine Polacrilex Lozenge 2 Mg Lozenge) 2 mg BUCCAL Q2H PRN PRN Reason: Nicotine Cravings Last Admin: 12/10/24 14:12 Dose: 2 mg Documented By: YAMILETH Omeprazole (Omeprazole 20 Mg Capsule.Dr) 20 mg PO DAILY@0630 [facility] Last Admin: 12/11/24 04:55 Dose: 20 mg Documented By: RJ Oxycodone HCl (Oxycodone Hcl Immed Release 5 Mg Tablet) 5 mg PO Q6H PRN PRN Reason: Pain, Moderate(Pain Scale 4-6) Last Admin: 12/10/24 20:13 Dose: 5 mg Documented By: RJ Sodium Chloride (0.9 % Sodium Chloride Flush 3 Ml Syringe) 3 ml IVFLUSH QSHIFT [facility] Last Admin: 12/11/24 08:09 Dose: 3 ml Documented By: ZULEYKA Thiamine HCl (Thiamine Hcl 100 Mg Tablet) 100 mg PO DAILY [facility] Last Admin: 12/11/24 08:10 Dose: 100 mg Documented By: ZULEYKA Labs 12/07/24 06:50 12/07/24 06:50 Assessment and Plan (1) Alcohol withdrawal: Status: Acute (2) Closed fracture of greater trochanter of left femur: Status: Acute Plan 54-year-old homeless male history of alcohol use and polysubstance use disorder who was brought in due to acute alcohol intoxication found to have left greater trochanter fracture who began exhibiting signs of alcohol withdrawal Alcohol use disorder with alcohol withdrawal Received dose of Librium in ED, refused phenobarbital protocol Continue ativan protocol, CIWA remains fairly low Supplementation with thiamine, folic acid Seizure precautions Polysubstance use reports he has been taking methadone off the street was previously prescribed methadone but no longer goes to a clinic Addiction Medicine following>started 30 mg methadone, titrate up as necessary Hypomagnesemia Improved with replacement Left comminuted, mildly displaced left greater trochanter fracture Ortho consult, no surgical intervention planned Partial/protected weight bearing Pain control PT eval>rec STR oob to chair DVT prophylaxis-Lovenox full code Quality Stroke Does the patient have a stroke diagnosis?: No VTE Prior VTE?: No VTE Risk Level:: Medical - moderate - high VTE Device Contraindication: N/A - Device Ordered VTE Drug Contraindication: N/A - Med Ordered
--- NOTE | 2024-12-11 10:49 | P.PNADD_ITS ---
Subjective Subjective Date of Service: 12/11/24 Reason For Visit: Alcohol Withdrawal Interim History: Patient seen in follow up for AUD and withdrawal--now resolved following lorazepam taper Also seen for OUD, following methadone initiation --methadone dose 60mg QD Patient awake, alert, very talkative, and quite tangential. Sharing what occurred prior to hospitalization. Shared challenges with being unhoused, and now impaired mobility. Denies any opiate withdrawal sx, requesting dose increase, however dose was increased this morning. Complaints are more around acute him pain, and chronic back pain. Review of Systems Constitutional: Reports as per HPI and Reports no additional constitutional complaints Mental Status Exam Mental Status Exam Patient Appearance: Appropriate Level of Consciousness: Awake and Alert Patient Behavior: Appropriate and Talkative Affect Description: Calm Speech Pattern: Clear Hallucinations: None Thought Process: Intact Thought Content: positive for Intact, positive for Circumstantial and positive for Tangential Judgement: Good Diagnostics Vital Signs (24Hr): Vital Signs - 24 hr 12/10/24 11:34 12/10/24 12:12 12/10/24 15:37 Temperature 97.3 F 97.3 F Pulse Rate 76 72 Respiratory Rate 18 18 18 Blood Pressure 126/76 113/64 Pulse Oximetry 97 99 Oxygen Delivery Method Room Air Room Air 12/10/24 19:34 12/10/24 23:39 12/11/24 03:44 Temperature 97.6 F 97.6 F 98.0 F Pulse Rate 86 73 72 Respiratory Rate 16 16 16 Blood Pressure 109/65 107/65 119/70 Pulse Oximetry 97 97 99 Oxygen Delivery Method Room Air Room Air Room Air 12/11/24 07:35 Temperature 98.0 F Pulse Rate 71 Respiratory Rate 18 Blood Pressure 138/75 Pulse Oximetry 99 Oxygen Delivery Method Room Air BMI result Body Mass Index 22.0 Labs 12/07/24 06:50 12/07/24 06:50 Medications Medications Current Medications Acetaminophen (Acetaminophen 325 Mg Tablet) 650 mg PO Q6H [facility] Last Admin: 12/11/24 08:11 Dose: Not Given Acetaminophen (Acetaminophen 325 Mg Tablet) 650 mg PO Q6H PRN PRN Reason: Pain, Mild 1-3,fever,headache Calcium Carbonate (Calcium Carbonate 750 Mg Tab.Chew) 750 mg PO Q4H PRN PRN Reason: Heartburn Last Admin: 12/11/24 08:20 Dose: 750 mg Enoxaparin Sodium (Enoxaparin Sodium 40 Mg/0.4 Ml Syringe) 40 mg SUBCUT Q24H [facility] Last Admin: 12/10/24 11:12 Dose: 40 mg Folic Acid (Folic Acid 1 Mg Tablet) 1 mg PO DAILY [facility] Last Admin: 12/11/24 08:10 Dose: 1 mg Magnesium Hydroxide (Milk Of Magnesia 30 Ml Oral.Susp) 30 ml PO DAILY PRN PRN Reason: Constipation Melatonin (Melatonin 3 Mg Tablet) 6 mg PO BEDTIME PRN PRN Reason: Insomnia Last Admin: 12/08/24 22:01 Dose: 6 mg Methadone HCl (Methadone Hcl 20 Mg/2 Ml Oral.Conc) 60 mg PO DAILY@0800 [facility] Last Admin: 12/11/24 08:10 Dose: 60 mg Morphine Sulfate (Morphine Sulfate 4 Mg/Ml Cartridge) 2 mg IVPUSH Q4H PRN; Protocol PRN Reason: Pain, Severe (Pain Scale 7-10) Last Admin: 12/11/24 02:52 Dose: 2 mg Nicotine (Nicotine 14 Mg Patch.Td24) 14 mg TRANSDERMA DAILY [facility] Last Admin: 12/11/24 08:10 Dose: 14 mg Nicotine Polacrilex (Nicotine Polacrilex Lozenge 2 Mg Lozenge) 2 mg BUCCAL Q2H PRN PRN Reason: Nicotine Cravings Last Admin: 12/10/24 14:12 Dose: 2 mg Omeprazole (Omeprazole 20 Mg Capsule.Dr) 20 mg PO DAILY@0630 [facility] Last Admin: 12/11/24 04:55 Dose: 20 mg Oxycodone HCl (Oxycodone Hcl Immed Release 5 Mg Tablet) 5 mg PO Q6H PRN PRN Reason: Pain, Moderate(Pain Scale 4-6) Last Admin: 12/10/24 20:13 Dose: 5 mg Sodium Chloride (0.9 % Sodium Chloride Flush 3 Ml Syringe) 3 ml IVFLUSH QSHIFT [facility] Last Admin: 12/11/24 08:09 Dose: 3 ml Thiamine HCl (Thiamine Hcl 100 Mg Tablet) 100 mg PO DAILY [facility] Last Admin: 12/11/24 08:10 Dose: 100 mg Allergies Allergies Allergy/AdvReac Type Severity Reaction Status Date / Time No Known Allergies Allergy Verified 12/05/24 18:46 Assessment & Plan Assessment & Plan (1) Opioid use disorder: Status: Acute Code(s): F11.90 - Opioid use, unspecified, uncomplicated Assessment and Plan: * continue methadone at current dose--no further increases at this time * firebreak cutter to coordinate OTP referral and guest dosing as patient will require STR * switch IV pain meds to PO as patient scheduled to d/c soon (2) Alcohol use disorder, severe, dependence: Status: Acute Code(s): F10.20 - Alcohol dependence, uncomplicated Assessment and Plan: * withdrawal resolved * continue thiamine and folic acid in STR Total time managing care of this patient today __30__ minutes.
--- NOTE | 2024-12-11 10:49 | MHC.CM.PN ---
Addendum entered by Annette Friend 12/11/24 13:08: CM is working with [facility] toward Patient's admission to that facility. Original Note: Per ROUNDS discussion, Patient is medically cleared for dc. PT is recommending STR and [facility] have accepted pending Methadone Guest Dosing, 0 CIWA (@ 7 today) and Psych Eval stating that Patient is not a threat to himself or others (RENTAL COUNTER CLERK is aware). CM will follow.
[2024-12-11] MEDS: Nicotine Polacrilex Lozenge 2 MG LOZENGE BUCCAL (11:45)
--- NOTE | 2024-12-11 13:26 | MHC.CM.PN ---
Addendum entered by Annette Friend 12/11/24 14:09: [facility] no longer has a bed, but Patient has a bed offer at [facility]; application development liaison is aware. Original Note: CM met with Patient to discuss dc planning; Patient is in agreement with PT's recommendation for STR([facility]).Patient stated that he has not been to his [facility] ([facility]) for about a month; he's been getting it on the streets. Methadone was started here and per Recovery/Anisha & Anisha Kay will arrange for Guest Dosing with [facility].
[2024-12-11 17:44] LABS: Cannabinoid Screen Urine Not Detected (Not Detect)
[2024-12-12] VITALS (12 sets, daily range): BP systolic 95–123; BP diastolic 55–85; PULSE 64–84; RESP 18–20; TEMP 36.3–37.1; O2SAT 95–99
--- NOTE | 2024-12-12 08:14 | MHC.CM.PN ---
0 CIWA score has been sent to [facility] and physician practice market manager is working on Guest Dosing. CM will continue to follow.
[2024-12-12] MEDS: methADONE HCl 20 MG/2 ML ORAL.CONC 60 MG PO (08:33)
[2024-12-12] MEDS: Nicotine 14 MG PATCH.TD24 TRANSDERMA (08:41)
[2024-12-12] MEDS: 0.9 % Sodium Chloride Flush 3 ML SYRINGE IVFLUSH ×3 (08:42→22:14)
--- NOTE | 2024-12-12 09:39 | MHC.RECOVRN ---
TW faxed all required documents to [facility] in [place] to initiate guest doing while pt is admitted to SNF for IV antibiotic tx. TW called to confirm receipt of fax and was told pt is currently under review . TW relayed that guest dosing is to begin tomorrow 12/13/24 Admission dept at [facility] states they will call TW if further documentation is needed. TW will continue to follow-up
--- NOTE | 2024-12-12 12:28 | HO.PM.IMPN ---
Subjective Subjective Date of Service: 12/12/24 Interval History: Seen and examined this morning Follow-up for alcohol withdrawal, hip fracture oob to chair Constitutional Constitutional: Denies fever(s) Cardiovascular Cardiovascular: Denies chest pain and Denies dyspnea Respiratory Respiratory: Denies dyspnea Physical Exam Exam: Exam: Appearing in no acute distress lung sounds are clear to auscultation heart regular rate rhythm, clear S1, S2 positive bowel sounds, abdomen is soft, nontender neuro patient is alert x3, no focal deficits Vital Signs: Vital Signs: Last Vital Signs Temp 97.6 F 12/12/24 11:08 Pulse 66 12/12/24 11:08 Resp 18 12/12/24 11:08 BP 106/59 L 12/12/24 11:08 Pulse Ox 95 12/12/24 11:08 O2 Del Method Room Air 12/12/24 11:08 BMI result Body Mass Index 22.0 Objective Data Active Medications Acetaminophen (Acetaminophen 325 Mg Tablet) 650 mg PO Q6H [facility] Last Admin: 12/12/24 08:39 Dose: 650 mg Documented By: ZULEYKA Acetaminophen (Acetaminophen 325 Mg Tablet) 650 mg PO Q6H PRN PRN Reason: Pain, Mild 1-3,fever,headache Calcium Carbonate (Calcium Carbonate 750 Mg Tab.Chew) 750 mg PO Q4H PRN PRN Reason: Heartburn Last Admin: 12/11/24 08:20 Dose: 750 mg Documented By: ZULEYKA Enoxaparin Sodium (Enoxaparin Sodium 40 Mg/0.4 Ml Syringe) 40 mg SUBCUT Q24H [facility] Last Admin: 12/11/24 11:38 Dose: 40 mg Documented By: ZULEYKA Folic Acid (Folic Acid 1 Mg Tablet) 1 mg PO DAILY [facility] Last Admin: 12/12/24 08:41 Dose: 1 mg Documented By: ZULEYKA Magnesium Hydroxide (Milk Of Magnesia 30 Ml Oral.Susp) 30 ml PO DAILY PRN PRN Reason: Constipation Melatonin (Melatonin 3 Mg Tablet) 6 mg PO BEDTIME PRN PRN Reason: Insomnia Last Admin: 12/08/24 22:01 Dose: 6 mg Documented By: YOLIS Methadone HCl (Methadone Hcl 20 Mg/2 Ml Oral.Conc) 60 mg PO DAILY@0800 [facility] Last Admin: 12/12/24 08:33 Dose: 60 mg Documented By: ZULEYKA Co-signed By: NOEMÍ Morphine Sulfate (Morphine Sulfate 4 Mg/Ml Cartridge) 3 mg IVPUSH Q4H PRN; Protocol PRN Reason: Pain, Severe (Pain Scale 7-10) Last Admin: 12/12/24 08:36 Dose: 3 mg Documented By: ZULEYKA Nicotine (Nicotine 14 Mg Patch.Td24) 14 mg TRANSDERMA DAILY [facility] Last Admin: 12/12/24 08:41 Dose: 14 mg Documented By: ZULEYKA Nicotine Polacrilex (Nicotine Polacrilex Lozenge 2 Mg Lozenge) 2 mg BUCCAL Q2H PRN PRN Reason: Nicotine Cravings Last Admin: 12/11/24 11:45 Dose: 2 mg Documented By: ZULEYKA Omeprazole (Omeprazole 20 Mg Capsule.Dr) 20 mg PO DAILY@0630 [facility] Last Admin: 12/12/24 05:45 Dose: 20 mg Documented By: RJ Oxycodone HCl (Oxycodone Hcl Immed Release 5 Mg Tablet) 5 mg PO Q4H PRN PRN Reason: Pain, Moderate(Pain Scale 4-6) Sodium Chloride (0.9 % Sodium Chloride Flush 3 Ml Syringe) 3 ml IVFLUSH QSHIFT [facility] Last Admin: 12/12/24 08:42 Dose: 3 ml Documented By: ZULEYKA Thiamine HCl (Thiamine Hcl 100 Mg Tablet) 100 mg PO DAILY [facility] Last Admin: 12/12/24 08:39 Dose: 100 mg Documented By: ZULEYKA Labs 12/07/24 06:50 12/07/24 06:50 Labs: Laboratory Results - last 24 hr 12/11/24 17:08 Urine Opiates Screen POSITIVE H Ur Buprenorphine Scrn Not Detected Ur Oxycodone Screen Positive H Urine Methadone Screen Positive H Urine Fentanyl Screen Not Detected Ur Barbiturates Screen POSITIVE H Ur Phencyclidine Scrn Not Detected Ur Amphetamines Screen Not Detected U Benzodiazepines Scrn POSITIVE H Urine Cocaine Screen Not Detected U Marijuana (THC) Screen Not Detected Assessment and Plan (1) Alcohol withdrawal: Status: Acute (2) Closed fracture of greater trochanter of left femur: Status: Acute Plan 54-year-old homeless male history of alcohol use and polysubstance use disorder who was brought in due to acute alcohol intoxication found to have left greater trochanter fracture who began exhibiting signs of alcohol withdrawal Alcohol use disorder with alcohol withdrawal Received dose of Librium in ED, refused phenobarbital protocol Continue ativan protocol, CIWA remains fairly low Supplementation with thiamine, folic acid Seizure precautions Polysubstance use reports he has been taking methadone off the street was previously prescribed methadone but no longer goes to a clinic Addiction Medicine following>started 30 mg methadone, titrate up as necessary, now on 70 mg doing well Hypomagnesemia Improved with replacement Left comminuted, mildly displaced left greater trochanter fracture Ortho consult, no surgical intervention planned Partial/protected weight bearing Pain control, weaning down narcotics PT eval>rec STR oob to chair DVT prophylaxis-Lovenox full code STR when bed available Quality Stroke Does the patient have a stroke diagnosis?: No VTE Prior VTE?: No VTE Risk Level:: Medical - moderate - high VTE Device Contraindication: N/A - Device Ordered VTE Drug Contraindication: N/A - Med Ordered
--- NOTE | 2024-12-12 17:20 | PC.NURSE ---
Pt called Rn ti his room , crying ,stated that he feels very anxious, stated that he worries about the discharge plan . Stated that he thinks about drinking alcohol again , stated that alcohol helps him with anxiety . Left hip severe pain , medicated with Morphine 2 mg IV . Doctor was notified , Valium ordered , will administer
[2024-12-12] MEDS: diazePAM 10 MG/2 ML CARTRIDGE IVPUSH (17:39)
[2024-12-13] VITALS (7 sets, daily range): BP systolic 105–126; BP diastolic 66–77; PULSE 63–76; RESP 16–22; TEMP 36.3–37.1; O2SAT 98
[2024-12-13] MEDS: Nicotine 14 MG PATCH.TD24 TRANSDERMA (09:07)
[2024-12-13] MEDS: methADONE HCl 20 MG/2 ML ORAL.CONC 60 MG PO (09:08)
[2024-12-13] MEDS: 0.9 % Sodium Chloride Flush 3 ML SYRINGE IVFLUSH ×2 (10:45→16:13)
[2024-12-13 10:46] LABS: Hematocrit 33.5 % (42.0-52.0); Hemoglobin 11.0 g/dl (14.0-18.0); Mean Corpuscular HGB Conc 32.8 g/dl (31.0-36.0); Mean Corpuscular Hemoglobin 33.7 pg (27.0-33.0); Mean Corpuscular Volume 102.8 fL (80.0-98.0); NRBC Abs Auto 0.000 X10*3/uL (0.0-0.012); NRBC Pct Auto 0.0 /100WBC (0.0-0.2); Platelet Count 229 X10*3/uL (160-400); Red Blood Count 3.26 X10*6/uL (4.60-5.80); White Blood Count 3.7 X10*3/uL (4.8-10.8)
[2024-12-13 11:04] LABS: Anion Gap 14 (12-20); Blood Urea Nitrogen 24 mg/dL (9-16); Calcium 9.1 mg/dL (8.4-10.2); Carbon Dioxide 29 mmol/L (22-29); Chloride 102 mmol/L (96-108); Creatinine Clr Calc Pharmacy 74.6; Estimated Glomerular Filt Rate > 60; Potassium 5.0 mmol/L (3.3-5.1); Sodium 140 mmol/L (135-145)
[2024-12-13] MEDS: Nicotine Polacrilex Lozenge 2 MG LOZENGE BUCCAL ×2 (13:51→16:17)
--- NOTE | 2024-12-13 15:02 | MHC.CM.PN ---
Patient has been medically cleared for dc to SNF/STR today. Patient will dc to [facility] today at 5 PM, via [facility]. IMM was addressed with Patient at bedside.
--- NOTE | 2024-12-13 15:15 | P.DS_ITS ---
DS: Providers Provider Date of Service: 12/13/24 Date of admission: 12/06/24 10:22 Date of discharge: 12/13/24 Primary care physician: Unknown Physician Consults: 12/06/24 08:16 Addiction Medicine Provider Stat Consulting Provider: Addiction Covering Reason for consultation: alcohol use disorder Has provider been notified: No 12/06/24 11:16 Addiction Medicine Provider Routine Consulting Provider: Addiction Covering Reason for consultation: polysubtance use, etoh Has provider been notified: No 12/06/24 11:23 Consult to Orthopedics Routine Consulting Provider: [facility] Reason for consultation: left troch fx Has provider been notified: Yes 12/11/24 11:04 Inpt CARE Team Crisis Consult Routine Comment: Reason for consultation: clearance for statements of SI for SNF DS: Diagnosis Discharge Diagnosis (1) Alcohol withdrawal: Status: Acute (2) Closed fracture of greater trochanter of left femur: Status: Acute (3) Opioid use disorder: Status: Acute (4) Alcohol use disorder, severe, dependence: Status: Acute (5) Alcohol intoxication: Status: Acute DS: Summary Hospital Course Hospital Course: From the history and physical by the admitting hospitalist, Ro Sloan, 12/06/24: This is a 54-year-old male with a history of polysubstance use, alcohol abuse who was brought into the emergency department due to acute intoxication. Patient was uncooperative and did not provide any history about per emergency room documentation he also complained of hip pain. CT scan of the hip in the emergency department showed acute comminuted mildly displaced fracture of the left greater trochanter. Initial plan was for the patient to go to rehab. However he began showing signs of alcohol withdrawal and required a dose of oral Librium and therefore the decision was made to admit him to the hospital for further management. Patient reports drinking a handle of vodka daily and snorting 1-1/2 bundles or more of heroin daily. He has also been taking methadone off the street. 54-year-old homeless male history of alcohol use and polysubstance use disorder who was brought in due to acute alcohol intoxication found to have left greater trochanter fracture who began exhibiting signs of alcohol withdrawal. Hospital course by problem: Alcohol use disorder with alcohol withdrawal - Received dose of Librium in ED, refused phenobarbital protocol. Managed with prn Ativan and withdrawal symtpoms resolved. Placed on thiamine and folate. Polysubstance use - Reports he has been taking methadone off the street. Was previously prescribed methadone but no longer goes to a clinic. Addiction Medicine consulted and started 30 mg methadone, titrated up to 60 mg daily. Hypomagnesemia - Improved with replacement Left comminuted, mildly displaced left greater trochanter fracture - Orthopedics consulted, no surgical intervention planned; partial/protected weight bearing; physical therapy; discharge to short-term rehabilitation [anticipated <30d]; outpatient follow up with [facility] Orthopedics Time Attestation Discharge Coordination Time (in mins): 35 Quality: Safe Use of Opioids Does Pt have an Active Cancer Diagnosis on the Problem List?: No Quality: Stroke Does the patient have a stroke diagnosis?: No Physical Exam Vital Signs: Vital Signs: Last Vital Signs Temp 98.7 F 12/13/24 11:48 Pulse 70 12/13/24 11:48 Resp 18 12/13/24 11:48 BP 105/68 12/13/24 11:48 Pulse Ox 98 12/13/24 11:48 O2 Del Method Room Air 12/13/24 11:48 BMI result Body Mass Index 22.0 Gen: in no acute distress HEENT: sclera anicteric, moist mucus membranes Neck: supple Lungs: clear to auscultation bilaterally Heart: regular rate and rhythm, no murmurs Abd: soft, non-tender, non-distended Ext: no edema, bruising/tenderness over L greater trochanter Skin: warm/well-perfused Neuro: alert and oriented x3, no focal findings Psych: appropriate affect DS: Data Data Completed and Pending Completed studies during hospitalization [Text1]: Laboratory Results WBC 3.7 X10*3/uL (4.8-10.8) L 12/13/24 10:19 RBC 3.26 X10*6/uL (4.60-5.80) L 12/13/24 10:19 Hgb 11.0 g/dl (14.0-18.0) L 12/13/24 10:19 Hct 33.5 % (42.0-52.0) L 12/13/24 10:19 MCV 102.8 fL (80.0-98.0) H D 12/13/24 10:19 MCH 33.7 pg (27.0-33.0) H 12/13/24 10:19 MCHC 32.8 g/dl (31.0-36.0) 12/13/24 10:19 RDW 11.9 % (11.0-16.0) 12/13/24 10:19 Plt Count 229 X10*3/uL (160-400) 12/13/24 10:19 MPV 9.6 fL (9.4-12.4) 12/13/24 10:19 Immature Gran % (Auto) 0.2 % (0.0-0.4) 12/05/24 20:34 Neut % (Auto) 57.0 % (45-73) 12/05/24 20:34 Lymph % (Auto) 31.3 % (20-40) 12/05/24 20:34 Tama % (Auto) 6.4 % (2-11) 12/05/24 20:34 Eos % (Auto) 4.2 % (0-4) H 12/05/24 20:34 Baso % (Auto) 0.9 % (0-2) 12/05/24 20:34 Lymph # (Auto) 2.6 X10*3/uL (1.2-4.9) 12/05/24 20:34 Tama # (Auto) 0.5 X10*3/uL (0.1-1.2) 12/05/24 20:34 Eos # (Auto) 0.3 X10*3/uL (0.0-0.4) 12/05/24 20:34 Baso # (Auto) 0.1 X10*3/uL (0.0-0.2) 12/05/24 20:34 Abs Immat Gran (auto) 0.02 X10*3/uL (0.00-0.03) 12/05/24 20:34 Absolute Neuts (auto) 4.7 x10*3/uL (2.0-8.3) 12/05/24 20: Absolute Nucleated RBC 0.000 X10*3/uL (0.0-0.012) 12/13/24 10:19 Nucleated RBC % (auto) 0.0 /100WBC (0.0-0.2) 12/13/24 10:19 PT 11.2 SEC (10.9-12.4) 12/05/24 20:34 INR 1.0 (0.9-1.1) 12/05/24 20:34 Sodium 140 mmol/L (135-145) 12/13/24 10:19 Potassium 5.0 mmol/L (3.3-5.1) D 12/13/24 10:19 Chloride 102 mmol/L (96-108) 12/13/24 10:19 Carbon Dioxide 29 mmol/L (22-29) 12/13/24 10:19 Anion Gap 14 (12-20) 12/13/24 10:19 BUN 24 mg/dL (9-16) H 12/13/24 10:19 Creatinine 1.01 mg/dL (0.5-1.4) 12/13/24 10:19 Estim Creat Clear Calc 74.6 12/13/24 10:19 Estimated GFR > 60 12/13/24 10:19 Random Glucose 86 mg/dL (60-115) 12/13/24 10:19 Calcium 9.1 mg/dL (8.4-10.2) D 12/13/24 10:19 Magnesium 1.6 mg/dL (1.6-2.6) 12/07/24 06:50 Urine Opiates Screen POSITIVE (Not Detect) H 12/11/24 17:08 Ur Buprenorphine Scrn Not Detected ng/mL (Not Detect) 12/11/24 17:08 Ur Oxycodone Screen Positive ng/mL (Not Detect) H 12/11/24 17:08 Urine Methadone Screen Positive ng/mL (Not Detect) H 12/11/24 17:08 Urine Fentanyl Screen Not Detected (Not Detect) 12/11/24 17:08 Ur Barbiturates Screen POSITIVE (Not Detect) H 12/11/24 17:08 Ur Phencyclidine Scrn Not Detected (Not Detect) 12/11/24 17:08 Ur Amphetamines Screen Not Detected (Not Detect) 12/11/24 17:08 U Benzodiazepines Scrn POSITIVE (Not Detect) H 12/11/24 17:08 Urine Cocaine Screen Not Detected (Not Detect) 12/11/24 17:08 U Marijuana (THC) Screen Not Detected (Not Detect) 12/11/24 17:08 Ethyl Alcohol 371 mg/dL H* 12/05/24 20:34 Discharge Plan Discharge Anticipated Discharge Date/Time: 12/13/24 15:09 Patient Disposition: Xfer SNF Discharge Diagnosis: greater trochanter fracture opioid use disorder alcohol use disorder with withdrawal Referrals: [facility] Primary Care, Surjit [Provider Group, Internal Medicine] - 1 Week [facility]opedic Surgeons [Provider Group] - 1 Week [facility] [Outside] - 1 Week Physician,Farideh Alberts [Primary Care Provider, Medical] - 1 Week Discharge Medications: New nicotine 14 mg/24 hr Patch 24 Hour 14 mg transdermal DAILY Qty: 1 0RF methadone [Methadose] 10 mg/mL Concentrate 60 mg PO DAILY@0800 Qty: 1 0RF Rx Instructions: Partial Fill upon patient request. nicotine (polacrilex) 2 mg Lozenge 2 mg buccal Q2H PRN (Reason: Nicotine Cravings) Qty: 1 0RF folic acid 1 mg Tablet 1 mg PO DAILY Qty: 1 0RF thiamine mononitrate (vit B1) 100 mg Tablet 100 mg PO DAILY Qty: 1 0RF acetaminophen 325 mg Tablet 650 mg PO Q6H PRN (Reason: Pain, Mild 1-3,Fever,Headache) Qty: 1 0RF Continued omeprazole 20 mg capsule,delayed release(DR/EC) 20 mg PO DAILY Discontinued methadone [Methadone Intensol] 10 mg/mL Concentrate 140 mg PO DAILY methadone [Methadone Intensol] 10 mg/mL Concentrate 20 mg PO BEDTIME Discharge Orders: Discharge Order (Routine); Ordered 12/13/24 Ordered By: Brandan Angelo Diet: Advance to usual diet Activity on Discharge: As tolerated Stand Alone Forms: Patient Portal Discharge page Print Language: Icelandic Care Plan Goals: recover from fracture avoid drug and alcohol abuse Health Concerns: greater trochanter fracture opioid use disorder alcohol use disorder with withdrawal Plan of Treatment: to short-term rehabilitation; anticipated length of stay less than 30 days methadone 60 mg daily take thiamine and folate quit smoking; use nicotine replacement to help follow up with [facility] Orthopedics in 1-2 weeks acetaminophen for pain establish primary care as soon as possible Return to the hospital if you experience recurrent or worsening symptoms. Assessment: See Discharge Summary. Patient Instructions: Abuse of Alcohol (ED), Hip Fracture (ED)
--- NOTE | 2024-12-13 15:57 | PC.NURSE ---
2 doses of narcan sent with patient's discharge packet to rehab as ordered by Dr. Angelo.
== END 2024-12-13 17:23 | disposition skilled nursing facility (03) | DRG 536 ==
LOC: HO.ED 20:39 → HO.EDOVER 12-06 10:27 → HO.IMC 12-06 16:16
PROVIDERS: Nurse Practitioner Acute Care; Admitting Provider Physician Assistant Medical; Emergency Provider Emergency Medicine; Visit Provider Family Medicine
DX: S72.112A Displaced fracture of greater trochanter of left femur, initial encounter for closed fracture (principal); F11.20 Opioid dependence, uncomplicated; Z59.02 Unsheltered homelessness; F10.239 Alcohol dependence with withdrawal, unspecified; Y90.8 Blood alcohol level of 240 mg/100 ml or more; F19.10 Other psychoactive substance abuse, uncomplicated; F10.229 Alcohol dependence with intoxication, unspecified; X58.XXXA Exposure to other specified factors, initial encounter; E83.42 Hypomagnesemia; F17.210 Nicotine dependence, cigarettes, uncomplicated; Z71.6 Tobacco abuse counseling; Z79.899 Other long term (current) drug therapy
CPT/HCPCS: 36415; 70450; 72125; 72170; 73700; 80048; 80307; 83735; 85025; 85027; 85610; 93005; 97110; 97162; 97530; 99285; J1650; J2270; J3360; J3475; J7120; S9485

== ENCOUNTER → 2024-12-05 18:40 | Outpatient (BNV) | payer MEDICARE, MEDICAID, SELFPAY | PROVIDERS: Emergency Provider Emergency Medicine; Visit Provider Student in an Organized Health Care Education/Training Program | DX: M25.551 Pain in right hip (principal); S70.02XA Contusion of left hip, initial encounter; F10.929 Alcohol use, unspecified with intoxication, unspecified; Z59.00 Homelessness unspecified; Z03.89 Encounter for observation for other suspected diseases and conditions ruled out | CPT/HCPCS: 70450; 72125; 72170; 73700 ==

== ENCOUNTER → 2024-12-05 20:04 | Outpatient (BNV) | payer MEDICARE, MEDICAID, SELFPAY | PROVIDERS: Admitting Provider Physician Assistant Medical; Emergency Provider Emergency Medicine; Visit Provider Internal Medicine | DX: Z13.6 Encounter for screening for cardiovascular disorders (principal); Z01.810 Encounter for preprocedural cardiovascular examination | CPT/HCPCS: 93010 ==

== ENCOUNTER → 2024-12-06 10:22 | Outpatient (BNV) | payer MEDICARE, MEDICAID, SELFPAY | PROVIDERS: Admitting Provider Physician Assistant Medical; Emergency Provider Emergency Medicine; Visit Provider Nurse Practitioner Psychiatric/Mental Health | DX: F11.90 Opioid use, unspecified, uncomplicated (principal); F10.20 Alcohol dependence, uncomplicated | CPT/HCPCS: 99232 ==

== ENCOUNTER → 2024-12-06 10:22 | Outpatient (BNV) | payer MEDICARE, MEDICAID, SELFPAY | PROVIDERS: Admitting Provider Physician Assistant Medical; Emergency Provider Emergency Medicine; Visit Provider Physician Assistant Medical | DX: F10.939 Alcohol use, unspecified with withdrawal, unspecified (principal); S72.112A Displaced fracture of greater trochanter of left femur, initial encounter for closed fracture | CPT/HCPCS: 99223; 99232; 99233; 99239 ==